=== PATIENT | male | born 1935 | race Caucasian/White ===

== ENCOUNTER 2016-08-08 19:27 | Inpatient (IN) | payer MEDICARE, MEDICAID ==
[~2016-08-08] VITALS: Ht 162.6 cm; Wt 90.7 kg
[2016-08-08] MEDS ORDERED: DORZ10DR8 EACHEYE (20:21)
[2016-08-08] MEDS ORDERED: BRIM5DRO2 EACHEYE (20:21)
[2016-08-08] MEDS ORDERED: BIMA2.5D5 EACHEYE (20:21)
[2016-08-08] MEDS ORDERED: MAGN400T6 PO (20:21)
[2016-08-08] MEDS ORDERED: ASPI-869 PO (20:21)
[2016-08-08] MEDS ORDERED: MEMA10TA PO (20:21)
[2016-08-08] MEDS ORDERED: FLUT1DIS28 IH (20:21)
[2016-08-08] MEDS ORDERED: ATOR20TA PO (20:21)
[2016-08-08] MEDS ORDERED: POTA10TA15 PO (20:21)
[2016-08-08] MEDS ORDERED: DEXL60CA3 PO (20:21)
[2016-08-08] MEDS ORDERED: ICOS1CAP PO (20:21)
[2016-08-08] MEDS ORDERED: ISOS30TA6 PO (20:21)
[2016-08-08] MEDS ORDERED: MULT1TAB73 PO (20:21)
[2016-08-08] MEDS ORDERED: TOPI25TA49 PO (20:21)
[2016-08-08] MEDS ORDERED: RISP0.5T20 PO (20:21)
[2016-08-08] MEDS ORDERED: DONE5TAB34 PO (20:21)
[2016-08-08] MEDS ORDERED: ERGO2000 PO (20:21)
[2016-08-08] MEDS ORDERED: CILO100T PO (20:21)
[2016-08-08] MEDS ORDERED: CLOP75TA15 PO (20:21)
[2016-08-08] MEDS ORDERED: SITA1TAB2 PO (20:21)
[2016-08-08] MEDS ORDERED: DOCU250C88 PO (20:21)
[2016-08-08] MEDS ORDERED: OLOP2.5D5 EACHEYE (20:21)
[2016-08-08] MEDS ORDERED: HYDROMORPHONE 1 MG/1 ML DISP.SYRIN IV ONE (20:30)
[2016-08-08] MEDS ORDERED: ONDANSETRON 4 MG/2 ML VIAL IV ONE (20:30)
[2016-08-08] MEDS ORDERED: IV NORMAL SALINE 1000 ML BAG IV ONE (20:30)
[2016-08-08] MEDS ORDERED: PANTOPRAZOLE SODIUM 40 MG VIAL IV ONE (20:30)
[2016-08-08 20:44] LABS: BASOPHILS # (AUTO) 0.1 K/uL (0.0-8.0); BASOPHILS % (AUTO) 0.5 % (0.0-2.0); EOSINOPHILS # (AUTO) 0.5 K/uL (0.0-0.7); EOSINOPHILS % (AUTO) 5.3 % (0.0-7.0); HEMATOCRIT 37.1 % (40-50); HEMOGLOBIN 12.5 G/DL (14.0-18.0); LYMPHOCYTES # (AUTO) 2.1 K/UL (0.8-4.8); LYMPHOCYTES % (AUTO) 20.9 % (20.5-51.5); MEAN CORPUSCULAR HGB CONC 34 g/dL (32.0-37.0); MEAN CORPUSCULAR VOLUME 91.6 FL (82.0-92.0); NEUTROPHILS # (AUTO) 6.5 K/UL (1.8-8.9); NEUTROPHILS % (AUTO) 63.3 % (38.5-71.5); PLATELET COUNT (AUTO) 292 K/UL (150-450); RED BLOOD CELL COUNT(AUTO) 4.05 MIL/UL (4.7-6.1); WHITE BLOOD COUNT (AUTO) 10.2 K/UL (4.0-11.2)
[2016-08-08] MEDS ORDERED: HYDROMORPHONE 1 MG/1 ML DISP.SYRIN ONE (20:51)
[2016-08-08] MEDS ORDERED: ONDANSETRON 4 MG/2 ML VIAL ONE (20:51)
[2016-08-08] MEDS ORDERED: PANTOPRAZOLE SODIUM 40 MG VIAL ONE (20:51)
[2016-08-08 20:53] LABS: CARBON DIOXIDE 28 mmol/L (21-32); CHLORIDE 103 mmol/L (98-107); CREATININE 1.2 mg/dL (0.6-1.3); GLUCOSE 170 mg/dL (74-106); POTASSIUM 4.1 mmol/L (3.5-5.1); UREA NITROGEN, BLOOD 22 mg/dL (7-18)
[2016-08-08 20:58] LABS: ALANINE AMINOTRANSFERASE 30 U/L (16-63); ALKALINE PHOSPHATASE 83 U/L (50-136); ASPARTATE AMINOTRANSFERASE 22 U/L (15-37); BILIRUBIN,DIRECT 0.1 mg/dL (0.0-0.2); BILIRUBIN,TOTAL 0.4 mg/dL (0.2-1.0); LIPASE 87 U/L (73-393); TOTAL PROTEIN, SERUM 7.7 g/dL (6.4-8.2)
[2016-08-08] MEDS ORDERED: IOHEXOL 300MG/ML 100 ML INFUS..BTL ONE (21:28)
[2016-08-08] MEDS ORDERED: NORMAL SALINE FLUSH 10 ML DISP.SYRIN ONE (21:28)
[2016-08-08] MEDS ORDERED: IV NORMAL SALINE 250 ML IV ONE (21:28)
--- NOTE | 2016-08-08 23:22 | NUR ---
Call placed to [facility], Dr. Rodgers will be paged.
[2016-08-08] MEDS ORDERED: IV 1/2NS 1000 ML 1,000 ML IV PRN (23:44)
[2016-08-08] MEDS ORDERED: MORPHINE SULFATE 4 MG/1 ML DISP.SYRIN IV ONE (23:45)
[2016-08-08] MEDS ORDERED: Medication Not On Formulary EA (Ergocalciferol (Vitamin D2) (Vitamin D2 TAB) 50,000 UNIT PO SCH (23:45)
[2016-08-08] MEDS ORDERED: ACETAMINOPHEN 325 MG TABLET PO PRN (23:45)
[2016-08-08] MEDS ORDERED: Z GUARD REMEDY PASTE 57 GM TUBE TOP PRN (23:45)
[2016-08-08] MEDS ORDERED: MAGNESIUM HYDROXIDE 30 ML LIQUID UDC PO PRN (23:45)
[2016-08-08] MEDS ORDERED: MORPHINE SULFATE 2 MG/1 ML DISP.SYRIN IV PRN (23:45)
[2016-08-08] MEDS ORDERED: HYDROCODONE/APAP 5-325MG TABLET PO PRN (23:45)
[2016-08-08] MEDS ORDERED: ONDANSETRON 4 MG/2 ML VIAL IV PRN (23:45)
[2016-08-09] MEDS ORDERED: DEXTROSE 50% 50 ML DISP.SYRIN IV PRN
[2016-08-09] MEDS ORDERED: MORPHINE SULFATE 4 MG/1 ML DISP.SYRIN ONE (00:03)
--- NOTE | 2016-08-09 00:15 | NUR ---
Pt. admitted to M/S, under care of Dr. Rodgers Belongs List completed
[2016-08-09 00:34] VITALS: BP 155/85
--- NOTE | 2016-08-09 02:00 | NUR ---
BODY CHECK WAS DONE, PATIENT HAS MULTIPLE SCAR ON LEFT SIDE OF THE HEAD, AND RIGHT UPPER LIP, AND ON BACK.
[2016-08-09 04:56] VITALS: BP 136/54
--- NOTE | 2016-08-09 05:46 | NUR ---
PATIENT SLEPT MOST OF THE NIGHT, NO SOB NO CHEST PAIN NOTED, NO COMPLAIN OF PAIN AT THIS TIME. CONT TO MONITOR.
[2016-08-09] MEDS: BLOOD SUGAR DIAGNOSTIC 1 EACH STRIP VI SCH ×4 (06:31→20:53)
[2016-08-09 07:57] LABS: ALANINE AMINOTRANSFERASE 31 U/L (16-63); ALKALINE PHOSPHATASE 79 U/L (50-136); ASPARTATE AMINOTRANSFERASE 27 U/L (15-37); BILIRUBIN,DIRECT 0.1 mg/dL (0.0-0.2); BILIRUBIN,TOTAL 0.4 mg/dL (0.2-1.0); CARBON DIOXIDE 27 mmol/L (21-32); CHLORIDE 104 mmol/L (98-107); GLUCOSE 145 mg/dL (74-106); PHOSPHOROUS 3.3 mg/dL (2.5-4.9); POTASSIUM 4.2 mmol/L (3.5-5.1); TOTAL PROTEIN, SERUM 7.1 g/dL (6.4-8.2); UREA NITROGEN, BLOOD 18 mg/dL (7-18)
[2016-08-09] MEDS ORDERED: POTASSIUM CHLORIDE 20 MEQ TAB.PRT.SR PO SCH (08:00)
--- NOTE | 2016-08-09 08:00 | NUR ---
awake speak rwandan but able to follow simple direction well no n/v or abd pain mary clear liq breakfast well continue ivf on aspiration and fall precaution bed alarm on and call jesus in reach
[2016-08-09 08:10] LABS: BASOPHILS # (AUTO) 0.1 K/uL (0.0-8.0); BASOPHILS % (AUTO) 0.7 % (0.0-2.0); EOSINOPHILS # (AUTO) 0.6 K/uL (0.0-0.7); EOSINOPHILS % (AUTO) 7.7 % (0.0-7.0); HEMATOCRIT 36.7 % (40-50); HEMOGLOBIN 12.3 G/DL (14.0-18.0); LYMPHOCYTES # (AUTO) 2.1 K/UL (0.8-4.8); LYMPHOCYTES % (AUTO) 25.9 % (20.5-51.5); MEAN CORPUSCULAR HEMOGLOBIN 30.9 UUG (27.0-31.0); MEAN CORPUSCULAR HGB CONC 33 g/dL (32.0-37.0); MEAN CORPUSCULAR VOLUME 92.6 FL (82.0-92.0); MONOCYTES # (AUTO) 0.7 K/UL (0.1-1.30); MONOCYTES % (AUTO) 7.9 % (0.0-11.0); NEUTROPHILS # (AUTO) 4.8 K/UL (1.8-8.9); NEUTROPHILS % (AUTO) 57.8 % (38.5-71.5); PLATELET COUNT (AUTO) 260 K/UL (150-450); RED BLOOD CELL COUNT(AUTO) 3.96 MIL/UL (4.7-6.1); WHITE BLOOD COUNT (AUTO) 8.3 K/UL (4.0-11.2)
--- NOTE | 2016-08-09 08:15 | NUR ---
DR VALERIO WAS CALL TO REPORT LACTIC ACID RESULT WAS 2.8 AND MESSAGE LEFT
[2016-08-09] MEDS ORDERED: Medication Not On Formulary EA (Multivitamins (Multivitamin) 1 EACH) PO SCH (09:00)
[2016-08-09] MEDS ORDERED: FLUTICASONE/SALMETEROL 250/50 INHALER IH SCH (09:00)
[2016-08-09] MEDS ORDERED: ICOSAPENT ETHYL PO SCH (09:00)
[2016-08-09] MEDS: INSULIN REGULAR, HUMAN 300 UNIT/3 ML VIAL SQ PRN ×2 (09:53→12:14)
[2016-08-09] MEDS: MULTIVITAMINS,THERAPEUTIC TABLET PO SCH (09:54)
[2016-08-09] MEDS: OMEGA-3 FATTY ACIDS/FISH OIL CAPSULE PO SCH (09:54)
[2016-08-09] MEDS: CLOPIDOGREL 75 MG TABLET PO SCH (09:54)
[2016-08-09] MEDS: TOPIRAMATE 25 MG TABLET PO SCH (09:55)
[2016-08-09] MEDS: CILOSTAZOL 100 MG TABLET PO SCH ×2 (09:55→17:19)
[2016-08-09] MEDS: DOCUSATE SODIUM 250 MG CAPSULE PO SCH ×2 (09:55→17:19)
[2016-08-09] MEDS: PANTOPRAZOLE SODIUM 40 MG TABLET.DR PO SCH (09:55)
[2016-08-09] MEDS: DONEPEZIL 5 MG TABLET PO SCH (09:56)
[2016-08-09] MEDS: ISOSORBIDE MONONITRATE 30 MG TAB.SR.24H PO SCH (09:56)
[2016-08-09] MEDS: MAGNESIUM OXIDE 400 MG TABLET PO SCH ×2 (09:56→17:19)
[2016-08-09] MEDS: ASPIRIN EC 325 MG TABLET.DR PO SCH (09:56)
[2016-08-09] MEDS: MEMANTINE HCL 10 MG TABLET PO SCH ×2 (09:57→17:19)
[2016-08-09] MEDS: FLUTICASONE/VILANTEROL 1 EACH BLST.W.DEV INH SCH (09:58)
[2016-08-09] MEDS: DORZOLAMIDE 2% OPHT DROP 10 ML BOTTLE EACHEYE SCH ×3 (09:58→17:19)
--- NOTE | 2016-08-09 10:30 | NUR ---
REPEAT LAB LACTIC ACID WAS 1.5 DIRECTOR VOLUNTEER SERVICES C TERESITA WAS AWARE OF RESULT NO NEW ORDER
[2016-08-09 11:05] VITALS: BP 132/54
[2016-08-09 12:06] LABS: *BILIRUBIN,URIN NEGATIVE (NEGATIVE); *BLOOD, URINE NEGATIVE (NEGATIVE); *CLARITY,URINE CLEAR (CLEAR); *COLOR,URINE YELLOW (YELLOW); *KETONES,URINE NEGATIVE (NEGATIVE); *PROTEIN,URINE NEGATIVE (NEGATIVE); LEUKOCYTE ESTERASE ,URINE NEGATIVE (NEGATIVE); NITRITE, URINE NEGATIVE (NEGATIVE); PH,URINE 5.5 (5.0-8.0); UGLUCOSE TRACE (NEGATIVE)
[2016-08-09 12:18] LABS: BACTERIA,URINE NONE SEEN /HPF (NONE SEEN); MUCUS,URINE FEW /LPF (0-FEW); RBC,URINE 0-3 /HPF (0-3); SQUAMOUS EPITHELIAL CELL,UR FEW /HPF (NONE SEEN); WBC,URINE 0-3 /HPF (0-3)
[2016-08-09 15:39] VITALS: BP 136/62
[2016-08-09] MEDS ORDERED: IV 1/2NS 1000 ML 1,000 ML IV PRN (16:25)
--- NOTE | 2016-08-09 18:00 | NUR ---
SAME CONDITION NO ACUTE DISTRESS PAIN UNDER CONTROL NO N/V OR SOB SAFETY MEASURE PROVIDED BED ALARM ON AND CALL SOLOMON IN REACH
[2016-08-09 20:00] VITALS: BP 120/54
[2016-08-09] MEDS: risperiDONE 0.5 MG TABLET PO SCH (20:40)
[2016-08-09] MEDS: ATORVASTATIN 20 MG TABLET PO SCH (20:40)
[2016-08-09] MEDS: INSULIN REGULAR, HUMAN 300 UNITS/3 ML VIAL SQ PRN (20:56)
[2016-08-10 05:35] VITALS: BP 142/50
--- NOTE | 2016-08-10 05:51 | NUR ---
PATIENT SLEPT WELL, NO ACUTE DISTRESS. ASSISTED WITH TOILETING NEEDS. CALL LIGHT WITHIN REACH, BED ALARM ON. WILL CONTINUE TO MONITOR.
[2016-08-10] MEDS: PANTOPRAZOLE SODIUM 40 MG TABLET.DR PO SCH (06:23)
[2016-08-10] MEDS: BLOOD SUGAR DIAGNOSTIC 1 EACH STRIP VI SCH ×4 (06:30→21:07)
--- NOTE | 2016-08-10 08:00 | NUR ---
OOB UP IN CHAIR DOING WELL EAT BREAKFAST WELL NO ABD PAIN OR N/V CALL SOLOMON IN REACH AND REMIND TO USE WHEN NEEDED
[2016-08-10] MEDS: CLOPIDOGREL 75 MG TABLET PO SCH (08:29)
[2016-08-10] MEDS: OMEGA-3 FATTY ACIDS/FISH OIL CAPSULE PO SCH (08:29)
[2016-08-10] MEDS: DOCUSATE SODIUM 250 MG CAPSULE PO SCH ×2 (08:29→16:50)
[2016-08-10] MEDS: MULTIVITAMINS,THERAPEUTIC TABLET PO SCH (08:29)
[2016-08-10] MEDS: CILOSTAZOL 100 MG TABLET PO SCH ×2 (08:29→16:50)
[2016-08-10] MEDS: MAGNESIUM OXIDE 400 MG TABLET PO SCH ×2 (08:29→16:50)
[2016-08-10] MEDS: ASPIRIN EC 325 MG TABLET.DR PO SCH (08:29)
[2016-08-10] MEDS: TOPIRAMATE 25 MG TABLET PO SCH (08:29)
[2016-08-10] MEDS: POTASSIUM CHLORIDE 20 MEQ TAB.PRT.SR PO SCH (08:29)
[2016-08-10] MEDS: MEMANTINE HCL 10 MG TABLET PO SCH ×2 (08:30→16:50)
[2016-08-10] MEDS: DONEPEZIL 5 MG TABLET PO SCH (08:30)
[2016-08-10] MEDS: ISOSORBIDE MONONITRATE 30 MG TAB.SR.24H PO SCH (08:30)
[2016-08-10 08:31] LABS: CARBON DIOXIDE 28 mmol/L (21-32); CHLORIDE 105 mmol/L (98-107); CREATININE 0.9 mg/dL (0.6-1.3); GLUCOSE 158 mg/dL (74-106); POTASSIUM 3.7 mmol/L (3.5-5.1); UREA NITROGEN, BLOOD 12 mg/dL (7-18)
[2016-08-10] MEDS: FLUTICASONE/VILANTEROL 1 EACH BLST.W.DEV INH SCH (08:33)
[2016-08-10] MEDS: DORZOLAMIDE 2% OPHT DROP 10 ML BOTTLE EACHEYE SCH ×3 (08:33→16:49)
[2016-08-10] MEDS: INSULIN REGULAR, HUMAN 300 UNIT/3 ML VIAL SQ PRN ×3 (08:35→16:55)
[2016-08-10 09:05] LABS: BASOPHILS % (AUTO) 0.5 % (0.0-2.0); EOSINOPHILS # (AUTO) 0.5 K/uL (0.0-0.7); EOSINOPHILS % (AUTO) 7.1 % (0.0-7.0); HEMATOCRIT 35.5 % (40-50); HEMOGLOBIN 11.9 G/DL (14.0-18.0); LYMPHOCYTES # (AUTO) 1.5 K/UL (0.8-4.8); LYMPHOCYTES % (AUTO) 19.3 % (20.5-51.5); MEAN CORPUSCULAR HEMOGLOBIN 30.6 UUG (27.0-31.0); MEAN CORPUSCULAR HGB CONC 33 g/dL (32.0-37.0); MEAN CORPUSCULAR VOLUME 91.7 FL (82.0-92.0); MONOCYTES # (AUTO) 0.5 K/UL (0.1-1.30); NEUTROPHILS # (AUTO) 5.2 K/UL (1.8-8.9); NEUTROPHILS % (AUTO) 66.1 % (38.5-71.5); PLATELET COUNT (AUTO) 252 K/UL (150-450); RED BLOOD CELL COUNT(AUTO) 3.87 MIL/UL (4.7-6.1); WHITE BLOOD COUNT (AUTO) 7.7 K/UL (4.0-11.2)
--- NOTE | 2016-08-10 11:00 | NUR ---
C CRISTAL MILLER PATIENT AND LAB RESULT AND ORDER IN CHART
[2016-08-10 11:10] VITALS: BP 124/64
[2016-08-10] MEDS ORDERED: PIPERACILLIN/TAZOBACTAM/D5W 50 ML IV SCH (11:45)
[2016-08-10] MEDS: PIPERACILLIN/TAZOBACTAM/D5W 50 ML IV SCH ×3 (12:24→23:57)
--- NOTE | 2016-08-10 13:00 | NUR ---
FAMILY WAS CALL TO GIVE UPDATE INFORMATION THAT PATIENT DOES NOT DISCHARGE HOME TODAY BECAUSE OF X RAY SHOW HE HAS PNA AND NEED ANTIBIOTICS , AND PATIENT WAS INFORM BY FAMILY UNDERSTAND
[2016-08-10 16:03] VITALS: BP 132/74
[2016-08-10] MEDS: BRIMONIDINE 0.2% OPHT DROP 10 ML BOTTLE EACHEYE SCH (16:49)
--- NOTE | 2016-08-10 17:00 | NUR ---
MOST OF THE TIME HE SIT AND OOB UP IN CHAIR NO SOB OR RESPIRATORY DISTRESS NO ABD PAIN SAFETY MEASURE PROVIDED CALL SOLOMON WITHIN REACH AND INSTRUCTION TO CALL WHEN NEEDED
--- NOTE | 2016-08-10 19:30 | NUR ---
RECEIVED PATIENT SITTING IN THE CHAIR COMFORTABLY. NO ACUTE DISTRESS NOTED. ECUADOREAN SPEAKING ONLY. SAFETY INITIATED. CALL LIGHT WITHIN REACH.
[2016-08-10 20:00] VITALS: BP 132/68
[2016-08-10] MEDS ORDERED: BIMATOPROST 0.01% OPHT DROP 2.5 ML BOTTLE EACHEYE SCH (21:00)
[2016-08-10] MEDS: risperiDONE 0.5 MG TABLET PO SCH (21:00)
[2016-08-10] MEDS: LATANOPROST OPHT DROP 2.5 ML BOTTLE EACHEYE SCH (21:05)
[2016-08-10] MEDS: ATORVASTATIN 20 MG TABLET PO SCH (21:05)
[2016-08-10] MEDS: TIMOLOL MALEATE 0.5% OPHT DROP 5 ML BOTTLE EACHEYE SCH (21:09)
[2016-08-10] MEDS: INSULIN REGULAR, HUMAN 300 UNITS/3 ML VIAL SQ PRN (21:18)
[2016-08-11] MEDS: PIPERACILLIN/TAZOBACTAM/D5W 50 ML IV SCH ×4 (05:08→23:38)
[2016-08-11 05:12] VITALS: BP 115/60
[2016-08-11] MEDS: BLOOD SUGAR DIAGNOSTIC 1 EACH STRIP VI SCH ×4 (06:33→21:51)
--- NOTE | 2016-08-11 07:16 | NUR ---
PATIENT SLEPT INTERMITTENTLY T/O THE NIGHT. CHINESE SPEAKING ONLY. SAFETY AND COMFORT MAINTAINED T/O SHIFT. NO ACUTE DISTRESS NOTED. CALL LIGHT WITHIN REACH. ALL NEEDS MET. ALL MEDS GIVEN ORDERED.
[2016-08-11] MEDS: INSULIN REGULAR, HUMAN 300 UNIT/3 ML VIAL SQ PRN ×2 (08:42→11:30)
[2016-08-11] MEDS: POTASSIUM CHLORIDE 20 MEQ TAB.PRT.SR PO SCH (08:51)
[2016-08-11] MEDS: CLOPIDOGREL 75 MG TABLET PO SCH (08:51)
[2016-08-11] MEDS: ASPIRIN EC 325 MG TABLET.DR PO SCH (08:51)
[2016-08-11] MEDS: METFORMIN HCL 500 MG TABLET PO SCH ×2 (08:52→17:20)
[2016-08-11] MEDS: PANTOPRAZOLE SODIUM 40 MG TABLET.DR PO SCH (08:52)
[2016-08-11] MEDS: OMEGA-3 FATTY ACIDS/FISH OIL CAPSULE PO SCH (08:52)
[2016-08-11] MEDS: CILOSTAZOL 100 MG TABLET PO SCH ×2 (08:52→17:19)
[2016-08-11] MEDS: MULTIVITAMINS,THERAPEUTIC TABLET PO SCH (08:52)
[2016-08-11] MEDS: LINAGLIPTIN 5 MG TABLET PO SCH (08:52)
[2016-08-11] MEDS: DOCUSATE SODIUM 250 MG CAPSULE PO SCH ×2 (08:52→17:19)
[2016-08-11] MEDS: MAGNESIUM OXIDE 400 MG TABLET PO SCH ×2 (08:53→17:19)
[2016-08-11] MEDS: DONEPEZIL 5 MG TABLET PO SCH (08:53)
[2016-08-11] MEDS: MEMANTINE HCL 10 MG TABLET PO SCH ×2 (08:53→17:19)
[2016-08-11] MEDS: TOPIRAMATE 25 MG TABLET PO SCH (08:53)
[2016-08-11] MEDS: ISOSORBIDE MONONITRATE 30 MG TAB.SR.24H PO SCH (08:53)
[2016-08-11] MEDS: DORZOLAMIDE 2% OPHT DROP 10 ML BOTTLE EACHEYE SCH ×3 (08:54→17:21)
[2016-08-11] MEDS: FLUTICASONE/VILANTEROL 1 EACH BLST.W.DEV INH SCH (08:54)
[2016-08-11] MEDS: BRIMONIDINE 0.2% OPHT DROP 10 ML BOTTLE EACHEYE SCH ×2 (08:55→17:21)
[2016-08-11] MEDS: OLOPATADINE 0.1% OPHT DROP 5 ML BOTTLE EACHEYE SCH (08:55)
[2016-08-11] MEDS: TIMOLOL MALEATE 0.5% OPHT DROP 5 ML BOTTLE EACHEYE SCH ×2 (08:56→21:43)
[2016-08-11] MEDS ORDERED: ERGOCALCIFEROL 50,000 UNIT CAPSULE PO SCH (09:00)
[2016-08-11 12:00] VITALS: BP 116/52
--- NOTE | 2016-08-11 13:00 | NUR ---
FAMILY VISIT TODAY NO PAIN OR SOB EAT LUNCH WELL
[2016-08-11 15:49] VITALS: BP 90/50
--- NOTE | 2016-08-11 18:00 | NUR ---
RESTING WELL NO SOB OR ANY ACUTE DISTRESS SAFTY MEASURE PROVIDED CALL SOLOMON IN REACH AND BED ALARM ON
[2016-08-11 20:29] VITALS: BP 124/52
[2016-08-11] MEDS: ATORVASTATIN 20 MG TABLET PO SCH (21:42)
[2016-08-11] MEDS: risperiDONE 0.5 MG TABLET PO SCH (21:42)
[2016-08-11] MEDS: LATANOPROST OPHT DROP 2.5 ML BOTTLE EACHEYE SCH (21:42)
[2016-08-11] MEDS: INSULIN REGULAR, HUMAN 300 UNITS/3 ML VIAL SQ PRN (21:50)
--- NOTE | 2016-08-11 22:00 | NUR ---
RECEIVED PATIENT AND REPORT FROM RN. PATIENT IS A/O X3. FAROESE SPEAKING BUT ABLE TO MAKE NEEDS KNOWN. DENIES PAIN OR DISCOMFORT. ON O2 2L NC SATING WELL. NO RESP. DISTRESS NOTED. H/L INTACT AND PATENT. VSS. BED ALARM ON. CALL LIGHT IN REACH. ALL NEEDS ATTENDED. WILL CONTINUE TO MONITOR AND ASSESS.
[2016-08-12 04:00] VITALS: BP 131/64
[2016-08-12] MEDS: PIPERACILLIN/TAZOBACTAM/D5W 50 ML IV SCH ×3 (06:12→17:38)
[2016-08-12] MEDS: BLOOD SUGAR DIAGNOSTIC 1 EACH STRIP VI SCH ×4 (06:36→20:44)
[2016-08-12] MEDS: PANTOPRAZOLE SODIUM 40 MG TABLET.DR PO SCH (06:50)
[2016-08-12 06:54] LABS: BASOPHILS % (AUTO) 0.5 % (0.0-2.0); EOSINOPHILS # (AUTO) 0.7 K/uL (0.0-0.7); EOSINOPHILS % (AUTO) 7.9 % (0.0-7.0); HEMATOCRIT 35.3 % (40-50); HEMOGLOBIN 12.2 G/DL (14.0-18.0); LYMPHOCYTES % (AUTO) 22.4 % (20.5-51.5); MEAN CORPUSCULAR HEMOGLOBIN 31.5 UUG (27.0-31.0); MEAN CORPUSCULAR HGB CONC 35 g/dL (32.0-37.0); MEAN CORPUSCULAR VOLUME 91.3 FL (82.0-92.0); MONOCYTES # (AUTO) 0.7 K/UL (0.1-1.30); MONOCYTES % (AUTO) 8.5 % (0.0-11.0); NEUTROPHILS # (AUTO) 5.3 K/UL (1.8-8.9); NEUTROPHILS % (AUTO) 60.7 % (38.5-71.5); PLATELET COUNT (AUTO) 252 K/UL (150-450); RED BLOOD CELL COUNT(AUTO) 3.87 MIL/UL (4.7-6.1); WHITE BLOOD COUNT (AUTO) 8.7 K/UL (4.0-11.2)
[2016-08-12 07:10] LABS: CARBON DIOXIDE 28 mmol/L (21-32); CHLORIDE 105 mmol/L (98-107); CREATININE 1.1 mg/dL (0.6-1.3); GLUCOSE 148 mg/dL (74-106); POTASSIUM 3.7 mmol/L (3.5-5.1); UREA NITROGEN, BLOOD 17 mg/dL (7-18)
[2016-08-12] MEDS: ASPIRIN EC 325 MG TABLET.DR PO SCH (08:54)
[2016-08-12] MEDS: LINAGLIPTIN 5 MG TABLET PO SCH (08:54)
[2016-08-12] MEDS: TOPIRAMATE 25 MG TABLET PO SCH (08:54)
[2016-08-12] MEDS: DONEPEZIL 5 MG TABLET PO SCH (08:54)
[2016-08-12] MEDS: ISOSORBIDE MONONITRATE 30 MG TAB.SR.24H PO SCH (08:55)
[2016-08-12] MEDS: POTASSIUM CHLORIDE 20 MEQ TAB.PRT.SR PO SCH (08:55)
[2016-08-12] MEDS: DOCUSATE SODIUM 250 MG CAPSULE PO SCH ×2 (08:55→17:35)
[2016-08-12] MEDS: METFORMIN HCL 500 MG TABLET PO SCH ×2 (08:55→17:35)
[2016-08-12] MEDS: CILOSTAZOL 100 MG TABLET PO SCH ×2 (08:55→17:35)
[2016-08-12] MEDS: OMEGA-3 FATTY ACIDS/FISH OIL CAPSULE PO SCH (08:55)
[2016-08-12] MEDS: MEMANTINE HCL 10 MG TABLET PO SCH ×2 (08:55→17:35)
[2016-08-12] MEDS: MAGNESIUM OXIDE 400 MG TABLET PO SCH ×2 (08:55→17:35)
[2016-08-12] MEDS: TIMOLOL MALEATE 0.5% OPHT DROP 5 ML BOTTLE EACHEYE SCH ×2 (08:56→20:44)
[2016-08-12] MEDS: MULTIVITAMINS,THERAPEUTIC TABLET PO SCH (08:56)
[2016-08-12] MEDS: CLOPIDOGREL 75 MG TABLET PO SCH (08:56)
[2016-08-12] MEDS: BRIMONIDINE 0.2% OPHT DROP 10 ML BOTTLE EACHEYE SCH ×2 (08:57→17:34)
[2016-08-12] MEDS: DORZOLAMIDE 2% OPHT DROP 10 ML BOTTLE EACHEYE SCH ×3 (08:57→17:34)
[2016-08-12] MEDS: FLUTICASONE/VILANTEROL 1 EACH BLST.W.DEV INH SCH (08:57)
[2016-08-12] MEDS: OLOPATADINE 0.1% OPHT DROP 5 ML BOTTLE EACHEYE SCH (08:57)
[2016-08-12] MEDS: INSULIN REGULAR, HUMAN 300 UNIT/3 ML VIAL SQ PRN ×3 (09:03→17:37)
[2016-08-12 11:51] VITALS: BP 101/46
[2016-08-12 15:19] VITALS: BP 127/76
[2016-08-12 20:00] VITALS: BP 100/60
[2016-08-12] MEDS: LATANOPROST OPHT DROP 2.5 ML BOTTLE EACHEYE SCH (20:43)
[2016-08-12] MEDS: INSULIN REGULAR, HUMAN 300 UNITS/3 ML VIAL SQ PRN (20:45)
[2016-08-12] MEDS: risperiDONE 0.5 MG TABLET PO SCH (20:54)
[2016-08-12] MEDS: ATORVASTATIN 20 MG TABLET PO SCH (21:05)
[2016-08-13] MEDS: PIPERACILLIN/TAZOBACTAM/D5W 50 ML IV SCH ×4 (00:17→17:00)
[2016-08-13 05:00] VITALS: BP 114/53
[2016-08-13] MEDS: PANTOPRAZOLE SODIUM 40 MG TABLET.DR PO SCH (06:20)
[2016-08-13] MEDS: BLOOD SUGAR DIAGNOSTIC 1 EACH STRIP VI SCH ×3 (06:36→16:55)
--- NOTE | 2016-08-13 06:52 | NUR ---
PATIENT RESTING IN BED. SLEPT WELL THROUGHOUT THE NIGHT. VSS. CALL LIGHT IN REACH. ALL NEEDS ATTENDED. WILL CONTINUE TO MONITOR.
--- NOTE | 2016-08-13 07:00 | NUR ---
PATIENT RECEIVED IN ROOM RESTING IN BED WITH EYES CLOSED IN NO ACUTE DISTRESS. RESPIRATIONS EVEN AND UNLABORED. CALL LIGHT AT REACH.
[2016-08-13 07:32] LABS: BASOPHILS % (AUTO) 0.4 % (0.0-2.0); EOSINOPHILS # (AUTO) 0.8 K/uL (0.0-0.7); HEMATOCRIT 37.8 % (40-50); HEMOGLOBIN 12.6 G/DL (14.0-18.0); LYMPHOCYTES % (AUTO) 21.3 % (20.5-51.5); MEAN CORPUSCULAR HEMOGLOBIN 30.9 UUG (27.0-31.0); MEAN CORPUSCULAR HGB CONC 33 g/dL (32.0-37.0); MEAN CORPUSCULAR VOLUME 92.3 FL (82.0-92.0); MONOCYTES # (AUTO) 0.7 K/UL (0.1-1.30); MONOCYTES % (AUTO) 7.2 % (0.0-11.0); NEUTROPHILS # (AUTO) 5.7 K/UL (1.8-8.9); NEUTROPHILS % (AUTO) 62.1 % (38.5-71.5); PLATELET COUNT (AUTO) 275 K/UL (150-450); RED BLOOD CELL COUNT(AUTO) 4.09 MIL/UL (4.7-6.1); WHITE BLOOD COUNT (AUTO) 9.2 K/UL (4.0-11.2)
[2016-08-13 07:43] LABS: ALANINE AMINOTRANSFERASE 33 U/L (16-63); ALKALINE PHOSPHATASE 72 U/L (50-136); ASPARTATE AMINOTRANSFERASE 28 U/L (15-37); BILIRUBIN,TOTAL 0.5 mg/dL (0.2-1.0); CARBON DIOXIDE 27 mmol/L (21-32); CHLORIDE 105 mmol/L (98-107); CHOLESTEROL 145 mg/dL (<200); CREATININE 1.2 mg/dL (0.6-1.3); GLUCOSE 138 mg/dL (74-106); HDL CHOLESTEROL 37 mg/dL (40-60); MAGNESIUM 2.1 mg/dL (1.8-2.4); PHOSPHOROUS 3.4 mg/dL (2.5-4.9); POTASSIUM 3.5 mmol/L (3.5-5.1); TOTAL PROTEIN, SERUM 7.6 g/dL (6.4-8.2); TRIGLYCERIDES 119 MG/DL (30-150); UREA NITROGEN, BLOOD 18 mg/dL (7-18)
[2016-08-13 07:52] LABS: THYROID STIMULATING HORMONE 2.661 mIU/mL (0.358-3.740)
[2016-08-13] MEDS: BRIMONIDINE 0.2% OPHT DROP 10 ML BOTTLE EACHEYE SCH ×2 (08:17→16:59)
[2016-08-13] MEDS: INSULIN REGULAR, HUMAN 300 UNIT/3 ML VIAL SQ PRN ×2 (08:18→12:37)
[2016-08-13] MEDS: TOPIRAMATE 25 MG TABLET PO SCH (08:20)
[2016-08-13] MEDS: METFORMIN HCL 500 MG TABLET PO SCH ×2 (08:21→17:06)
[2016-08-13] MEDS: OMEGA-3 FATTY ACIDS/FISH OIL CAPSULE PO SCH (08:21)
[2016-08-13] MEDS: DONEPEZIL 5 MG TABLET PO SCH (08:21)
[2016-08-13] MEDS: POTASSIUM CHLORIDE 20 MEQ TAB.PRT.SR PO SCH (08:21)
[2016-08-13] MEDS: CILOSTAZOL 100 MG TABLET PO SCH ×2 (08:21→16:58)
[2016-08-13] MEDS: MAGNESIUM OXIDE 400 MG TABLET PO SCH ×2 (08:21→16:59)
[2016-08-13] MEDS: MULTIVITAMINS,THERAPEUTIC TABLET PO SCH (08:21)
[2016-08-13] MEDS: DOCUSATE SODIUM 250 MG CAPSULE PO SCH ×2 (08:21→16:58)
[2016-08-13] MEDS: LINAGLIPTIN 5 MG TABLET PO SCH (08:21)
[2016-08-13] MEDS: CLOPIDOGREL 75 MG TABLET PO SCH (08:21)
[2016-08-13] MEDS: ASPIRIN EC 325 MG TABLET.DR PO SCH (08:22)
[2016-08-13] MEDS: MEMANTINE HCL 10 MG TABLET PO SCH ×2 (08:22→16:59)
[2016-08-13] MEDS: DORZOLAMIDE 2% OPHT DROP 10 ML BOTTLE EACHEYE SCH ×3 (08:22→16:55)
[2016-08-13] MEDS: FLUTICASONE/VILANTEROL 1 EACH BLST.W.DEV INH SCH (08:24)
[2016-08-13] MEDS: OLOPATADINE 0.1% OPHT DROP 5 ML BOTTLE EACHEYE SCH (08:25)
[2016-08-13] MEDS: TIMOLOL MALEATE 0.5% OPHT DROP 5 ML BOTTLE EACHEYE SCH (08:34)
[2016-08-13] MEDS: ISOSORBIDE MONONITRATE 30 MG TAB.SR.24H PO SCH (08:36)
[2016-08-13 11:06] VITALS: BP 106/54
[2016-08-13 15:13] VITALS: BP 112/64
[2016-08-13] MEDS ORDERED: ACID1TAB4 PO (17:06)
[2016-08-13] MEDS ORDERED: AMOX-430 PO (17:06)
[2016-08-13] MEDS ORDERED: ALBU8.5H8 INH (17:06)
--- NOTE | 2016-08-13 18:45 | NUR ---
DISCHARGING PATIENT HOME IN A STABLE CONDITION. VSS. DENIED PAIN. DISCHARGE INSTRUCTIONS PROVIDED. LIST OF BELONGINGS SIGNED AND ALL WAS TAKEN. IV REMOVED. PRESSURE APPLIED AND HEMOSTASIS ACHIEVED. PATIENT LEAVING VIA PRIVATE CAR ACCOMPANIED BY GRANDDAUGHTER DANIELLE.
--- NOTE | 2016-08-13 19:45 | NUR ---
PATIENT LEFT FACILITY IN STABLE CONDITION. ALL NEEDS ATTENDED. WILL CONTINUE TO MONITOR.
== END 2016-08-13 19:45 | disposition home health service (06) | DRG 871 ==
LOC: ER 19:29 → MED 23:30
PROVIDERS: ADMIT Internal Medicine; ATTEND Internal Medicine
DX: A41.9 Sepsis, unspecified organism (principal); N17.0 Acute kidney failure with tubular necrosis; J18.9 Pneumonia, unspecified organism; K65.4 Sclerosing mesenteritis; J44.0 Chronic obstructive pulmonary disease with (acute) lower respiratory infection; K55.1 Chronic vascular disorders of intestine; E87.2 Acidosis; F03.90 Unspecified dementia, unspecified severity, without behavioral disturbance, psychotic disturbance, mood disturbance, and anxiety; I10 Essential (primary) hypertension; J44.9 Chronic obstructive pulmonary disease, unspecified; K21.9 Gastro-esophageal reflux disease without esophagitis; H54.42 Blindness, left eye, normal vision right eye; H40.9 Unspecified glaucoma; F41.9 Anxiety disorder, unspecified; F32.9 Major depressive disorder, single episode, unspecified; E66.9 Obesity, unspecified; N40.0 Benign prostatic hyperplasia without lower urinary tract symptoms; Z68.34 Body mass index [BMI] 34.0-34.9, adult; Z79.899 Other long term (current) drug therapy; I73.9 Peripheral vascular disease, unspecified; Z79.82 Long term (current) use of aspirin; E11.9 Type 2 diabetes mellitus without complications; D64.9 Anemia, unspecified
CPT/HCPCS: 36415; 70030-TC; 71010; 82306; 83605; 83690; 83735; 84100; 84443; 85025; 85730; 87086; 92610; 93005; 93307; 97161; A4663; C9113; J1170; J1815; J2270; J2405; J2543; J3490; J7030; J7050; Q9967

== ENCOUNTER 2017-06-02 00:14 | Inpatient (IN) | payer MEDICARE, MEDICAID ==
[~2017-06-02] VITALS: Ht 162.6 cm; Wt 96.9 kg
[2017-06-02] VITALS (14 sets, daily range): BP systolic 115–173; BP diastolic 48–100
[~2017-06-02 00:14] MED LIST: ACID1TAB4 PO; ALBU8.5H8 INH; AMOX-430 PO; ASPI-869 PO; ATOR20TA PO; BIMA2.5D5 EACHEYE; BRIM5DRO2 EACHEYE; CILO100T PO; CLOP75TA15 PO; DEXL60CA3 PO; DOCU250C88 PO; DONE5TAB34 PO; DORZ10DR10 EACHEYE; ERGO2000 PO; FLUT1DIS28 IH; ICOS1CAP PO; ISOS30TA6 PO; MAGN400T6 PO; MEMA10TA PO; MULT1TAB73 PO; OLOP2.5D5 EACHEYE; POTA10TA15 PO; RISP0.5T20 PO; SITA1TAB2 PO; TOPI25TA49 PO
[2017-06-02] MEDS ORDERED: NITROGLYCERIN OINT 1 GM PACKET TP ONE ×2 (00:30→00:50)
[2017-06-02] MEDS ORDERED: ENOXAPARIN SODIUM 30 MG/0.3 ML DISP.SYRIN SUBCUT ONE (00:30)
[2017-06-02] MEDS ORDERED: ASPIRIN 325 MG TABLET PO ONE (00:30)
[2017-06-02] MEDS ORDERED: METOPROLOL TARTRATE 50 MG TABLET PO ONE (00:30)
--- NOTE | 2017-06-02 00:45 | NUR ---
LAB AT BEDSIDE FOR BLOOD DRAW
[2017-06-02] MEDS ORDERED: ASPIRIN 325 MG TABLET ONE (00:51)
[2017-06-02] MEDS ORDERED: ENOXAPARIN SODIUM 100 MG/ML DISP.SYRIN SQ ONE (00:51)
[2017-06-02] MEDS ORDERED: METOPROLOL TARTRATE 50 MG TABLET ONE (00:51)
[2017-06-02 00:54] LABS: EOSINOPHILS % (AUTO) 6.3 % (0.0-7.0); HEMATOCRIT 37.3 % (36.7-47.1); HEMOGLOBIN 12.6 g/dL (12.5-16.3); LYMPHOCYTES % (AUTO) 23.4 % (20.5-51.5); MEAN CORPUSCULAR HEMOGLOBIN 30.7 uug (23.8-33.4); MEAN CORPUSCULAR HGB CONC 34 g/dL (32.5-36.3); MEAN CORPUSCULAR VOLUME 90.9 fL (73.0-96.2); MONOCYTES % (AUTO) 9.2 % (0.0-11.0); NEUTROPHILS % (AUTO) 60.4 % (38.5-71.5); PLATELET COUNT (AUTO) 247 K/uL (152-348); RED BLOOD CELL COUNT(AUTO) 4.11 MIL/uL (4.06-5.63); WHITE BLOOD COUNT (AUTO) 11.7 K/uL (3.6-10.2)
[2017-06-02 00:55] LABS: BASOPHILS # (AUTO) 0.1 K/uL (0.0-8.0); BASOPHILS % (AUTO) 0.7 % (0.0-2.0); EOSINOPHILS # (AUTO) 0.7 K/uL (0.0-0.7); LYMPHOCYTES # (AUTO) 2.7 K/uL (20.0-40.0); MONOCYTES # (AUTO) 1.1 K/uL (2.0-10.0)
--- NOTE | 2017-06-02 00:58 | NUR ---
DR. BUTT AT BEDSIDE FOR MSE.
[2017-06-02 01:08] LABS: ALANINE AMINOTRANSFERASE 27 U/L (16-63); ALKALINE PHOSPHATASE 62 U/L (50-136); ASPARTATE AMINOTRANSFERASE 18 U/L (15-37); BILIRUBIN,DIRECT 0.1 mg/dL (0.0-0.2); BILIRUBIN,TOTAL 0.4 mg/dL (0.2-1.0); CARBON DIOXIDE 24 mmol/L (21-32); CHLORIDE 104 mmol/L (98-107); CREATININE 1.3 mg/dL (0.6-1.3); GLUCOSE 154 mg/dL (74-106); POTASSIUM 3.9 mmol/L (3.5-5.1); TOTAL PROTEIN, SERUM 7.6 g/dL (6.4-8.2); UREA NITROGEN, BLOOD 26 mg/dL (7-18)
[2017-06-02] MEDS ORDERED: MIRA25TA PO (01:13)
[2017-06-02] MEDS ORDERED: FINA5TAB11 PO (01:13)
[2017-06-02] MEDS ORDERED: ASPI-605 PO (01:13)
[2017-06-02] MEDS ORDERED: SITA1TAB6 PO (01:13)
[2017-06-02] MEDS ORDERED: TAMS-3 PO (01:13)
[2017-06-02] MEDS ORDERED: OMEG1CAP55 PO (01:13)
[2017-06-02] MEDS ORDERED: POLY255P2 PO (01:14)
[2017-06-02] MEDS ORDERED: UMEC62.5 IH (01:14)
[2017-06-02] MEDS ORDERED: DILT180C66 PO (01:14)
[2017-06-02] MEDS ORDERED: EZET10TA13 PO (01:14)
[2017-06-02] MEDS ORDERED: APIX2.5T PO (01:14)
--- NOTE | 2017-06-02 02:00 | NUR ---
PT RESTING COMFORTABLY IN BED. PT'S GRANDDAUGHTER AT BEDSIDE
[2017-06-02] MEDS ORDERED: IOHEXOL 300MG/ML 100 ML INFUS..BTL ONE (02:09)
[2017-06-02] MEDS ORDERED: SWABABLE VALVE TRANSFER SET EA MC ONE (02:09)
[2017-06-02] MEDS ORDERED: IV NORMAL SALINE 100 ML ONE (02:09)
--- NOTE | 2017-06-02 02:48 | NUR ---
PT BACK FROM CT CHEST W/CONTRAST
[2017-06-02] MEDS ORDERED: FUROSEMIDE 20 MG/2 ML VIAL IV PRN (03:15)
[2017-06-02] MEDS ORDERED: ONDANSETRON 4 MG/2 ML VIAL IV PRN (03:15)
[2017-06-02] MEDS ORDERED: NITROGLYCERIN 0.4 MG/TAB BOTTLE SL PRN (03:15)
--- NOTE | 2017-06-02 03:17 | NUR ---
GAVE REPORT TO LILIANA. PENDING TRANSFER TO TELE UNIT
--- NOTE | 2017-06-02 03:34 | NUR ---
PT TRANSFERRED TO TELE UNIT
--- NOTE | 2017-06-02 03:50 | NUR ---
admitted new patient to room 220,alert,oriented,Mongolian speaking,left eye blindness,denies chest pain at present times,o2 sat 97% on o2 2l/m via n/c,patient not in distress.
--- NOTE | 2017-06-02 04:58 | NUR ---
at 3;58 and 4:13 patient having long pauses,last 3 sec,patient asleep, asymptomaticcontinue closely monitor.
--- NOTE | 2017-06-02 06:10 | NUR ---
PATIENT CONTINUE TO HAVE FREQUENTLY LONG PAUSES, LONGEST PAUSES LASTS 5 SEC,PATIENT REMAINS ASYMPTOMATIC, BP 130/75,EKG ORDERED STAT AT 05.26, READING ATRIAL FLUTTER WITH VARIABLE AV BLOCK.
--- NOTE | 2017-06-02 07:05 | NUR ---
patient having long pause last 9.5 sec,bp 132/86, was notified,no order.
--- NOTE | 2017-06-02 08:00 | NUR ---
Put pt on bedrest secondary to pt was having pauses on the monitor. Pt has good appetite. Bed alarm on. Pt sri lankan speaking but able to make his needs known. Fall precaution implemented. Call light is within reach.
[2017-06-02] MEDS: ASPIRIN 81 MG TAB.CHEW PO SCH (08:47)
[2017-06-02] MEDS ORDERED: PROPOFOL 200 MG/20 ML BOTTLE IV ONE (09:41)
[2017-06-02] MEDS ORDERED: CEFAZOLIN 1 G VIAL MC ONE (09:41)
[2017-06-02] MEDS ORDERED: IV NORMAL SALINE 1000 ML BAG IV ONE (09:41)
--- NOTE | 2017-06-02 10:35 | NUR ---
DR KWONG here to see patient. Showed strips of the ventricular pause of 9.[address] kwong states that pt needs to be transfered to ICU and he will call Dr WALKER to put pacemaker on patient.
--- NOTE | 2017-06-02 10:45 | NUR ---
report received from Humberto FOSTER from [facility]. 82 yr old male dominican speaking only.was admitted 06/01/17 for chest pain and sob. brought by family in to ED admitted to [facility] floor. today was transferred to CCU as CCU patient for persistent atrial flutter with long pauses up to 9.5 sec on [address] Pruett already was consulted for pacemaker insertion today. has a saline lock via right AC #20 and saline lock left hand #22 Addendum: 06/02/17 at 1718 by KRISTINA WADE RN Amended: Links added.
[2017-06-02] MEDS ORDERED: BACITRACIN 50,000 UNITS VIAL ONE (10:46)
[2017-06-02] MEDS ORDERED: LIDOCAINE HCL 1% 20 ML VIAL ONE (10:46)
[2017-06-02] MEDS ORDERED: IOHEXOL 300MG/ML 50 ML VIAL ONE (10:50)
--- NOTE | 2017-06-02 11:00 | NUR ---
Pt transferred to CCU report given to KRISTINA. Consent for pacemaker insertion received from grand daughter next of kin. Ivy equatorial guinean speaking RN translated to pt with DR elenita ramos the importance of the procedure and that the pacemaker was recommended. Pt verbalized understanding and signed consent as well. Spoke with Lani (Dr WALKER secretary to board of commissioners) that Granddaughter wants to speak with DR WALKER regarding the procedure. Notified Lani that the TELE monitor strips were faxed to DR manzo office and to call us back if Tele strips are not received within 5 mins. Lani verbalized understanding. Notified Ivy (CLOTH INSPECTOR) and aware that granddaughter wants to speak with the anesthesiologist prior to continuing with the procedure.
--- NOTE | 2017-06-02 11:50 | NUR ---
Patient taken down to O.R. accompanied by OR. nurses. vitals signs stable. pt. AAOX4.
--- NOTE | 2017-06-02 13:45 | NUR ---
came back from PACU s/p permanent pacemaker insertion done by Dr Jackson. DDD 60 to 110/min. Patient is awake and c/o pain at the pacer site. medicated. lunch served ate well. voiding 150ml each time at frequent intervals Addendum: 06/02/17 at 1539 by KRISTINA WADE RN Amended: Links added. Addendum: 06/02/17 at 1551 by KRISTINA WADE RN Amended: Links added.
[2017-06-02] MEDS: MORPHINE SULFATE 4 MG/1 ML DISP.SYRIN IV PRN ×2 (15:07→22:20)
--- NOTE | 2017-06-02 15:51 | NUR ---
dr Harvey here/ Patient's granddaughter Claudia here and talked to Dr Miranda. Addendum: 06/02/17 at 1551 by KRISTINA WADE RN Amended: Links added.
--- NOTE | 2017-06-02 19:15 | NUR ---
report given to Yonis RN Addendum: 06/02/17 at 1923 by KRISTINA WADE RN Amended: Links added.
--- NOTE | 2017-06-02 19:30 | NUR ---
Report received. Patient S/P permanent pacemaker insertion for bradyarrhythmias. Incision site with bruising/hematoma noted; will monitor. Speaks Polish only but cooperative. Mildly restless. O2 @ 2 L NC; no SOB noted. Fall precautions maintained. Assessment completed. Addendum: 06/03/17 at 0136 by VIDAL HOWELL RN Amended: Links added. Addendum: 06/03/17 at 0147 by VIDAL HOWELL RN Amended: Links added.
--- NOTE | 2017-06-02 20:00 | NUR ---
RAC IV leaking. New IV inserted to RFA. Patient remains mildly restless; moaning. Medicated with Tylenol. Addendum: 06/03/17 at 0147 by VIDAL HOWELL RN Amended: Links added.
[2017-06-02] MEDS: CEFAZOLIN 1 G in PREMIXED 1 EACH IV SCH (20:01)
[2017-06-02] MEDS: ACETAMINOPHEN 325 MG TABLET PO PRN (20:23)
--- NOTE | 2017-06-02 21:00 | NUR ---
Bath given. Side rails broken; patient transferred to another bed for safety. On fall precautions. Urinal offered; voided clear yellow urine.
--- NOTE | 2017-06-02 22:20 | NUR ---
Patient still mildly restless on and off. Turning side to side and moaning occasionally. Skin warm and dry. Medicated with Morphine IV. BPs 150's systole. Addendum: 06/03/17 at 0154 by VIDAL HOWELL RN Amended: Links added.
[2017-06-02] MEDS ORDERED: POLYETHYLENE GLYCOL 3350 238 GM POWDER PO PRN (22:45)
--- NOTE | 2017-06-02 22:45 | NUR ---
Yong Luna informed of tachycardic and BPs trending higher. Orders received. MD will reconcile medications. Addendum: 06/03/17 at 0157 by VIDAL HOWELL RN Amended: Links added.
[2017-06-02] MEDS ORDERED: DILTIAZEM HCL CD 180 MG CAP.SR.24H PO ONE (23:15)
[2017-06-02] MEDS ORDERED: DILTIAZEM HCL 25 MG IV IV ONE (23:15)
--- NOTE | 2017-06-02 23:27 | NUR ---
Cardizem po given as ordered. No swallowing difficulty.
[2017-06-02] MEDS ORDERED: DILTIAZEM HCL 50 MG IV ONE (23:45)
--- NOTE | 2017-06-02 23:49 | NUR ---
Cardizem 10 mg IV bolus given. VS monitored closely.
[2017-06-03] VITALS (16 sets, daily range): BP systolic 103–168; BP diastolic 53–85
--- NOTE | 2017-06-03 00:30 | NUR ---
Cardizem doses effective.
--- NOTE | 2017-06-03 01:00 | NUR ---
Patient mildly restless; trying to get out of bed. Urinal offered; voided. Back to sleep thereafter.
[2017-06-03] MEDS: CEFAZOLIN 1 G in PREMIXED 1 EACH IV SCH (04:09)
[2017-06-03 05:13] LABS: BASOPHILS # (AUTO) 0.1 K/uL (0.0-8.0); BASOPHILS % (AUTO) 0.6 % (0.0-2.0); EOSINOPHILS # (AUTO) 0.7 K/uL (0.0-0.7); EOSINOPHILS % (AUTO) 6.9 % (0.0-7.0); HEMATOCRIT 35.2 % (36.7-47.1); HEMOGLOBIN 12.1 g/dL (12.5-16.3); LYMPHOCYTES # (AUTO) 2.1 K/uL (20.0-40.0); LYMPHOCYTES % (AUTO) 19.4 % (20.5-51.5); MEAN CORPUSCULAR HEMOGLOBIN 31.1 uug (23.8-33.4); MEAN CORPUSCULAR HGB CONC 34 g/dL (32.5-36.3); MEAN CORPUSCULAR VOLUME 90.8 fL (73.0-96.2); MONOCYTES % (AUTO) 9.2 % (0.0-11.0); NEUTROPHILS # (AUTO) 6.9 K/uL (1.8-8.9); NEUTROPHILS % (AUTO) 63.9 % (38.5-71.5); PLATELET COUNT (AUTO) 213 K/uL (152-348); RED BLOOD CELL COUNT(AUTO) 3.87 MIL/uL (4.06-5.63); WHITE BLOOD COUNT (AUTO) 10.8 K/uL (3.6-10.2)
[2017-06-03] MEDS: MORPHINE SULFATE 4 MG/1 ML DISP.SYRIN IV PRN ×3 (05:27→20:32)
[2017-06-03 05:32] LABS: CARBON DIOXIDE 27 mmol/L (21-32); CHLORIDE 105 mmol/L (98-107); CHOLESTEROL 122 mg/dL (<200); CREATININE 0.9 mg/dL (0.6-1.3); GLUCOSE 147 mg/dL (74-106); HDL CHOLESTEROL 39 mg/dL (40-60); MAGNESIUM 1.6 mg/dL (1.8-2.4); PHOSPHOROUS 3.5 mg/dL (2.5-4.9); POTASSIUM 3.7 mmol/L (3.5-5.1); TRIGLYCERIDES 119 MG/DL (30-150); UREA NITROGEN, BLOOD 20 mg/dL (7-18)
--- NOTE | 2017-06-03 06:42 | NUR ---
Still with periods of mild restlessness. Medicated with Morphine PRN for generalized discomfort and post op pain. No drainage/bleeding or increased hematoma to L anterior chest pacemaker site. Sling to L arm in place. Monitor: Afib-flutter with occasional paced beats, rate 70's-90's. Addendum: 06/03/17 at 0643 by VIDAL HOWELL RN Amended: Links added.
[2017-06-03] MEDS ORDERED: METFORMIN HCL 500 MG TABLET PO SCH (08:00)
[2017-06-03] MEDS: TAMSULOSIN HCL 0.4 MG CAP.SR.24H PO SCH (08:22)
[2017-06-03] MEDS: MEMANTINE HCL 10 MG TABLET PO SCH (08:22)
[2017-06-03] MEDS: DONEPEZIL 5 MG TABLET PO SCH (08:22)
[2017-06-03] MEDS: DILTIAZEM HCL CD 180 MG CAP.SR.24H PO SCH (08:23)
[2017-06-03] MEDS: FINASTERIDE 5 MG TABLET PO SCH (08:44)
[2017-06-03] MEDS ORDERED: CILOSTAZOL 100 MG TABLET PO SCH (09:00)
[2017-06-03] MEDS ORDERED: CLOPIDOGREL 75 MG TABLET PO SCH (09:00)
[2017-06-03] MEDS ORDERED: APIXABAN 5 MG TABLET PO SCH ×3 (09:00→11:00)
[2017-06-03] MEDS ORDERED: ASPIRIN EC 81 MG TABLET.DR PO SCH (09:00)
[2017-06-03] MEDS ORDERED: FLUTICASONE/SALMETEROL 250/50 INHALER IH SCH (09:00)
[2017-06-03] MEDS ORDERED: DORZOLAMIDE 2% OPHT DROP 10 ML BOTTLE EACHEYE SCH ×2 (09:00)
[2017-06-03] MEDS ORDERED: ISOSORBIDE MONONITRATE 30 MG TAB.SR.24H PO SCH (09:00)
--- NOTE | 2017-06-03 09:30 | NUR ---
Sats remain greater than 95%, O2 N/C 2L removed to room air, sats maintained greater than 90%. Continue to monitor and evaluate
[2017-06-03] MEDS: EZETIMIBE 10 MG TABLET PO SCH (09:53)
[2017-06-03] MEDS: DOCUSATE SODIUM 250 MG CAPSULE PO SCH ×2 (09:53→16:32)
[2017-06-03] MEDS: TOPIRAMATE 25 MG TABLET PO SCH (09:54)
[2017-06-03] MEDS: FLUTICASONE/VILANTEROL 1 EACH BLST.W.DEV INH SCH (09:54)
[2017-06-03] MEDS: SITAGLIPTIN PHOSPHATE 50 MG TABLET PO SCH ×2 (09:54→16:33)
[2017-06-03] MEDS: ASPIRIN 81 MG TAB.CHEW PO SCH (09:55)
[2017-06-03] MEDS: ACETAMINOPHEN 325 MG TABLET PO PRN (10:03)
[2017-06-03] MEDS ORDERED: FUROSEMIDE 40 MG/4 ML VIAL IV ONE (10:15)
[2017-06-03] MEDS ORDERED: MIRALAX 17 GM POWD.PACK PO PRN (10:45)
[2017-06-03] MEDS: MAGNESIUM SULFATE/D5W 100 ML IV SCH ×4 (11:11→14:42)
--- NOTE | 2017-06-03 12:57 | NUR ---
Noted desat oftren less than 90% re-applied O2 N/C 2L. Sats continuous monitor greater than 95%. Monitor and evaluate
--- NOTE | 2017-06-03 13:27 | NUR ---
Spoke with GD of patient, she will bring in eye drops later, but unable to bring Eloquis as she has none
--- NOTE | 2017-06-03 14:57 | NUR ---
report called to Anurag. patient readied and transfer to room 202 with all personal belongings.
--- NOTE | 2017-06-03 15:00 | NUR ---
TO ROOM 207 AWAKE COOPERATE WELL NO SOB OR PAIN AT THIS TIME LEFT UPPER CHEST AT PAGEMAKER SITE STILL SWELLING WITH BRUISE/HEMATOMA AT SITE ,IT CLEAN DRY CALL LIGHT WITHIN REACH AND BED ALARM ON ON FALL /ASPIRATION PRECAUTION
--- NOTE | 2017-06-03 17:00 | NUR ---
STABLE HEMODYNAMIC STATUS NO ACUTE DISTRESS NO SOB OR PAIN SAFETY MEASURE PROVIDED CALL LIGHT IN REACH AND BED ALARM ON
[2017-06-03] MEDS: APIXABAN 5 MG TABLET PO SCH (18:23)
--- NOTE | 2017-06-03 19:30 | NUR ---
Report received form am RN. Patient sleeping, easily arouses to name. Speaks Ghanaian only. O2 2L NC; no acute distress. L anterior chest permanent pacemaker site with hematoma; no active bleeding. Will monitor. Assessment done. Safety measures maintained. Addendum: 06/03/17 at 2141 by VIDAL HOWELL RN Amended: Links added.
[2017-06-03] MEDS: risperiDONE 0.5 MG TABLET PO SCH (20:25)
[2017-06-03] MEDS: ATORVASTATIN 20 MG TABLET PO SCH (20:25)
--- NOTE | 2017-06-03 20:30 | NUR ---
Turned and repositioned. Patient moans and guarding L shoulder and chest. Confirmed pain over post op site. Medicated with Morphine IV. Addendum: 06/03/17 at 2144 by VIDAL HOWELL RN Amended: Links added.
[2017-06-03] MEDS ORDERED: BIMATOPROST 0.01% OPHT DROP 2.5 ML BOTTLE EACHEYE SCH (21:00)
[2017-06-03] MEDS: LATANOPROST OPHT DROP 2.5 ML BOTTLE EACHEYE SCH (21:25)
--- NOTE | 2017-06-03 23:05 | NUR ---
Sleeping after pain medication. Will continue to monitor. Addendum: 06/03/17 at 2305 by VIDAL HOWELL RN Amended: Links added. Addendum: 06/03/17 at 2306 by VIDAL HOWELL RN Amended: Links added.
[2017-06-04] VITALS: BP 115/57
--- NOTE | 2017-06-04 00:30 | NUR ---
Stood up at the side of bed with assist to void. Specimen sent to lab for U/A. Patient guarding post op site. Medicated with Tylenol for post op pain. Addendum: 06/04/17 at 0054 by VIDAL HOWELL RN Amended: Links added.
[2017-06-04] MEDS: ACETAMINOPHEN 325 MG TABLET PO PRN (00:36)
[2017-06-04 01:46] LABS: *BILIRUBIN,URIN NEGATIVE (NEGATIVE); *BLOOD, URINE NEGATIVE (NEGATIVE); *CLARITY,URINE CLEAR (CLEAR); *COLOR,URINE YELLOW (YELLOW); *KETONES,URINE NEGATIVE (NEGATIVE); *PROTEIN,URINE NEGATIVE (NEGATIVE); *UROBILINOGEN,URINE 0.2 E.U./dl (NORMAL); LEUKOCYTE ESTERASE ,URINE NEGATIVE (NEGATIVE); NITRITE, URINE NEGATIVE (NEGATIVE); PH,URINE 5.5 (5.0-8.0); UGLUCOSE NEGATIVE (NEGATIVE)
[2017-06-04 01:59] LABS: BACTERIA,URINE NONE SEEN /HPF (NONE SEEN); MUCUS,URINE FEW /LPF (0-FEW); RBC,URINE NONE SEEN /HPF (0-3); SQUAMOUS EPITHELIAL CELL,UR FEW /HPF (NONE SEEN); WBC,URINE 0-3 /HPF (0-3)
[2017-06-04 04:00] VITALS: BP 127/86
--- NOTE | 2017-06-04 04:30 | NUR ---
Patient awake, trying to get out of bed. Urinal offered; voided trisha urine. Am care rendered. Patient moaning and guarding post op area. Able to communicate with patient with few [place]er words. Confirmed post op pain; medicated with Morphine IV. Addendum: 06/04/17 at 0514 by VIDAL HOWELL RN Amended: Links added.
[2017-06-04] MEDS: MORPHINE SULFATE 4 MG/1 ML DISP.SYRIN IV PRN ×2 (04:58→08:51)
--- NOTE | 2017-06-04 07:49 | NUR ---
Awake, alert Djiboutian speaking. Left chest with bruising, denies pain at this time. V Pacing with a fib 97.
[2017-06-04] MEDS: FLUTICASONE/VILANTEROL 1 EACH BLST.W.DEV INH SCH (08:35)
[2017-06-04] MEDS: FINASTERIDE 5 MG TABLET PO SCH (08:36)
[2017-06-04] MEDS: TAMSULOSIN HCL 0.4 MG CAP.SR.24H PO SCH (08:36)
[2017-06-04] MEDS: TOPIRAMATE 25 MG TABLET PO SCH (08:36)
[2017-06-04] MEDS: EZETIMIBE 10 MG TABLET PO SCH (08:36)
[2017-06-04] MEDS: MEMANTINE HCL 10 MG TABLET PO SCH (08:36)
[2017-06-04] MEDS: APIXABAN 5 MG TABLET PO SCH ×2 (08:36→17:24)
[2017-06-04] MEDS: DOCUSATE SODIUM 250 MG CAPSULE PO SCH ×2 (08:36→17:24)
[2017-06-04] MEDS: DONEPEZIL 5 MG TABLET PO SCH (08:36)
[2017-06-04] MEDS: SITAGLIPTIN PHOSPHATE 50 MG TABLET PO SCH ×2 (08:37→17:23)
[2017-06-04 08:58] VITALS: BP 92/44
[2017-06-04 09:41] LABS: CARBON DIOXIDE 27 mmol/L (21-32); CHLORIDE 99 mmol/L (98-107); CREATININE 1.1 mg/dL (0.6-1.3); GLUCOSE 238 mg/dL (74-106); MAGNESIUM 2.1 mg/dL (1.8-2.4); PHOSPHOROUS 3.2 mg/dL (2.5-4.9); POTASSIUM 3.2 mmol/L (3.5-5.1); UREA NITROGEN, BLOOD 19 mg/dL (7-18)
[2017-06-04 09:44] LABS: BASOPHILS # (AUTO) 0.1 K/uL (0.0-8.0); BASOPHILS % (AUTO) 0.5 % (0.0-2.0); EOSINOPHILS # (AUTO) 0.7 K/uL (0.0-0.7); EOSINOPHILS % (AUTO) 5.9 % (0.0-7.0); HEMATOCRIT 35.6 % (36.7-47.1); HEMOGLOBIN 12.4 g/dL (12.5-16.3); LYMPHOCYTES # (AUTO) 1.8 K/uL (20.0-40.0); LYMPHOCYTES % (AUTO) 15.8 % (20.5-51.5); MEAN CORPUSCULAR HEMOGLOBIN 31.6 uug (23.8-33.4); MEAN CORPUSCULAR HGB CONC 35 g/dL (32.5-36.3); MEAN CORPUSCULAR VOLUME 90.9 fL (73.0-96.2); MONOCYTES # (AUTO) 0.8 K/uL (2.0-10.0); MONOCYTES % (AUTO) 7.7 % (0.0-11.0); NEUTROPHILS # (AUTO) 7.8 K/uL (1.8-8.9); NEUTROPHILS % (AUTO) 70.1 % (38.5-71.5); PLATELET COUNT (AUTO) 227 K/uL (152-348); RED BLOOD CELL COUNT(AUTO) 3.92 MIL/uL (4.06-5.63); WHITE BLOOD COUNT (AUTO) 11.1 K/uL (3.6-10.2)
[2017-06-04] MEDS: DILTIAZEM HCL CD 180 MG CAP.SR.24H PO SCH (10:17)
[2017-06-04 11:13] VITALS: BP 148/60
[2017-06-04] MEDS ORDERED: HYDROCODONE/APAP 5-325MG TABLET PO PRN (12:30)
[2017-06-04] MEDS ORDERED: POTASSIUM CHLORIDE 20 MEQ POWDER PACKET PO ONE (13:45)
[2017-06-04] MEDS ORDERED: DILTIAZEM HCL 60 MG TABLET PO ONE (14:15)
[2017-06-04 15:24] VITALS: BP 129/51
[2017-06-04] MEDS: FUROSEMIDE 40 MG/4 ML VIAL IVP SCH (16:37)
[2017-06-04] MEDS: METFORMIN HCL 500 MG TABLET PO SCH (17:23)
--- NOTE | 2017-06-04 19:30 | NUR ---
Received patient sitting on the bed. No acute distress noted. No c/o pain or SOB. Beninese speaking. But able to make needs known. Blind on the left eye. A/O x 2. Patient is on O2 2L NC. Tele vpacing. Safety initiated. Call light within reach. Patient is able to ambulate but has an unsteady gait. Bed alarm on. Bed is on the low and locked position. Will continue to monitor.
[2017-06-04 20:00] VITALS: BP 113/56
[2017-06-04] MEDS: ATORVASTATIN 20 MG TABLET PO SCH (20:23)
[2017-06-04] MEDS: LATANOPROST OPHT DROP 2.5 ML BOTTLE EACHEYE SCH (20:23)
[2017-06-04] MEDS: risperiDONE 0.5 MG TABLET PO SCH (20:23)
[2017-06-05] VITALS: BP 135/43
[2017-06-05 04:00] VITALS: BP 105/53
--- NOTE | 2017-06-05 05:05 | NUR ---
Patient slept intermittently t/o shift. No acute distress noted. TELE VPacing. Noted bruising on the pacemaker insertion site on the left chest wall. Patients got up 3 times to urinate on the urinal. Safety and comfort measures maintained t/o shift. Bed alarm kept on t/o shift. Vital signs stable. All meds given as ordered. All needs met.
[2017-06-05] MEDS ORDERED: DILTIAZEM HCL CD 240 MG CAP.SR.24H PO SCH (09:00)
[2017-06-05] MEDS ORDERED: DILTIAZEM HCL CD 180 MG CAP.SR.24H PO SCH (09:00)
[2017-06-05 09:06] LABS: BASOPHILS # (AUTO) 0.1 K/uL (0.0-8.0); BASOPHILS % (AUTO) 0.6 % (0.0-2.0); EOSINOPHILS # (AUTO) 0.7 K/uL (0.0-0.7); EOSINOPHILS % (AUTO) 6.3 % (0.0-7.0); HEMATOCRIT 31.8 % (36.7-47.1); HEMOGLOBIN 11.1 g/dL (12.5-16.3); LYMPHOCYTES # (AUTO) 1.6 K/uL (20.0-40.0); LYMPHOCYTES % (AUTO) 14.7 % (20.5-51.5); MEAN CORPUSCULAR HEMOGLOBIN 31.6 uug (23.8-33.4); MEAN CORPUSCULAR HGB CONC 35 g/dL (32.5-36.3); MONOCYTES # (AUTO) 0.7 K/uL (2.0-10.0); MONOCYTES % (AUTO) 6.8 % (0.0-11.0); NEUTROPHILS # (AUTO) 7.6 K/uL (1.8-8.9); NEUTROPHILS % (AUTO) 71.6 % (38.5-71.5); PLATELET COUNT (AUTO) 205 K/uL (152-348); WHITE BLOOD COUNT (AUTO) 10.6 K/uL (3.6-10.2)
[2017-06-05] MEDS: TAMSULOSIN HCL 0.4 MG CAP.SR.24H PO SCH (09:14)
[2017-06-05] MEDS: EZETIMIBE 10 MG TABLET PO SCH (09:14)
[2017-06-05] MEDS: TOPIRAMATE 25 MG TABLET PO SCH (09:16)
[2017-06-05] MEDS: DOCUSATE SODIUM 250 MG CAPSULE PO SCH (09:16)
[2017-06-05] MEDS: DONEPEZIL 5 MG TABLET PO SCH (09:16)
[2017-06-05] MEDS: METFORMIN HCL 500 MG TABLET PO SCH (09:16)
[2017-06-05] MEDS: MEMANTINE HCL 10 MG TABLET PO SCH (09:16)
[2017-06-05] MEDS: FINASTERIDE 5 MG TABLET PO SCH (09:16)
[2017-06-05 09:26] LABS: CARBON DIOXIDE 27 mmol/L (21-32); CHLORIDE 102 mmol/L (98-107); CREATININE 1.1 mg/dL (0.6-1.3); GLUCOSE 261 mg/dL (74-106); PHOSPHOROUS 2.5 mg/dL (2.5-4.9); POTASSIUM 3.6 mmol/L (3.5-5.1); UREA NITROGEN, BLOOD 27 mg/dL (7-18)
[2017-06-05] MEDS ORDERED: FUROSEMIDE 20 MG/2 ML VIAL IV ONE (11:00)
[2017-06-05] MEDS: SITAGLIPTIN PHOSPHATE 50 MG TABLET PO SCH (11:25)
[2017-06-05] MEDS: APIXABAN 5 MG TABLET PO SCH (11:25)
[2017-06-05 11:29] VITALS: BP 142/55
[2017-06-05] MEDS: FLUTICASONE/VILANTEROL 1 EACH BLST.W.DEV INH SCH (11:34)
[2017-06-05] MEDS: FUROSEMIDE 40 MG/4 ML VIAL IVP SCH (11:34)
[2017-06-05] MEDS ORDERED: FURO10VI PO (11:55)
[2017-06-05] MEDS ORDERED: DILT240C64 PO (11:55)
[2017-06-05] MEDS ORDERED: APIX5TAB PO (11:55)
[2017-06-05] MEDS ORDERED: ACET325T53 PO (11:55)
[2017-06-05 15:06] VITALS: BP 140/60
--- NOTE | 2017-06-05 15:50 | NUR ---
PATIENT DISCHARGED AT THIS TIME IN STABLE CONDITION, NO S/S OF DISTRESS. VITAL SIGNS STABLE. NO COMPLAINTS OF CHEST PAIN VERBALIZED BY PATIENT. DISCHARGE INSTRUCTION/EDUCATION PROVIDED TO PATIENT'S GRANDDAUGHTER. DISCHARGE PACKET COMPLETED, SIGNED BY PATIENT. COPIES MADE FOR PT. TELEMETRY, IV-ACCESS, ID-BAND DISCONNECTED. MODE OF TRANSPORTATION HOME IS PATIENT'S GRANDDAUGHTER. PATIENT HAS HOME-HEALTH AVAILABLE AT HOME WITH [facility]. MEDICATION PRESCRIPTIONS PROVIDED ELECTRONICALLY. PATIENT LEFT TELEMETRY FLOOR BY WHEEL CHAIR, ESCORTED SAFELY DOWN INTO VEHICLE.
== END 2017-06-05 15:50 | disposition home health service (06) | DRG 242 ==
LOC: ER 00:18 → TELE 03:15 → CCU 10:37 → TELE 06-03 14:56
PROVIDERS: ADMIT Internal Medicine; ATTEND Nurse Practitioner Acute Care
PROC: 02H63JZ Insertion of Pacemaker Lead into Right Atrium, Percutaneous Approach (ICD-10-PCS; 2017-06-02)
PROC: 02HK3JZ Insertion of Pacemaker Lead into Right Ventricle, Percutaneous Approach (ICD-10-PCS; 2017-06-02)
PROC: 0JH606Z Insertion of Pacemaker, Dual Chamber into Chest Subcutaneous Tissue and Fascia, Open Approach (ICD-10-PCS; principal; 2017-06-02 12:00)
DX: I44.2 Atrioventricular block, complete (principal); N17.0 Acute kidney failure with tubular necrosis; I50.33 Acute on chronic diastolic (congestive) heart failure; J98.11 Atelectasis; I48.92 Unspecified atrial flutter; E11.51 Type 2 diabetes mellitus with diabetic peripheral angiopathy without gangrene; E11.29 Type 2 diabetes mellitus with other diabetic kidney complication; I49.5 Sick sinus syndrome; F03.90 Unspecified dementia, unspecified severity, without behavioral disturbance, psychotic disturbance, mood disturbance, and anxiety; I11.0 Hypertensive heart disease with heart failure; H54.8 Legal blindness, as defined in USA; Z90.49 Acquired absence of other specified parts of digestive tract; E78.5 Hyperlipidemia, unspecified; E66.9 Obesity, unspecified; Z68.36 Body mass index [BMI] 36.0-36.9, adult; I25.10 Atherosclerotic heart disease of native coronary artery without angina pectoris; J44.9 Chronic obstructive pulmonary disease, unspecified; K21.9 Gastro-esophageal reflux disease without esophagitis; Z79.899 Other long term (current) drug therapy; Z79.01 Long term (current) use of anticoagulants; Z79.82 Long term (current) use of aspirin; D72.829 Elevated white blood cell count, unspecified
CPT/HCPCS: 36415; 70030-TC; 71045; 71260; 76000; 83735; 84100; 85025; 85730; 93005; 93307; 97110; 97116; A4649; A4663; J0690; J1650; J1940; J2270; J3475; J3490; J7030; J7050; Q9967

== ENCOUNTER 2018-04-15 20:16 | Inpatient (IN) | payer MEDICARE, MEDICAID ==
[~2018-04-15] VITALS: Ht 162.6 cm; Wt 88.3 kg
[~2018-04-15 20:16] MED LIST changes: +ACET325T53 PO; -ACID1TAB4 PO; -ALBU8.5H8 INH; -AMOX-430 PO; +APIX5TAB PO; +ASPI-605 PO; -ASPI-869 PO; -CLOP75TA15 PO; +DILT-11 PO; +EZET10TA13 PO; +FINA5TAB11 PO; -ICOS1CAP PO; -MAGN400T6 PO; +MIRA25TA PO; +OMEG1CAP55 PO; +POLY255P19 PO; -SITA1TAB2 PO; +SITA1TAB6 PO; +TAMS-3 PO; +UMEC62.5 IH
[2018-04-15] MEDS ORDERED: ASPIRIN 325 MG TABLET PO ONE (20:45)
[2018-04-15] MEDS ORDERED: IV NORMAL SALINE 500 ML BAG IV ONE (20:45)
[2018-04-15] MEDS ORDERED: ASPIRIN 325 MG TABLET ONE (21:07)
[2018-04-15 21:14] LABS: BASOPHILS # (AUTO) 0.1 K/uL (0.0-8.0); BASOPHILS % (AUTO) 1.1 % (0.0-2.0); EOSINOPHILS # (AUTO) 0.7 K/uL (0.0-0.7); EOSINOPHILS % (AUTO) 7.7 % (0.0-7.0); HEMATOCRIT 33.7 % (36.7-47.1); HEMOGLOBIN 11.4 g/dL (12.5-16.3); LYMPHOCYTES # (AUTO) 1.8 K/uL (20.0-40.0); LYMPHOCYTES % (AUTO) 21.2 % (20.5-51.5); MEAN CORPUSCULAR HEMOGLOBIN 30.2 uug (23.8-33.4); MEAN CORPUSCULAR HGB CONC 34 g/dL (32.5-36.3); MEAN CORPUSCULAR VOLUME 89.1 fL (73.0-96.2); MONOCYTES # (AUTO) 0.8 K/uL (2.0-10.0); MONOCYTES % (AUTO) 8.7 % (0.0-11.0); NEUTROPHILS # (AUTO) 5.3 K/uL (1.8-8.9); NEUTROPHILS % (AUTO) 61.3 % (38.5-71.5); PLATELET COUNT (AUTO) 262 K/uL (152-348); RED BLOOD CELL COUNT(AUTO) 3.78 MIL/uL (4.06-5.63); WHITE BLOOD COUNT (AUTO) 8.7 K/uL (3.6-10.2)
[2018-04-15 21:22] LABS: CARBON DIOXIDE 26 mmol/L (21-32); CHLORIDE 103 mmol/L (98-107); GLUCOSE 152 mg/dL (74-106); POTASSIUM 3.5 mmol/L (3.5-5.1); UREA NITROGEN, BLOOD 18 mg/dL (7-18)
[2018-04-15] MEDS ORDERED: MORPHINE SULFATE 2 MG/1 ML DISP.SYRIN ONE (21:29)
[2018-04-15] MEDS ORDERED: MORPHINE SULFATE 2 MG/1 ML DISP.SYRIN IV ONE (21:30)
[2018-04-15 21:35] LABS: ALANINE AMINOTRANSFERASE 21 U/L (16-63); ALKALINE PHOSPHATASE 79 U/L (50-136); ASPARTATE AMINOTRANSFERASE 18 U/L (15-37); BILIRUBIN,DIRECT 0.1 mg/dL (0.0-0.2); BILIRUBIN,TOTAL 0.5 mg/dL (0.2-1.0); TOTAL PROTEIN, SERUM 7.8 g/dL (6.4-8.2)
[2018-04-15] MEDS ORDERED: FUROSEMIDE 40 MG/4 ML VIAL ONE (21:44)
[2018-04-15] MEDS ORDERED: FUROSEMIDE 20 MG/2 ML VIAL IV ONE (21:45)
[2018-04-15] MEDS ORDERED: MAGN400T6 PO (22:36)
[2018-04-15] MEDS ORDERED: CLON0.1T PO (22:36)
[2018-04-15] MEDS ORDERED: AMLO10TA7 PO (22:36)
[2018-04-15] MEDS ORDERED: OMEP1CAP24 PO (22:36)
[2018-04-15] MEDS ORDERED: NITR0.4T48 SL (22:36)
[2018-04-15 23:29] VITALS: BP 153/51
[2018-04-16] MEDS ORDERED: ONDANSETRON 4 MG/2 ML VIAL IV PRN (03:00)
[2018-04-16] MEDS ORDERED: ACETAMINOPHEN 325 MG TABLET PO PRN ×2 (03:00→08:00)
[2018-04-16] MEDS ORDERED: ZOLPIDEM 5 MG TABLET PO PRN (03:00)
[2018-04-16] MEDS ORDERED: HYDROCODONE/APAP 5-325MG TABLET PO PRN (03:00)
[2018-04-16 03:24] VITALS: BP 172/74
[2018-04-16 05:50] VITALS: BP 155/73
[2018-04-16] MEDS ORDERED: POLYETHYLENE GLYCOL 3350 238 GM POWDER PO PRN (08:00)
[2018-04-16] MEDS ORDERED: CLONIDINE HCL 0.1 MG TABLET PO PRN (08:00)
[2018-04-16] MEDS ORDERED: MIRALAX 17 GM POWD.PACK PO PRN (08:30)
[2018-04-16] MEDS ORDERED: Medication Not On Formulary EA (Omega-3 Acid Ethyl Esters (Lovaza) 2 CAP) PO SCH (09:00)
[2018-04-16] MEDS ORDERED: FLUTICASONE/SALMETEROL 250/50 INHALER IH SCH (09:00)
[2018-04-16] MEDS ORDERED: ASPIRIN 81 MG TAB.CHEW PO SCH (09:00)
[2018-04-16] MEDS ORDERED: ASPIRIN EC 81 MG TABLET.DR PO SCH (09:00)
[2018-04-16] MEDS ORDERED: APIXABAN 5 MG TABLET PO SCH (09:00)
[2018-04-16] MEDS ORDERED: DILTIAZEM HCL CD 240 MG CAP.SR.24H PO SCH (09:00)
[2018-04-16] MEDS ORDERED: Medication Not On Formulary EA (Omeprazole/Sodium Bicarbonate (Omeprazole-Bicarb 20-1,10 PO SCH (09:00)
[2018-04-16] MEDS: POTASSIUM CHLORIDE 20 MEQ TAB.PRT.SR PO SCH (09:38)
[2018-04-16] MEDS: MAGNESIUM OXIDE 400 MG TABLET PO SCH ×2 (09:38→17:25)
[2018-04-16] MEDS: OMEGA-3 FATTY ACIDS/FISH OIL CAPSULE PO SCH ×2 (09:38→21:00)
[2018-04-16] MEDS: DOCUSATE SODIUM 250 MG CAPSULE PO SCH ×2 (09:38→17:25)
[2018-04-16] MEDS: AMLODIPINE 10 MG TABLET PO SCH (09:39)
[2018-04-16] MEDS: ISOSORBIDE MONONITRATE 30 MG TAB.SR.24H PO SCH (09:41)
[2018-04-16] MEDS: MEMANTINE HCL 10 MG TABLET PO SCH (09:42)
[2018-04-16] MEDS: FINASTERIDE 5 MG TABLET PO SCH (09:43)
[2018-04-16] MEDS: DONEPEZIL 5 MG TABLET PO SCH (09:44)
[2018-04-16] MEDS ORDERED: APIXABAN 5 MG TABLET PO ONE (10:00)
[2018-04-16] MEDS: FLUTICASONE/VILANTEROL 1 EACH BLST.W.DEV INH SCH (10:06)
[2018-04-16] MEDS: CILOSTAZOL 100 MG TABLET PO SCH (10:09)
[2018-04-16 11:21] VITALS: BP 123/50
[2018-04-16 15:14] VITALS: BP 98/56
[2018-04-16 16:37] LABS: *BILIRUBIN,URIN 1+ (NEGATIVE); *BLOOD, URINE NEGATIVE (NEGATIVE); *CLARITY,URINE CLEAR (CLEAR); *COLOR,URINE DARK YELLOW (YELLOW); *KETONES,URINE NEGATIVE (NEGATIVE); LEUKOCYTE ESTERASE ,URINE NEGATIVE (NEGATIVE); NITRITE, URINE NEGATIVE (NEGATIVE); PH,URINE 5.5 (5.0-8.0); UGLUCOSE NEGATIVE (NEGATIVE)
[2018-04-16] MEDS ORDERED: INSULIN REGULAR, HUMAN 300 UNIT/3 ML VIAL SQ PRN (16:45)
[2018-04-16] MEDS ORDERED: DEXTROSE 50% 50 ML DISP.SYRIN IV PRN (16:45)
[2018-04-16 17:14] LABS: MUCUS,URINE MANY /LPF (0-FEW); RBC,URINE 0-3 /HPF (0-3); SQUAMOUS EPITHELIAL CELL,UR FEW /HPF (NONE SEEN)
[2018-04-16] MEDS: DORZOLAMIDE 2% OPHT DROP 10 ML BOTTLE EACHEYE SCH (17:25)
[2018-04-16 20:44] VITALS: BP 134/49
[2018-04-16] MEDS ORDERED: risperiDONE 0.5 MG TABLET PO SCH (21:00)
[2018-04-16] MEDS ORDERED: BIMATOPROST 0.01% OPHT DROP 2.5 ML BOTTLE EACHEYE SCH (21:00)
[2018-04-16] MEDS ORDERED: LATANOPROST OPHT DROP 2.5 ML BOTTLE EACHEYE SCH (21:00)
[2018-04-16] MEDS ORDERED: ATORVASTATIN 20 MG TABLET PO SCH ×2 (21:00)
[2018-04-16] MEDS ORDERED: TAMSULOSIN HCL 0.4 MG CAP.SR.24H PO SCH (21:00)
[2018-04-16] MEDS: BLOOD SUGAR DIAGNOSTIC 1 EACH STRIP VI SCH (21:32)
[2018-04-17 00:34] VITALS: BP 127/88
[2018-04-17 04:41] VITALS: BP 115/62
[2018-04-17 06:04] LABS: BASOPHILS # (AUTO) 0.1 K/uL (0.0-8.0); BASOPHILS % (AUTO) 0.7 % (0.0-2.0); EOSINOPHILS # (AUTO) 0.5 K/uL (0.0-0.7); EOSINOPHILS % (AUTO) 5.8 % (0.0-7.0); LYMPHOCYTES # (AUTO) 1.3 K/uL (20.0-40.0); LYMPHOCYTES % (AUTO) 14.3 % (20.5-51.5); MEAN CORPUSCULAR HEMOGLOBIN 30.7 uug (23.8-33.4); MEAN CORPUSCULAR HGB CONC 35 g/dL (32.5-36.3); MEAN CORPUSCULAR VOLUME 88.8 fL (73.0-96.2); MONOCYTES # (AUTO) 0.6 K/uL (2.0-10.0); MONOCYTES % (AUTO) 6.7 % (0.0-11.0); NEUTROPHILS # (AUTO) 6.3 K/uL (1.8-8.9); NEUTROPHILS % (AUTO) 72.5 % (38.5-71.5); PLATELET COUNT (AUTO) 243 K/uL (152-348); WHITE BLOOD COUNT (AUTO) 8.7 K/uL (3.6-10.2)
[2018-04-17] MEDS: BLOOD SUGAR DIAGNOSTIC 1 EACH STRIP VI SCH ×3 (06:32→16:30)
[2018-04-17 06:38] LABS: CARBON DIOXIDE 28 mmol/L (21-32); CHLORIDE 104 mmol/L (98-107); CHOLESTEROL 134 mg/dL (<200); CREATININE 0.7 mg/dL (0.6-1.3); GLUCOSE 131 mg/dL (74-106); HDL CHOLESTEROL 36 mg/dL (40-60); PHOSPHOROUS 2.1 mg/dL (2.5-4.9); POTASSIUM 3.4 mmol/L (3.5-5.1); TRIGLYCERIDES 103 MG/DL (30-150); UREA NITROGEN, BLOOD 16 mg/dL (7-18)
[2018-04-17] MEDS ORDERED: PANTOPRAZOLE SODIUM 40 MG TABLET.DR PO SCH (07:00)
[2018-04-17] MEDS: POTASSIUM CHLORIDE 20 MEQ TAB.PRT.SR PO SCH (08:53)
[2018-04-17] MEDS: MEMANTINE HCL 10 MG TABLET PO SCH (08:53)
[2018-04-17] MEDS: OMEGA-3 FATTY ACIDS/FISH OIL CAPSULE PO SCH (08:53)
[2018-04-17] MEDS: AMLODIPINE 10 MG TABLET PO SCH (08:58)
[2018-04-17] MEDS: ISOSORBIDE MONONITRATE 30 MG TAB.SR.24H PO SCH (08:59)
[2018-04-17] MEDS: DOCUSATE SODIUM 250 MG CAPSULE PO SCH ×2 (08:59→17:14)
[2018-04-17] MEDS: DONEPEZIL 5 MG TABLET PO SCH (08:59)
[2018-04-17] MEDS: FINASTERIDE 5 MG TABLET PO SCH (08:59)
[2018-04-17] MEDS: CILOSTAZOL 100 MG TABLET PO SCH (09:00)
[2018-04-17] MEDS: DORZOLAMIDE 2% OPHT DROP 10 ML BOTTLE EACHEYE SCH ×2 (09:01→17:13)
[2018-04-17] MEDS: FLUTICASONE/VILANTEROL 1 EACH BLST.W.DEV INH SCH (09:02)
[2018-04-17] MEDS: MAGNESIUM OXIDE 400 MG TABLET PO SCH ×2 (09:17→17:14)
[2018-04-17 11:14] VITALS: BP 132/58
[2018-04-17 15:24] VITALS: BP 152/53
[2018-04-17] MEDS ORDERED: NEUTRA PHOS PACKET PO ONE (16:15)
[2018-04-17] MEDS ORDERED: INFLUENZA VACCINE 2018-2019 0.5 ML DISP.SYRIN IM ONE (18:00)
== END 2018-04-17 18:15 | disposition home or self-care (01) | DRG 308 ==
LOC: ER 20:18 → TELE3 22:44
PROVIDERS: ADMIT Nurse Practitioner Acute Care; ATTEND Nurse Practitioner Acute Care
PROC: B246ZZ4 Ultrasonography of Right and Left Heart, Transesophageal (ICD-10-PCS; principal; 2018-04-16)
DX: T82.110A Breakdown (mechanical) of cardiac electrode, initial encounter (principal); I50.33 Acute on chronic diastolic (congestive) heart failure; I44.2 Atrioventricular block, complete; E44.1 Mild protein-calorie malnutrition; R64 Cachexia; I48.92 Unspecified atrial flutter; I11.0 Hypertensive heart disease with heart failure; E78.5 Hyperlipidemia, unspecified; H54.8 Legal blindness, as defined in USA; Z90.49 Acquired absence of other specified parts of digestive tract; N40.0 Benign prostatic hyperplasia without lower urinary tract symptoms; J44.9 Chronic obstructive pulmonary disease, unspecified; E11.51 Type 2 diabetes mellitus with diabetic peripheral angiopathy without gangrene; I48.0 Paroxysmal atrial fibrillation; D63.8 Anemia in other chronic diseases classified elsewhere; F03.90 Unspecified dementia, unspecified severity, without behavioral disturbance, psychotic disturbance, mood disturbance, and anxiety; H40.9 Unspecified glaucoma; K21.9 Gastro-esophageal reflux disease without esophagitis; M62.84 Sarcopenia; Y71.2 Prosthetic and other implants, materials and accessory cardiovascular devices associated with adverse incidents; Z79.82 Long term (current) use of aspirin; Z79.899 Other long term (current) drug therapy; Z87.891 Personal history of nicotine dependence; E11.65 Type 2 diabetes mellitus with hyperglycemia; Z79.84 Long term (current) use of oral hypoglycemic drugs; R07.2 Precordial pain
CPT/HCPCS: 36415; 70030-TC; 71045; 83735; 84100; 85025; 85730; 90686; 93005; 93307; A4663; G0378; J1815; J1940; J2270

== ENCOUNTER 2018-07-07 18:23 | Inpatient (IN) | payer MEDICARE, MEDICAID ==
[~2018-07-07] VITALS: Ht 162.6 cm; Wt 95.4 kg
[~2018-07-07 18:23] MED LIST changes: +AMLO10TA7 PO; +CLON0.1T PO; -DEXL60CA3 PO; -EZET10TA13 PO; +MAGN400T6 PO; -MIRA25TA PO; -MULT1TAB73 PO; +NITR0.4T48 SL; +OMEP1CAP24 PO; -TOPI25TA49 PO
[2018-07-07] MEDS ORDERED: NITROGLYCERIN OINT 1 GM PACKET TP ONE ×2 (19:00→19:12)
[2018-07-07] MEDS ORDERED: IV NORMAL SALINE 500 ML BAG IV ONE (19:00)
[2018-07-07] MEDS ORDERED: FUROSEMIDE 20 MG/2 ML VIAL IVP ONE (19:00)
--- NOTE | 2018-07-07 19:03 | NUR ---
PT IS IN ROOM #1B. DR NATARAJAN EVALUATED THE PT.
[2018-07-07 19:04] LABS: BASOPHILS # (AUTO) 0.1 K/uL (0.0-8.0); EOSINOPHILS # (AUTO) 0.2 K/uL (0.0-0.7); EOSINOPHILS % (AUTO) 2.4 % (0.0-7.0); HEMATOCRIT 37.9 % (36.7-47.1); HEMOGLOBIN 12.4 g/dL (12.5-16.3); LYMPHOCYTES # (AUTO) 1.5 K/uL (20.0-40.0); LYMPHOCYTES % (AUTO) 16.1 % (20.5-51.5); MEAN CORPUSCULAR HGB CONC 33 g/dL (32.5-36.3); MEAN CORPUSCULAR VOLUME 85.6 fL (73.0-96.2); MONOCYTES # (AUTO) 0.8 K/uL (2.0-10.0); MONOCYTES % (AUTO) 8.2 % (0.0-11.0); NEUTROPHILS # (AUTO) 6.7 K/uL (1.8-8.9); NEUTROPHILS % (AUTO) 72.3 % (38.5-71.5); PLATELET COUNT (AUTO) 342 K/uL (152-348); RED BLOOD CELL COUNT(AUTO) 4.42 MIL/uL (4.06-5.63); WHITE BLOOD COUNT (AUTO) 9.3 K/uL (3.6-10.2)
[2018-07-07 19:12] LABS: CARBON DIOXIDE 28 mmol/L (21-32); CHLORIDE 96 mmol/L (98-107); GLUCOSE 126 mg/dL (74-106); POTASSIUM 4.1 mmol/L (3.5-5.1); UREA NITROGEN, BLOOD 19 mg/dL (7-18)
[2018-07-07] MEDS ORDERED: PANTOPRAZOLE SODIUM 40 MG VIAL ONE (19:12)
[2018-07-07 19:24] LABS: ALANINE AMINOTRANSFERASE 19 U/L (16-63); ALKALINE PHOSPHATASE 100 U/L (50-136); ASPARTATE AMINOTRANSFERASE 19 U/L (15-37); BILIRUBIN,DIRECT 0.2 mg/dL (0.0-0.2); BILIRUBIN,TOTAL 0.7 mg/dL (0.2-1.0); TOTAL PROTEIN, SERUM 8.1 g/dL (6.4-8.2)
--- NOTE | 2018-07-07 19:47 | NUR ---
Dr. Cho [facility] SCIENTIFIC INFORMATICS LEADER. Patient accepted for admission to [facility], diagnosis: CHF.
--- NOTE | 2018-07-07 20:11 | NUR ---
Pt upgraded to CCU per Samia Aguilar NP.
[2018-07-07] MEDS ORDERED: ALBUTEROL SULFATE 2.5 MG/3 ML NEBU NEB ONE (20:15)
[2018-07-07] MEDS ORDERED: IPRATROPIUM BROMIDE 0.5 MG/2.5 ML NEBU NEB ONE (20:15)
--- NOTE | 2018-07-07 20:15 | NUR ---
Respiratory at bedside.
[2018-07-07] MEDS ORDERED: ALBUTEROL SULFATE 2.5 MG/3 ML NEBU ONE (20:20)
[2018-07-07] MEDS ORDERED: IPRATROPIUM BROMIDE 0.5 MG/2.5 ML NEBU ONE (20:21)
[2018-07-07] MEDS: IPRATROPIUM BROMIDE 0.5 MG/2.5 ML NEBU NEB SCH (20:27)
[2018-07-07] MEDS: ALBUTEROL SULFATE 2.5 MG/3 ML NEBU NEB SCH (20:27)
[2018-07-07] MEDS ORDERED: methylPREDNISolone SOD SUCC 40 MG/ML VIAL IV ONE (20:30)
[2018-07-07] MEDS ORDERED: NITROGLYCERIN 0.4 MG/TAB BOTTLE SL PRN (20:30)
--- NOTE | 2018-07-07 20:30 | NUR ---
ED tx adm'd at 2023.
--- NOTE | 2018-07-07 20:44 | NUR ---
Report given to Fe FOSTER CCU.
--- NOTE | 2018-07-07 21:00 | NUR ---
patient with permanent pace maker V paced on the heart monitor rate 70.
[2018-07-07 21:11] VITALS: BP 150/62
[2018-07-07] MEDS: FUROSEMIDE 40 MG/4 ML VIAL IVP SCH (21:20)
--- NOTE | 2018-07-07 21:20 | NUR ---
placed condom catheter ,given Lasix 40 mg and solumedrol 40 mg ivp .
--- NOTE | 2018-07-07 21:30 | NUR ---
received patient from ER dx: COPD/CHF EXACERBATION will be admitted by [facility] . patient awake , follow commands . 02 at 5 liters /min via nasal cannula ,breathing even and unlabored . SOB noted upon exertion .RR 17 ,saturation 92% .speaks Italian other hwang sign language done and understand little Croatian .connected to ccu monitor and call light placed with in reach .
[2018-07-07 21:39] VITALS: BP 119/69
[2018-07-07 22:09] VITALS: BP 130/62
[2018-07-07] MEDS ORDERED: CLONIDINE HCL 0.1 MG TABLET PO PRN (22:15)
[2018-07-07] MEDS ORDERED: ACETAMINOPHEN 325 MG TABLET PO PRN (22:15)
[2018-07-07] MEDS ORDERED: Medication Not On Formulary EA (Ergocalciferol (Vitamin D2) (Vitamin D2 TAB) 50,000 UNIT PO SCH (22:15)
[2018-07-07] MEDS ORDERED: POLYETHYLENE GLYCOL 3350 238 GM POWDER PO PRN (22:15)
[2018-07-07 22:30] VITALS: BP 137/73
[2018-07-07] MEDS ORDERED: DEXTROSE 50% 50 ML DISP.SYRIN IV PRN (22:30)
[2018-07-07 23:00] VITALS: BP 118/62
[2018-07-07 23:01] LABS: *BILIRUBIN,URIN NEGATIVE (NEGATIVE); *BLOOD, URINE NEGATIVE (NEGATIVE); *CLARITY,URINE CLEAR (CLEAR); *COLOR,URINE YELLOW (YELLOW); *KETONES,URINE NEGATIVE (NEGATIVE); *UROBILINOGEN,URINE 0.2 E.U./dl (NORMAL); LEUKOCYTE ESTERASE ,URINE 1+ (NEGATIVE); NITRITE, URINE NEGATIVE (NEGATIVE); PH,URINE 5.5 (5.0-8.0); UGLUCOSE NEGATIVE (NEGATIVE)
[2018-07-07 23:13] LABS: BACTERIA,URINE NONE SEEN /HPF (NONE SEEN); RBC,URINE 0-3 /HPF (0-3); SQUAMOUS EPITHELIAL CELL,UR FEW /HPF (NONE SEEN)
[2018-07-07] MEDS: AZITHROMYCIN 250 MG TABLET PO SCH (23:52)
[2018-07-08] VITALS (22 sets, daily range): BP systolic 96–159; BP diastolic 46–85
[2018-07-08] MEDS: IPRATROPIUM BROMIDE 0.5 MG/2.5 ML NEBU NEB SCH ×7 (01:29→23:48)
[2018-07-08] MEDS: ALBUTEROL SULFATE 2.5 MG/3 ML NEBU NEB SCH ×7 (01:29→23:48)
--- NOTE | 2018-07-08 02:00 | NUR ---
patient so anxious and tries to get oob verbalized to sit on the chair , assisted oob to the recliner chair .patient able to stand up .requested for food his hungry given applesauce ,vanilla and chocolate pudding ,tye cracker,minimal assist patient able to feed self.limit fluid intake since patient came for chf and Lasix was given .ana light placed with in reach and urinal placed with in reach .
[2018-07-08 05:22] LABS: ALANINE AMINOTRANSFERASE 18 U/L (16-63); ALKALINE PHOSPHATASE 98 U/L (50-136); ASPARTATE AMINOTRANSFERASE 18 U/L (15-37); BASOPHILS % (AUTO) 0.2 % (0.0-2.0); BILIRUBIN,TOTAL 0.6 mg/dL (0.2-1.0); CARBON DIOXIDE 29 mmol/L (21-32); CHLORIDE 95 mmol/L (98-107); CHOLESTEROL 139 mg/dL (<200); CREATININE 1.4 mg/dL (0.6-1.3); HDL CHOLESTEROL 47 mg/dL (40-60); HEMATOCRIT 36.3 % (36.7-47.1); HEMOGLOBIN 11.9 g/dL (12.5-16.3); LYMPHOCYTES # (AUTO) 0.5 K/uL (20.0-40.0); LYMPHOCYTES % (AUTO) 9.2 % (20.5-51.5); MAGNESIUM 1.7 mg/dL (1.8-2.4); MEAN CORPUSCULAR HEMOGLOBIN 28.3 uug (23.8-33.4); MEAN CORPUSCULAR HGB CONC 33 g/dL (32.5-36.3); MEAN CORPUSCULAR VOLUME 86.2 fL (73.0-96.2); MONOCYTES % (AUTO) 0.8 % (0.0-11.0); NEUTROPHILS # (AUTO) 5.3 K/uL (1.8-8.9); NEUTROPHILS % (AUTO) 89.8 % (38.5-71.5); PHOSPHOROUS 2.9 mg/dL (2.5-4.9); PLATELET COUNT (AUTO) 311 K/uL (152-348); RED BLOOD CELL COUNT(AUTO) 4.21 MIL/uL (4.06-5.63); TOTAL PROTEIN, SERUM 7.8 g/dL (6.4-8.2); TRIGLYCERIDES 53 MG/DL (30-150); UREA NITROGEN, BLOOD 19 mg/dL (7-18); WHITE BLOOD COUNT (AUTO) 5.9 K/uL (3.6-10.2)
[2018-07-08 05:32] LABS: THYROID STIMULATING HORMONE 1.154 mIU/mL (0.358-3.740)
[2018-07-08 05:38] LABS: GLUCOSE 362 mg/dL (74-106)
--- NOTE | 2018-07-08 06:30 | NUR ---
bath patient changed soiled linens and gown skin care done .assisted patient back to bed .
[2018-07-08] MEDS: INSULIN REGULAR, HUMAN 300 UNIT/3 ML VIAL SQ PRN ×3 (06:37→17:19)
[2018-07-08] MEDS: BLOOD SUGAR DIAGNOSTIC 1 EACH STRIP VI SCH ×4 (06:44→20:50)
--- NOTE | 2018-07-08 07:30 | NUR ---
Pt. A/A/Ox3,was placed in the chair ,tolerated well,no s/s of distress,denies pain @ time.
[2018-07-08] MEDS ORDERED: MIRALAX 17 GM POWD.PACK PO PRN (08:15)
[2018-07-08] MEDS: FUROSEMIDE 40 MG/4 ML VIAL IVP SCH (08:21)
[2018-07-08] MEDS: AMLODIPINE 10 MG TABLET PO SCH (08:21)
[2018-07-08] MEDS: DONEPEZIL 5 MG TABLET PO SCH (08:22)
[2018-07-08] MEDS: POTASSIUM CHLORIDE 20 MEQ TAB.PRT.SR PO SCH (08:22)
[2018-07-08] MEDS: FINASTERIDE 5 MG TABLET PO SCH (08:22)
[2018-07-08] MEDS: ISOSORBIDE MONONITRATE 30 MG TAB.SR.24H PO SCH (08:22)
[2018-07-08] MEDS: MAGNESIUM OXIDE 400 MG TABLET PO SCH ×2 (08:23→17:01)
[2018-07-08] MEDS: MEMANTINE HCL 10 MG TABLET PO SCH (08:23)
[2018-07-08] MEDS: FLUTICASONE/VILANTEROL 1 EACH BLST.W.DEV INH SCH (08:30)
[2018-07-08] MEDS: DOCUSATE SODIUM 250 MG CAPSULE PO SCH ×2 (08:30→17:03)
[2018-07-08] MEDS: CILOSTAZOL 100 MG TABLET PO SCH (08:32)
[2018-07-08] MEDS ORDERED: ASPIRIN EC 81 MG TABLET.DR PO SCH (09:00)
[2018-07-08] MEDS ORDERED: FLUTICASONE/SALMETEROL 250/50 INHALER IH SCH (09:00)
[2018-07-08] MEDS ORDERED: APIXABAN 5 MG TABLET PO ONE ×2 (09:00→18:00)
[2018-07-08] MEDS ORDERED: ASPIRIN 81 MG TAB.CHEW PO SCH (09:00)
[2018-07-08] MEDS ORDERED: Medication Not On Formulary EA (Omeprazole/Sodium Bicarbonate (Omeprazole-Bicarb 20-1,10 PO SCH (09:00)
[2018-07-08] MEDS ORDERED: Medication Not On Formulary EA (Omega-3 Acid Ethyl Esters (Lovaza) 2 CAP) PO SCH (09:00)
[2018-07-08] MEDS ORDERED: DILTIAZEM HCL CD 240 MG CAP.SR.24H PO SCH (09:00)
[2018-07-08] MEDS ORDERED: APIXABAN 5 MG TABLET PO SCH ×2 (09:00)
--- NOTE | 2018-07-08 10:00 | NUR ---
PT.WAS SEEN BY PT.
[2018-07-08] MEDS ORDERED: MAGNESIUM SULFATE/D5W 100 ML IV SCH (11:15)
[2018-07-08] MEDS: glipiZIDE 5 MG TABLET PO SCH ×2 (11:42→17:01)
[2018-07-08] MEDS: PANTOPRAZOLE SODIUM 40 MG TABLET.DR PO SCH (11:42)
--- NOTE | 2018-07-08 15:45 | NUR ---
Pt.was seen by .
[2018-07-08] MEDS: OMEGA-3 FATTY ACIDS/FISH OIL CAPSULE PO SCH (17:02)
[2018-07-08] MEDS ORDERED: HOME MED MISCELLANEOUS XX SCH (17:15)
[2018-07-08] MEDS: BRIMONIDINE 0.2% OPHT DROP 10 ML BOTTLE EACHEYE SCH (17:45)
[2018-07-08] MEDS: TIMOLOL MALEATE 0.5% OPHT DROP 5 ML BOTTLE EACHEYE SCH (17:48)
[2018-07-08] MEDS: DORZOLAMIDE 2% OPHT DROP 10 ML BOTTLE EACHEYE SCH (17:48)
--- NOTE | 2018-07-08 18:30 | NUR ---
Pt.finished dinner,watching TV,no s/s of distress ,denies pain.
--- NOTE | 2018-07-08 19:30 | NUR ---
rounds made patient oob sitting in the chair ,awake ,alert speaks Ugandan, v pace on the heart monitor rate 70 on the monitor .telemetry status .no room available .tolerating 02 nasal cannula at 5 l/min rr 19 saturation 100%.breathing even and unlabored .urinal pplaced with in reach . continue to monitor v/s and levels of safety .
[2018-07-08] MEDS: LATANOPROST OPHT DROP 2.5 ML BOTTLE EACHEYE SCH (20:29)
[2018-07-08] MEDS: FUROSEMIDE 40 MG/4 ML VIAL IV SCH (20:31)
[2018-07-08] MEDS: ATORVASTATIN 20 MG TABLET PO SCH (20:32)
[2018-07-08] MEDS: TAMSULOSIN HCL 0.4 MG CAP.SR.24H PO SCH (20:32)
[2018-07-08] MEDS ORDERED: BIMATOPROST 0.01% OPHT DROP 2.5 ML BOTTLE EACHEYE SCH (21:00)
--- NOTE | 2018-07-08 21:00 | NUR ---
f/s done result 136 no coverage given . crushed po medication given with applesauce and tolerated with water .
[2018-07-08] MEDS: AZITHROMYCIN 250 MG TABLET PO SCH (21:21)
--- NOTE | 2018-07-08 21:30 | NUR ---
RECEIVED FROM ICU UNIT, ALERT SPEAK GUATEMALAN LANGUANGE BUT ABLE TO FOLLOW INSTRUCTIONS. PATIENT ON OXYGEN 6LPM FOR SOB. SKIN INTACT CONTINENT OF BOWEL AND BLADDER, AMBULATE WITH WALKER. PATIENT REFUSED TO LAY IN BED PREFER SEAT AT THE SIDE OF THE BED, DANGLE BILATERAL FEET, CONT TO MONITOR.
--- NOTE | 2018-07-09 01:34 | NUR ---
PATIENT ALERT BUT FORGETFULL, CONT ON TELE MONITOR PATIENT ON V PACING AT 62, NO SOB NO CHEST PAIN, NO S/S OF DESATURATION. PATIENT REFUSED LAY ON BED, ASSISTED TO CHAIR KEPT WARM AND COMFORTABLE CONT TO MONITOR.
[2018-07-09] MEDS: ALBUTEROL SULFATE 2.5 MG/3 ML NEBU NEB SCH ×6 (02:55→23:13)
[2018-07-09] MEDS: IPRATROPIUM BROMIDE 0.5 MG/2.5 ML NEBU NEB SCH ×6 (02:55→23:13)
[2018-07-09 03:13] VITALS: BP 136/52
[2018-07-09] MEDS: PANTOPRAZOLE SODIUM 40 MG TABLET.DR PO SCH (05:49)
[2018-07-09] MEDS: BLOOD SUGAR DIAGNOSTIC 1 EACH STRIP VI SCH ×4 (05:50→21:33)
[2018-07-09 06:48] LABS: BASOPHILS # (AUTO) 0.1 K/uL (0.0-8.0); MEAN CORPUSCULAR HEMOGLOBIN 28.2 uug (23.8-33.4)
[2018-07-09 06:57] LABS: BASOPHILS % (AUTO) 0.3 % (0.0-2.0); EOSINOPHILS # (AUTO) 0.1 K/uL (0.0-0.7); EOSINOPHILS % (AUTO) 0.3 % (0.0-7.0); HEMATOCRIT 35.7 % (36.7-47.1); HEMOGLOBIN 11.7 g/dL (12.5-16.3); LYMPHOCYTES # (AUTO) 1.7 K/uL (20.0-40.0); LYMPHOCYTES % (AUTO) 8.6 % (20.5-51.5); MEAN CORPUSCULAR HGB CONC 33 g/dL (32.5-36.3); MEAN CORPUSCULAR VOLUME 85.9 fL (73.0-96.2); MONOCYTES # (AUTO) 1.6 K/uL (2.0-10.0); MONOCYTES % (AUTO) 7.8 % (0.0-11.0); NEUTROPHILS # (AUTO) 16.9 K/uL (1.8-8.9); PLATELET COUNT (AUTO) 343 K/uL (152-348); RED BLOOD CELL COUNT(AUTO) 4.16 MIL/uL (4.06-5.63)
[2018-07-09 06:59] LABS: WHITE BLOOD COUNT (AUTO) 20.3 K/uL (3.6-10.2)
[2018-07-09 07:33] LABS: ALANINE AMINOTRANSFERASE 18 U/L (16-63); ALKALINE PHOSPHATASE 92 U/L (50-136); ASPARTATE AMINOTRANSFERASE 18 U/L (15-37); BILIRUBIN,TOTAL 0.4 mg/dL (0.2-1.0); CARBON DIOXIDE 32 mmol/L (21-32); CHLORIDE 98 mmol/L (98-107); CREATININE 1.3 mg/dL (0.6-1.3); GLUCOSE 131 mg/dL (74-106); MAGNESIUM 2.1 mg/dL (1.8-2.4); PHOSPHOROUS 3.6 mg/dL (2.5-4.9); POTASSIUM 4.1 mmol/L (3.5-5.1); UREA NITROGEN, BLOOD 28 mg/dL (7-18)
[2018-07-09 08:48] VITALS: BP 118/58
[2018-07-09] MEDS ORDERED: APIXABAN 5 MG TABLET PO ONE (09:00)
[2018-07-09] MEDS: OMEGA-3 FATTY ACIDS/FISH OIL CAPSULE PO SCH ×2 (09:15→18:01)
[2018-07-09] MEDS: AMLODIPINE 10 MG TABLET PO SCH (09:15)
[2018-07-09] MEDS: FINASTERIDE 5 MG TABLET PO SCH (09:15)
[2018-07-09] MEDS: MAGNESIUM OXIDE 400 MG TABLET PO SCH ×2 (09:15→18:02)
[2018-07-09] MEDS: DONEPEZIL 5 MG TABLET PO SCH (09:15)
[2018-07-09] MEDS: MEMANTINE HCL 10 MG TABLET PO SCH (09:16)
[2018-07-09] MEDS: DOCUSATE SODIUM 250 MG CAPSULE PO SCH ×2 (09:16→18:02)
[2018-07-09] MEDS: ISOSORBIDE MONONITRATE 30 MG TAB.SR.24H PO SCH (09:16)
[2018-07-09] MEDS: glipiZIDE 5 MG TABLET PO SCH ×2 (09:16→18:02)
[2018-07-09] MEDS: FUROSEMIDE 40 MG/4 ML VIAL IV SCH ×2 (09:16→21:32)
[2018-07-09] MEDS: POTASSIUM CHLORIDE 20 MEQ TAB.PRT.SR PO SCH (09:16)
[2018-07-09] MEDS: CILOSTAZOL 100 MG TABLET PO SCH (09:17)
[2018-07-09] MEDS: DORZOLAMIDE 2% OPHT DROP 10 ML BOTTLE EACHEYE SCH ×2 (09:18→18:02)
[2018-07-09] MEDS: FLUTICASONE/VILANTEROL 1 EACH BLST.W.DEV INH SCH (09:18)
[2018-07-09] MEDS: BRIMONIDINE 0.2% OPHT DROP 10 ML BOTTLE EACHEYE SCH ×2 (09:18→18:02)
[2018-07-09] MEDS: TIMOLOL MALEATE 0.5% OPHT DROP 5 ML BOTTLE EACHEYE SCH ×2 (09:18→18:02)
--- NOTE | 2018-07-09 11:31 | NUR ---
Patient off O2 for 20 min, sats 77% on RA. Patient back on 5LNC sat 92% in no acute distress.
[2018-07-09] MEDS: INSULIN REGULAR, HUMAN 300 UNIT/3 ML VIAL SQ PRN (12:25)
[2018-07-09] MEDS: CEFTRIAXONE 1 G in IV DEXTROSE 5% 50 ML IV SCH (13:50)
--- NOTE | 2018-07-09 18:39 | NUR ---
Patient remains with sitter for safety throughout shift, in no acute distress. All due medications given as ordered. IV remains intact and patent. No falls or injuries throughout shift.
[2018-07-09 18:44] VITALS: BP 145/49
--- NOTE | 2018-07-09 19:04 | NUR ---
PT REC'D ON NASAL CANNULA AT 5LPM. NO SIGNS OR SYMPTOMS OF SHORTNESS OF BREATH NOTED. PT IS AWAKE. TX GIVEN ORDERED, NO ADVERSE REACTIONS NOTED. WILL CONTINUE TO MONITOR PT.
--- NOTE | 2018-07-09 19:30 | NUR ---
PATIENT AWAKE, SITTING ON THE EDGE OF THE BED. NO DISCOMFORT NOTED. NO SOB. USING O2 @ 5 LPM VIA NC . SITTER AT THE BED SIDE. KEPT THE FEET ELEVATED . WILL CONTINUE TO MONITOR.
[2018-07-09 20:05] VITALS: BP 165/65
[2018-07-09] MEDS: ATORVASTATIN 20 MG TABLET PO SCH (21:32)
[2018-07-09] MEDS: LATANOPROST OPHT DROP 2.5 ML BOTTLE EACHEYE SCH (21:32)
[2018-07-09] MEDS: TAMSULOSIN HCL 0.4 MG CAP.SR.24H PO SCH (21:32)
[2018-07-09] MEDS: AZITHROMYCIN 250 MG TABLET PO SCH (22:18)
--- NOTE | 2018-07-09 22:30 | NUR ---
BLADDER SCAN DONE ORDERED WITH THE RESULT 244ML OF URINE
[2018-07-10] MEDS: ALBUTEROL SULFATE 2.5 MG/3 ML NEBU NEB SCH ×6 (02:46→22:46)
[2018-07-10] MEDS: IPRATROPIUM BROMIDE 0.5 MG/2.5 ML NEBU NEB SCH ×6 (02:46→22:46)
[2018-07-10 05:38] VITALS: BP 148/62
[2018-07-10] MEDS: PANTOPRAZOLE SODIUM 40 MG TABLET.DR PO SCH (06:35)
[2018-07-10] MEDS: BLOOD SUGAR DIAGNOSTIC 1 EACH STRIP VI SCH ×4 (06:35→21:42)
--- NOTE | 2018-07-10 06:49 | NUR ---
PATIENT AWAKE SITTING ON THE CHAIR. USING O2 @ 5LPM VIA NC. URINATING WITHOUT ANY DIFFICULTY. 1:1 SITTER AT THE BED SIDE. PATIENT ON LASIX. NO BM DURING THE SHIFT. SLEPT FOR 4 HRS DURING EH SHIFT . ALL NEEDS MET
[2018-07-10 07:07] LABS: BASOPHILS # (AUTO) 0.1 K/uL (0.0-8.0); BASOPHILS % (AUTO) 0.7 % (0.0-2.0); EOSINOPHILS # (AUTO) 0.2 K/uL (0.0-0.7); EOSINOPHILS % (AUTO) 1.9 % (0.0-7.0); HEMATOCRIT 32.6 % (36.7-47.1); LYMPHOCYTES # (AUTO) 1.6 K/uL (20.0-40.0); LYMPHOCYTES % (AUTO) 16.2 % (20.5-51.5); MEAN CORPUSCULAR HEMOGLOBIN 28.9 uug (23.8-33.4); MEAN CORPUSCULAR HGB CONC 34 g/dL (32.5-36.3); MEAN CORPUSCULAR VOLUME 85.5 fL (73.0-96.2); MONOCYTES # (AUTO) 1.1 K/uL (2.0-10.0); MONOCYTES % (AUTO) 11.7 % (0.0-11.0); NEUTROPHILS # (AUTO) 6.8 K/uL (1.8-8.9); NEUTROPHILS % (AUTO) 69.5 % (38.5-71.5); PLATELET COUNT (AUTO) 285 K/uL (152-348); RED BLOOD CELL COUNT(AUTO) 3.82 MIL/uL (4.06-5.63); WHITE BLOOD COUNT (AUTO) 9.7 K/uL (3.6-10.2)
[2018-07-10 07:15] LABS: CARBON DIOXIDE 32 mmol/L (21-32); CHLORIDE 99 mmol/L (98-107); CREATININE 1.1 mg/dL (0.6-1.3); GLUCOSE 98 mg/dL (74-106); MAGNESIUM 2.3 mg/dL (1.8-2.4); PHOSPHOROUS 3.5 mg/dL (2.5-4.9); POTASSIUM 3.8 mmol/L (3.5-5.1); UREA NITROGEN, BLOOD 30 mg/dL (7-18)
[2018-07-10] MEDS: glipiZIDE 5 MG TABLET PO SCH ×2 (08:14→16:15)
[2018-07-10] MEDS: OMEGA-3 FATTY ACIDS/FISH OIL CAPSULE PO SCH ×2 (08:14→16:15)
[2018-07-10] MEDS: FINASTERIDE 5 MG TABLET PO SCH (08:14)
[2018-07-10] MEDS: MAGNESIUM OXIDE 400 MG TABLET PO SCH ×2 (08:14→16:15)
[2018-07-10] MEDS: MEMANTINE HCL 10 MG TABLET PO SCH (08:14)
[2018-07-10] MEDS: DOCUSATE SODIUM 250 MG CAPSULE PO SCH ×2 (08:14→16:15)
[2018-07-10] MEDS: POTASSIUM CHLORIDE 20 MEQ TAB.PRT.SR PO SCH (08:14)
[2018-07-10] MEDS: DONEPEZIL 5 MG TABLET PO SCH (08:14)
[2018-07-10] MEDS: FLUTICASONE/VILANTEROL 1 EACH BLST.W.DEV INH SCH (08:15)
[2018-07-10] MEDS: CILOSTAZOL 100 MG TABLET PO SCH (08:15)
[2018-07-10] MEDS: BRIMONIDINE 0.2% OPHT DROP 10 ML BOTTLE EACHEYE SCH ×2 (08:16→16:24)
[2018-07-10] MEDS: DORZOLAMIDE 2% OPHT DROP 10 ML BOTTLE EACHEYE SCH ×2 (08:16→16:24)
[2018-07-10] MEDS: TIMOLOL MALEATE 0.5% OPHT DROP 5 ML BOTTLE EACHEYE SCH ×2 (08:16→16:24)
[2018-07-10] MEDS: FUROSEMIDE 40 MG/4 ML VIAL IV SCH ×2 (08:25→21:43)
[2018-07-10] MEDS: ISOSORBIDE MONONITRATE 30 MG TAB.SR.24H PO SCH (08:27)
[2018-07-10] MEDS: AMLODIPINE 10 MG TABLET PO SCH (08:28)
[2018-07-10 08:56] VITALS: BP 106/58
[2018-07-10] MEDS: INSULIN REGULAR, HUMAN 300 UNIT/3 ML VIAL SQ PRN ×2 (11:15→21:45)
[2018-07-10 11:32] VITALS: BP 119/62
[2018-07-10] MEDS: CEFTRIAXONE 1 G in IV DEXTROSE 5% 50 ML IV SCH (12:36)
--- NOTE | 2018-07-10 15:00 | NUR ---
BLADDER SCAN DONE ORDERED WITH THE RESULT 150 ML OF URINE noted
[2018-07-10 15:38] VITALS: BP 104/55
--- NOTE | 2018-07-10 19:40 | NUR ---
PATIENT SITTING ON THE CHAIR RECEIVING THE BREATHING TX ORDERED. NO C/O ANY DISCOMFORT NOTED. FAMILY AND SITTER AT THE BED SIDE. WILL CONTINUE TO MONITOR .
[2018-07-10] MEDS: LISINOPRIL 5 MG TABLET PO SCH (19:54)
[2018-07-10 20:37] VITALS: BP 133/67
--- NOTE | 2018-07-10 21:00 | NUR ---
BLADDER SCAN DONE WITH THE RESULT 38 ML OF URINE .
[2018-07-10] MEDS: TAMSULOSIN HCL 0.4 MG CAP.SR.24H PO SCH (21:43)
[2018-07-10] MEDS: ATORVASTATIN 20 MG TABLET PO SCH (21:43)
[2018-07-10] MEDS: AZITHROMYCIN 250 MG TABLET PO SCH (21:43)
[2018-07-10] MEDS: LATANOPROST OPHT DROP 2.5 ML BOTTLE EACHEYE SCH (21:43)
--- NOTE | 2018-07-11 00:30 | NUR ---
RECEIVED PATIENT FROM LATRICE FOSTER. PATIENT IS IN BED, NO ACUTE DISTRESS NOTED, SITTER IS AT BEDSIDE. COMFORT AND SAFETY MEASURES IN PLACE.
[2018-07-11] MEDS: ALBUTEROL SULFATE 2.5 MG/3 ML NEBU NEB SCH ×6 (02:49→23:04)
[2018-07-11] MEDS: IPRATROPIUM BROMIDE 0.5 MG/2.5 ML NEBU NEB SCH ×6 (02:49→23:04)
[2018-07-11 05:46] VITALS: BP 130/62
[2018-07-11] MEDS: glipiZIDE 5 MG TABLET PO SCH ×2 (06:32→16:02)
[2018-07-11] MEDS: PANTOPRAZOLE SODIUM 40 MG TABLET.DR PO SCH (06:32)
[2018-07-11] MEDS: BLOOD SUGAR DIAGNOSTIC 1 EACH STRIP VI SCH ×4 (06:48→21:10)
[2018-07-11 06:50] LABS: BASOPHILS # (AUTO) 0.1 K/uL (0.0-8.0); BASOPHILS % (AUTO) 0.8 % (0.0-2.0); EOSINOPHILS # (AUTO) 0.3 K/uL (0.0-0.7); EOSINOPHILS % (AUTO) 3.9 % (0.0-7.0); HEMATOCRIT 31.9 % (36.7-47.1); HEMOGLOBIN 10.6 g/dL (12.5-16.3); LYMPHOCYTES # (AUTO) 1.4 K/uL (20.0-40.0); LYMPHOCYTES % (AUTO) 16.9 % (20.5-51.5); MEAN CORPUSCULAR HEMOGLOBIN 28.3 uug (23.8-33.4); MEAN CORPUSCULAR HGB CONC 33 g/dL (32.5-36.3); MEAN CORPUSCULAR VOLUME 85.5 fL (73.0-96.2); MONOCYTES # (AUTO) 0.9 K/uL (2.0-10.0); MONOCYTES % (AUTO) 10.2 % (0.0-11.0); NEUTROPHILS # (AUTO) 5.8 K/uL (1.8-8.9); NEUTROPHILS % (AUTO) 68.2 % (38.5-71.5); PLATELET COUNT (AUTO) 257 K/uL (152-348); RED BLOOD CELL COUNT(AUTO) 3.73 MIL/uL (4.06-5.63); WHITE BLOOD COUNT (AUTO) 8.5 K/uL (3.6-10.2)
[2018-07-11 07:04] LABS: CARBON DIOXIDE 34 mmol/L (21-32); CHLORIDE 101 mmol/L (98-107); CREATININE 1.1 mg/dL (0.6-1.3); GLUCOSE 93 mg/dL (74-106); MAGNESIUM 2.2 mg/dL (1.8-2.4); POTASSIUM 3.8 mmol/L (3.5-5.1); UREA NITROGEN, BLOOD 29 mg/dL (7-18)
[2018-07-11 07:27] LABS: PHOSPHOROUS 3.7 mg/dL (2.5-4.9)
--- NOTE | 2018-07-11 07:50 | NUR ---
PATIENT SLEPT WELL AT NIGHT. COMFORT AND SAFETY PROVIDED.
[2018-07-11] MEDS: FLUTICASONE/VILANTEROL 1 EACH BLST.W.DEV INH SCH (08:02)
[2018-07-11] MEDS: DORZOLAMIDE 2% OPHT DROP 10 ML BOTTLE EACHEYE SCH ×2 (08:03→16:03)
[2018-07-11] MEDS: BRIMONIDINE 0.2% OPHT DROP 10 ML BOTTLE EACHEYE SCH ×2 (08:03→16:02)
[2018-07-11] MEDS: TIMOLOL MALEATE 0.5% OPHT DROP 5 ML BOTTLE EACHEYE SCH ×2 (08:03→16:03)
[2018-07-11] MEDS: DONEPEZIL 5 MG TABLET PO SCH (08:04)
[2018-07-11] MEDS: OMEGA-3 FATTY ACIDS/FISH OIL CAPSULE PO SCH ×2 (08:04→16:02)
[2018-07-11] MEDS: ISOSORBIDE MONONITRATE 30 MG TAB.SR.24H PO SCH (08:04)
[2018-07-11] MEDS: FINASTERIDE 5 MG TABLET PO SCH (08:04)
[2018-07-11] MEDS: MAGNESIUM OXIDE 400 MG TABLET PO SCH ×2 (08:04→16:02)
[2018-07-11] MEDS: DOCUSATE SODIUM 250 MG CAPSULE PO SCH ×2 (08:04→16:01)
[2018-07-11] MEDS: CILOSTAZOL 100 MG TABLET PO SCH (08:04)
[2018-07-11] MEDS: POTASSIUM CHLORIDE 20 MEQ TAB.PRT.SR PO SCH (08:05)
[2018-07-11] MEDS: MEMANTINE HCL 10 MG TABLET PO SCH (08:05)
[2018-07-11] MEDS: FUROSEMIDE 40 MG/4 ML VIAL IV SCH ×2 (08:19→20:58)
[2018-07-11] MEDS: AMLODIPINE 10 MG TABLET PO SCH (09:00)
[2018-07-11] MEDS ORDERED: ERGOCALCIFEROL 50,000 UNIT CAPSULE PO SCH (09:00)
[2018-07-11] MEDS: LISINOPRIL 5 MG TABLET PO SCH (09:00)
[2018-07-11] MEDS: INSULIN REGULAR, HUMAN 300 UNIT/3 ML VIAL SQ PRN ×2 (10:40→16:01)
[2018-07-11 11:33] VITALS: BP 102/50
[2018-07-11] MEDS: CEFTRIAXONE 1 G in IV DEXTROSE 5% 50 ML IV SCH (12:53)
[2018-07-11 15:00] VITALS: BP 97/55
--- NOTE | 2018-07-11 17:00 | NUR ---
BLADDER SCAN DONE ORDERED WITH THE RESULT 100 ML OF URINE noted
[2018-07-11 20:13] VITALS: BP 125/61
[2018-07-11] MEDS ORDERED: LISINOPRIL 5 MG TABLET PO SCH (21:00)
[2018-07-11] MEDS: ATORVASTATIN 20 MG TABLET PO SCH (21:11)
[2018-07-11] MEDS: LATANOPROST OPHT DROP 2.5 ML BOTTLE EACHEYE SCH (21:17)
[2018-07-11] MEDS: TAMSULOSIN HCL 0.4 MG CAP.SR.24H PO SCH (21:18)
[2018-07-11] MEDS: AZITHROMYCIN 250 MG TABLET PO SCH (21:19)
[2018-07-12] MEDS: IPRATROPIUM BROMIDE 0.5 MG/2.5 ML NEBU NEB SCH ×4 (02:59→15:28)
[2018-07-12] MEDS: ALBUTEROL SULFATE 2.5 MG/3 ML NEBU NEB SCH ×4 (02:59→15:28)
--- NOTE | 2018-07-12 03:00 | NUR ---
Pt asleep. No distress noted. HHN tx not given. RN Antonio notified.
[2018-07-12] MEDS: BLOOD SUGAR DIAGNOSTIC 1 EACH STRIP VI SCH ×3 (05:49→16:02)
[2018-07-12] MEDS: glipiZIDE 5 MG TABLET PO SCH ×2 (05:49→16:12)
[2018-07-12] MEDS: PANTOPRAZOLE SODIUM 40 MG TABLET.DR PO SCH (05:49)
[2018-07-12 06:14] VITALS: BP 116/41
[2018-07-12 07:30] VITALS: BP 134/41
[2018-07-12] MEDS: OMEGA-3 FATTY ACIDS/FISH OIL CAPSULE PO SCH ×2 (08:16→16:12)
[2018-07-12] MEDS: MAGNESIUM OXIDE 400 MG TABLET PO SCH ×2 (08:16→16:12)
[2018-07-12] MEDS: DOCUSATE SODIUM 250 MG CAPSULE PO SCH ×2 (08:16→16:12)
[2018-07-12] MEDS: POTASSIUM CHLORIDE 20 MEQ TAB.PRT.SR PO SCH (08:16)
[2018-07-12] MEDS: DONEPEZIL 5 MG TABLET PO SCH (08:16)
[2018-07-12] MEDS: FINASTERIDE 5 MG TABLET PO SCH (08:16)
[2018-07-12] MEDS: MEMANTINE HCL 10 MG TABLET PO SCH (08:16)
[2018-07-12] MEDS: ISOSORBIDE MONONITRATE 30 MG TAB.SR.24H PO SCH (08:17)
[2018-07-12] MEDS: BRIMONIDINE 0.2% OPHT DROP 10 ML BOTTLE EACHEYE SCH ×2 (08:18→16:27)
[2018-07-12] MEDS: TIMOLOL MALEATE 0.5% OPHT DROP 5 ML BOTTLE EACHEYE SCH ×2 (08:18→16:27)
[2018-07-12] MEDS: FLUTICASONE/VILANTEROL 1 EACH BLST.W.DEV INH SCH (08:18)
[2018-07-12] MEDS: FUROSEMIDE 40 MG/4 ML VIAL IV SCH (08:19)
[2018-07-12] MEDS: DORZOLAMIDE 2% OPHT DROP 10 ML BOTTLE EACHEYE SCH ×2 (08:19→16:27)
[2018-07-12] MEDS: CILOSTAZOL 100 MG TABLET PO SCH (08:20)
[2018-07-12] MEDS: INSULIN REGULAR, HUMAN 300 UNIT/3 ML VIAL SQ PRN (10:52)
[2018-07-12 11:29] VITALS: BP 114/51
[2018-07-12] MEDS: CEFTRIAXONE 1 G in IV DEXTROSE 5% 50 ML IV SCH (12:19)
[2018-07-12 15:22] VITALS: BP 116/53
[2018-07-12] MEDS ORDERED: AZIT250T13 PO (16:39)
[2018-07-12] MEDS ORDERED: LISI-607 PO (16:39)
[2018-07-12] MEDS ORDERED: TAMS-3 PO (16:39)
[2018-07-12] MEDS ORDERED: FURO-151 PO (16:41)
--- NOTE | 2018-07-12 17:48 | NUR ---
d/c orders received noted and carried out,d/c instruction and education given to the pt and his grand daughter,d/c meagan per md orders,pt left the [facility] via private car in stable condition
== END 2018-07-12 17:53 | disposition home health service (06) | DRG 871 ==
LOC: ER 18:23 → CCU 20:46 → TELE3 07-08 22:51 → MEDSURG3 07-09 14:55
PROVIDERS: ADMIT Registered Nurse; ATTEND Registered Nurse
DX: A41.9 Sepsis, unspecified organism (principal); J96.21 Acute and chronic respiratory failure with hypoxia; I50.33 Acute on chronic diastolic (congestive) heart failure; J18.9 Pneumonia, unspecified organism; N17.0 Acute kidney failure with tubular necrosis; J44.1 Chronic obstructive pulmonary disease with (acute) exacerbation; G93.40 Encephalopathy, unspecified; N39.0 Urinary tract infection, site not specified; I48.92 Unspecified atrial flutter; J44.0 Chronic obstructive pulmonary disease with (acute) lower respiratory infection; I44.2 Atrioventricular block, complete; D68.59 Other primary thrombophilia; I11.0 Hypertensive heart disease with heart failure; F03.90 Unspecified dementia, unspecified severity, without behavioral disturbance, psychotic disturbance, mood disturbance, and anxiety; E78.5 Hyperlipidemia, unspecified; H54.8 Legal blindness, as defined in USA; H40.9 Unspecified glaucoma; Z95.0 Presence of cardiac pacemaker; Z68.36 Body mass index [BMI] 36.0-36.9, adult; K21.9 Gastro-esophageal reflux disease without esophagitis; N40.0 Benign prostatic hyperplasia without lower urinary tract symptoms; Z99.81 Dependence on supplemental oxygen; M19.90 Unspecified osteoarthritis, unspecified site; I48.91 Unspecified atrial fibrillation; E66.01 Morbid (severe) obesity due to excess calories; Z79.84 Long term (current) use of oral hypoglycemic drugs; Z79.02 Long term (current) use of antithrombotics/antiplatelets; Z79.899 Other long term (current) drug therapy; Z87.891 Personal history of nicotine dependence; I70.0 Atherosclerosis of aorta; I25.10 Atherosclerotic heart disease of native coronary artery without angina pectoris; E11.51 Type 2 diabetes mellitus with diabetic peripheral angiopathy without gangrene; Z79.01 Long term (current) use of anticoagulants; K59.00 Constipation, unspecified
CPT/HCPCS: 36415; 70030-TC; 71045; 83735; 84100; 84443; 85025; 85730; 87040; 87086; 93005; 94640; 94664; 97110; 97116; 97530; A4663; C9113; G0378; J0696; J1815; J1940; J2920; J3590; J7040; J7060; Q0144

== ENCOUNTER 2018-08-04 19:59 | Inpatient (IN) | payer MEDICARE, MEDICAID ==
[~2018-08-04] VITALS: Ht 162.6 cm; Wt 97.2 kg
[~2018-08-04 19:59] MED LIST changes: -AMLO10TA7 PO; -APIX5TAB PO; +AZIT250T13 PO; -DILT-11 PO; +FURO-151 PO; +LISI-607 PO; -OMEG1CAP55 PO; -SITA1TAB6 PO
[2018-08-04] MEDS ORDERED: NITROGLYCERIN OINT 1 GM PACKET TP ONE ×2 (20:30→20:57)
[2018-08-04] MEDS ORDERED: IV NORMAL SALINE 500 ML BAG IV ONE (20:30)
[2018-08-04] MEDS ORDERED: FUROSEMIDE 20 MG/2 ML VIAL IVP ONE (20:30)
[2018-08-04 20:48] LABS: CARBON DIOXIDE 22 mmol/L (21-32); CHLORIDE 93 mmol/L (98-107); CREATININE 1.3 mg/dL (0.6-1.3); GLUCOSE 121 mg/dL (74-106); POTASSIUM 3.9 mmol/L (3.5-5.1); UREA NITROGEN, BLOOD 21 mg/dL (7-18)
[2018-08-04 20:54] LABS: BASOPHILS # (AUTO) 0.1 K/uL (0.0-8.0); BASOPHILS % (AUTO) 0.5 % (0.0-2.0); EOSINOPHILS # (AUTO) 0.1 K/uL (0.0-0.7); EOSINOPHILS % (AUTO) 1.2 % (0.0-7.0); HEMATOCRIT 35.4 % (36.7-47.1); HEMOGLOBIN 11.7 g/dL (12.5-16.3); LYMPHOCYTES # (AUTO) 1.2 K/uL (20.0-40.0); MEAN CORPUSCULAR HEMOGLOBIN 28.5 uug (23.8-33.4); MEAN CORPUSCULAR HGB CONC 33 g/dL (32.5-36.3); MEAN CORPUSCULAR VOLUME 86.5 fL (73.0-96.2); MONOCYTES # (AUTO) 0.8 K/uL (2.0-10.0); MONOCYTES % (AUTO) 8.2 % (0.0-11.0); NEUTROPHILS # (AUTO) 7.6 K/uL (1.8-8.9); NEUTROPHILS % (AUTO) 78.1 % (38.5-71.5); PLATELET COUNT (AUTO) 276 K/uL (152-348); RED BLOOD CELL COUNT(AUTO) 4.09 MIL/uL (4.06-5.63); WHITE BLOOD COUNT (AUTO) 9.8 K/uL (3.6-10.2)
[2018-08-04] MEDS ORDERED: FUROSEMIDE 40 MG/4 ML VIAL ONE (20:57)
[2018-08-04 21:01] LABS: ALANINE AMINOTRANSFERASE 21 U/L (16-63); ALKALINE PHOSPHATASE 90 U/L (50-136); ASPARTATE AMINOTRANSFERASE 25 U/L (15-37); BILIRUBIN,DIRECT 0.3 mg/dL (0.0-0.2); TOTAL PROTEIN, SERUM 7.1 g/dL (6.4-8.2)
--- NOTE | 2018-08-04 21:20 | NUR ---
Nicola Denton CASING WRINGER OPERATOR at bedside for eval
--- NOTE | 2018-08-04 21:24 | NUR ---
TERRANCE SALINAS CONFERENCE PRODUCER HOTEL GUEST SERVICE AGENT FOR [facility] HERE TO EVAL PATIENT
[2018-08-04] MEDS ORDERED: TOLT4CAP PO (21:54)
[2018-08-04] MEDS ORDERED: BLOO-360 IN (21:54)
[2018-08-04] MEDS ORDERED: AMLO10TA7 PO (21:54)
[2018-08-04] MEDS ORDERED: ALBU18HF2 IH (21:54)
[2018-08-04] MEDS ORDERED: APIX5TAB PO (21:54)
[2018-08-04] MEDS ORDERED: CLOP75TA33 PO (21:54)
[2018-08-04] MEDS ORDERED: CIPR500T5 PO (21:54)
[2018-08-04] MEDS ORDERED: OMEG1CAP55 PO (21:54)
[2018-08-04] MEDS ORDERED: DILT240C2 PO (21:54)
[2018-08-04] MEDS ORDERED: TOPI25TA49 PO (21:54)
--- NOTE | 2018-08-04 22:00 | NUR ---
Patient sitting up on side of bed for comfort.
[2018-08-04] MEDS ORDERED: MAGNESIUM HYDROXIDE 30 ML LIQUID UDC PO PRN (22:30)
[2018-08-04] MEDS ORDERED: HYDROCODONE/APAP 5-325MG TABLET PO PRN (22:30)
[2018-08-04] MEDS ORDERED: CEFTRIAXONE 1 G in IV DEXTROSE 5% 50 ML IV SCH (22:30)
[2018-08-04] MEDS ORDERED: DEXTROSE 50% 50 ML DISP.SYRIN IV PRN (22:30)
[2018-08-04] MEDS ORDERED: Z GUARD REMEDY PASTE 57 GM TUBE TOP PRN (22:30)
[2018-08-04] MEDS ORDERED: NITROGLYCERIN 0.4 MG/TAB BOTTLE SL PRN (22:30)
[2018-08-04] MEDS ORDERED: ONDANSETRON 4 MG/2 ML VIAL IV PRN (22:30)
[2018-08-04] MEDS ORDERED: ACETAMINOPHEN 325 MG TABLET PO PRN (22:30)
[2018-08-04] MEDS ORDERED: ALBUTEROL SULFATE 2.5 MG/ 0.5 ML NEBU NEB PRN (22:30)
[2018-08-04] MEDS ORDERED: CLONIDINE HCL 0.1 MG TABLET PO PRN (22:30)
[2018-08-04] MEDS ORDERED: TOPIRAMATE 25 MG TABLET PO PRN (22:30)
[2018-08-04] MEDS ORDERED: IPRATROPIUM BROMIDE 0.5 MG/2.5 ML NEBU NEB PRN (22:30)
[2018-08-04] MEDS ORDERED: MORPHINE SULFATE 2 MG/1 ML DISP.SYRIN IV PRN (22:30)
[2018-08-04] MEDS ORDERED: AZITHROMYCIN IV 500 MG in IV DEXTROSE 5% 250 ML IV SCH (22:30)
[2018-08-04] MEDS ORDERED: POLYETHYLENE GLYCOL 3350 238 GM POWDER PO PRN (22:30)
--- NOTE | 2018-08-04 22:30 | NUR ---
ADMITTED PATIENT IN TELE UNIT UNDER THE CARE OF [facility] FIELD INSTRUCTOR BELONGING LIST DONE. BODY CHECK WAS DONE WITH BRUISE ON L INNER THIGH, BILATERAL LEG HAS EDEMA, REDNESS, AND BLISTERS. PATIENT ALSO HAS RIGHT AND LEG GROIN REDNESS, AND BILATERAL FOOT SWELLING/REDNESS. PATIENT WITH SOB ON OXYGEN, 2 TO 3LPM WITH SAT 92 TO 95%, PATIENT ALSO HAS RESTLESSNESS, RISK FOR FALL, FREQUENT VISUAL CHECK DONE, BED ALARM WAS PUT ON, CONT TO MONITOR.
--- NOTE | 2018-08-04 22:50 | NUR ---
Pt. admitted to Telemetry in room 318, under care of Marian Mansfield. Belongs List completed, MRSA swab done and sent to lab. IV patient and intact.
[2018-08-05] MEDS ORDERED: AZITHROMYCIN 500 MG VIAL IV ONE (00:10)
[2018-08-05] MEDS ORDERED: CEFTRIAXONE 1 G VIAL ONE (00:10)
[2018-08-05 00:30] VITALS: BP 117/59
[2018-08-05 05:17] VITALS: BP 107/57
[2018-08-05] MEDS: methylPREDNISolone SOD SUCC 40 MG/ML VIAL IV SCH ×3 (05:32→21:33)
[2018-08-05] MEDS: BLOOD SUGAR DIAGNOSTIC 1 EACH STRIP VI SCH ×4 (06:44→20:11)
--- NOTE | 2018-08-05 07:15 | NUR ---
Patient resting comfortable in bed with no signs of distress ; patient on 3L via Nasal Canula . Vital signs with in normal limits ; Safety measures in place. Patient will continue to be monitored.
--- NOTE | 2018-08-05 07:40 | NUR ---
Patient resting comfortably in bed at this time. No signs of distress. No signs of SOB. On NC 3L. Stable condition. Bed alarm is on. PT evaluation order placed. Safety measures implemented. Will continue to monitor closely throughout shift.
[2018-08-05] MEDS: AMLODIPINE 10 MG TABLET PO SCH (08:51)
[2018-08-05] MEDS: DOCUSATE SODIUM 250 MG CAPSULE PO SCH ×2 (08:52→16:49)
[2018-08-05] MEDS: FINASTERIDE 5 MG TABLET PO SCH (08:52)
[2018-08-05] MEDS: FLUTICASONE/VILANTEROL 1 EACH BLST.W.DEV INH SCH (08:53)
[2018-08-05] MEDS ORDERED: CLOPIDOGREL 75 MG TABLET PO SCH (09:00)
[2018-08-05] MEDS ORDERED: APIXABAN 5 MG TABLET PO SCH (09:00)
[2018-08-05] MEDS ORDERED: FLUTICASONE/SALMETEROL 250/50 INHALER IH SCH (09:00)
[2018-08-05] MEDS ORDERED: DILTIAZEM HCL CD 240 MG CAP.SR.24H PO SCH ×2 (09:00)
[2018-08-05] MEDS ORDERED: PANTOPRAZOLE SODIUM 40 MG VIAL IV SCH (09:00)
[2018-08-05] MEDS ORDERED: FUROSEMIDE 40 MG TABLET PO SCH (09:00)
[2018-08-05] MEDS ORDERED: APIXABAN 5 MG TABLET PO ONE ×2 (09:00→18:00)
[2018-08-05] MEDS: PANTOPRAZOLE SODIUM 40 MG TABLET.DR PO SCH (09:51)
[2018-08-05 11:18] VITALS: BP 146/64
[2018-08-05] MEDS: INSULIN REGULAR, HUMAN 300 UNIT/3 ML VIAL SQ PRN ×2 (11:34→16:51)
[2018-08-05] MEDS ORDERED: MIRALAX 17 GM POWD.PACK PO PRN (11:45)
[2018-08-05] MEDS: TOLTERODINE LA 2 MG CAP.SR.24H PO SCH ×2 (12:27→12:31)
[2018-08-05] MEDS: MAGNESIUM OXIDE 400 MG TABLET PO SCH ×2 (12:30→16:49)
[2018-08-05] MEDS: FUROSEMIDE 40 MG/4 ML VIAL IV SCH ×2 (14:18→21:33)
[2018-08-05 15:25] VITALS: BP 142/62
[2018-08-05] MEDS: IPRATROPIUM BROMIDE 0.5 MG/2.5 ML NEBU NEB SCH ×2 (15:51→20:52)
[2018-08-05] MEDS: ALBUTEROL SULFATE 2.5 MG/3 ML NEBU NEB SCH ×2 (15:51→20:52)
[2018-08-05 16:07] LABS: BASOPHILS % (AUTO) 0.1 % (0.0-2.0); HEMATOCRIT 35.5 % (36.7-47.1); HEMOGLOBIN 11.6 g/dL (12.5-16.3); LYMPHOCYTES # (AUTO) 0.4 K/uL (20.0-40.0); MEAN CORPUSCULAR HEMOGLOBIN 28.6 uug (23.8-33.4); MEAN CORPUSCULAR HGB CONC 33 g/dL (32.5-36.3); MEAN CORPUSCULAR VOLUME 87.4 fL (73.0-96.2); MONOCYTES # (AUTO) 0.1 K/uL (2.0-10.0); MONOCYTES % (AUTO) 1.4 % (0.0-11.0); NEUTROPHILS # (AUTO) 5.8 K/uL (1.8-8.9); NEUTROPHILS % (AUTO) 92.5 % (38.5-71.5); PLATELET COUNT (AUTO) 271 K/uL (152-348); RED BLOOD CELL COUNT(AUTO) 4.07 MIL/uL (4.06-5.63); WHITE BLOOD COUNT (AUTO) 6.3 K/uL (3.6-10.2)
[2018-08-05 16:51] LABS: ALANINE AMINOTRANSFERASE 23 U/L (16-63); ALKALINE PHOSPHATASE 89 U/L (50-136); ASPARTATE AMINOTRANSFERASE 26 U/L (15-37); BILIRUBIN,TOTAL 0.8 mg/dL (0.2-1.0); CARBON DIOXIDE 25 mmol/L (21-32); CHLORIDE 95 mmol/L (98-107); CHOLESTEROL 136 mg/dL (<200); CREATININE 1.3 mg/dL (0.6-1.3); GLUCOSE 246 mg/dL (74-106); HDL CHOLESTEROL 41 mg/dL (40-60); MAGNESIUM 1.6 mg/dL (1.8-2.4); PHOSPHOROUS 4.4 mg/dL (2.5-4.9); POTASSIUM 3.7 mmol/L (3.5-5.1); TOTAL PROTEIN, SERUM 7.8 g/dL (6.4-8.2); TRIGLYCERIDES 67 MG/DL (30-150); UREA NITROGEN, BLOOD 21 mg/dL (7-18)
--- NOTE | 2018-08-05 18:18 | NUR ---
Patient sitting in chair at this time. No signs of distress. No SOB or chest pain noted. V pacing on tele. Has a very good appetite. Blood sugar managed per sliding sale. Closely monitored on chair for being a fall risk. Bed alarm on, call light within reach of patient. will continue to monitor closely until end of shift.
--- NOTE | 2018-08-05 19:40 | NUR ---
Received patient sitting up at bedside chair, patient is alert and oriented x 3 however patient is mainly Hong Konger speaking and speaks little Congolese. Patient with oxygen support at 4lpm via nasal cannula, and has an IV access on the left antecubital vein, patent and intact. Patient admitted for CHF exacerbation, strict intake and output observed. Will continue to monitor.
[2018-08-05] MEDS: TAMSULOSIN HCL 0.4 MG CAP.SR.24H PO SCH (20:05)
[2018-08-05] MEDS: risperiDONE 0.5 MG TABLET PO SCH (20:05)
[2018-08-05] MEDS: ATORVASTATIN 20 MG TABLET PO SCH (20:05)
[2018-08-05] MEDS: LISINOPRIL 5 MG TABLET PO SCH (20:06)
[2018-08-05] MEDS: INSULIN REGULAR, HUMAN 300 UNITS/3 ML VIAL SQ PRN (20:14)
[2018-08-05 20:29] VITALS: BP 122/62
--- NOTE | 2018-08-05 21:30 | NUR ---
Transferred patient to bed, however patient became agitated and insisted on sitting up on bedside chair. Patient continuously attempting to get out of bed, noted oxygen saturation went down to 83%. Transferred patient to sit on a gerichair, patient able to calm down, noted oxygen saturation went back up to 92%. Will continue to monitor.
[2018-08-05] MEDS: TEMAZEPAM 15 MG CAPSULE PO PRN (22:14)
[2018-08-06 00:13] VITALS: BP 121/61
--- NOTE | 2018-08-06 01:00 | NUR ---
Patient continuously trying to get out of bed and asking for food, being uncooperative. Desaturates on exertion. Called and spoke with Dr. Powell who ordered for Haldol 0.5mg IM one time. MD also ordered for patient to have a sitter for safety.
[2018-08-06] MEDS ORDERED: HALOPERIDOL LACTATE 5 MG/1 ML VIAL IM ONE (01:15)
[2018-08-06 04:42] VITALS: BP 123/56
--- NOTE | 2018-08-06 05:45 | NUR ---
Patient was able to sleep after haldol injection. No other untoward events noted. No furhter desaturation noted. Attended all needs. Ensured safety and comfort.
[2018-08-06] MEDS: PANTOPRAZOLE SODIUM 40 MG TABLET.DR PO SCH (06:13)
[2018-08-06] MEDS: FUROSEMIDE 40 MG/4 ML VIAL IV SCH ×3 (06:13→21:38)
[2018-08-06] MEDS: methylPREDNISolone SOD SUCC 40 MG/ML VIAL IV SCH ×2 (06:13→21:38)
[2018-08-06] MEDS: BLOOD SUGAR DIAGNOSTIC 1 EACH STRIP VI SCH ×4 (06:33→21:43)
[2018-08-06 07:21] LABS: LYMPHOCYTES # (AUTO) 0.7 K/uL (20.0-40.0); MEAN CORPUSCULAR HEMOGLOBIN 28.5 uug (23.8-33.4); MEAN CORPUSCULAR HGB CONC 33 g/dL (32.5-36.3); NEUTROPHILS # (AUTO) 14.5 K/uL (1.8-8.9)
[2018-08-06 07:29] LABS: CARBON DIOXIDE 32 mmol/L (21-32); CHLORIDE 98 mmol/L (98-107); CREATININE 1.2 mg/dL (0.6-1.3); GLUCOSE 233 mg/dL (74-106); MAGNESIUM 1.8 mg/dL (1.8-2.4); PHOSPHOROUS 3.6 mg/dL (2.5-4.9); POTASSIUM 3.7 mmol/L (3.5-5.1); UREA NITROGEN, BLOOD 22 mg/dL (7-18); URIC ACID 8.9 mg/dL (3.5-7.2)
[2018-08-06 07:31] LABS: BASOPHILS % (AUTO) 0.2 % (0.0-2.0); HEMATOCRIT 32.5 % (36.7-47.1); HEMOGLOBIN 10.7 g/dL (12.5-16.3); LYMPHOCYTES % (AUTO) 4.2 % (20.5-51.5); MEAN CORPUSCULAR VOLUME 86.8 fL (73.0-96.2); MONOCYTES # (AUTO) 0.5 K/uL (2.0-10.0); MONOCYTES % (AUTO) 3.3 % (0.0-11.0); NEUTROPHILS % (AUTO) 92.3 % (38.5-71.5); PLATELET COUNT (AUTO) 271 K/uL (152-348); RED BLOOD CELL COUNT(AUTO) 3.75 MIL/uL (4.06-5.63)
[2018-08-06 07:32] LABS: WHITE BLOOD COUNT (AUTO) 15.7 K/uL (3.6-10.2)
[2018-08-06] MEDS: ALBUTEROL SULFATE 2.5 MG/3 ML NEBU NEB SCH ×3 (07:32→19:42)
[2018-08-06] MEDS: IPRATROPIUM BROMIDE 0.5 MG/2.5 ML NEBU NEB SCH ×3 (07:32→19:42)
[2018-08-06 08:06] LABS: BAND % (MANUAL) 8 % (0-10); LYMPHOCYTES % (MANUAL) 4 % (20-40); MONOCYTES % (MANUAL) 5 % (2-10); NEUTROPHILS % (MANUAL) 83 % (42-75)
[2018-08-06 08:10] LABS: THYROID STIMULATING HORMONE 1.335 mIU/mL (0.358-3.740)
[2018-08-06] MEDS: FLUTICASONE/VILANTEROL 1 EACH BLST.W.DEV INH SCH (08:13)
[2018-08-06] MEDS: MAGNESIUM OXIDE 400 MG TABLET PO SCH ×2 (08:14→16:06)
[2018-08-06] MEDS: TOLTERODINE LA 2 MG CAP.SR.24H PO SCH (08:14)
[2018-08-06] MEDS: FINASTERIDE 5 MG TABLET PO SCH (08:15)
[2018-08-06] MEDS: AMLODIPINE 10 MG TABLET PO SCH (08:15)
[2018-08-06] MEDS: DOCUSATE SODIUM 250 MG CAPSULE PO SCH ×2 (08:15→16:04)
[2018-08-06] MEDS: INSULIN REGULAR, HUMAN 300 UNIT/3 ML VIAL SQ PRN ×3 (08:19→17:23)
[2018-08-06 09:09] LABS: ABG BASE EXCESS 3.3 mmol/L; ABG HCO3 28.6 mmol/L; ABG PCO2 46.4 mmHg (35.0-45.0); ABG PH 7.407 (7.350-7.450); ABG SITE RIGHT RADIAL; COHb 1.4 % (0.5-1.5); MetHb 0.3 % (0.0-1.5); VENT MODE Nasal Cannula
[2018-08-06 09:19] VITALS: BP 118/46
[2018-08-06] MEDS ORDERED: APIXABAN 5 MG TABLET PO ONE (10:00)
[2018-08-06 12:16] VITALS: BP 103/40
[2018-08-06] MEDS ORDERED: TOPIRAMATE 25 MG TABLET PO SCH (12:57)
[2018-08-06] MEDS ORDERED: TOPIRAMATE 25 MG TABLET PO PRN (13:07)
[2018-08-06 19:46] VITALS: BP 128/57
[2018-08-06] MEDS: TAMSULOSIN HCL 0.4 MG CAP.SR.24H PO SCH (21:33)
[2018-08-06] MEDS: ATORVASTATIN 20 MG TABLET PO SCH (21:33)
[2018-08-06] MEDS: risperiDONE 0.5 MG TABLET PO SCH (21:34)
[2018-08-06] MEDS: LISINOPRIL 5 MG TABLET PO SCH (21:34)
[2018-08-06] MEDS: INSULIN REGULAR, HUMAN 300 UNITS/3 ML VIAL SQ PRN (21:44)
[2018-08-06 23:38] VITALS: BP 110/56
[2018-08-07] MEDS: TEMAZEPAM 15 MG CAPSULE PO PRN (00:12)
[2018-08-07 05:42] VITALS: BP 134/60
[2018-08-07] MEDS: FUROSEMIDE 40 MG/4 ML VIAL IV SCH ×3 (05:57→21:04)
[2018-08-07] MEDS: PANTOPRAZOLE SODIUM 40 MG TABLET.DR PO SCH (06:03)
[2018-08-07] MEDS: BLOOD SUGAR DIAGNOSTIC 1 EACH STRIP VI SCH ×4 (06:49→21:14)
[2018-08-07] MEDS: IPRATROPIUM BROMIDE 0.5 MG/2.5 ML NEBU NEB SCH ×3 (07:16→19:57)
[2018-08-07] MEDS: ALBUTEROL SULFATE 2.5 MG/3 ML NEBU NEB SCH ×3 (07:16→19:57)
[2018-08-07 07:52] LABS: BASOPHILS % (AUTO) 0.1 % (0.0-2.0); HEMATOCRIT 33.5 % (36.7-47.1); HEMOGLOBIN 11.1 g/dL (12.5-16.3); LYMPHOCYTES # (AUTO) 0.6 K/uL (20.0-40.0); LYMPHOCYTES % (AUTO) 3.2 % (20.5-51.5); MEAN CORPUSCULAR HEMOGLOBIN 28.9 uug (23.8-33.4); MEAN CORPUSCULAR HGB CONC 33 g/dL (32.5-36.3); MONOCYTES # (AUTO) 0.8 K/uL (2.0-10.0); MONOCYTES % (AUTO) 4.3 % (0.0-11.0); NEUTROPHILS # (AUTO) 16.3 K/uL (1.8-8.9); NEUTROPHILS % (AUTO) 92.4 % (38.5-71.5); PLATELET COUNT (AUTO) 278 K/uL (152-348); RED BLOOD CELL COUNT(AUTO) 3.85 MIL/uL (4.06-5.63); WHITE BLOOD COUNT (AUTO) 17.6 K/uL (3.6-10.2)
[2018-08-07 08:08] LABS: CARBON DIOXIDE 32 mmol/L (21-32); CHLORIDE 99 mmol/L (98-107); CREATININE 1.3 mg/dL (0.6-1.3); GLUCOSE 240 mg/dL (74-106); POTASSIUM 3.9 mmol/L (3.5-5.1); UREA NITROGEN, BLOOD 28 mg/dL (7-18)
[2018-08-07] MEDS: FLUTICASONE/VILANTEROL 1 EACH BLST.W.DEV INH SCH (08:33)
[2018-08-07] MEDS: methylPREDNISolone SOD SUCC 40 MG/ML VIAL IV SCH ×2 (08:34→21:06)
[2018-08-07] MEDS: MAGNESIUM OXIDE 400 MG TABLET PO SCH ×2 (08:36→16:52)
[2018-08-07] MEDS: DOCUSATE SODIUM 250 MG CAPSULE PO SCH ×2 (08:36→16:52)
[2018-08-07] MEDS: FINASTERIDE 5 MG TABLET PO SCH (08:37)
[2018-08-07] MEDS: TOLTERODINE LA 2 MG CAP.SR.24H PO SCH (08:37)
[2018-08-07] MEDS: AMLODIPINE 10 MG TABLET PO SCH (08:37)
[2018-08-07] MEDS: INSULIN REGULAR, HUMAN 300 UNIT/3 ML VIAL SQ PRN ×3 (08:39→18:02)
[2018-08-07 10:22] VITALS: BP 125/49
[2018-08-07 14:59] VITALS: BP 127/51
--- NOTE | 2018-08-07 18:16 | NUR ---
Patient sitting up in chair, appears comfortable. No distress noted or complaints of pain. Patient is nigerien speaking with minimal slovenian, able to make needs met. Assistance with ADL's provided. Patient on 4L of oxygen via NC, desaturates and SOB. Seen by OT today, refer to note. Strict I&O documented. Patient on lasix. No antibiotics per ID. Safety precautions in place, 1:1 sitter at bedside. End of shift chart check done, will endorse care to oncoming shift.
[2018-08-07 19:23] VITALS: BP 127/55
[2018-08-07] MEDS: CEFTRIAXONE 1 G in IV DEXTROSE 5% 50 ML IV SCH (20:57)
[2018-08-07] MEDS: ATORVASTATIN 20 MG TABLET PO SCH (21:06)
[2018-08-07] MEDS: risperiDONE 0.5 MG TABLET PO SCH (21:06)
[2018-08-07] MEDS: TAMSULOSIN HCL 0.4 MG CAP.SR.24H PO SCH (21:06)
[2018-08-07] MEDS: LISINOPRIL 5 MG TABLET PO SCH (21:07)
[2018-08-07] MEDS: INSULIN REGULAR, HUMAN 300 UNITS/3 ML VIAL SQ PRN (21:23)
[2018-08-08] MEDS: FUROSEMIDE 40 MG/4 ML VIAL IV SCH ×3 (05:21→21:03)
[2018-08-08 05:24] VITALS: BP 133/49
--- NOTE | 2018-08-08 05:27 | NUR ---
CONTINUE ON 1:1 SITTER FOR SAFETY. ON FALL RISK. BED ALARM ON. UP ON CHAIR DESIRED. ON 4 LPM O2 VIA NC CONTINUOUSLY VIA NC. TOLERATED WELL. BLOOD SUGAR CHECKED LAST NIGHT, INSULIN GIVEN PER SLIDING SCALE. NO C/O PAIN DURING SHIFT. SAFETY MEASURES RENDERED.
[2018-08-08] MEDS: PANTOPRAZOLE SODIUM 40 MG TABLET.DR PO SCH (06:05)
[2018-08-08] MEDS: ALBUTEROL SULFATE 2.5 MG/3 ML NEBU NEB SCH ×3 (06:12→19:22)
[2018-08-08] MEDS: IPRATROPIUM BROMIDE 0.5 MG/2.5 ML NEBU NEB SCH ×3 (06:12→19:22)
[2018-08-08] MEDS: BLOOD SUGAR DIAGNOSTIC 1 EACH STRIP VI SCH ×5 (06:36→20:11)
[2018-08-08 07:17] LABS: BASOPHILS % (AUTO) 0.1 % (0.0-2.0); HEMATOCRIT 33.8 % (36.7-47.1); HEMOGLOBIN 10.9 g/dL (12.5-16.3); LYMPHOCYTES % (AUTO) 6.8 % (20.5-51.5); MEAN CORPUSCULAR HEMOGLOBIN 28.3 uug (23.8-33.4); MEAN CORPUSCULAR HGB CONC 32 g/dL (32.5-36.3); MEAN CORPUSCULAR VOLUME 87.8 fL (73.0-96.2); MONOCYTES % (AUTO) 6.9 % (0.0-11.0); NEUTROPHILS % (AUTO) 86.2 % (38.5-71.5); PLATELET COUNT (AUTO) 259 K/uL (152-348); RED BLOOD CELL COUNT(AUTO) 3.84 MIL/uL (4.06-5.63); WHITE BLOOD COUNT (AUTO) 15.1 K/uL (3.6-10.2)
[2018-08-08 07:20] LABS: CARBON DIOXIDE 33 mmol/L (21-32); CHLORIDE 100 mmol/L (98-107); CREATININE 1.3 mg/dL (0.6-1.3); GLUCOSE 235 mg/dL (74-106); UREA NITROGEN, BLOOD 36 mg/dL (7-18)
[2018-08-08] MEDS: INSULIN REGULAR, HUMAN 300 UNIT/3 ML VIAL SQ PRN ×3 (08:26→16:24)
[2018-08-08] MEDS: FLUTICASONE/VILANTEROL 1 EACH BLST.W.DEV INH SCH (08:59)
[2018-08-08] MEDS: DOCUSATE SODIUM 250 MG CAPSULE PO SCH ×2 (08:59→16:59)
[2018-08-08] MEDS: TOLTERODINE LA 2 MG CAP.SR.24H PO SCH (08:59)
[2018-08-08] MEDS: methylPREDNISolone SOD SUCC 40 MG/ML VIAL IV SCH (08:59)
[2018-08-08] MEDS: MAGNESIUM OXIDE 400 MG TABLET PO SCH ×2 (09:00→17:00)
[2018-08-08] MEDS: FINASTERIDE 5 MG TABLET PO SCH (09:01)
[2018-08-08] MEDS: AMLODIPINE 10 MG TABLET PO SCH (09:01)
[2018-08-08 11:00] VITALS: BP 98/46
--- NOTE | 2018-08-08 12:00 | NUR ---
Considering blood glucose consistently >200 mg/dL, recommend CCHO restricted diet of 45-60gm/meal to aid in control. Recommend continue CCHO controlled diet on move to [facility]. Addendum: 08/08/18 at [address] Amended: Links added.
[2018-08-08] MEDS ORDERED: METOLAZONE 5 MG TABLET PO ONE (12:15)
[2018-08-08 15:00] VITALS: BP 111/39
--- NOTE | 2018-08-08 19:30 | NUR ---
RECEIVED PT AWAKE ON BED HAVING HIS BREATHING TREATMENT. PT SHOWS NO SIGNS OF ACUTE DISTRESS. PT IV INTACT. SAFETY AND COMFORT PROVIDED. ALL NEEDS ARE MET. WILL CONTINUE TO MONITOR.
[2018-08-08] MEDS: ATORVASTATIN 20 MG TABLET PO SCH (20:03)
[2018-08-08] MEDS: CEFTRIAXONE 1 G in IV DEXTROSE 5% 50 ML IV SCH (20:03)
[2018-08-08] MEDS: TAMSULOSIN HCL 0.4 MG CAP.SR.24H PO SCH (20:03)
[2018-08-08] MEDS: risperiDONE 0.5 MG TABLET PO SCH (20:03)
[2018-08-08] MEDS: LISINOPRIL 5 MG TABLET PO SCH (20:05)
[2018-08-08 20:07] VITALS: BP 140/56
[2018-08-08] MEDS: INSULIN REGULAR, HUMAN 300 UNITS/3 ML VIAL SQ PRN (20:22)
[2018-08-08 22:06] LABS: *BILIRUBIN,URIN NEGATIVE (NEGATIVE); *CLARITY,URINE CLEAR (CLEAR); *COLOR,URINE YELLOW (YELLOW); *KETONES,URINE NEGATIVE (NEGATIVE); *UROBILINOGEN,URINE 0.2 E.U./dl (NORMAL); LEUKOCYTE ESTERASE ,URINE NEGATIVE (NEGATIVE); NITRITE, URINE NEGATIVE (NEGATIVE); UGLUCOSE TRACE (NEGATIVE)
[2018-08-08 22:13] LABS: *BLOOD, URINE TRACE (NEGATIVE)
[2018-08-08 22:14] LABS: SQUAMOUS EPITHELIAL CELL,UR FEW /HPF (NONE SEEN); WBC,URINE 0-3 /HPF (0-3)
[2018-08-08] MEDS: TEMAZEPAM 15 MG CAPSULE PO PRN (22:30)
[2018-08-09 05:54] VITALS: BP 146/58
[2018-08-09] MEDS: FUROSEMIDE 40 MG/4 ML VIAL IV SCH ×2 (06:22→14:37)
[2018-08-09] MEDS: PANTOPRAZOLE SODIUM 40 MG TABLET.DR PO SCH (06:22)
[2018-08-09] MEDS: BLOOD SUGAR DIAGNOSTIC 1 EACH STRIP VI SCH ×2 (06:31→12:18)
[2018-08-09 06:36] LABS: CARBON DIOXIDE 38 mmol/L (21-32); CHLORIDE 98 mmol/L (98-107); CREATININE 1.3 mg/dL (0.6-1.3); GLUCOSE 161 mg/dL (74-106); POTASSIUM 3.5 mmol/L (3.5-5.1); UREA NITROGEN, BLOOD 41 mg/dL (7-18)
--- NOTE | 2018-08-09 06:39 | NUR ---
PT HAVE EPISODES OF CONFUSION, PERIODS OF AGITATION, TRYING TO GET OUT OF THE BED. SITTER AT BEDSIDE. SAFETY AND COMFORT PROVIDED. WILL CONTINUE TO MONITOR.
--- NOTE | 2018-08-09 06:40 | NUR ---
PT SLEPT THROUGHOUT THE SHIFT. PT SHOWS NO SIGNS OF ACUTE DISTRESS. SITTER AT BEDSIDE. IV INTACT AT LEFT HAND 22 GAUGE. . SAFETY AND COMFORT PROVIDED. PRESCRIBED MEDICATION GIVEN AND PT TOLERATED IT WELL. ALL NEEDS ARE MET. WILL ENDORSE ACCORDINGLY TO INCOMING NURSE FOR CONTINUITY OF CARE. Addendum: 08/09/18 at 0646 by BERNARDO SMITH RN PT SLEPT 3 HOURS NOT THROUGHOUT THE SHIFT. PT URINATING WELL BECAUSE OF THE LASIX.
--- NOTE | 2018-08-09 07:20 | NUR ---
RECEIVED REPORT FROM PNEUMATIC DRUM SANDER NURSE, PATIENT IN CHAIR AWAKE, SITTER AT CHAIR SIDE.
[2018-08-09 07:55] LABS: BASOPHILS # (AUTO) 0.1 K/uL (0.0-8.0); BASOPHILS % (AUTO) 0.8 % (0.0-2.0); EOSINOPHILS # (AUTO) 0.1 K/uL (0.0-0.7); HEMOGLOBIN 11.7 g/dL (12.5-16.3); LYMPHOCYTES # (AUTO) 2.3 K/uL (20.0-40.0); LYMPHOCYTES % (AUTO) 16.4 % (20.5-51.5); MEAN CORPUSCULAR HEMOGLOBIN 28.4 uug (23.8-33.4); MEAN CORPUSCULAR HGB CONC 33 g/dL (32.5-36.3); MEAN CORPUSCULAR VOLUME 87.4 fL (73.0-96.2); MONOCYTES # (AUTO) 1.4 K/uL (2.0-10.0); MONOCYTES % (AUTO) 9.7 % (0.0-11.0); NEUTROPHILS # (AUTO) 10.1 K/uL (1.8-8.9); NEUTROPHILS % (AUTO) 72.1 % (38.5-71.5); PLATELET COUNT (AUTO) 254 K/uL (152-348); RED BLOOD CELL COUNT(AUTO) 4.12 MIL/uL (4.06-5.63)
[2018-08-09] MEDS ORDERED: predniSONE 20 MG TABLET PO SCH (08:00)
[2018-08-09] MEDS: ALBUTEROL SULFATE 2.5 MG/3 ML NEBU NEB SCH ×2 (08:03→14:01)
[2018-08-09] MEDS: IPRATROPIUM BROMIDE 0.5 MG/2.5 ML NEBU NEB SCH ×2 (08:04→14:01)
[2018-08-09 08:11] VITALS: BP 120/72
[2018-08-09] MEDS: DOCUSATE SODIUM 250 MG CAPSULE PO SCH (08:16)
[2018-08-09] MEDS: TOLTERODINE LA 2 MG CAP.SR.24H PO SCH (08:17)
[2018-08-09] MEDS: INSULIN REGULAR, HUMAN 300 UNIT/3 ML VIAL SQ PRN ×2 (08:20→12:20)
[2018-08-09 08:21] VITALS: BP 120/72
[2018-08-09] MEDS: AMLODIPINE 10 MG TABLET PO SCH (08:21)
[2018-08-09] MEDS: MAGNESIUM OXIDE 400 MG TABLET PO SCH (08:21)
[2018-08-09] MEDS: FINASTERIDE 5 MG TABLET PO SCH (08:21)
[2018-08-09] MEDS: FLUTICASONE/VILANTEROL 1 EACH BLST.W.DEV INH SCH (08:22)
[2018-08-09] MEDS ORDERED: PRED20TA PO (10:49)
[2018-08-09] MEDS ORDERED: ALBU2.5V13 NEB (10:49)
[2018-08-09] MEDS ORDERED: FURO10VI IV (10:49)
[2018-08-09] MEDS ORDERED: ACET325T53 PO (10:49)
[2018-08-09] MEDS ORDERED: CEFT1VIA15 IV (10:49)
[2018-08-09] MEDS ORDERED: IPRA0.2S6 NEB (10:49)
--- NOTE | 2018-08-09 14:41 | NUR ---
Patient has been cooperative with care, all needs met. Discharge information given to valarie, pictures taken of skin concerns, and patient transferred to ARU via wheelchair. No distress at the time of discharge.
== END 2018-08-09 14:52 | DRG 291 ==
LOC: ER 19:59 → TELE3 22:20 → MEDSURG3 08-06 14:40
PROVIDERS: ADMIT Nurse Practitioner Acute Care; ATTEND Nurse Practitioner Acute Care
DX: I11.0 Hypertensive heart disease with heart failure (principal); J96.21 Acute and chronic respiratory failure with hypoxia; G93.41 Metabolic encephalopathy; N17.0 Acute kidney failure with tubular necrosis; J44.1 Chronic obstructive pulmonary disease with (acute) exacerbation; E87.1 Hypo-osmolality and hyponatremia; E44.1 Mild protein-calorie malnutrition; I48.92 Unspecified atrial flutter; I44.2 Atrioventricular block, complete; J98.11 Atelectasis; I50.33 Acute on chronic diastolic (congestive) heart failure; Z87.891 Personal history of nicotine dependence; D63.8 Anemia in other chronic diseases classified elsewhere; E11.51 Type 2 diabetes mellitus with diabetic peripheral angiopathy without gangrene; Z68.36 Body mass index [BMI] 36.0-36.9, adult; K21.9 Gastro-esophageal reflux disease without esophagitis; E78.5 Hyperlipidemia, unspecified; Z95.0 Presence of cardiac pacemaker; H54.62 Unqualified visual loss, left eye, normal vision right eye; Z90.49 Acquired absence of other specified parts of digestive tract; Z79.899 Other long term (current) drug therapy; Z79.02 Long term (current) use of antithrombotics/antiplatelets; N40.0 Benign prostatic hyperplasia without lower urinary tract symptoms; I70.0 Atherosclerosis of aorta; I25.10 Atherosclerotic heart disease of native coronary artery without angina pectoris; H40.9 Unspecified glaucoma; F03.90 Unspecified dementia, unspecified severity, without behavioral disturbance, psychotic disturbance, mood disturbance, and anxiety; E11.65 Type 2 diabetes mellitus with hyperglycemia; T38.0X5A Adverse effect of glucocorticoids and synthetic analogues, initial encounter; Y92.9 Unspecified place or not applicable
CPT/HCPCS: 36415; 36600; 70030-TC; 71045; 83605; 83735; 84100; 84300; 84443; 84550; 85025; 85730; 87086; 93005; 94640; 97110; 97112; 97116; 97165; 97530; 97535; A4663; G0378; J0456; J0696; J1630; J1815; J1940; J2920; J3490; J3590; J7040; J7060; J7512

== ENCOUNTER 2018-08-09 15:38 | Inpatient (IN) | payer MEDICARE, MEDICAID ==
[~2018-08-09] VITALS: Ht 162.6 cm; Wt 94.8 kg
[~2018-08-09 15:38] MED LIST changes: +ALBU18HF2 IH; +ALBU2.5V13 NEB; +AMLO10TA7 PO; +APIX5TAB PO; -ASPI-605 PO; -AZIT250T13 PO; -BIMA2.5D5 EACHEYE; +BLOO-360 IN; +CEFT1VIA15 IV; -CILO100T PO; +CIPR500T5 PO; +CLOP75TA33 PO; +DILT240C2 PO; -DONE5TAB34 PO; -DORZ10DR10 EACHEYE; +FURO10VI IV; +IPRA0.2S6 NEB; -ISOS30TA6 PO; -MEMA10TA PO; +OMEG1CAP55 PO; +PRED20TA PO; +TOLT4CAP PO; +TOPI25TA49 PO; -UMEC62.5 IH
[2018-08-09] MEDS ORDERED: Z GUARD REMEDY PASTE 57 GM TUBE TOP PRN (15:45)
[2018-08-09 16:00] VITALS: BP 120/53
[2018-08-09] MEDS ORDERED: DEXTROSE 50% 50 ML DISP.SYRIN IV PRN (16:45)
[2018-08-09] MEDS: BLOOD SUGAR DIAGNOSTIC 1 EACH STRIP VI SCH ×2 (16:53→20:34)
[2018-08-09] MEDS: INSULIN REGULAR, HUMAN 300 UNIT/3 ML VIAL SQ PRN (17:27)
[2018-08-09] MEDS ORDERED: methylPREDNISolone 4 MG TABLET (DAY#1, BEFORE DINNER) PO ONE (17:30)
--- NOTE | 2018-08-09 17:30 | NUR ---
Admitted this 83 y/o male from [facility] transferred via wheelchair with a diagnosis of Acute on chronic diastolic heart failure, mild COPD exacerbation. Patient awake, alert, Bahamian speaking, able to make needs known, not in distress. On O2 at 4LPM via nasal cannula. No complain of any pain or discomfort at this time. 1:1 sitter at bedside for safety. Vital signs stable. Routine admission care done. Needs attended to promptly. On fluid restriction of 1L/24hrs. Notified Dr. Albrecht regarding admission. Dr. Poe informed about admission and need for medication reconciliation.
[2018-08-09] MEDS ORDERED: CLONIDINE HCL 0.1 MG TABLET PO PRN (17:45)
[2018-08-09] MEDS ORDERED: IPRATROPIUM BROMIDE 0.5 MG/2.5 ML NEBU NEB PRN (17:45)
[2018-08-09] MEDS ORDERED: methylPREDNISolone 1 PACK TAB.DS.PK [4MG TAB] PO ONE (17:45)
[2018-08-09] MEDS ORDERED: ALBUTEROL SULFATE 2.5 MG/ 0.5 ML NEBU NEB PRN (17:45)
[2018-08-09] MEDS ORDERED: ACETAMINOPHEN 325 MG TABLET PO PRN (17:45)
[2018-08-09] MEDS ORDERED: POLYETHYLENE GLYCOL 3350 238 GM POWDER PO PRN (17:45)
[2018-08-09] MEDS ORDERED: Medication Not On Formulary EA (Ergocalciferol (Vitamin D2) (Vitamin D2 TAB) 50,000 UNIT PO SCH (17:45)
[2018-08-09] MEDS ORDERED: CEFTRIAXONE 1 G in IV DEXTROSE 5% 50 ML IV SCH (17:45)
--- NOTE | 2018-08-09 18:00 | NUR ---
Spoke to the pharmacist Renée and clarified regarding the medrol dose pack due at 1745, per pharmacist, she put the order due for 2099 so nothing to administer at this time.
[2018-08-09] MEDS ORDERED: MIRALAX 17 GM POWD.PACK PO PRN (19:15)
[2018-08-09] MEDS ORDERED: methylPREDNISolone 4 MG TABLET (DAY#1) PO ONE (19:30)
[2018-08-09 19:43] VITALS: BP 140/62
[2018-08-09] MEDS: TAMSULOSIN HCL 0.4 MG CAP.SR.24H PO SCH (20:10)
[2018-08-09] MEDS: ATORVASTATIN 20 MG TABLET PO SCH (20:14)
[2018-08-09] MEDS: LISINOPRIL 5 MG TABLET PO SCH (20:16)
[2018-08-09] MEDS: risperiDONE 0.5 MG TABLET PO SCH (20:17)
[2018-08-09] MEDS: APIXABAN 5 MG PO SCH (20:20)
[2018-08-09] MEDS: INSULIN REGULAR, HUMAN 300 UNITS/3 ML VIAL SQ PRN (20:38)
[2018-08-09] MEDS ORDERED: BLOOD SUGAR DIAGNOSTIC 1 EACH STRIP VI SCH (21:00)
[2018-08-09] MEDS ORDERED: methylPREDNISolone 4 MG TABLET (DAY#1, HS) PO ONE (21:00)
[2018-08-10 04:00] VITALS: BP 117/54
--- NOTE | 2018-08-10 04:15 | NUR ---
Patient received in bed, AAO x2. Welsh speaking but able to make needs known with some words. No acute distress or SOB noted. On O2 4L/min via NC. No Complain of pain at this time. Stay with 1:1 sitter for his safety. IV line on left wrist G 22, no sign of inflammation. All due medications given as ordered. Accucheck at 2100 was 217, 4 units insulin coverage. Physical assessment done. Safety measures observed. Fall precaution maintained. Bed in low position, side rails up x2 for safety, brake and alarm on. call light and personal belongings within reach. Continue to monitor and will endorse to the day shift nurse.
[2018-08-10] MEDS: BLOOD SUGAR DIAGNOSTIC 1 EACH STRIP VI SCH ×4 (06:35→20:14)
--- NOTE | 2018-08-10 07:19 | NUR ---
End of the shift note Patient was stable throughout the shift but does not have a good sleep last night. He requested for urinal very frequently that disturbed his sleeping. No acute distress or SOB noted. On O2 4 L/min via NC. No Complain of pain. Remained with 1:1 sitter for safety. On 1 Liter/24 Hours fluid restriction. Accucheck at morning 146. All due medication given as ordered. Vital Signs checked. Physical assessment done. Assisted her to the bathroom as needed. Safety measures observed. Fall precaution maintained. All needs attended promptly. Bed in low position, side rails up x2 for safety, brake and alarm on. call light and personal belongings within reach. Continue to monitor and will endorse to the day shift nurse accordingly.
[2018-08-10] MEDS ORDERED: methylPREDNISolone 4 MG TABLET (DAY#1, ACB) PO ONE (07:30)
[2018-08-10] MEDS ORDERED: methylPREDNISolone 4 MG TABLET (DAY#2, ACB) PO ONE (07:30)
[2018-08-10 08:00] VITALS: BP 146/69
[2018-08-10] MEDS ORDERED: predniSONE 20 MG TABLET PO SCH (08:00)
[2018-08-10] MEDS: INSULIN REGULAR, HUMAN 300 UNIT/3 ML VIAL SQ PRN ×3 (08:29→17:46)
[2018-08-10] MEDS: APIXABAN 5 MG PO SCH ×2 (08:30→17:33)
--- NOTE | 2018-08-10 08:30 | NUR ---
Received patient, awake, alert x2. With 1:1 sitter at bedside, patient may still be impulsive and would stand-up by himself. Reminded on limitations. On O2 at 4 lpm, sating well at 95%. Not in any form of distress. NO SOB or chest pains noted. No complaints of pain. With intact G 22 over left wrist.
[2018-08-10] MEDS: POTASSIUM CHLORIDE 20 MEQ TAB.PRT.SR PO SCH (08:32)
[2018-08-10] MEDS: MAGNESIUM OXIDE 400 MG TABLET PO SCH ×2 (08:32→16:46)
[2018-08-10] MEDS: FUROSEMIDE 40 MG TABLET PO SCH ×2 (08:32→16:46)
[2018-08-10] MEDS: FINASTERIDE 5 MG TABLET PO SCH (08:33)
[2018-08-10] MEDS: DOCUSATE SODIUM 250 MG CAPSULE PO SCH ×2 (08:33→16:46)
[2018-08-10] MEDS: TOLTERODINE LA 2 MG CAP.SR.24H PO SCH (08:33)
[2018-08-10] MEDS: AMLODIPINE 10 MG TABLET PO SCH (08:38)
[2018-08-10] MEDS ORDERED: CLOPIDOGREL 75 MG TABLET PO SCH (09:00)
--- NOTE | 2018-08-10 10:26 | NUR ---
Up with Physical therapy, tolerating well with no pain noted. Tapered O2 at rest on 3lpm, tolerating well sating at 95%.
[2018-08-10] MEDS ORDERED: methylPREDNISolone 4 MG TABLET (DAY#1, PC LUNCH) PO ONE (12:30)
[2018-08-10] MEDS ORDERED: methylPREDNISolone 4 MG TABLET (DAY#2, PC LUNCH) PO ONE (12:30)
[2018-08-10 16:00] VITALS: BP 129/54
[2018-08-10] MEDS ORDERED: methylPREDNISolone 4 MG TABLET (DAY#1, PC DINNER) PO ONE (17:30)
[2018-08-10] MEDS ORDERED: methylPREDNISolone 4 MG TABLET (DAY#2, PC DINNER) PO ONE (17:30)
[2018-08-10 20:03] VITALS: BP 138/57
[2018-08-10] MEDS: risperiDONE 0.5 MG TABLET PO SCH (20:16)
[2018-08-10] MEDS: TAMSULOSIN HCL 0.4 MG CAP.SR.24H PO SCH (20:17)
[2018-08-10] MEDS: ATORVASTATIN 20 MG TABLET PO SCH (20:17)
[2018-08-10] MEDS: LISINOPRIL 5 MG TABLET PO SCH (20:17)
[2018-08-10] MEDS: INSULIN REGULAR, HUMAN 300 UNITS/3 ML VIAL SQ PRN (20:22)
[2018-08-10] MEDS ORDERED: methylPREDNISolone 4 MG TABLET (DAY#2, HS) PO ONE (21:00)
[2018-08-10] MEDS ORDERED: methylPREDNISolone 4 MG TABLET (DAY#1, HS) PO ONE (21:00)
--- NOTE | 2018-08-10 21:09 | NUR ---
Received pt sitting down on the bed. Rwandan speaking. On 3LPM O2, tolerating well. O2 sat of 96%. On 1L fluid restriction, pt seemed to be non-compliant. Pt keep saying "nam nam" meaning that he wants to eat and is asking most of the time. Pt tends to be having anxiety and irritable when not given food. Pt is diabetic. Blood sugar of 234, insulin coverage given as per sliding scale. Teaching provided. All due meds given as ordered. Sitter at bedside for safety. Safety measures maintained. Call light and personal belongings within reach. Will continue to monitor.
[2018-08-11 04:45] VITALS: BP 122/80
[2018-08-11] MEDS: BLOOD SUGAR DIAGNOSTIC 1 EACH STRIP VI SCH ×4 (06:34→20:45)
[2018-08-11] MEDS ORDERED: methylPREDNISolone 4 MG TABLET (DAY#2, ACB) PO ONE (07:30)
[2018-08-11] MEDS ORDERED: methylPREDNISolone 4 MG TABLET (DAY#3, ACB) PO ONE (07:30)
[2018-08-11] MEDS: APIXABAN 5 MG PO SCH ×2 (08:08→16:30)
[2018-08-11] MEDS: INSULIN REGULAR, HUMAN 300 UNIT/3 ML VIAL SQ PRN ×3 (08:08→16:45)
[2018-08-11] MEDS: FINASTERIDE 5 MG TABLET PO SCH (08:10)
[2018-08-11] MEDS: DOCUSATE SODIUM 250 MG CAPSULE PO SCH ×2 (08:10→16:29)
[2018-08-11] MEDS: MAGNESIUM OXIDE 400 MG TABLET PO SCH ×2 (08:10→16:29)
[2018-08-11] MEDS: POTASSIUM CHLORIDE 20 MEQ TAB.PRT.SR PO SCH (08:10)
[2018-08-11] MEDS: TOLTERODINE LA 2 MG CAP.SR.24H PO SCH (08:10)
[2018-08-11] MEDS: FUROSEMIDE 40 MG TABLET PO SCH ×2 (08:11→16:29)
[2018-08-11] MEDS: AMLODIPINE 10 MG TABLET PO SCH (08:12)
--- NOTE | 2018-08-11 08:30 | NUR ---
Received patient, sitting in bed with 1:1 sitter. Patient alert, awake x1-2. Patient may be impulsive and tries to stand up by himself. re-oriented as necessary. On O2 at 3lpm, tolerating well. Not in any form of distress. No SOB or chest pains noted.
[2018-08-11 09:00] VITALS: BP 138/60
--- NOTE | 2018-08-11 10:57 | NUR ---
Tolerated therapy well, ambulates well with front wheel walker. Still on 3LPM sating well up to 95%
[2018-08-11] MEDS ORDERED: methylPREDNISolone 4 MG TABLET (DAY#2, PC LUNCH) PO ONE (12:30)
[2018-08-11] MEDS ORDERED: methylPREDNISolone 4 MG TABLET (DAY#3, PC LUNCH) PO ONE (12:30)
[2018-08-11 14:00] VITALS: BP 103/51
--- NOTE | 2018-08-11 15:00 | NUR ---
O2 tapered at 2lpm, sating well at 94%. Patient screaming "yum,yum" would constantly ask for food even if snacks given consistently and meals were given on time.
--- NOTE | 2018-08-11 16:30 | NUR ---
Patient screaming "yum,yum" once again and would bang his meal table. Patient appears anxious. Informed Dr Albrecht and ordered psyche consult. Dr. Arias women's health care nurse practitioner and made aware of consult.
[2018-08-11] MEDS ORDERED: methylPREDNISolone 4 MG TABLET (DAY#3, PC DINNER) PO ONE (17:30)
[2018-08-11] MEDS ORDERED: methylPREDNISolone 4 MG TABLET (DAY#, PC DINNER) PO ONE (17:30)
[2018-08-11 19:38] VITALS: BP 93/39
[2018-08-11] MEDS: TAMSULOSIN HCL 0.4 MG CAP.SR.24H PO SCH (20:43)
[2018-08-11] MEDS: ATORVASTATIN 20 MG TABLET PO SCH (20:43)
[2018-08-11] MEDS: risperiDONE 0.5 MG TABLET PO SCH (20:43)
[2018-08-11] MEDS: LISINOPRIL 5 MG TABLET PO SCH (20:45)
[2018-08-11] MEDS: INSULIN REGULAR, HUMAN 300 UNITS/3 ML VIAL SQ PRN (20:48)
[2018-08-11] MEDS ORDERED: methylPREDNISolone 4 MG TABLET (DAY#2, HS) PO ONE (21:00)
[2018-08-11] MEDS ORDERED: methylPREDNISolone 4 MG TABLET (DAY#3, HS) PO ONE (21:00)
--- NOTE | 2018-08-11 21:20 | NUR ---
Patient received in bed, AAO x2. Iraqi speaking but able to make needs known with some words. No acute distress or SOB noted. On O2 2 L/min via NC. No Complain of pain at this time. Stay with 1:1 sitter for his safety. IV line on left wrist G 22, no sign of inflammation. All due medications given as ordered. Accucheck at 2100 was 210, 4 units insulin coverage. Physical assessment done. Safety measures observed. Fall precaution maintained. Bed in low position, side rails up x2 for safety, brake and alarm on. call light and personal belongings within reach. Continue to monitor and will endorse to the day shift nurse.
[2018-08-12 05:10] VITALS: BP 118/59
[2018-08-12] MEDS: BLOOD SUGAR DIAGNOSTIC 1 EACH STRIP VI SCH ×4 (06:31→20:44)
--- NOTE | 2018-08-12 06:31 | NUR ---
End of the shift note Patient was stable throughout the shift but does not have a good sleep last night. He requested for urinal very frequently that disturbed his sleeping. No acute distress or SOB noted. On O2 2 L/min via NC. No Complain of pain. Remained with 1:1 sitter for safety. On 1 Liter/24 Hours fluid restriction. Accucheck at morning 193. IV line flushed and leaking, remove the IV. All due medication given as ordered. Physical assessment done. Safety measures observed. Fall precaution maintained. All needs attended promptly. Bed in low position, side rails up x2 for safety, brake and alarm on. call light and personal belongings within reach. Continue to monitor and will endorse to the day shift nurse accordingly.
[2018-08-12] MEDS ORDERED: methylPREDNISolone 4 MG TABLET (DAY#3, ACB) PO ONE (07:30)
[2018-08-12] MEDS ORDERED: methylPREDNISolone 4 MG TABLET (DAY#4, ACB) PO ONE (07:30)
[2018-08-12] MEDS: POTASSIUM CHLORIDE 20 MEQ TAB.PRT.SR PO SCH (08:03)
[2018-08-12] MEDS: FUROSEMIDE 40 MG TABLET PO SCH ×2 (08:03→16:35)
[2018-08-12] MEDS: MAGNESIUM OXIDE 400 MG TABLET PO SCH ×2 (08:03→16:35)
[2018-08-12] MEDS: APIXABAN 5 MG PO SCH ×2 (08:04→16:36)
[2018-08-12] MEDS: TOLTERODINE LA 2 MG CAP.SR.24H PO SCH (08:06)
[2018-08-12] MEDS: FINASTERIDE 5 MG TABLET PO SCH (08:06)
[2018-08-12] MEDS: AMLODIPINE 10 MG TABLET PO SCH (08:07)
[2018-08-12] MEDS: DOCUSATE SODIUM 250 MG CAPSULE PO SCH ×2 (08:08→16:35)
[2018-08-12] MEDS: INSULIN REGULAR, HUMAN 300 UNIT/3 ML VIAL SQ PRN ×4 (08:10→20:49)
[2018-08-12] MEDS ORDERED: ERGOCALCIFEROL 50,000 UNIT CAPSULE PO SCH (09:00)
--- NOTE | 2018-08-12 09:58 | NUR ---
Patient noted sleeping in bed, no complaints of pain, no signs of distress, 1 to 1 sitter noted at bedside, call light in reach, bed is locked and in lowest position, all needs met at this time.
--- NOTE | 2018-08-12 11:33 | NUR ---
INDIVIDUALIZED OVERALL PLAN OF CARE
[2018-08-12] MEDS ORDERED: methylPREDNISolone 4 MG TABLET (DAY#3, PC LUNCH) PO ONE (12:30)
[2018-08-12] MEDS ORDERED: methylPREDNISolone 4 MG TABLET (DAY#4, PC LUNCH) PO ONE (12:30)
[2018-08-12] MEDS ORDERED: methylPREDNISolone 4 MG TABLET (DAY#3, PC DINNER) PO ONE (17:30)
--- NOTE | 2018-08-12 19:05 | NUR ---
Awake, up in a chair at bedside, watching Welsh movie. No s/s of pain/discomforts. No s/s of respiratory distress. Continuous O2 at 1L via NC saturating 92-93%. Communicates in Welsh language only. No health education director utilized at this time, body language is sufficient at this time. Refused to be in bed. Safety measure and fall precaution maintained. On 1:1 sitter provided for safety. Continue care as planned.
--- NOTE | 2018-08-12 19:25 | NUR ---
no changes this shift, no signs of acute distress this shift
[2018-08-12 19:30] VITALS: BP 128/57
[2018-08-12] MEDS: risperiDONE 0.5 MG TABLET PO SCH (20:44)
[2018-08-12] MEDS: LISINOPRIL 5 MG TABLET PO SCH (20:45)
[2018-08-12] MEDS: ATORVASTATIN 20 MG TABLET PO SCH (20:45)
[2018-08-12] MEDS: TAMSULOSIN HCL 0.4 MG CAP.SR.24H PO SCH (20:45)
[2018-08-12] MEDS ORDERED: methylPREDNISolone 4 MG TABLET (DAY#4, HS) PO ONE (21:00)
[2018-08-12] MEDS ORDERED: methylPREDNISolone 4 MG TABLET (DAY#3, HS) PO ONE (21:00)
--- NOTE | 2018-08-12 23:12 | NUR ---
Assisted back to bed with 2 people assist. No complaint presented. Kept HOB elevated at all times.
--- NOTE | 2018-08-13 05:20 | NUR ---
Been having urine incontinence x 3, unable to use/refusing to use the urinal. Shower was given by the sitter, tolerated fairly. Made comfortable in bed.
[2018-08-13 06:28] VITALS: BP 120/71
[2018-08-13] MEDS: BLOOD SUGAR DIAGNOSTIC 1 EACH STRIP VI SCH ×4 (06:46→20:57)
--- NOTE | 2018-08-13 07:04 | NUR ---
Shift End Report: Slept in between care. No complaint presented. No s/s of hypo/hyperglycemia. Incontinence of bladder. Good skin care provided, Remain on 1:1 sitter for safety. No significant event reported all night. Continue current rehab plan of care.
[2018-08-13] MEDS ORDERED: methylPREDNISolone 4 MG TABLET (DAY#4, ACB) PO ONE (07:30)
[2018-08-13] MEDS ORDERED: methylPREDNISolone 4 MG TABLET (DAY#5, ACB) PO ONE (07:30)
[2018-08-13 08:34] VITALS: BP_SYST 116; BP_SYST 123; BP_DIAS 46; BP_DIAS 51
[2018-08-13] MEDS: POTASSIUM CHLORIDE 20 MEQ TAB.PRT.SR PO SCH (09:03)
[2018-08-13] MEDS: MAGNESIUM OXIDE 400 MG TABLET PO SCH ×2 (09:04→17:01)
[2018-08-13] MEDS: FUROSEMIDE 40 MG TABLET PO SCH ×2 (09:04→17:01)
[2018-08-13] MEDS: DOCUSATE SODIUM 250 MG CAPSULE PO SCH ×2 (09:06→17:02)
[2018-08-13] MEDS: TOLTERODINE LA 2 MG CAP.SR.24H PO SCH (09:06)
[2018-08-13] MEDS: FINASTERIDE 5 MG TABLET PO SCH (09:06)
[2018-08-13] MEDS: AMLODIPINE 10 MG TABLET PO SCH (09:07)
[2018-08-13] MEDS: APIXABAN 5 MG PO SCH ×2 (09:08→17:04)
[2018-08-13] MEDS: INSULIN REGULAR, HUMAN 300 UNIT/3 ML VIAL SQ PRN ×3 (09:09→21:04)
[2018-08-13] MEDS ORDERED: methylPREDNISolone 4 MG TABLET (DAY#4, PC LUNCH) PO ONE (12:30)
--- NOTE | 2018-08-13 15:31 | NUR ---
INTERDISCIPLINARY TEAM CONFERENCE
[2018-08-13 16:27] VITALS: BP 105/50
--- NOTE | 2018-08-13 19:10 | NUR ---
Awake, up in a chair at bedside. Sitter at bedside. No s/s of pain/discomforts noted. No s/s of hypo/hyperglycemia. No s/s of respiratory distress. Safety measure and fall precaution maintained. Continue care as planned.
[2018-08-13 19:12] VITALS: BP 106/55
[2018-08-13] MEDS: TAMSULOSIN HCL 0.4 MG CAP.SR.24H PO SCH (20:53)
[2018-08-13] MEDS: LISINOPRIL 5 MG TABLET PO SCH (20:54)
[2018-08-13] MEDS: risperiDONE 0.5 MG TABLET PO SCH (20:54)
[2018-08-13] MEDS: ATORVASTATIN 20 MG TABLET PO SCH (20:54)
[2018-08-13] MEDS ORDERED: methylPREDNISolone 4 MG TABLET (DAY#4, HS) PO ONE (21:00)
[2018-08-13] MEDS ORDERED: methylPREDNISolone 4 MG TABLET (DAY#5, HS) PO ONE (21:00)
[2018-08-14 04:32] VITALS: BP 111/50
[2018-08-14] MEDS: BLOOD SUGAR DIAGNOSTIC 1 EACH STRIP VI SCH ×4 (06:25→21:05)
--- NOTE | 2018-08-14 06:51 | NUR ---
Shift End Report: slept in between care. Sitter remain at bedside. All needs attended and met. No significant event reported all night. Continue current rehab plan of care.
[2018-08-14 07:14] LABS: BASOPHILS # (AUTO) 0.1 K/uL (0.0-8.0); BASOPHILS % (AUTO) 0.6 % (0.0-2.0); EOSINOPHILS # (AUTO) 0.1 K/uL (0.0-0.7); EOSINOPHILS % (AUTO) 0.9 % (0.0-7.0); HEMATOCRIT 35.1 % (36.7-47.1); HEMOGLOBIN 11.8 g/dL (12.5-16.3); LYMPHOCYTES # (AUTO) 1.8 K/uL (20.0-40.0); LYMPHOCYTES % (AUTO) 17.8 % (20.5-51.5); MEAN CORPUSCULAR HEMOGLOBIN 28.9 uug (23.8-33.4); MEAN CORPUSCULAR HGB CONC 34 g/dL (32.5-36.3); MEAN CORPUSCULAR VOLUME 86.1 fL (73.0-96.2); MONOCYTES # (AUTO) 0.9 K/uL (2.0-10.0); MONOCYTES % (AUTO) 9.1 % (0.0-11.0); NEUTROPHILS # (AUTO) 7.1 K/uL (1.8-8.9); NEUTROPHILS % (AUTO) 71.6 % (38.5-71.5); PLATELET COUNT (AUTO) 247 K/uL (152-348); RED BLOOD CELL COUNT(AUTO) 4.07 MIL/uL (4.06-5.63)
[2018-08-14 07:26] LABS: ALANINE AMINOTRANSFERASE 31 U/L (16-63); ALKALINE PHOSPHATASE 64 U/L (50-136); ASPARTATE AMINOTRANSFERASE 23 U/L (15-37); BILIRUBIN,TOTAL 0.6 mg/dL (0.2-1.0); CARBON DIOXIDE 32 mmol/L (21-32); CHLORIDE 98 mmol/L (98-107); CREATININE 1.1 mg/dL (0.6-1.3); GLUCOSE 254 mg/dL (74-106); PHOSPHOROUS 3.3 mg/dL (2.5-4.9); POTASSIUM 4.1 mmol/L (3.5-5.1); TOTAL PROTEIN, SERUM 6.7 g/dL (6.4-8.2); UREA NITROGEN, BLOOD 35 mg/dL (7-18)
[2018-08-14] MEDS ORDERED: methylPREDNISolone 4 MG TABLET (DAY#6, ACB) PO ONE (07:30)
[2018-08-14] MEDS ORDERED: methylPREDNISolone 4 MG TABLET (DAY#5, ACB) PO ONE (07:30)
[2018-08-14 08:32] VITALS: BP 96/48
[2018-08-14] MEDS: MAGNESIUM OXIDE 400 MG TABLET PO SCH ×2 (08:58→17:27)
[2018-08-14] MEDS: AMLODIPINE 10 MG TABLET PO SCH (08:58)
[2018-08-14] MEDS: POTASSIUM CHLORIDE 20 MEQ TAB.PRT.SR PO SCH (08:58)
[2018-08-14] MEDS: FUROSEMIDE 40 MG TABLET PO SCH ×2 (08:58→17:27)
[2018-08-14] MEDS: DOCUSATE SODIUM 250 MG CAPSULE PO SCH ×2 (08:59→17:00)
[2018-08-14] MEDS: TOLTERODINE LA 2 MG CAP.SR.24H PO SCH (08:59)
[2018-08-14] MEDS: FINASTERIDE 5 MG TABLET PO SCH (09:00)
[2018-08-14] MEDS: APIXABAN 5 MG PO SCH ×2 (09:00→17:28)
[2018-08-14] MEDS: INSULIN REGULAR, HUMAN 300 UNIT/3 ML VIAL SQ PRN ×3 (09:02→21:09)
--- NOTE | 2018-08-14 14:30 | NUR ---
Patient up ambulating with physical therapist accompanied by granddaughter Alanna. Patient denies any pain or discomfort at this time.
[2018-08-14 16:00] VITALS: BP 111/55
--- NOTE | 2018-08-14 18:40 | NUR ---
No significant change noted during the shift. Patient remains alert, not in any form of acute distress. On oxygen at 1 LPM per nasal cannula and tolerating well. No complain of any pain or discomfort. 1:1 sitter at bedside for safety.
--- NOTE | 2018-08-14 19:05 | NUR ---
Awake, in bed. Sitter at bedside for safety. No s/s of pain/discomforts. No s/s of hypo/hyperglycemia. Fluid restriction reinforced. Safety measure and fall precaution maintained. Continue care as planned.
[2018-08-14 19:14] VITALS: BP 102/35
[2018-08-14 20:19] VITALS: BP 117/35
[2018-08-14] MEDS: INSULIN REGULAR, HUMAN 300 UNITS/3 ML VIAL SQ PRN (20:31)
[2018-08-14] MEDS ORDERED: methylPREDNISolone 4 MG TABLET (DAY#5, HS) PO ONE (21:00)
[2018-08-14] MEDS: TAMSULOSIN HCL 0.4 MG CAP.SR.24H PO SCH (21:03)
[2018-08-14] MEDS: ATORVASTATIN 20 MG TABLET PO SCH (21:04)
[2018-08-14] MEDS: risperiDONE 0.5 MG TABLET PO SCH (21:04)
[2018-08-14] MEDS: LISINOPRIL 5 MG TABLET PO SCH (21:04)
[2018-08-15 05:30] VITALS: BP 127/52
--- NOTE | 2018-08-15 05:34 | NUR ---
Shift End Report: Vs stable. Slept in between care. More cooperative today. No peeing on the floor or bed. Able to use the urinal with assist. No complaint of pain/discomforts either. No fall/injury. No s/s of hypo/hyperglycemia. All needs attended and met.. No significant event reported. Continue current rehab plan of care.
[2018-08-15] MEDS: BLOOD SUGAR DIAGNOSTIC 1 EACH STRIP VI SCH ×4 (06:18→20:21)
[2018-08-15] MEDS ORDERED: methylPREDNISolone 4 MG TABLET (DAY#6, ACB) PO ONE (07:30)
[2018-08-15 08:00] VITALS: BP 112/51
[2018-08-15] MEDS: MAGNESIUM OXIDE 400 MG TABLET PO SCH ×2 (09:16→16:55)
[2018-08-15] MEDS: AMLODIPINE 10 MG TABLET PO SCH (09:16)
[2018-08-15] MEDS: POTASSIUM CHLORIDE 20 MEQ TAB.PRT.SR PO SCH (09:16)
[2018-08-15] MEDS: DOCUSATE SODIUM 250 MG CAPSULE PO SCH ×2 (09:17→16:55)
[2018-08-15] MEDS: APIXABAN 5 MG PO SCH ×2 (09:18→16:56)
[2018-08-15] MEDS: FUROSEMIDE 40 MG TABLET PO SCH ×2 (09:18→16:55)
[2018-08-15] MEDS: TOLTERODINE LA 2 MG CAP.SR.24H PO SCH (09:18)
[2018-08-15] MEDS: FINASTERIDE 5 MG TABLET PO SCH (09:18)
--- NOTE | 2018-08-15 09:58 | NUR ---
Received pt. in bed in no distress. A/Ox2 responsive to verbal and tactile stimulation. No new skin condition. On 1:1 sitter for safety. All needs attended and met promptly. All due medications given as ordered and tolerated well. On O2 @ 1 LPM via NC with SpO2 of 94%. Maintained fluid restriction of 1L/24hr for dx: CHF. No s/sx of hypo/hyperglycemia. Safety measures in place. Call light and all frequently used items within pt. reach. Will continue to monitor accordingly.
[2018-08-15] MEDS: INSULIN REGULAR, HUMAN 300 UNIT/3 ML VIAL SQ PRN ×2 (11:20→16:25)
[2018-08-15 16:00] VITALS: BP 104/43
[2018-08-15] MEDS: INSULIN REGULAR, HUMAN 300 UNITS/3 ML VIAL SQ PRN ×2 (16:24→20:23)
--- NOTE | 2018-08-15 18:49 | NUR ---
End of shift note: No significant change during this shift. Dr. Tonny Rivas. with verbal order for AM labs, orders noted and carried out. Pt. made aware. All needs attended and met promptly. Safety measures in placed. Bed in low position, brake on, side rails up x2 as an enabler. Call light and all frequently used items within pt. reach. Will endorse to next shift accordingly.
[2018-08-15 19:11] VITALS: BP 140/59
--- NOTE | 2018-08-15 19:30 | NUR ---
PATIENT RECEIVED SITING ON THE EDGE OF THE BED WATCHING TV. ALERT AND ORIENTED X 2-3. DUTCH SPEAKING, BUT ABLE TO MAKE NEEDS KNOWN IN KHMER OR WITH GESTURE. SITTER AT BEDSIDE FOR SAFETY. CO C/O PIAN, SOB, OR DISTRESS AT THIS TIME. SNACKS PROVIDED UPON REQUEST. CALL LIGHT AND FREQUENTLY USED ITEMS WITHIN REACH. WILL CONTINUE TO MONITOR.
[2018-08-15] MEDS: risperiDONE 0.5 MG TABLET PO SCH (20:20)
[2018-08-15] MEDS: LISINOPRIL 5 MG TABLET PO SCH (20:21)
[2018-08-15] MEDS: TAMSULOSIN HCL 0.4 MG CAP.SR.24H PO SCH (20:21)
[2018-08-15] MEDS: ATORVASTATIN 20 MG TABLET PO SCH (20:21)
[2018-08-16 05:10] VITALS: BP 109/55
[2018-08-16] MEDS: BLOOD SUGAR DIAGNOSTIC 1 EACH STRIP VI SCH ×3 (06:33→16:36)
[2018-08-16 08:00] VITALS: BP 97/47
[2018-08-16] MEDS: MAGNESIUM OXIDE 400 MG TABLET PO SCH ×2 (08:39→16:45)
[2018-08-16] MEDS: APIXABAN 5 MG PO SCH ×2 (08:40→16:54)
[2018-08-16] MEDS: FINASTERIDE 5 MG TABLET PO SCH (08:41)
[2018-08-16] MEDS: TOLTERODINE LA 2 MG CAP.SR.24H PO SCH (08:41)
[2018-08-16] MEDS: DOCUSATE SODIUM 250 MG CAPSULE PO SCH ×2 (08:42→16:45)
[2018-08-16] MEDS: POTASSIUM CHLORIDE 20 MEQ TAB.PRT.SR PO SCH (08:42)
[2018-08-16] MEDS: FUROSEMIDE 40 MG TABLET PO SCH ×2 (08:50→16:45)
[2018-08-16] MEDS: AMLODIPINE 10 MG TABLET PO SCH (08:56)
[2018-08-16 09:30] VITALS: BP 125/62
[2018-08-16] MEDS: INSULIN REGULAR, HUMAN 300 UNIT/3 ML VIAL SQ PRN ×2 (12:33→16:44)
--- NOTE | 2018-08-16 15:45 | NUR ---
Dr. Tonny Edwards in the unit, informed MD that amlodipine held today due to decreased BP, per MD its OK. Also MD made aware of discharge plan for the day. MD stated patient is OK for discharge and MD reconciled discharge medications.
[2018-08-16 16:00] VITALS: BP 121/58
--- NOTE | 2018-08-16 17:35 | NUR ---
Received a discharge order to home with home health for PT, OT and nursing services from Dr. Albrecht.
--- NOTE | 2018-08-16 18:30 | NUR ---
Discharge instructions provided to patient's granddaughter Alanna with verbalized understanding. All discharge papers signed by and given to Alanna. All belongings well accounted for. Patient remains alert, verbally responsive and able to make needs known. He denies any pain or discomfort at this time. Patient on oxygen at 1LPM via nasal cannula tolerating well. Discharge photos taken. Patient picked up by Alanna via private car. Assisted patient to the parking lot via wheelchair by MATHEW.
== END 2018-08-16 18:30 | disposition home health service (06) | DRG 291 ==
PROVIDERS: ADMIT Physical Medicine & Rehabilitation Pain Medicine; ATTEND Physical Medicine & Rehabilitation Pain Medicine
DX: I11.0 Hypertensive heart disease with heart failure (principal); G93.41 Metabolic encephalopathy; J18.9 Pneumonia, unspecified organism; J96.21 Acute and chronic respiratory failure with hypoxia; J96.22 Acute and chronic respiratory failure with hypercapnia; J15.9 Unspecified bacterial pneumonia; E44.1 Mild protein-calorie malnutrition; I44.2 Atrioventricular block, complete; I48.92 Unspecified atrial flutter; J44.0 Chronic obstructive pulmonary disease with (acute) lower respiratory infection; E22.2 Syndrome of inappropriate secretion of antidiuretic hormone; J44.1 Chronic obstructive pulmonary disease with (acute) exacerbation; I50.33 Acute on chronic diastolic (congestive) heart failure; D63.8 Anemia in other chronic diseases classified elsewhere; I73.9 Peripheral vascular disease, unspecified; E66.9 Obesity, unspecified; Z68.35 Body mass index [BMI] 35.0-35.9, adult; E78.5 Hyperlipidemia, unspecified; H40.9 Unspecified glaucoma; K21.9 Gastro-esophageal reflux disease without esophagitis; N40.0 Benign prostatic hyperplasia without lower urinary tract symptoms; Z87.891 Personal history of nicotine dependence; E11.51 Type 2 diabetes mellitus with diabetic peripheral angiopathy without gangrene; T38.0X5A Adverse effect of glucocorticoids and synthetic analogues, initial encounter; E11.65 Type 2 diabetes mellitus with hyperglycemia; H54.8 Legal blindness, as defined in USA; I25.10 Atherosclerotic heart disease of native coronary artery without angina pectoris; Z95.0 Presence of cardiac pacemaker
CPT/HCPCS: 36415; 70030-TC; 83735; 84100; 85025; 92523; 92526; 92610; 97110; 97112; 97116; 97165; 97530; 97535; A4663; J1815; J7509

== ENCOUNTER 2018-10-31 21:39 | Inpatient (IN) | payer MEDICARE, MEDICAID ==
[~2018-10-31] VITALS: Ht 172.7 cm; Wt 98.2 kg
[~2018-10-31 21:39] MED LIST changes: -ALBU18HF2 IH; -CIPR500T5 PO; -DILT240C2 PO; -FURO-151 PO; -OLOP2.5D5 EACHEYE; -OMEG1CAP55 PO; -OMEP1CAP24 PO
[2018-10-31] MEDS ORDERED: ALBUTEROL SULFATE 2.5 MG/3 ML NEBU NEB ONE (22:00)
[2018-10-31] MEDS ORDERED: IPRATROPIUM BROMIDE 0.5 MG/2.5 ML NEBU NEB ONE (22:00)
[2018-10-31 22:09] LABS: ABG BASE EXCESS -3.2 mmol/L; ABG HCO3 21.5 mmol/L; ABG PCO2 37.1 mmHg (35.0-45.0); ABG PO2 106.6 mmHg (75.0-100.0); ABG SITE LEFT RADIAL; ABG TOTAL HEMOGLOBIN 12.2 G/dL (13.5-18.0); COHb 1.9 % (0.5-1.5); MetHb 0.2 % (0.0-1.5); O2Hb 95.7 % (94.0-97.0); VENT MODE Nasal Cannula
[2018-10-31] MEDS ORDERED: ALBUTEROL SULFATE 2.5 MG/3 ML NEBU ONE (22:17)
[2018-10-31] MEDS ORDERED: IPRATROPIUM BROMIDE 0.5 MG/2.5 ML NEBU ONE (22:17)
[2018-10-31 22:23] LABS: CREATININE 1.2 mg/dL (0.6-1.3); POTASSIUM 3.9 mmol/L (3.5-5.1)
[2018-10-31 22:27] LABS: BASOPHILS # (AUTO) 0.1 K/uL (0.0-8.0); BASOPHILS % (AUTO) 0.7 % (0.0-2.0); EOSINOPHILS # (AUTO) 0.2 K/uL (0.0-0.7); EOSINOPHILS % (AUTO) 1.8 % (0.0-7.0); HEMATOCRIT 36.8 % (36.7-47.1); HEMOGLOBIN 12.5 g/dL (12.5-16.3); LYMPHOCYTES # (AUTO) 1.5 K/uL (20.0-40.0); LYMPHOCYTES % (AUTO) 15.2 % (20.5-51.5); MEAN CORPUSCULAR HEMOGLOBIN 31.5 uug (23.8-33.4); MEAN CORPUSCULAR HGB CONC 34 g/dL (32.5-36.3); MEAN CORPUSCULAR VOLUME 92.5 fL (73.0-96.2); NEUTROPHILS # (AUTO) 7.1 K/uL (1.8-8.9); NEUTROPHILS % (AUTO) 72.3 % (38.5-71.5); PLATELET COUNT (AUTO) 252 K/uL (152-348); RED BLOOD CELL COUNT(AUTO) 3.98 MIL/uL (4.06-5.63); WHITE BLOOD COUNT (AUTO) 9.8 K/uL (3.6-10.2)
[2018-10-31 22:35] LABS: BILIRUBIN,DIRECT 0.3 mg/dL (0.0-0.2); TOTAL PROTEIN, SERUM 7.5 g/dL (6.4-8.2)
[2018-10-31] MEDS ORDERED: FUROSEMIDE 20 MG/2 ML VIAL IV ONE (22:45)
[2018-10-31] MEDS ORDERED: FUROSEMIDE 40 MG/4 ML VIAL ONE (22:53)
--- NOTE | 2018-10-31 22:56 | NUR ---
Paged [employer] for panel call. Pending call back from Carole Hill NP.
--- NOTE | 2018-10-31 22:57 | NUR ---
DR GUTIÉRREZ SPOKE WITH RACHANA [place] PATIENT WAS ACCEPTED FOR ADMISSION.
[2018-10-31] MEDS ORDERED: LEVOFLOXACIN 750MG/D5W 150 ML IV ONE ×2 (23:00→23:07)
--- NOTE | 2018-10-31 23:09 | NUR ---
Pt. admitted to TELE, under care of ACTOR UNDERSTUDY. YESIKA Belongs List completed
[2018-10-31] MEDS ORDERED: Z GUARD REMEDY PASTE 57 GM TUBE TOP PRN (23:15)
[2018-10-31] MEDS ORDERED: ONDANSETRON 4 MG/2 ML VIAL IV PRN (23:15)
[2018-10-31] MEDS ORDERED: MAGNESIUM HYDROXIDE 30 ML LIQUID UDC PO PRN (23:15)
[2018-10-31] MEDS ORDERED: HYDROCODONE/APAP 5-325MG TABLET PO PRN (23:15)
[2018-10-31] MEDS ORDERED: IPRATROPIUM BROMIDE 0.5 MG/2.5 ML NEBU NEB PRN (23:15)
[2018-10-31] MEDS ORDERED: ALBUTEROL SULFATE 1.25 MG/3 ML NEBU NEB PRN (23:15)
[2018-10-31] MEDS ORDERED: ALBU18HF2 IH (23:36)
[2018-10-31] MEDS ORDERED: ERGO500040 PO (23:36)
[2018-10-31] MEDS ORDERED: DILT240C2 PO (23:36)
[2018-10-31] MEDS ORDERED: FURO40TA5 PO (23:36)
[2018-10-31] MEDS ORDERED: OLOP2.5D5 OP (23:36)
[2018-10-31] MEDS ORDERED: SITA1TAB6 PO (23:36)
[2018-10-31] MEDS ORDERED: BIMA2.5D5 EACHEYE (23:36)
[2018-10-31] MEDS ORDERED: OMEP20TA5 PO (23:36)
[2018-10-31] MEDS ORDERED: DORZ10DR10 EACHEYE (23:36)
[2018-10-31] MEDS ORDERED: DOCU-141 PO (23:36)
[2018-10-31] MEDS ORDERED: FLUT1DIS28 IH (23:36)
[2018-10-31 23:44] LABS: *BILIRUBIN,URIN NEGATIVE (NEGATIVE); *BLOOD, URINE NEGATIVE (NEGATIVE); *CLARITY,URINE CLEAR (CLEAR); *COLOR,URINE YELLOW (YELLOW); *KETONES,URINE NEGATIVE (NEGATIVE); *UROBILINOGEN,URINE 0.2 E.U./dl (NORMAL); LEUKOCYTE ESTERASE ,URINE NEGATIVE (NEGATIVE); NITRITE, URINE NEGATIVE (NEGATIVE); UGLUCOSE NEGATIVE (NEGATIVE)
--- NOTE | 2018-11-01 00:02 | NUR ---
PATIENT WAS TAKEN BY OBED FOSTER TO THE FLOOR.
--- NOTE | 2018-11-01 00:05 | NUR ---
Patient arrived on a gurney, granddaughter is with the patient
[2018-11-01 00:28] VITALS: BP 112/58
[2018-11-01 04:00] VITALS: BP 113/75
--- NOTE | 2018-11-01 06:49 | NUR ---
patient spent the night in the chair, urinates every 15 minutes into the urinal. Unable to be in bed, slightly short of breath. Forgetful and does not follow directions well. Attempted to ambulate unassisted, requires constant monitoring. Comfort and safety measures are in place
[2018-11-01 07:06] LABS: BASOPHILS # (AUTO) 0.1 K/uL (0.0-8.0); BASOPHILS % (AUTO) 0.9 % (0.0-2.0); EOSINOPHILS # (AUTO) 0.1 K/uL (0.0-0.7); EOSINOPHILS % (AUTO) 1.6 % (0.0-7.0); HEMATOCRIT 35.4 % (36.7-47.1); HEMOGLOBIN 11.8 g/dL (12.5-16.3); LYMPHOCYTES # (AUTO) 1.1 K/uL (20.0-40.0); LYMPHOCYTES % (AUTO) 12.9 % (20.5-51.5); MEAN CORPUSCULAR HEMOGLOBIN 30.6 uug (23.8-33.4); MEAN CORPUSCULAR HGB CONC 33 g/dL (32.5-36.3); MEAN CORPUSCULAR VOLUME 91.7 fL (73.0-96.2); MONOCYTES % (AUTO) 11.8 % (0.0-11.0); NEUTROPHILS # (AUTO) 6.4 K/uL (1.8-8.9); NEUTROPHILS % (AUTO) 72.8 % (38.5-71.5); PLATELET COUNT (AUTO) 230 K/uL (152-348); RED BLOOD CELL COUNT(AUTO) 3.86 MIL/uL (4.06-5.63); WHITE BLOOD COUNT (AUTO) 8.9 K/uL (3.6-10.2)
[2018-11-01 07:29] LABS: MAGNESIUM 1.7 mg/dL (1.8-2.4); PHOSPHOROUS 3.5 mg/dL (2.5-4.9); POTASSIUM 3.8 mmol/L (3.5-5.1)
[2018-11-01] MEDS ORDERED: ENOXAPARIN SODIUM 40 MG/0.4 ML DISP.SYRIN SQ SCH (09:00)
--- NOTE | 2018-11-01 09:47 | NUR ---
sitting in chair, eating 100% breakfast, pissed on floor. both lower extremities, red, swollen, and oozy, but no c/o of pain.
[2018-11-01 11:34] VITALS: BP 115/55
[2018-11-01] MEDS ORDERED: MAGNESIUM SULFATE/D5W 100 ML IV SCH (15:30)
[2018-11-01 15:41] VITALS: BP 115/62
--- NOTE | 2018-11-01 16:18 | NUR ---
mag low today 1.7, unable to replace MGSO4 ivpb, secondary to poor vein, after so many unsuccessful attempt for the new HL. Per Carole Hill NP, we are going to replace with 400mg po , Mgoxide, once. Aware patient has no iv access now.
[2018-11-01] MEDS ORDERED: MAGNESIUM OXIDE 400 MG TABLET PO ONE (16:30)
[2018-11-01 18:20] VITALS: BP 115/62
[2018-11-01] MEDS ORDERED: CLONIDINE HCL 0.1 MG TABLET PO PRN (19:15)
[2018-11-01] MEDS ORDERED: POLYETHYLENE GLYCOL 3350 238 GM POWDER PO PRN (19:15)
[2018-11-01] MEDS ORDERED: Medication Not On Formulary EA (Omeprazole 20 MG) PO PRN (19:15)
--- NOTE | 2018-11-01 19:20 | NUR ---
RECEIVED PT AWAKE, ALERT AND ORIENTEDX2 . PT SHOWS NO SIGNS OF ACUTE DISTRESS. SAFETY AND COMFORT PROVIDED. SITTER FOR SAFETY. WILL CONTINUE TO MONITOR.
[2018-11-01 20:30] VITALS: BP 130/52
[2018-11-01] MEDS: risperiDONE 0.5 MG TABLET PO SCH (22:01)
[2018-11-01] MEDS: ACETAMINOPHEN 325 MG TABLET PO PRN (22:01)
[2018-11-01] MEDS: LEVOFLOXACIN 500 MG/D5W 500 MG in PREMIXED 1 EACH IV SCH (22:01)
[2018-11-01] MEDS: ATORVASTATIN 20 MG TABLET PO SCH (22:01)
[2018-11-02 00:22] VITALS: BP 123/54
[2018-11-02 04:00] VITALS: BP 129/55
[2018-11-02] MEDS: PANTOPRAZOLE SODIUM 40 MG TABLET.DR PO SCH (06:02)
--- NOTE | 2018-11-02 06:25 | NUR ---
PT SLEPT INTERMITTENTLY. PT SHOWS NO SIGNS OF ACUTE DISTRESS. PRESCRIBED MEDICATION GIVEN AND PT TOLERATED IT WELL. PT ALWAYS ASKING FOR FOOD. NEED REORIENTATION. SITTER FOR SAFETY. SAFETY AND COMFORT PROVIDED. WILL CONTINUE TO MONITOR.
[2018-11-02 06:50] LABS: BASOPHILS % (AUTO) 0.7 % (0.0-2.0); EOSINOPHILS # (AUTO) 0.2 K/uL (0.0-0.7); EOSINOPHILS % (AUTO) 2.7 % (0.0-7.0); HEMOGLOBIN 12.1 g/dL (12.5-16.3); LYMPHOCYTES # (AUTO) 1.1 K/uL (20.0-40.0); LYMPHOCYTES % (AUTO) 14.6 % (20.5-51.5); MEAN CORPUSCULAR HEMOGLOBIN 30.4 uug (23.8-33.4); MEAN CORPUSCULAR HGB CONC 33 g/dL (32.5-36.3); MEAN CORPUSCULAR VOLUME 93.2 fL (73.0-96.2); MONOCYTES # (AUTO) 1.1 K/uL (2.0-10.0); MONOCYTES % (AUTO) 14.9 % (0.0-11.0); NEUTROPHILS % (AUTO) 67.1 % (38.5-71.5); PLATELET COUNT (AUTO) 209 K/uL (152-348); RED BLOOD CELL COUNT(AUTO) 3.98 MIL/uL (4.06-5.63); WHITE BLOOD COUNT (AUTO) 7.4 K/uL (3.6-10.2)
[2018-11-02 06:51] LABS: CREATININE 0.9 mg/dL (0.6-1.3); POTASSIUM 3.6 mmol/L (3.5-5.1)
[2018-11-02] MEDS ORDERED: MIRALAX 17 GM POWD.PACK PO PRN (07:30)
[2018-11-02 08:00] VITALS: BP 134/65
[2018-11-02] MEDS: POTASSIUM CHLORIDE 20 MEQ TAB.PRT.SR PO SCH (08:10)
[2018-11-02] MEDS: predniSONE 20 MG TABLET PO SCH (08:10)
[2018-11-02] MEDS: MAGNESIUM OXIDE 400 MG TABLET PO SCH ×2 (08:10→17:41)
[2018-11-02] MEDS: DOCUSATE SODIUM 100 MG CAPSULE PO SCH (08:10)
[2018-11-02] MEDS: TOPIRAMATE 25 MG TABLET PO SCH (08:10)
[2018-11-02] MEDS: METFORMIN HCL 500 MG TABLET PO SCH (08:10)
[2018-11-02] MEDS: FINASTERIDE 5 MG TABLET PO SCH (08:11)
[2018-11-02] MEDS: LINAGLIPTIN 5 MG TABLET PO SCH (08:11)
[2018-11-02] MEDS: FUROSEMIDE 40 MG/4 ML VIAL IV SCH ×2 (08:11→20:38)
[2018-11-02] MEDS: DORZOLAMIDE 2% OPHT DROP 10 ML BOTTLE EACHEYE SCH ×2 (08:19→17:36)
[2018-11-02] MEDS ORDERED: FUROSEMIDE 40 MG TABLET PO SCH (09:00)
[2018-11-02] MEDS ORDERED: FLUTICASONE/SALMETEROL 250/50 INHALER IH SCH (09:00)
[2018-11-02] MEDS ORDERED: Medication Not On Formulary EA (Sitagliptin Phos/Metformin Hcl (Janumet 50-1,000 Mg Tabl PO SCH (09:00)
[2018-11-02] MEDS ORDERED: BIMATOPROST 0.01% OPHT DROP 2.5 ML BOTTLE EACHEYE SCH (09:00)
[2018-11-02] MEDS ORDERED: APIXABAN 5 MG TABLET PO SCH (09:00)
[2018-11-02] MEDS: FLUTICASONE/VILANTEROL 1 EACH BLST.W.DEV INH SCH (09:03)
--- NOTE | 2018-11-02 10:44 | NUR ---
PT IN NO ACUTE DISTRESS. PRESCRIBED MEDICATION GIVEN AND PT TOLERATED IT WELL. PT WALKED THE PT. IV INTACT. PT ON 2L NASAL CANNULA. ENDORSE TO INCOMING NURSE FOR CONTINUITY OF CARE.
[2018-11-02] MEDS ORDERED: NITROGLYCERIN 0.4 MG/TAB BOTTLE SL PRN (12:30)
[2018-11-02] MEDS ORDERED: POTASSIUM CHLORIDE 20 MEQ TAB.PRT.SR PO ONE (12:45)
[2018-11-02] MEDS ORDERED: DILTIAZEM HCL CD 240 MG CAP.SR.24H PO SCH (13:00)
[2018-11-02] MEDS: APIXABAN 5 MG TABLET PO SCH (17:36)
--- NOTE | 2018-11-02 18:10 | NUR ---
Patient [id number] well found without signs of distress, some confusion noted and generalized weaknes and shortness of breath when nasal cannula removed, family at bedside this shift. Patient is complaint with care all orders carried out wound care to Bilateral lower extremities initiated. noted weeping to both sites cleansed with Normal saline and left open to air as per flower arranger
[2018-11-02] MEDS: CARVEDILOL 3.125 MG TABLET PO SCH (18:48)
--- NOTE | 2018-11-02 19:30 | NUR ---
Received patient sitting in bed, A&Ox2. Patient is noncompliant w/ O2 therapy, noted removing his NC. No complaints of pain at this time. On Tele monitor. IV site to R thumb intact and patent. Cont on 1:1 sitter for safety. Safety measures observed. Call light within reach
[2018-11-02 20:00] VITALS: BP 119/60
[2018-11-02] MEDS ORDERED: LEVOFLOXACIN 500 MG/D5W 100 ML ONE (20:32)
[2018-11-02] MEDS: LATANOPROST OPHT DROP 2.5 ML BOTTLE EACHEYE SCH (20:37)
[2018-11-02] MEDS: TIMOLOL MALEATE 0.5% OPHT DROP 5 ML BOTTLE EACHEYE SCH (20:38)
[2018-11-02] MEDS: BRIMONIDINE 0.2% OPHT DROP 10 ML BOTTLE EACHEYE SCH (20:38)
[2018-11-02] MEDS: risperiDONE 0.5 MG TABLET PO SCH (20:39)
[2018-11-02] MEDS: ATORVASTATIN 20 MG TABLET PO SCH (20:39)
[2018-11-02] MEDS: ACETAMINOPHEN 325 MG TABLET PO PRN (20:39)
[2018-11-02] MEDS: LEVOFLOXACIN 500 MG/D5W 500 MG in PREMIXED 1 EACH IV SCH (21:51)
--- NOTE | 2018-11-02 22:30 | NUR ---
IV to R thumb pulled out, reinserted new IV to L hand 24g, intact and patent.
[2018-11-03] VITALS: BP 105/50
[2018-11-03 04:00] VITALS: BP 119/60
[2018-11-03] MEDS: PANTOPRAZOLE SODIUM 40 MG TABLET.DR PO SCH (06:00)
--- NOTE | 2018-11-03 06:30 | NUR ---
Patient slept intermittently. No SOB noted, not in distress. Patient is compliant w/ medication and nursing care. All needs attended. Will endorse accordingly
[2018-11-03 06:34] LABS: BASOPHILS % (AUTO) 0.4 % (0.0-2.0); EOSINOPHILS # (AUTO) 0.2 K/uL (0.0-0.7); HEMATOCRIT 35.1 % (36.7-47.1); HEMOGLOBIN 11.8 g/dL (12.5-16.3); LYMPHOCYTES # (AUTO) 1.4 K/uL (20.0-40.0); LYMPHOCYTES % (AUTO) 13.5 % (20.5-51.5); MEAN CORPUSCULAR HEMOGLOBIN 31.5 uug (23.8-33.4); MEAN CORPUSCULAR HGB CONC 34 g/dL (32.5-36.3); MEAN CORPUSCULAR VOLUME 93.2 fL (73.0-96.2); MONOCYTES # (AUTO) 1.1 K/uL (2.0-10.0); MONOCYTES % (AUTO) 10.9 % (0.0-11.0); NEUTROPHILS # (AUTO) 7.3 K/uL (1.8-8.9); NEUTROPHILS % (AUTO) 73.2 % (38.5-71.5); PLATELET COUNT (AUTO) 227 K/uL (152-348); RED BLOOD CELL COUNT(AUTO) 3.76 MIL/uL (4.06-5.63)
[2018-11-03 06:54] LABS: ALANINE AMINOTRANSFERASE 11 U/L (16-63); ALKALINE PHOSPHATASE 70 U/L (50-136); ASPARTATE AMINOTRANSFERASE 25 U/L (15-37); BILIRUBIN,TOTAL 0.7 mg/dL (0.2-1.0); CARBON DIOXIDE 36 mmol/L (21-32); CHLORIDE 104 mmol/L (98-107); CREATININE 0.9 mg/dL (0.6-1.3); GLUCOSE 127 mg/dL (74-106); PHOSPHOROUS 2.7 mg/dL (2.5-4.9); POTASSIUM 4.1 mmol/L (3.5-5.1); UREA NITROGEN, BLOOD 21 mg/dL (7-18)
--- NOTE | 2018-11-03 07:45 | NUR ---
Received patient sitting upright on edge of bed. Mainly Paraguayan speaking. In no acute distress. No SOB noted. Receiving 2L o2 via NC. IV on left hand intact and patent. Safety measures implemented. Will continue to monitor.
[2018-11-03] MEDS: CARVEDILOL 3.125 MG TABLET PO SCH ×2 (08:00→17:18)
[2018-11-03 08:05] VITALS: BP 116/56
[2018-11-03] MEDS: LINAGLIPTIN 5 MG TABLET PO SCH (08:20)
[2018-11-03] MEDS: predniSONE 20 MG TABLET PO SCH (08:20)
[2018-11-03] MEDS: FINASTERIDE 5 MG TABLET PO SCH (08:21)
[2018-11-03] MEDS: POTASSIUM CHLORIDE 20 MEQ TAB.PRT.SR PO SCH (08:21)
[2018-11-03] MEDS: METFORMIN HCL 500 MG TABLET PO SCH (08:21)
[2018-11-03] MEDS: MAGNESIUM OXIDE 400 MG TABLET PO SCH ×2 (08:21→17:18)
[2018-11-03] MEDS: TOPIRAMATE 25 MG TABLET PO SCH (08:22)
[2018-11-03] MEDS: DOCUSATE SODIUM 100 MG CAPSULE PO SCH (08:22)
[2018-11-03] MEDS: FUROSEMIDE 40 MG/4 ML VIAL IV SCH ×2 (08:22→20:59)
[2018-11-03] MEDS: APIXABAN 5 MG TABLET PO SCH ×2 (08:24→17:18)
[2018-11-03] MEDS: BRIMONIDINE 0.2% OPHT DROP 10 ML BOTTLE EACHEYE SCH ×2 (08:27→21:04)
[2018-11-03] MEDS: FLUTICASONE/VILANTEROL 1 EACH BLST.W.DEV INH SCH (08:27)
[2018-11-03] MEDS: TIMOLOL MALEATE 0.5% OPHT DROP 5 ML BOTTLE EACHEYE SCH ×2 (08:27→21:00)
[2018-11-03] MEDS: Z GUARD REMEDY PASTE 57 GM TUBE TOP SCH ×2 (08:28→21:01)
[2018-11-03] MEDS: DORZOLAMIDE 2% OPHT DROP 10 ML BOTTLE EACHEYE SCH ×2 (08:28→17:17)
[2018-11-03] MEDS: LISINOPRIL 5 MG TABLET PO SCH (08:32)
[2018-11-03 11:30] VITALS: BP 126/55
--- NOTE | 2018-11-03 18:12 | NUR ---
Patient compliant with care and medication throughout shift. Safety and comfort measures implemented and effective at all times. In no acute distress. No SOB. Will endorse to maintenance mechanic 2nd shift nurse accordingly.
--- NOTE | 2018-11-03 19:30 | NUR ---
Received patient sitting in bed, A&Ox2, Surinamese speaking. On O2 at 2lpm via NC saturating at 95%. No complaints of pain at this time. On Tele monitor. IV site to L hand intact and patent. Safety measures observed. Call light within reach
[2018-11-03 20:11] VITALS: BP 132/54
[2018-11-03] MEDS: ATORVASTATIN 20 MG TABLET PO SCH (20:59)
[2018-11-03] MEDS: risperiDONE 0.5 MG TABLET PO SCH (20:59)
[2018-11-03] MEDS: LATANOPROST OPHT DROP 2.5 ML BOTTLE EACHEYE SCH (21:00)
[2018-11-03] MEDS: LEVOFLOXACIN 500 MG/D5W 500 MG in PREMIXED 1 EACH IV SCH (21:22)
--- NOTE | 2018-11-03 22:40 | NUR ---
Seen and examined by Dr. Martinez w/ n.o to d/c Telemetry
[2018-11-03] MEDS: ACETAMINOPHEN 325 MG TABLET PO PRN (23:14)
--- NOTE | 2018-11-04 04:03 | NUR ---
Report received from KRISTIN Guillen for continuity of care
[2018-11-04] MEDS: PANTOPRAZOLE SODIUM 40 MG TABLET.DR PO SCH (06:07)
[2018-11-04 06:45] VITALS: BP 130/71
--- NOTE | 2018-11-04 07:05 | NUR ---
Received patient sitting on edge of the bed. Mainly Luxembourger speaking. In no acute distress. No SOB noted. Receiving 2L o2 via NC. yelling screaming Lynn call the kitchen for the food Safety measures implemented. Will continue to monitor.
[2018-11-04] MEDS: DOCUSATE SODIUM 100 MG CAPSULE PO SCH (08:01)
[2018-11-04] MEDS: FINASTERIDE 5 MG TABLET PO SCH (08:01)
[2018-11-04] MEDS: TOPIRAMATE 25 MG TABLET PO SCH (08:01)
[2018-11-04] MEDS: LINAGLIPTIN 5 MG TABLET PO SCH (08:01)
[2018-11-04] MEDS: POTASSIUM CHLORIDE 20 MEQ TAB.PRT.SR PO SCH (08:01)
[2018-11-04] MEDS: MAGNESIUM OXIDE 400 MG TABLET PO SCH ×2 (08:01→16:11)
[2018-11-04] MEDS: METFORMIN HCL 500 MG TABLET PO SCH (08:01)
[2018-11-04] MEDS: CARVEDILOL 3.125 MG TABLET PO SCH ×2 (08:02→17:04)
[2018-11-04] MEDS: LISINOPRIL 5 MG TABLET PO SCH (08:02)
[2018-11-04] MEDS: predniSONE 20 MG TABLET PO SCH (08:02)
[2018-11-04] MEDS: APIXABAN 5 MG TABLET PO SCH ×2 (08:03→16:19)
[2018-11-04] MEDS: TIMOLOL MALEATE 0.5% OPHT DROP 5 ML BOTTLE EACHEYE SCH ×2 (08:25→20:42)
[2018-11-04] MEDS: FLUTICASONE/VILANTEROL 1 EACH BLST.W.DEV INH SCH (08:25)
[2018-11-04] MEDS: DORZOLAMIDE 2% OPHT DROP 10 ML BOTTLE EACHEYE SCH ×2 (08:25→16:11)
[2018-11-04] MEDS: FUROSEMIDE 40 MG/4 ML VIAL IV SCH (08:28)
[2018-11-04] MEDS: Z GUARD REMEDY PASTE 57 GM TUBE TOP SCH ×2 (08:53→20:53)
[2018-11-04] MEDS: BRIMONIDINE 0.2% OPHT DROP 10 ML BOTTLE EACHEYE SCH ×2 (08:53→21:06)
[2018-11-04 11:47] VITALS: BP 146/42
[2018-11-04 15:15] VITALS: BP 110/50
[2018-11-04] MEDS ORDERED: FUROSEMIDE 40 MG TABLET PO SCH (17:00)
[2018-11-04 19:42] VITALS: BP 127/58
[2018-11-04] MEDS: LATANOPROST OPHT DROP 2.5 ML BOTTLE EACHEYE SCH (20:42)
[2018-11-04] MEDS: ATORVASTATIN 20 MG TABLET PO SCH (20:52)
[2018-11-04] MEDS: risperiDONE 0.5 MG TABLET PO SCH (20:53)
--- NOTE | 2018-11-04 21:15 | NUR ---
patient received from night nurse, confused, and sitting in bed. v/s stable and no signs of acute distress until discharge. safety and comfort measures provided at all times. all medications administered and tolerated well with no adverse effects. discharge paperwork and belongings list signed and witness by 2nd nurse due to patients mental status and placed in patients file. discharged to [facility] in wheelchair with belongings and paperwork provided to maintenance supervisor 2nd shift nurse on shift at ARU. granddaughter contacted regarding discharge to ARU, charge aware.
--- NOTE | 2018-11-04 21:16 | NUR ---
patient ordered to discharge per MD Lui Yi. - charge aware.
[2018-11-04] MEDS ORDERED: LEVOFLOXACIN 500 MG TABLET PO SCH (22:00)
[2018-11-08] MEDS ORDERED: ERGOCALCIFEROL 50,000 UNIT CAPSULE PO SCH (09:00)
== END 2018-11-04 21:15 | DRG 291 ==
LOC: ER 21:39 → TELE3 23:17 → MEDSURG3 11-03 23:08
PROVIDERS: ADMIT Nurse Practitioner Acute Care; ATTEND Student in an Organized Health Care Education/Training Program
DX: I11.0 Hypertensive heart disease with heart failure (principal); J18.9 Pneumonia, unspecified organism; J96.01 Acute respiratory failure with hypoxia; J96.21 Acute and chronic respiratory failure with hypoxia; N17.0 Acute kidney failure with tubular necrosis; G93.41 Metabolic encephalopathy; J44.0 Chronic obstructive pulmonary disease with (acute) lower respiratory infection; I44.2 Atrioventricular block, complete; I48.92 Unspecified atrial flutter; E87.1 Hypo-osmolality and hyponatremia; L03.116 Cellulitis of left lower limb; L03.115 Cellulitis of right lower limb; E87.2 Acidosis; D68.59 Other primary thrombophilia; I50.43 Acute on chronic combined systolic (congestive) and diastolic (congestive) heart failure; Z95.0 Presence of cardiac pacemaker; H54.62 Unqualified visual loss, left eye, normal vision right eye; E11.51 Type 2 diabetes mellitus with diabetic peripheral angiopathy without gangrene; E78.5 Hyperlipidemia, unspecified; I25.10 Atherosclerotic heart disease of native coronary artery without angina pectoris; Z87.891 Personal history of nicotine dependence; Z79.02 Long term (current) use of antithrombotics/antiplatelets; Z79.01 Long term (current) use of anticoagulants; Z79.899 Other long term (current) drug therapy; K21.9 Gastro-esophageal reflux disease without esophagitis; H40.9 Unspecified glaucoma; N40.0 Benign prostatic hyperplasia without lower urinary tract symptoms; Z90.49 Acquired absence of other specified parts of digestive tract; F03.90 Unspecified dementia, unspecified severity, without behavioral disturbance, psychotic disturbance, mood disturbance, and anxiety; I48.91 Unspecified atrial fibrillation; Z68.32 Body mass index [BMI] 32.0-32.9, adult; E66.9 Obesity, unspecified; Z74.09 Other reduced mobility; F01.50 Vascular dementia, unspecified severity, without behavioral disturbance, psychotic disturbance, mood disturbance, and anxiety; I27.20 Pulmonary hypertension, unspecified
CPT/HCPCS: 36415; 36600; 70030-TC; 71045; 83605; 83735; 84100; 85025; 87040; 93005; 93307; A4663; G0378; J1650; J1940; J1956; J3475; J3590; J7512

== ENCOUNTER 2018-11-04 15:11 | Inpatient (IN) | payer MEDICARE, MEDICAID ==
[~2018-11-04] VITALS: Ht 172.7 cm; Wt 98.0 kg
[~2018-11-04 15:11] MED LIST changes: -ACET325T53 PO; +ALBU18HF2 IH; -ALBU2.5V13 NEB; +BIMA2.5D5 EACHEYE; -CEFT1VIA15 IV; -CLOP75TA33 PO; +DILT-3 PO; +DOCU-141 PO; -DOCU250C88 PO; +DORZ10DR10 EACHEYE; -ERGO2000 PO; +ERGO500040 PO; -FURO10VI IV; +FURO40TA5 PO; -IPRA0.2S6 NEB; -LISI-607 PO; -MAGN400T6 PO; +MAGN400T8 PO; +OMEP20TA5 PO; +SITA1TAB6 PO; -TAMS-3 PO; -TOLT4CAP PO
[2018-11-04] MEDS ORDERED: Z GUARD REMEDY PASTE 57 GM TUBE TOP PRN (21:15)
--- NOTE | 2018-11-04 21:30 | NUR ---
PATIENT ARRIVED ON UNIT VIA WALKER. ALERT AND ORIENTED X 1. BRAZILIAN SPEAKING, BUT ABLE TO MAKE GESTURES TO LET NEEDS KNOWN. VS STABLE. PATIENT ON 2 L OF OXYGEN. LEFT HAND 22 G. INTACT AND PATENT. MED RECON PENDING. 3+ PITTING EDEMA BILATERALLY IN THE LOWER LEGS. WOUND CARE CONSULT PENDING. CALL LIGHT AND FREQUENTLY USED ITEMS WITHIN REACH. CASCARA BARK CUTTER AILS UP BILATERALLY FOR SAFETY. WILL CONTINUE TO MONITOR.
[2018-11-04 21:48] VITALS: BP 137/92
--- NOTE | 2018-11-04 22:30 | NUR ---
PATIENT REPEATEDLY TRYING TO GET OUT OF BED. BED ALARM IN PLACE, BUT PATIENT ALREADY STANDING UPON ENTERING ROOM. UNABLE TO HAVE PATIENT UNDERSTAND TO LAY BACK DOWN. ANGRY YELLING IN ERITREAN FOR. UNSTEADY GAIT UPON AMBULATION TO THE TOILET. REQUESTING SITTER FOR FALL RISK, CONFUSION AND GETTING UP WITH OUT ASSISTANCE. WILL CONTINUE TO MONITOR.
[2018-11-04] MEDS ORDERED: POLYETHYLENE GLYCOL 3350 238 GM POWDER PO PRN (23:00)
[2018-11-04] MEDS ORDERED: CLONIDINE HCL 0.1 MG TABLET PO PRN (23:00)
[2018-11-04] MEDS ORDERED: ERGOCALCIFEROL 50,000 UNIT CAPSULE PO SCH (23:00)
[2018-11-05 06:14] VITALS: BP 139/59
[2018-11-05] MEDS: BLOOD SUGAR DIAGNOSTIC 1 EACH STRIP VI SCH ×4 (06:47→20:48)
[2018-11-05 07:15] VITALS: BP 110/47
[2018-11-05] MEDS ORDERED: BIMATOPROST 0.01% OPHT DROP 2.5 ML BOTTLE EACHEYE SCH (09:00)
[2018-11-05] MEDS ORDERED: APIXABAN 5 MG TABLET PO ONE ×2 (09:00→17:30)
[2018-11-05] MEDS ORDERED: FLUTICASONE/SALMETEROL 250/50 INHALER IH SCH (09:00)
[2018-11-05] MEDS: TOPIRAMATE 25 MG TABLET PO SCH (09:25)
[2018-11-05] MEDS: FUROSEMIDE 40 MG TABLET PO SCH (09:25)
[2018-11-05] MEDS: FINASTERIDE 5 MG TABLET PO SCH (09:25)
[2018-11-05] MEDS: MAGNESIUM OXIDE 400 MG TABLET PO SCH ×2 (09:25→16:49)
[2018-11-05] MEDS: DORZOLAMIDE 2% OPHT DROP 10 ML BOTTLE EACHEYE SCH ×2 (09:26→16:48)
[2018-11-05] MEDS: FLUTICASONE/VILANTEROL 1 EACH BLST.W.DEV INH SCH (09:26)
[2018-11-05] MEDS: predniSONE 20 MG TABLET PO SCH (09:26)
[2018-11-05] MEDS: DOCUSATE SODIUM 100 MG CAPSULE PO SCH (09:27)
--- NOTE | 2018-11-05 13:32 | NUR ---
WOUND CARE CONSULT: PT PRESENTS WITH WEEPING EDEMA TO LOWER EXTREMITIES, LEFT POSTERIOR CALF OPEN WOUND AND LEFT TOE INTACT BLISTER, PRESENT ON ADMISSION. RECOMMEND DPM CONSULT. DR MCGRATH NOTIFIED OF CONSULT REQUEST. PT IS CONTINENT AT THIS TIME AND INDEPENDENT WITH BED MOBILITY BUT HE BECOMES SHORT OF BREATH EASILY. SITTER AT BEDSIDE. RECOMMENDATIONS MADE FOR LEG ELEVATION. DISCUSSED WITH NURSING STAFF. WILL SEE PRN. BARBOSA IN AGREEMENT WITH PLAN OF CARE. Addendum: 11/05/18 at 1531 by SHANI OGRDILLO RN RECOMMENDATIONS MADE FOR WOUND CARE AND SKIN PROTECTION. DISCUSSED WITH NURSING STAFF.
[2018-11-05] MEDS: DILTIAZEM HCL CD 240 MG CAP.SR.24H PO SCH (13:42)
[2018-11-05] MEDS ORDERED: DEXTROSE 50% 50 ML DISP.SYRIN IV PRN (13:45)
[2018-11-05] MEDS: INSULIN REGULAR, HUMAN 300 UNIT/3 ML VIAL SQ PRN ×3 (14:29→20:52)
--- NOTE | 2018-11-05 15:00 | NUR ---
INTERDISCIPLINARY TEAM CONFERENCE
[2018-11-05] MEDS ORDERED: MIRALAX 17 GM POWD.PACK PO PRN (16:15)
[2018-11-05] MEDS ORDERED: BLOOD SUGAR DIAGNOSTIC 1 EACH STRIP VI SCH (16:30)
[2018-11-05] MEDS ORDERED: HOME MED MISCELLANEOUS EACHEYE SCH (17:00)
[2018-11-05 17:13] VITALS: BP 107/78
--- NOTE | 2018-11-05 18:08 | NUR ---
Patient continue therapy for ambulation and ADL ability. Continue 1:1 sitter, continue on oxygen via nasal cannula at 2LPM. Seen and examined by wound nurse with referral for podiatry consult. ordered venous doppler and dressing xeroform and covered with kerlix. Cover with kamla bandage wrap if negative result of DVT in venous doppler. will continue monitor
[2018-11-05] MEDS: LATANOPROST OPHT DROP 2.5 ML BOTTLE EACHEYE SCH (20:42)
[2018-11-05] MEDS: ATORVASTATIN 20 MG TABLET PO SCH (20:42)
[2018-11-05] MEDS: risperiDONE 0.5 MG TABLET PO SCH (20:42)
[2018-11-05] MEDS: TIMOLOL MALEATE 0.5% OPHT DROP 5 ML BOTTLE EACHEYE SCH (20:43)
[2018-11-05] MEDS: BRIMONIDINE 0.2% OPHT DROP 10 ML BOTTLE EACHEYE SCH (20:43)
[2018-11-05 21:13] VITALS: BP 122/75
--- NOTE | 2018-11-06 03:32 | NUR ---
Received patient in bed, awake, alert and oriented x4. Not in acute distress or SOB. No s/sx of hypo/hyperglycemia. Safety measures maintained. Sitter at bedside. Bed in low and lock position, alarm on, side rails up x2 for safety. Educated patient to use call light. Call light and frequently used items within reach. Will endorse to the Am nurse for continuity of care. Addendum: 11/06/18 at 0419 by JUNI MENDEZ RN Patient had multiple episodes of getting Out of bed unassisted, confused and forgetful. Able to transfer with unsteady gait, stand pivot from wheelchair to bed. Sitter at bedside for safety. Scheduled risperdal given as ordered, slept at short intervals. O2 on at 2lpm hooked via nasal cannula, IV site to left hand patent and intact. Wound dressing to bilateral lower extremities in place, clean dry and intact. All needs attended to. Will continue to monitor.
[2018-11-06] MEDS: BLOOD SUGAR DIAGNOSTIC 1 EACH STRIP VI SCH ×4 (07:05→20:35)
[2018-11-06 07:15] VITALS: BP 114/62
[2018-11-06 08:00] VITALS: BP 132/44
[2018-11-06] MEDS: MAGNESIUM OXIDE 400 MG TABLET PO SCH ×2 (08:53→17:23)
[2018-11-06] MEDS: FUROSEMIDE 40 MG TABLET PO SCH (08:53)
[2018-11-06] MEDS: FINASTERIDE 5 MG TABLET PO SCH (08:54)
[2018-11-06] MEDS: DOCUSATE SODIUM 100 MG CAPSULE PO SCH (08:54)
[2018-11-06] MEDS: TOPIRAMATE 25 MG TABLET PO SCH (08:54)
[2018-11-06] MEDS: predniSONE 20 MG TABLET PO SCH (08:57)
[2018-11-06] MEDS: DORZOLAMIDE 2% OPHT DROP 10 ML BOTTLE EACHEYE SCH ×2 (08:58→17:24)
[2018-11-06] MEDS: TIMOLOL MALEATE 0.5% OPHT DROP 5 ML BOTTLE EACHEYE SCH ×2 (08:58→20:35)
[2018-11-06] MEDS: BRIMONIDINE 0.2% OPHT DROP 10 ML BOTTLE EACHEYE SCH ×2 (08:58→20:36)
[2018-11-06] MEDS: FLUTICASONE/VILANTEROL 1 EACH BLST.W.DEV INH SCH (08:59)
[2018-11-06] MEDS ORDERED: APIXABAN 5 MG TABLET PO ONE ×2 (09:00→18:00)
[2018-11-06] MEDS: INSULIN REGULAR, HUMAN 300 UNIT/3 ML VIAL SQ PRN ×3 (09:03→20:34)
[2018-11-06] MEDS: DILTIAZEM HCL CD 240 MG CAP.SR.24H PO SCH (13:25)
[2018-11-06] MEDS: LATANOPROST OPHT DROP 2.5 ML BOTTLE EACHEYE SCH (20:35)
[2018-11-06] MEDS: risperiDONE 0.5 MG TABLET PO SCH (20:36)
[2018-11-06] MEDS: ATORVASTATIN 20 MG TABLET PO SCH (20:36)
[2018-11-06 20:56] VITALS: BP 127/47
--- NOTE | 2018-11-06 21:06 | NUR ---
Received pt sitting in the wheelchair at bedside. AAO x1. Icelandic speaking, makes gestures to make needs known. 1:1 sitter at bedside for safety. On 2L O2 via NC, tolerating well. No acute distress noted. Blood sugar of 198, insulin coverage given as per sliding scale. All due meds given as ordered. Safety measures maintained. Call light and personal belongings within reach. Will continue to monitor.
[2018-11-07] MEDS: BLOOD SUGAR DIAGNOSTIC 1 EACH STRIP VI SCH ×4 (06:34→20:28)
[2018-11-07 08:00] VITALS: BP 127/50
[2018-11-07] MEDS: TOPIRAMATE 25 MG TABLET PO SCH (08:54)
[2018-11-07] MEDS: predniSONE 10 MG TABLET PO SCH (08:54)
[2018-11-07] MEDS: FINASTERIDE 5 MG TABLET PO SCH (08:54)
[2018-11-07] MEDS: DOCUSATE SODIUM 100 MG CAPSULE PO SCH (08:55)
[2018-11-07] MEDS: FUROSEMIDE 40 MG TABLET PO SCH (08:55)
[2018-11-07] MEDS: MAGNESIUM OXIDE 400 MG TABLET PO SCH ×2 (08:55→17:48)
[2018-11-07] MEDS: BRIMONIDINE 0.2% OPHT DROP 10 ML BOTTLE EACHEYE SCH ×2 (08:56→20:28)
[2018-11-07] MEDS: FLUTICASONE/VILANTEROL 1 EACH BLST.W.DEV INH SCH (08:56)
[2018-11-07] MEDS: TIMOLOL MALEATE 0.5% OPHT DROP 5 ML BOTTLE EACHEYE SCH ×2 (08:56→20:28)
[2018-11-07] MEDS: DORZOLAMIDE 2% OPHT DROP 10 ML BOTTLE EACHEYE SCH ×2 (08:57→17:48)
[2018-11-07] MEDS ORDERED: APIXABAN 5 MG TABLET PO ONE ×2 (09:00→17:00)
--- NOTE | 2018-11-07 11:26 | NUR ---
INDIVIDUALIZE PLAN OF CARE
[2018-11-07] MEDS: INSULIN REGULAR, HUMAN 300 UNIT/3 ML VIAL SQ PRN ×3 (13:01→20:31)
[2018-11-07] MEDS: DILTIAZEM HCL CD 240 MG CAP.SR.24H PO SCH (13:55)
--- NOTE | 2018-11-07 15:44 | NUR ---
REFUSED EVENING VS. YELLING AND SCREAMING AND TAKING OFF THE CUFF. SITTING UP ON THE SIDE OF THE BED IN NO ACUTE DISTRESS. AM VSS. WITH 1:1 SITTER NEEDS TENDED TO
[2018-11-07] MEDS: LATANOPROST OPHT DROP 2.5 ML BOTTLE EACHEYE SCH (20:26)
[2018-11-07] MEDS: ATORVASTATIN 20 MG TABLET PO SCH (20:28)
[2018-11-07] MEDS: risperiDONE 0.5 MG TABLET PO SCH (20:28)
--- NOTE | 2018-11-07 20:49 | NUR ---
Received pt sitting on the bed. AAO x1. Syrian speaking, able to make needs known through gestures. 1:1 sitter at bedside for safety. Blood sugar of 166, insulin coverage given as per sliding scale. All due meds given as ordered. Safety measures maintained. Call light and personal belongings within reach. Will continue to monitor.
[2018-11-07 21:34] VITALS: BP 145/55
[2018-11-08 05:20] VITALS: BP 127/52
[2018-11-08] MEDS: BLOOD SUGAR DIAGNOSTIC 1 EACH STRIP VI SCH ×4 (06:37→20:33)
[2018-11-08 07:18] LABS: BASOPHILS # (AUTO) 0.1 K/uL (0.0-8.0); BASOPHILS % (AUTO) 0.6 % (0.0-2.0); EOSINOPHILS # (AUTO) 0.3 K/uL (0.0-0.7); EOSINOPHILS % (AUTO) 2.6 % (0.0-7.0); HEMOGLOBIN 11.5 g/dL (12.5-16.3); LYMPHOCYTES # (AUTO) 1.6 K/uL (20.0-40.0); LYMPHOCYTES % (AUTO) 13.8 % (20.5-51.5); MEAN CORPUSCULAR HEMOGLOBIN 30.4 uug (23.8-33.4); MEAN CORPUSCULAR HGB CONC 33 g/dL (32.5-36.3); MEAN CORPUSCULAR VOLUME 92.1 fL (73.0-96.2); MONOCYTES # (AUTO) 1.1 K/uL (2.0-10.0); MONOCYTES % (AUTO) 9.6 % (0.0-11.0); NEUTROPHILS # (AUTO) 8.6 K/uL (1.8-8.9); NEUTROPHILS % (AUTO) 73.4 % (38.5-71.5); PLATELET COUNT (AUTO) 227 K/uL (152-348); WHITE BLOOD COUNT (AUTO) 11.7 K/uL (3.6-10.2)
[2018-11-08 07:25] LABS: ALANINE AMINOTRANSFERASE 18 U/L (16-63); ALKALINE PHOSPHATASE 66 U/L (50-136); ASPARTATE AMINOTRANSFERASE 25 U/L (15-37); BILIRUBIN,TOTAL 0.6 mg/dL (0.2-1.0); CARBON DIOXIDE 32 mmol/L (21-32); CHLORIDE 103 mmol/L (98-107); CREATININE 0.9 mg/dL (0.6-1.3); GLUCOSE 139 mg/dL (74-106); PHOSPHOROUS 3.2 mg/dL (2.5-4.9); POTASSIUM 4.3 mmol/L (3.5-5.1); TOTAL PROTEIN, SERUM 6.7 g/dL (6.4-8.2); UREA NITROGEN, BLOOD 27 mg/dL (7-18)
--- NOTE | 2018-11-08 07:39 | NUR ---
patient is sitting in bed, watching TV, sitter is next to patient for safety, no distress noted
[2018-11-08 08:06] VITALS: BP 121/51
[2018-11-08] MEDS: MAGNESIUM OXIDE 400 MG TABLET PO SCH ×2 (08:25→17:03)
[2018-11-08] MEDS: FUROSEMIDE 40 MG TABLET PO SCH (08:26)
[2018-11-08] MEDS: DOCUSATE SODIUM 100 MG CAPSULE PO SCH (08:26)
[2018-11-08] MEDS: predniSONE 10 MG TABLET PO SCH (08:28)
[2018-11-08] MEDS: FINASTERIDE 5 MG TABLET PO SCH (08:28)
[2018-11-08] MEDS: BRIMONIDINE 0.2% OPHT DROP 10 ML BOTTLE EACHEYE SCH ×2 (08:29→20:30)
[2018-11-08] MEDS: DORZOLAMIDE 2% OPHT DROP 10 ML BOTTLE EACHEYE SCH ×2 (08:30→17:07)
[2018-11-08] MEDS: TIMOLOL MALEATE 0.5% OPHT DROP 5 ML BOTTLE EACHEYE SCH ×2 (08:30→20:29)
[2018-11-08] MEDS: FLUTICASONE/VILANTEROL 1 EACH BLST.W.DEV INH SCH (08:30)
[2018-11-08] MEDS: TOPIRAMATE 25 MG TABLET PO SCH (08:31)
[2018-11-08] MEDS: APIXABAN 5 MG TABLET PO SCH ×2 (08:43→17:00)
[2018-11-08] MEDS ORDERED: ERGOCALCIFEROL 50,000 UNIT CAPSULE PO SCH (09:00)
[2018-11-08] MEDS: INSULIN REGULAR, HUMAN 300 UNIT/3 ML VIAL SQ PRN ×3 (12:13→20:36)
[2018-11-08] MEDS: DILTIAZEM HCL CD 240 MG CAP.SR.24H PO SCH (12:26)
[2018-11-08 16:00] VITALS: BP 119/49
--- NOTE | 2018-11-08 18:14 | NUR ---
PATIENT IS ALERT TO SELF, FORGETFULNESS, SITTING ON THE EDGE OF THE BED MOST OF THE TIME, TRY TO CONVINCE TO LAY DOWN, PATIENT DENIED, REFUSED TO CHANGED THE DRESSING X3, PATIENT DOES NOT CALL FOR ASSISTANCE, SITTER IS AT BEDSIDE FOR SAFETY,KEPT PATIENT SAFE. BLOOD SUGAR MANAGED WITH DIET AND INSULIN, NO SIGNS AND SYMPTOMS OF HYPOGLYCEMIA AND HYPERGLYCEMIA NOTED.
--- NOTE | 2018-11-08 18:40 | NUR ---
PATIENT AMBULATED WITH PT, WITH ASSIST, ASSESSED PATIENT FOR SAFETY, SPEAKS BAHAMIAN, SPEECH THERAPIST HELPED WITH TRANSLATION, TRY TO ORIENT PATIENT TO CALL LIGHT BUT PATIENT WAS UNABLE TO CONCENTRATE, AND DID NOT UNDERSTAND THE PURPOSE OF CALL LIGHT, FORGETFUL AND POOR CONCENTRATION, NOT ABLE TO CALL THE ENGINEERING RESEARCH MANAGER WHEN NEEDED FOR TOILETING OR WITH OTHER ADLS, CONTINUE TO MONITOR FOR SAFETY. BED ALARM IS ON. ALL NEEDS ATTENDED TIMELY.
--- NOTE | 2018-11-08 19:35 | NUR ---
Awake in bed, kept talking in Dominican. Sitter at bedside. Denies any pain/discomforts at this time. No s/s of hypo/hyperglycemia. Safety measures and fall precaution maintained. Continue care as planned.
[2018-11-08 20:00] VITALS: BP 138/64
[2018-11-08] MEDS: risperiDONE 0.5 MG TABLET PO SCH (20:29)
[2018-11-08] MEDS: ATORVASTATIN 20 MG TABLET PO SCH (20:29)
[2018-11-08] MEDS: LATANOPROST OPHT DROP 2.5 ML BOTTLE EACHEYE SCH (20:30)
[2018-11-09 06:39] VITALS: BP 136/66
[2018-11-09] MEDS: BLOOD SUGAR DIAGNOSTIC 1 EACH STRIP VI SCH ×4 (06:40→20:41)
--- NOTE | 2018-11-09 06:52 | NUR ---
Shift End Report: Slept in between care. Complaint of pain presented on right side. Several attempts of repositioning to make him comfortable as much as possible made and with help. No s/s of hypo/hyperglycemia noted. No significant event reported. All needs attended and met. Continue current rehab plan of care.
[2018-11-09 07:30] VITALS: BP 125/50
[2018-11-09] MEDS: DOCUSATE SODIUM 100 MG CAPSULE PO SCH (09:00)
[2018-11-09] MEDS: FLUTICASONE/VILANTEROL 1 EACH BLST.W.DEV INH SCH (09:44)
[2018-11-09] MEDS: MAGNESIUM OXIDE 400 MG TABLET PO SCH ×2 (09:45→16:06)
[2018-11-09] MEDS: FINASTERIDE 5 MG TABLET PO SCH (09:45)
[2018-11-09] MEDS: TOPIRAMATE 25 MG TABLET PO SCH (09:45)
[2018-11-09] MEDS: FUROSEMIDE 40 MG TABLET PO SCH (09:45)
[2018-11-09] MEDS: DORZOLAMIDE 2% OPHT DROP 10 ML BOTTLE EACHEYE SCH ×2 (09:47→17:27)
[2018-11-09] MEDS: INSULIN REGULAR, HUMAN 300 UNIT/3 ML VIAL SQ PRN ×4 (09:49→20:42)
[2018-11-09] MEDS: BRIMONIDINE 0.2% OPHT DROP 10 ML BOTTLE EACHEYE SCH ×2 (09:54→20:26)
[2018-11-09] MEDS: TIMOLOL MALEATE 0.5% OPHT DROP 5 ML BOTTLE EACHEYE SCH ×2 (09:54→20:26)
[2018-11-09] MEDS: APIXABAN 5 MG TABLET PO SCH ×2 (09:56→16:10)
[2018-11-09] MEDS: DILTIAZEM HCL CD 240 MG CAP.SR.24H PO SCH (13:50)
[2018-11-09 15:37] VITALS: BP 152/49
--- NOTE | 2018-11-09 18:50 | NUR ---
Pt received this morning resting in wheelchair. Pt assessed, takes pills crushed with pudding. Translation phone utilized to interpret. Pt describes chronic pain to right upper quadrant, dull in nature that comes and goes, increases with coughing but tolerable at this time. Pt reports there are no alleviating factors. Ice pack and repositioning provided for comfort, Pt used translation phone to interpret that he is comfortable sitting at the edge of the bed at this time. All safety and comfort needs met. 1:1 sitter remained at bedside throughout the shift. Will continue to monitor and endorse to on coming cellar supervisor nurse.
[2018-11-09 19:30] VITALS: BP 132/47
--- NOTE | 2018-11-09 19:40 | NUR ---
Awake, sitting at the edge of bed, South Korean speaking, trying to communicate with the sitter at bedside. On continuos O2 at 2L via NC tolerating well with O2 saturation 94% at this time. Safety measure and fall precaution maintained. Continue care as planned.
[2018-11-09] MEDS: ATORVASTATIN 20 MG TABLET PO SCH (20:25)
[2018-11-09] MEDS: LATANOPROST OPHT DROP 2.5 ML BOTTLE EACHEYE SCH (20:25)
[2018-11-09] MEDS: risperiDONE 0.5 MG TABLET PO SCH (20:25)
[2018-11-10 04:00] VITALS: BP 126/59
[2018-11-10] MEDS: BLOOD SUGAR DIAGNOSTIC 1 EACH STRIP VI SCH ×4 (06:29→20:49)
--- NOTE | 2018-11-10 06:37 | NUR ---
Shift End Report: Slept good. Vs stable. No complaint presented all night. No s/s of hypo/hyperglycemia. All needs attended and met. No significant event reported. Continue on one to one for safety. Continue current rehab plan of care.
[2018-11-10 08:00] VITALS: BP 104/52
[2018-11-10] MEDS: FINASTERIDE 5 MG TABLET PO SCH (09:30)
[2018-11-10] MEDS: MAGNESIUM OXIDE 400 MG TABLET PO SCH ×2 (09:30→17:41)
[2018-11-10] MEDS: DOCUSATE SODIUM 100 MG CAPSULE PO SCH (09:30)
[2018-11-10] MEDS: FUROSEMIDE 40 MG TABLET PO SCH (09:31)
[2018-11-10] MEDS: TOPIRAMATE 25 MG TABLET PO SCH (09:31)
[2018-11-10] MEDS: APIXABAN 5 MG TABLET PO SCH ×2 (09:35→17:41)
[2018-11-10] MEDS: FLUTICASONE/VILANTEROL 1 EACH BLST.W.DEV INH SCH (09:40)
[2018-11-10] MEDS: TIMOLOL MALEATE 0.5% OPHT DROP 5 ML BOTTLE EACHEYE SCH ×2 (09:41→20:45)
[2018-11-10] MEDS: DORZOLAMIDE 2% OPHT DROP 10 ML BOTTLE EACHEYE SCH ×2 (09:41→17:41)
[2018-11-10] MEDS: BRIMONIDINE 0.2% OPHT DROP 10 ML BOTTLE EACHEYE SCH ×2 (09:42→20:46)
[2018-11-10] MEDS: INSULIN REGULAR, HUMAN 300 UNIT/3 ML VIAL SQ PRN ×3 (12:14→21:00)
[2018-11-10 12:30] VITALS: BP 113/56
[2018-11-10] MEDS: DILTIAZEM HCL CD 240 MG CAP.SR.24H PO SCH (13:10)
[2018-11-10 14:47] VITALS: BP 116/54
--- NOTE | 2018-11-10 19:25 | NUR ---
Patient in bed, A&O 1-2; episodes of forgetfulness. IN NO acute distress. Pt. on NC at 2lpm with O2 saturation of 95%. Pt. on one of one monitoring. Due medication administered as ordered. Pt. on PT/OT services. Needs attended, safety measures in place, call light left at bed side, endorsed to next shift and will continue with care.
[2018-11-10 19:40] VITALS: BP 123/48
--- NOTE | 2018-11-10 19:40 | NUR ---
Received patient awake in the wheelchair; AAO x2. No distress or SOB noted. VS stable. Pt. is on continuous 2L oxygen via NC, SpO2 94%. Pain assessed; no pain verbalized. Physical assessment done. Fall prevention observed. Safety measures maintained; pt. is on 1:1 sitter for fall prevention safety. Call light and frequently used items within reach. Will continue to monitor.
[2018-11-10] MEDS: LATANOPROST OPHT DROP 2.5 ML BOTTLE EACHEYE SCH (20:47)
[2018-11-10] MEDS: ATORVASTATIN 20 MG TABLET PO SCH (20:47)
[2018-11-10] MEDS: risperiDONE 0.5 MG TABLET PO SCH (20:47)
[2018-11-11] MEDS ORDERED: QUETIAPINE FUMARATE 25 MG TABLET PO ONE (01:30)
--- NOTE | 2018-11-11 01:35 | NUR ---
Patient became anxious and very agitated; uncooperative and trying to get out of bed. Called [facility] CERTIFIED TECHNICIAN with new order of Seroquel 12.5 mg times one. Given and will monitor closely.
--- NOTE | 2018-11-11 02:26 | NUR ---
Seroquel 12.5 mg times one was effective. Pt is calm, awake in bed. Does not show any signs of anxiety or agitation. Will continue to monitor.
[2018-11-11 04:10] VITALS: BP 146/52
--- NOTE | 2018-11-11 06:15 | NUR ---
Patients SpO2 is 86%. Pt. was seated in wheelchair, leaning on the bedside table. Vital signs stable, SpO2 is still at 86%. RT was called. Patient's oxygen was moved up to 4L via NC from 2L. SpO2 is now 94%. RT advised to keep patient on 4L of oxygen. Pt. is calm and in stable position; no manifestations of anxiety. Will endorse to next shift.
[2018-11-11] MEDS: BLOOD SUGAR DIAGNOSTIC 1 EACH STRIP VI SCH ×4 (06:37→21:31)
--- NOTE | 2018-11-11 06:47 | NUR ---
Patient is awake in wheelchair; stable condition. Not in acute distress or SOB noted; no manifestations of anxiety at the moment. Pt. is on 4L oxygen via NC, SpO2 is 94%. VS checked, stable. No complain of pain. All due medications given and well tolerated. All needs attended promptly. Physical assessment done. Pt. is on 1:1 sitter for fall prevention safety. Safety measures maintained. Call light and frequently used items within reach. Continue to monitor and will endorse to the day shift nurse accordingly.
[2018-11-11 07:47] VITALS: BP 143/57
[2018-11-11] MEDS: INSULIN REGULAR, HUMAN 300 UNIT/3 ML VIAL SQ PRN ×3 (07:53→21:31)
[2018-11-11] MEDS: TIMOLOL MALEATE 0.5% OPHT DROP 5 ML BOTTLE EACHEYE SCH ×2 (09:25→21:26)
[2018-11-11] MEDS: DORZOLAMIDE 2% OPHT DROP 10 ML BOTTLE EACHEYE SCH ×2 (09:25→17:17)
[2018-11-11] MEDS: FINASTERIDE 5 MG TABLET PO SCH (09:26)
[2018-11-11] MEDS: BRIMONIDINE 0.2% OPHT DROP 10 ML BOTTLE EACHEYE SCH ×2 (09:26→21:26)
[2018-11-11] MEDS: TOPIRAMATE 25 MG TABLET PO SCH (09:26)
[2018-11-11] MEDS: APIXABAN 5 MG TABLET PO SCH ×2 (09:28→17:09)
[2018-11-11] MEDS: DOCUSATE SODIUM 100 MG CAPSULE PO SCH (09:28)
[2018-11-11] MEDS: FUROSEMIDE 40 MG TABLET PO SCH (09:29)
[2018-11-11] MEDS: MAGNESIUM OXIDE 400 MG TABLET PO SCH ×2 (09:29→17:10)
[2018-11-11] MEDS: FLUTICASONE/VILANTEROL 1 EACH BLST.W.DEV INH SCH (09:30)
[2018-11-11 16:00] VITALS: BP 157/57
[2018-11-11] MEDS: CARVEDILOL 3.125 MG TABLET PO SCH ×2 (17:08→21:27)
--- NOTE | 2018-11-11 19:00 | NUR ---
Patient A&O, In NO acute distress. Patient with a sitter still. with episodes of confusion and agitation at times. Jeannette signs taken and stable for patient. Patient complained of right side chest pain (R side ribs), Informed MD and with an X-Ray order of Right rib series. Informed MD with result and with an order for pain pill. patient resting comfortably at this time, needs atteded, no episodes of hypo/hyperglycemia noted. Safety measures in place, endorsed to next shift and will continue with care.
[2018-11-11 19:51] VITALS: BP 123/54
--- NOTE | 2018-11-11 20:22 | NUR ---
pt in stable condition, sitter is by the bedside, pt is calm and cooperative.
[2018-11-11] MEDS ORDERED: ACETAMINOPHEN/CODEINE 300-30 MG TABLET PO PRN (21:15)
[2018-11-11] MEDS: LATANOPROST OPHT DROP 2.5 ML BOTTLE EACHEYE SCH (21:26)
[2018-11-11] MEDS: risperiDONE 0.5 MG TABLET PO SCH (21:28)
[2018-11-11] MEDS: ATORVASTATIN 20 MG TABLET PO SCH (21:28)
[2018-11-12 04:38] VITALS: BP 109/53
[2018-11-12] MEDS: HYDROCODONE/APAP 5-325MG TABLET PO PRN ×2 (05:33→21:55)
[2018-11-12] MEDS: BLOOD SUGAR DIAGNOSTIC 1 EACH STRIP VI SCH ×4 (07:09→21:35)
[2018-11-12] MEDS: INSULIN REGULAR, HUMAN 300 UNIT/3 ML VIAL SQ PRN ×3 (08:08→21:24)
[2018-11-12 08:26] VITALS: BP 104/63
[2018-11-12] MEDS: LISINOPRIL 5 MG TABLET PO SCH (09:00)
[2018-11-12] MEDS: BRIMONIDINE 0.2% OPHT DROP 10 ML BOTTLE EACHEYE SCH ×2 (09:25→21:02)
[2018-11-12] MEDS: TIMOLOL MALEATE 0.5% OPHT DROP 5 ML BOTTLE EACHEYE SCH ×2 (09:26→21:02)
[2018-11-12] MEDS: DOCUSATE SODIUM 100 MG CAPSULE PO SCH (09:27)
[2018-11-12] MEDS: DORZOLAMIDE 2% OPHT DROP 10 ML BOTTLE EACHEYE SCH ×2 (09:27→17:57)
[2018-11-12] MEDS: MAGNESIUM OXIDE 400 MG TABLET PO SCH ×2 (09:27→17:59)
[2018-11-12] MEDS: TOPIRAMATE 25 MG TABLET PO SCH (09:27)
[2018-11-12] MEDS: FUROSEMIDE 40 MG TABLET PO SCH (09:27)
[2018-11-12] MEDS: FLUTICASONE/VILANTEROL 1 EACH BLST.W.DEV INH SCH (09:28)
[2018-11-12] MEDS: APIXABAN 5 MG TABLET PO SCH ×2 (09:29→17:59)
[2018-11-12] MEDS: FINASTERIDE 5 MG TABLET PO SCH (11:56)
--- NOTE | 2018-11-12 15:55 | NUR ---
INTERDISCIPLINARY TEAM CONFERENCE
[2018-11-12 16:30] VITALS: BP 98/69
--- NOTE | 2018-11-12 16:45 | NUR ---
Patient sitting on w/c with a sitter, In No acute distress. Vital signs taken and stable for patient. O2 NC in place at 4lpm with O2 saturation of 95%. No episodes of hypo/hyperglycemia noted. Due meds administered. BLE wound treatment done during shift. NO complains of pain. Needs attended, safety measures in place, call light left at bed side, and will continue with care.
[2018-11-12] MEDS: CARVEDILOL 3.125 MG TABLET PO SCH (18:00)
[2018-11-12 20:43] VITALS: BP 126/69
[2018-11-12] MEDS: ATORVASTATIN 20 MG TABLET PO SCH (21:01)
[2018-11-12] MEDS: risperiDONE 0.5 MG TABLET PO SCH (21:02)
[2018-11-12] MEDS: LATANOPROST OPHT DROP 2.5 ML BOTTLE EACHEYE SCH (21:23)
[2018-11-13] MEDS: BLOOD SUGAR DIAGNOSTIC 1 EACH STRIP VI SCH ×2 (06:52→11:49)
--- NOTE | 2018-11-13 06:57 | NUR ---
Received patient lying on bed asleep, sitter at bedside. Warehouse Trainer phone used to communicate with patient as needed. Pt is on O2 at 4lpm via nasal cannula. Due meds and PRN pain medication administered as ordered, no ASE noted. No acute distress noted, no s/sx of hyper/hypoglycemia. Dressing in place to BLE, clean dry and intact. Patient slept at short intervals, safety protocols maintained. All needs attended to, kept clean and dry. Will endorse to AM nurse for continuity of care.
[2018-11-13 07:53] VITALS: BP 142/65
[2018-11-13] MEDS: MAGNESIUM OXIDE 400 MG TABLET PO SCH (08:52)
[2018-11-13] MEDS: DOCUSATE SODIUM 100 MG CAPSULE PO SCH (08:55)
[2018-11-13] MEDS: FUROSEMIDE 40 MG TABLET PO SCH (08:55)
[2018-11-13] MEDS: APIXABAN 5 MG TABLET PO SCH (08:56)
[2018-11-13] MEDS: INSULIN REGULAR, HUMAN 300 UNIT/3 ML VIAL SQ PRN ×2 (08:57→11:51)
[2018-11-13 08:58] VITALS: BP 114/55
[2018-11-13] MEDS: FLUTICASONE/VILANTEROL 1 EACH BLST.W.DEV INH SCH (08:58)
[2018-11-13] MEDS: CARVEDILOL 3.125 MG TABLET PO SCH (08:59)
[2018-11-13] MEDS: TIMOLOL MALEATE 0.5% OPHT DROP 5 ML BOTTLE EACHEYE SCH (08:59)
[2018-11-13] MEDS: LISINOPRIL 5 MG TABLET PO SCH (09:00)
[2018-11-13] MEDS: BRIMONIDINE 0.2% OPHT DROP 10 ML BOTTLE EACHEYE SCH (09:04)
[2018-11-13] MEDS: DORZOLAMIDE 2% OPHT DROP 10 ML BOTTLE EACHEYE SCH (09:08)
--- NOTE | 2018-11-13 09:10 | NUR ---
Patient awake, alert, oriented x 1, not in distress, denies any pain or discomfort, sitting on the chair. Due medications administered and patient tolerated well. Assisted to his needs. Safety measures maintained. 1:1 sitter at bedside.
[2018-11-13] MEDS: TOPIRAMATE 25 MG TABLET PO SCH (09:11)
[2018-11-13] MEDS: FINASTERIDE 5 MG TABLET PO SCH (09:11)
[2018-11-13 10:47] VITALS: BP 104/47
--- NOTE | 2018-11-13 12:45 | NUR ---
Discharge instructions provided to patient's granddaughter Alanna with verbalized understanding. All belongings well accounted for. Discharge papers signed by and given to Alanna. Prescription given to the granddaughter. Patient remains alert, oriented x 1, not in any distress. No complain of any pain or discomfort at this time. Needs attended to and met. Wound dressing done on bilateral lower extremities and discharge photos taken. BP 112/56, HR 68, O2 sat 94% at 3LPM via nasal cannula, RR 20. Dr. Tonny Edwards in the unit , gave him update and informed him regarding chest x-ray result from yesterday, per MD patient is OK for discharge to home. No new orders. Patient picked up by Alanna via private car. Patient safely escorted to the parking lot by CERTIFIED PROSTHETIST VICE PRESIDENT. OT assisted patient with car transfer with teaching to the granddaughter.
== END 2018-11-13 12:45 | disposition home health service (06) | DRG 291 ==
PROVIDERS: ADMIT Physical Medicine & Rehabilitation Pain Medicine; ATTEND Physical Medicine & Rehabilitation Pain Medicine
DX: I11.0 Hypertensive heart disease with heart failure (principal); G93.41 Metabolic encephalopathy; S22.41XA Multiple fractures of ribs, right side, initial encounter for closed fracture; J96.11 Chronic respiratory failure with hypoxia; L03.115 Cellulitis of right lower limb; L03.116 Cellulitis of left lower limb; L97.829 Non-pressure chronic ulcer of other part of left lower leg with unspecified severity; D68.59 Other primary thrombophilia; I44.2 Atrioventricular block, complete; I48.92 Unspecified atrial flutter; J44.1 Chronic obstructive pulmonary disease with (acute) exacerbation; L97.819 Non-pressure chronic ulcer of other part of right lower leg with unspecified severity; I50.43 Acute on chronic combined systolic (congestive) and diastolic (congestive) heart failure; D64.9 Anemia, unspecified; E11.9 Type 2 diabetes mellitus without complications; I73.9 Peripheral vascular disease, unspecified; E66.9 Obesity, unspecified; Z68.32 Body mass index [BMI] 32.0-32.9, adult; H40.9 Unspecified glaucoma; H54.8 Legal blindness, as defined in USA; I25.10 Atherosclerotic heart disease of native coronary artery without angina pectoris; Z95.0 Presence of cardiac pacemaker; K21.9 Gastro-esophageal reflux disease without esophagitis; I42.9 Cardiomyopathy, unspecified; I87.2 Venous insufficiency (chronic) (peripheral); F01.50 Vascular dementia, unspecified severity, without behavioral disturbance, psychotic disturbance, mood disturbance, and anxiety; Z87.891 Personal history of nicotine dependence; I27.20 Pulmonary hypertension, unspecified; I48.91 Unspecified atrial fibrillation; N40.0 Benign prostatic hyperplasia without lower urinary tract symptoms; X58.XXXA Exposure to other specified factors, initial encounter; Y93.9 Activity, unspecified; Y92.9 Unspecified place or not applicable; R26.9 Unspecified abnormalities of gait and mobility
CPT/HCPCS: 36415; 71046; 71101; 83735; 84100; 85025; A4663; J1815; J7512

== ENCOUNTER 2019-05-09 12:11 | Inpatient (IN) | payer MEDICARE, OTHER ==
[~2019-05-09] VITALS: Ht 172.7 cm; Wt 71.5 kg
[2019-05-09] MEDS ORDERED: IV NORMAL SALINE 1000 ML BAG IV ONE (12:30)
[2019-05-09] MEDS ORDERED: MORPHINE SULFATE 2 MG/1 ML DISP.SYRIN IV ONE (12:45)
[2019-05-09] MEDS ORDERED: ONDANSETRON 4 MG/2 ML VIAL IV ONE (12:45)
[2019-05-09 12:50] LABS: BASOPHILS # (AUTO) 0.1 K/uL (0.0-8.0); BASOPHILS % (AUTO) 0.5 % (0.0-2.0); EOSINOPHILS # (AUTO) 0.2 K/uL (0.0-0.7); EOSINOPHILS % (AUTO) 1.5 % (0.0-7.0); HEMATOCRIT 34.5 % (36.7-47.1); HEMOGLOBIN 11.5 g/dL (12.5-16.3); LYMPHOCYTES # (AUTO) 1.1 K/uL (20.0-40.0); LYMPHOCYTES % (AUTO) 8.8 % (20.5-51.5); MEAN CORPUSCULAR HEMOGLOBIN 31.3 uug (23.8-33.4); MEAN CORPUSCULAR HGB CONC 33 g/dL (32.5-36.3); MEAN CORPUSCULAR VOLUME 93.9 fL (73.0-96.2); MONOCYTES # (AUTO) 1.1 K/uL (2.0-10.0); MONOCYTES % (AUTO) 8.3 % (0.0-11.0); NEUTROPHILS # (AUTO) 10.5 K/uL (1.8-8.9); NEUTROPHILS % (AUTO) 80.9 % (38.5-71.5); PLATELET COUNT (AUTO) 266 K/uL (152-348); RED BLOOD CELL COUNT(AUTO) 3.67 MIL/uL (4.06-5.63)
[2019-05-09] MEDS ORDERED: MORPHINE SULFATE 2 MG/1 ML DISP.SYRIN ONE (12:58)
[2019-05-09] MEDS ORDERED: ONDANSETRON 4 MG/2 ML VIAL ONE (12:58)
[2019-05-09 13:00] LABS: CARBON DIOXIDE 30 mmol/L (21-32); CHLORIDE 101 mmol/L (98-107); CREATININE 1.9 mg/dL (0.6-1.3); GLUCOSE 104 mg/dL (74-106); POTASSIUM 4.1 mmol/L (3.5-5.1); UREA NITROGEN, BLOOD 31 mg/dL (7-18)
[2019-05-09 13:06] LABS: ALANINE AMINOTRANSFERASE 15 U/L (16-63); ALKALINE PHOSPHATASE 80 U/L (50-136); ASPARTATE AMINOTRANSFERASE 19 U/L (15-37); BILIRUBIN,DIRECT 0.2 mg/dL (0.0-0.2); BILIRUBIN,TOTAL 0.7 mg/dL (0.2-1.0); LIPASE 73 U/L (73-393); TOTAL PROTEIN, SERUM 7.7 g/dL (6.4-8.2)
[2019-05-09] MEDS ORDERED: FUROSEMIDE 40 MG/4 ML VIAL ONE (13:28)
[2019-05-09] MEDS ORDERED: FUROSEMIDE 40 MG/4 ML VIAL IV ONE (13:30)
[2019-05-09 14:04] LABS: *BILIRUBIN,URIN NEGATIVE (NEGATIVE); *BLOOD, URINE 2+ (NEGATIVE); *CLARITY,URINE CLOUDY (CLEAR); *COLOR,URINE YELLOW (YELLOW); *KETONES,URINE NEGATIVE (NEGATIVE); *UROBILINOGEN,URINE 0.2 E.U./dl (NORMAL); LEUKOCYTE ESTERASE ,URINE 3+ (NEGATIVE); NITRITE, URINE NEGATIVE (NEGATIVE); UGLUCOSE NEGATIVE (NEGATIVE)
[2019-05-09 14:10] VITALS: BP 149/63
[2019-05-09 14:10] LABS: RBC,URINE 80-100 /HPF (0-3)
[2019-05-09 14:12] LABS: WBC,URINE 80-100 /HPF (0-3)
[2019-05-09 14:17] LABS: CALCIUM OXALATE CRYSTALS,UR RARE /HPF (NONE SEEN); MUCUS,URINE FEW /LPF (0-FEW); SQUAMOUS EPITHELIAL CELL,UR MODERATE /HPF (NONE SEEN)
[2019-05-09 14:26] LABS: BACTERIA,URINE MANY /HPF (NONE SEEN)
[2019-05-09] MEDS ORDERED: NITROGLYCERIN 0.4 MG/TAB BOTTLE SL PRN (16:30)
[2019-05-09] MEDS ORDERED: MORPHINE SULFATE 2 MG/1 ML DISP.SYRIN IV PRN (16:30)
[2019-05-09] MEDS ORDERED: ONDANSETRON 4 MG/2 ML VIAL IV PRN (16:30)
[2019-05-09] MEDS ORDERED: CLONIDINE HCL 0.1 MG TABLET PO PRN (16:30)
[2019-05-09] MEDS ORDERED: ACETAMINOPHEN 325 MG TABLET PO PRN (16:30)
[2019-05-09] MEDS ORDERED: DEXTROSE 50% 50 ML DISP.SYRIN IV PRN (16:30)
[2019-05-09] MEDS ORDERED: FLUTICASONE/SALMETEROL 250/50 INHALER IH SCH (17:00)
[2019-05-09] MEDS: DOCUSATE SODIUM 250 MG CAPSULE PO SCH (17:39)
[2019-05-09] MEDS: CEFTRIAXONE 1 G in IV DEXTROSE 5% 50 ML IV SCH (17:39)
[2019-05-09] MEDS: BLOOD SUGAR DIAGNOSTIC 1 EACH STRIP VI SCH ×2 (17:39→20:23)
[2019-05-09] MEDS: APIXABAN 5 MG TABLET PO SCH (17:41)
[2019-05-09] MEDS: METOPROLOL TARTRATE 25 MG TABLET PO SCH (17:50)
--- NOTE | 2019-05-09 19:13 | NUR ---
PATIENT RECEIVED FROM ER IN STABLE CONDITION AND STABLE VITAL SIGNS ; PATIENT ADMISSION DONE;PATIENT ANOX2 ;POLISH SPEAKING ONLY.
[2019-05-09] MEDS: ZOLPIDEM 5 MG TABLET PO SCH (20:01)
[2019-05-09] MEDS: TAMSULOSIN HCL 0.4 MG CAP.SR.24H PO SCH (20:21)
[2019-05-09] MEDS: risperiDONE 0.5 MG TABLET PO SCH (20:22)
[2019-05-09] MEDS: LATANOPROST OPHT DROP 2.5 ML BOTTLE EACHEYE SCH (20:26)
[2019-05-09] MEDS: DORZOLAMIDE 2% OPHT DROP 10 ML BOTTLE EACHEYE SCH (20:27)
[2019-05-09] MEDS: FUROSEMIDE 20 MG/2 ML VIAL IV SCH (20:27)
[2019-05-09 20:34] VITALS: BP 106/51
[2019-05-09] MEDS: INSULIN REGULAR, HUMAN 300 UNIT/3 ML VIAL SQ PRN (20:34)
[2019-05-09] MEDS ORDERED: ALBUTEROL SULFATE 2.5 MG/3 ML NEBU NEB PRN (20:45)
[2019-05-09] MEDS ORDERED: BLOOD SUGAR DIAGNOSTIC 1 EACH STRIP VI SCH (21:00)
[2019-05-09] MEDS ORDERED: BIMATOPROST 0.01% OPHT DROP 2.5 ML BOTTLE EACHEYE SCH (21:00)
[2019-05-10] VITALS: BP 115/63
[2019-05-10] MEDS: QUETIAPINE FUMARATE 25 MG TABLET PO PRN (00:03)
[2019-05-10 04:00] VITALS: BP 110/54
[2019-05-10 06:04] LABS: BASOPHILS # (AUTO) 0.1 K/uL (0.0-8.0); BASOPHILS % (AUTO) 0.7 % (0.0-2.0); EOSINOPHILS # (AUTO) 0.3 K/uL (0.0-0.7); EOSINOPHILS % (AUTO) 2.8 % (0.0-7.0); HEMATOCRIT 34.2 % (36.7-47.1); HEMOGLOBIN 11.6 g/dL (12.5-16.3); LYMPHOCYTES # (AUTO) 1.3 K/uL (20.0-40.0); MEAN CORPUSCULAR HEMOGLOBIN 31.4 uug (23.8-33.4); MEAN CORPUSCULAR HGB CONC 34 g/dL (32.5-36.3); MEAN CORPUSCULAR VOLUME 92.9 fL (73.0-96.2); MONOCYTES # (AUTO) 1.2 K/uL (2.0-10.0); MONOCYTES % (AUTO) 11.5 % (0.0-11.0); NEUTROPHILS # (AUTO) 7.8 K/uL (1.8-8.9); PLATELET COUNT (AUTO) 272 K/uL (152-348); RED BLOOD CELL COUNT(AUTO) 3.68 MIL/uL (4.06-5.63); WHITE BLOOD COUNT (AUTO) 10.7 K/uL (3.6-10.2)
[2019-05-10 06:22] LABS: ALANINE AMINOTRANSFERASE 12 U/L (16-63); ALKALINE PHOSPHATASE 76 U/L (50-136); ASPARTATE AMINOTRANSFERASE 17 U/L (15-37); BILIRUBIN,TOTAL 0.6 mg/dL (0.2-1.0); CARBON DIOXIDE 33 mmol/L (21-32); CHLORIDE 101 mmol/L (98-107); CHOLESTEROL 130 mg/dL (<200); CREATININE 1.5 mg/dL (0.6-1.3); GLUCOSE 108 mg/dL (74-106); HDL CHOLESTEROL 41 mg/dL (40-60); IRON, SERUM 38 ug/dL (50-175); MAGNESIUM 2.1 mg/dL (1.8-2.4); POTASSIUM 3.8 mmol/L (3.5-5.1); TOTAL PROTEIN, SERUM 7.2 g/dL (6.4-8.2); TRIGLYCERIDES 98 MG/DL (30-150); UREA NITROGEN, BLOOD 30 mg/dL (7-18)
[2019-05-10] MEDS: BLOOD SUGAR DIAGNOSTIC 1 EACH STRIP VI SCH ×4 (06:28→21:51)
[2019-05-10] MEDS: PANTOPRAZOLE SODIUM 40 MG TABLET.DR PO SCH (06:28)
--- NOTE | 2019-05-10 07:30 | NUR ---
RECEIVED PATIENT IN BED ASLEEP EASILY AROUSABLE ON ROUNDS HE IS CONFUSED AND DIORIENTED AT THIS TIME ALL NEEDS ANTICIPATED AND SATISFIED MAX ASSIST FOR ALL ADL ON O2 WITH NO SOB QAT THIS TIME ASSISTED IN REPOSITIONING MADE COMFORTABLE WILL CONTINUE TO OBSERVE.
[2019-05-10] MEDS: FLUTICASONE/VILANTEROL 1 EACH BLST.W.DEV INH SCH (08:28)
[2019-05-10] MEDS: DORZOLAMIDE 2% OPHT DROP 10 ML BOTTLE EACHEYE SCH ×2 (08:28→21:23)
[2019-05-10] MEDS: TOPIRAMATE 25 MG TABLET PO SCH (08:29)
[2019-05-10] MEDS: FUROSEMIDE 20 MG/2 ML VIAL IV SCH (08:29)
[2019-05-10] MEDS: DOCUSATE SODIUM 250 MG CAPSULE PO SCH ×2 (08:29→16:10)
[2019-05-10] MEDS: FINASTERIDE 5 MG TABLET PO SCH (08:29)
[2019-05-10] MEDS: SPIRONOLACTONE 25 MG TABLET PO SCH (08:30)
[2019-05-10] MEDS: METOPROLOL TARTRATE 25 MG TABLET PO SCH (08:30)
[2019-05-10] MEDS: APIXABAN 5 MG TABLET PO SCH ×2 (08:35→16:25)
--- NOTE | 2019-05-10 09:35 | NUR ---
NEW ORDERD FOR LABS IN FROM [facility] RECEIVED AND CARRIED OUT
--- NOTE | 2019-05-10 10:00 | NUR ---
NEW ORDER TO DISCONTINUE TELE NOTED FROM [facility] GUERRIER
--- NOTE | 2019-05-10 10:05 | NUR ---
WOUND CARE CONSULT: PT PRESENTS WITH INTACT DEEP TISSUE INJURY TO SACRUM, PRESENT ON ADMISSION. PT IS INCONTINENT AT TIMES. RECOMMENDATIONS MADE FOR SKIN PROTECTION AND WOUND CARE. DISCUSSED WITH NURSING STAFF. WILL SEE PRN. BARBOSA IN AGREEMENT WITH PLAN OF CARE. Addendum: 05/10/19 at 1006 by SHANI GORDILLO RN Amended: Links added.
[2019-05-10] MEDS ORDERED: Z GUARD REMEDY PASTE 57 GM TUBE TOP PRN (10:15)
[2019-05-10] MEDS ORDERED: BRIMONIDINE 0.2% OPHT DROP 10 ML BOTTLE EACHEYE ONE (10:56)
[2019-05-10] MEDS: INSULIN REGULAR, HUMAN 300 UNIT/3 ML VIAL SQ PRN (11:39)
[2019-05-10] MEDS ORDERED: KETOROLAC TROMETHAMINE 30 MG INJ IVP SCH (12:00)
[2019-05-10 12:39] VITALS: BP 129/61
[2019-05-10] MEDS ORDERED: DILTIAZEM HCL CD 240 MG CAP.SR.24H PO SCH (13:00)
--- NOTE | 2019-05-10 15:20 | NUR ---
DR HARRIS HERE SEEN PATIENT AND STATED TO PUT PATIENT BACK ON TELE AND NOTED
[2019-05-10 15:54] VITALS: BP 111/67
[2019-05-10] MEDS: CEFTRIAXONE 1 G in IV DEXTROSE 5% 50 ML IV SCH (16:25)
--- NOTE | 2019-05-10 16:30 | NUR ---
DR CABRERA AND PACEMAKER TECH HERE AND SEEN PATIENT CHECKED HIS PACEMAKER WITH NO NEW ORDERS AT THIS TIME.
[2019-05-10] MEDS: KETOROLAC TROMETHAMINE 15 MG INJ IVP SCH (17:24)
[2019-05-10] MEDS ORDERED: CARVEDILOL 12.5 MG TABLET PO SCH (18:00)
--- NOTE | 2019-05-10 18:00 | NUR ---
PATIENT WAS SEEN BY DR APONTE WITH NO NEW ORDERS AT THIS TIME.
[2019-05-10 20:00] VITALS: BP 94/54
--- NOTE | 2019-05-10 20:00 | NUR ---
Received report from day shift. Received patient in bed alert alert and oriented times 2. No signs of distress or SOB. Patient is stable and vitals are stable. BP94/54, o2 saturation 96% with 1L oxygen via NC, temperature 97.9. Patient is calm and cooperative. Assisted him with his dinner and fluid intake. All patients needs attended to. Will continue to monitor throughout shift.
[2019-05-10] MEDS: risperiDONE 0.5 MG TABLET PO SCH (21:21)
[2019-05-10] MEDS: TAMSULOSIN HCL 0.4 MG CAP.SR.24H PO SCH (21:21)
[2019-05-10] MEDS: Z GUARD REMEDY PASTE 57 GM TUBE TOP SCH (21:22)
[2019-05-10] MEDS: ATORVASTATIN 20 MG TABLET PO SCH (21:23)
[2019-05-10] MEDS: TIMOLOL MALEATE 0.5% OPHT DROP 5 ML BOTTLE EACHEYE SCH (21:24)
[2019-05-10] MEDS: BRIMONIDINE 0.2% OPHT DROP 10 ML BOTTLE EACHEYE SCH (21:25)
--- NOTE | 2019-05-10 21:30 | NUR ---
Patient received all medication as tolerable, crushed with apple sauce. Accucheck: BS 112, no coverage needed. Patient requested medication to help him sleep. Gave patient Ambien as requested. All safety measures checked, bed locked and lowered to lowest position, x2 bed rails, call light within patient reach. will continue to monitor patient throughout shift.
[2019-05-10] MEDS: LATANOPROST OPHT DROP 2.5 ML BOTTLE EACHEYE SCH (21:35)
[2019-05-10] MEDS: ZOLPIDEM 5 MG TABLET PO SCH (22:02)
[2019-05-11] MEDS: KETOROLAC TROMETHAMINE 15 MG INJ IVP SCH ×4 (05:58→17:18)
[2019-05-11 06:00] VITALS: BP 117/50
[2019-05-11] MEDS: PANTOPRAZOLE SODIUM 40 MG TABLET.DR PO SCH (06:19)
[2019-05-11 06:26] LABS: BASOPHILS # (AUTO) 0.1 K/uL (0.0-8.0); BASOPHILS % (AUTO) 1.2 % (0.0-2.0); EOSINOPHILS # (AUTO) 0.4 K/uL (0.0-0.7); EOSINOPHILS % (AUTO) 4.8 % (0.0-7.0); HEMATOCRIT 33.2 % (36.7-47.1); HEMOGLOBIN 11.3 g/dL (12.5-16.3); LYMPHOCYTES # (AUTO) 1.4 K/uL (20.0-40.0); LYMPHOCYTES % (AUTO) 18.5 % (20.5-51.5); MEAN CORPUSCULAR HEMOGLOBIN 31.7 uug (23.8-33.4); MEAN CORPUSCULAR HGB CONC 34 g/dL (32.5-36.3); MEAN CORPUSCULAR VOLUME 93.3 fL (73.0-96.2); MONOCYTES # (AUTO) 0.9 K/uL (2.0-10.0); MONOCYTES % (AUTO) 11.5 % (0.0-11.0); NEUTROPHILS # (AUTO) 4.8 K/uL (1.8-8.9); PLATELET COUNT (AUTO) 264 K/uL (152-348); RED BLOOD CELL COUNT(AUTO) 3.56 MIL/uL (4.06-5.63); WHITE BLOOD COUNT (AUTO) 7.6 K/uL (3.6-10.2)
[2019-05-11 06:39] LABS: CREATININE 1.1 mg/dL (0.6-1.3); PHOSPHOROUS 4.4 mg/dL (2.5-4.9); POTASSIUM 3.4 mmol/L (3.5-5.1)
--- NOTE | 2019-05-11 06:50 | NUR ---
I am Cymro speaking and was able to communicate with the patient through the night. Patient had no complaints of discomfort or pain and I did not give patient Toradol at 0000 and 0600. Patients vitals are stable and patient is cooperative. Patient Received his morning Protonix with apple sauce. All safety measure are in place, bed is locked and lowered to lowest position, rails x2, and call light within reach. Will endorse report to next shift
[2019-05-11] MEDS: BLOOD SUGAR DIAGNOSTIC 1 EACH STRIP VI SCH ×4 (07:43→21:00)
[2019-05-11 07:45] VITALS: BP 109/55
[2019-05-11] MEDS: SPIRONOLACTONE 25 MG TABLET PO SCH (08:03)
[2019-05-11] MEDS: DOCUSATE SODIUM 250 MG CAPSULE PO SCH ×2 (08:03→16:09)
[2019-05-11] MEDS: TOPIRAMATE 25 MG TABLET PO SCH (08:03)
[2019-05-11] MEDS: FUROSEMIDE 40 MG TABLET PO SCH (08:04)
[2019-05-11] MEDS: FINASTERIDE 5 MG TABLET PO SCH (08:04)
[2019-05-11] MEDS: APIXABAN 5 MG TABLET PO SCH ×2 (08:05→16:50)
[2019-05-11] MEDS: DORZOLAMIDE 2% OPHT DROP 10 ML BOTTLE EACHEYE SCH ×2 (08:14→20:50)
[2019-05-11] MEDS: BRIMONIDINE 0.2% OPHT DROP 10 ML BOTTLE EACHEYE SCH ×2 (08:14→20:50)
[2019-05-11] MEDS: TIMOLOL MALEATE 0.5% OPHT DROP 5 ML BOTTLE EACHEYE SCH ×2 (08:14→20:50)
[2019-05-11] MEDS: FLUTICASONE/VILANTEROL 1 EACH BLST.W.DEV INH SCH (08:15)
[2019-05-11] MEDS: Z GUARD REMEDY PASTE 57 GM TUBE TOP SCH ×2 (08:15→20:51)
[2019-05-11] MEDS ORDERED: POTASSIUM CHLORIDE 50 ML IV SCH (10:00)
[2019-05-11 11:14] VITALS: BP 115/58
[2019-05-11] MEDS: CARVEDILOL 6.25 MG TABLET PO SCH ×2 (11:18→17:20)
[2019-05-11 14:42] VITALS: BP 123/46
[2019-05-11] MEDS: CEFTRIAXONE 1 G in IV DEXTROSE 5% 50 ML IV SCH (16:06)
[2019-05-11] MEDS: ZOLPIDEM 5 MG TABLET PO SCH (17:20)
[2019-05-11 20:20] VITALS: BP 123/53
[2019-05-11] MEDS: LATANOPROST OPHT DROP 2.5 ML BOTTLE EACHEYE SCH (20:49)
[2019-05-11] MEDS: risperiDONE 0.5 MG TABLET PO SCH (20:50)
[2019-05-11] MEDS: ATORVASTATIN 20 MG TABLET PO SCH (20:50)
[2019-05-11] MEDS: TAMSULOSIN HCL 0.4 MG CAP.SR.24H PO SCH (20:50)
[2019-05-12 00:05] VITALS: BP 156/70
[2019-05-12] MEDS: KETOROLAC TROMETHAMINE 15 MG INJ IVP SCH ×4 (00:31→17:05)
[2019-05-12 04:03] VITALS: BP 157/65
--- NOTE | 2019-05-12 05:12 | NUR ---
patient slept intermittently. v/s stable and no signs of acute distress throughout shift. no insulin coverage given last night due amount patient ate for dinner. tried to give patient food at night, but patient refused. ambien wasted last night. pulled from [employer] on accident as it is a timed medication.
[2019-05-12 06:12] LABS: BASOPHILS # (AUTO) 0.1 K/uL (0.0-8.0); BASOPHILS % (AUTO) 0.7 % (0.0-2.0); EOSINOPHILS # (AUTO) 0.3 K/uL (0.0-0.7); EOSINOPHILS % (AUTO) 2.3 % (0.0-7.0); HEMATOCRIT 32.1 % (36.7-47.1); HEMOGLOBIN 10.9 g/dL (12.5-16.3); LYMPHOCYTES # (AUTO) 1.1 K/uL (20.0-40.0); LYMPHOCYTES % (AUTO) 8.6 % (20.5-51.5); MEAN CORPUSCULAR HEMOGLOBIN 31.3 uug (23.8-33.4); MEAN CORPUSCULAR HGB CONC 34 g/dL (32.5-36.3); MEAN CORPUSCULAR VOLUME 92.3 fL (73.0-96.2); MONOCYTES # (AUTO) 1.1 K/uL (2.0-10.0); MONOCYTES % (AUTO) 8.5 % (0.0-11.0); NEUTROPHILS # (AUTO) 10.1 K/uL (1.8-8.9); NEUTROPHILS % (AUTO) 79.9 % (38.5-71.5); PLATELET COUNT (AUTO) 281 K/uL (152-348); RED BLOOD CELL COUNT(AUTO) 3.47 MIL/uL (4.06-5.63); WHITE BLOOD COUNT (AUTO) 12.6 K/uL (3.6-10.2)
[2019-05-12] MEDS: PANTOPRAZOLE SODIUM 40 MG TABLET.DR PO SCH (06:18)
[2019-05-12 06:25] LABS: CREATININE 1.2 mg/dL (0.6-1.3); MAGNESIUM 1.9 mg/dL (1.8-2.4); PHOSPHOROUS 3.4 mg/dL (2.5-4.9); POTASSIUM 3.4 mmol/L (3.5-5.1)
[2019-05-12] MEDS: BLOOD SUGAR DIAGNOSTIC 1 EACH STRIP VI SCH ×4 (06:52→20:15)
[2019-05-12] MEDS: CARVEDILOL 6.25 MG TABLET PO SCH ×2 (08:15→17:04)
[2019-05-12] MEDS: FLUTICASONE/VILANTEROL 1 EACH BLST.W.DEV INH SCH (08:16)
[2019-05-12] MEDS: BRIMONIDINE 0.2% OPHT DROP 10 ML BOTTLE EACHEYE SCH ×2 (08:16→20:14)
[2019-05-12] MEDS: DORZOLAMIDE 2% OPHT DROP 10 ML BOTTLE EACHEYE SCH ×2 (08:16→20:14)
[2019-05-12] MEDS: TOPIRAMATE 25 MG TABLET PO SCH (08:17)
[2019-05-12] MEDS: FUROSEMIDE 40 MG TABLET PO SCH (08:17)
[2019-05-12] MEDS: TIMOLOL MALEATE 0.5% OPHT DROP 5 ML BOTTLE EACHEYE SCH ×2 (08:17→20:28)
[2019-05-12] MEDS: SPIRONOLACTONE 25 MG TABLET PO SCH (08:17)
[2019-05-12] MEDS: FINASTERIDE 5 MG TABLET PO SCH (08:17)
[2019-05-12] MEDS: APIXABAN 5 MG TABLET PO SCH ×2 (08:18→16:25)
[2019-05-12] MEDS: DOCUSATE SODIUM 250 MG CAPSULE PO SCH ×2 (08:19→16:24)
[2019-05-12] MEDS: Z GUARD REMEDY PASTE 57 GM TUBE TOP SCH ×2 (09:22→20:13)
[2019-05-12] MEDS ORDERED: POTASSIUM CHLORIDE 10 MEQ TAB.PRT.SR PO ONE (10:30)
[2019-05-12 11:30] VITALS: BP 100/49
[2019-05-12] MEDS: INSULIN REGULAR, HUMAN 300 UNIT/3 ML VIAL SQ PRN ×2 (12:40→20:20)
[2019-05-12 15:33] VITALS: BP 101/46
[2019-05-12] MEDS ORDERED: ZOLPIDEM 5 MG TABLET PO SCH (16:14)
[2019-05-12] MEDS: CEFTRIAXONE 1 G in IV DEXTROSE 5% 50 ML IV SCH (16:32)
[2019-05-12] MEDS ORDERED: POTASSIUM CHLORIDE 20 MEQ POWDER PACKET GT ONE (17:15)
--- NOTE | 2019-05-12 18:34 | NUR ---
PATIENT IN BED RESTING WITH HOB ELEVATED AT ALL TIMES. NO SOB NOTED , NO C/O PAIN DURING THIS SHIFT. KEPT CLEAN AND DRY AT ALL TIMES. PATIENT AFEBRILE, PATIENT IS CALM AND COOPERATIVE. ALL NEEDS ATTENDED, CALL LIGHT WITHIN REACH, WILL CONTINUE TO MONITOR.
--- NOTE | 2019-05-12 19:00 | NUR ---
PATIENT ALERT SPEAK BRITISH, TELE MONITOR V PACING AT THIS TIME. PATIENT HAS NO SOB NO CHEST PAIN, V.S STABLE, KEPT PATIENT CLEAN AND DRY,INCONTINENT OF BLADDER, RENDERED GOOD KISHAN CARE. CONT TO MONITOR.
[2019-05-12 19:50] VITALS: BP 142/51
[2019-05-12] MEDS: TAMSULOSIN HCL 0.4 MG CAP.SR.24H PO SCH (20:05)
[2019-05-12] MEDS: ATORVASTATIN 20 MG TABLET PO SCH (20:05)
[2019-05-12] MEDS: risperiDONE 0.5 MG TABLET PO SCH (20:05)
[2019-05-12] MEDS: LATANOPROST OPHT DROP 2.5 ML BOTTLE EACHEYE SCH (20:13)
[2019-05-12] MEDS: ZOLPIDEM 5 MG TABLET PO SCH (21:45)
[2019-05-12 23:01] VITALS: BP 99/56
[2019-05-13] MEDS: KETOROLAC TROMETHAMINE 15 MG INJ IVP SCH ×5 (00:18→21:54)
[2019-05-13 04:59] VITALS: BP 156/87
--- NOTE | 2019-05-13 05:53 | NUR ---
PATIENT ALERT BUT FORGETFUL, NO COMPLAIN OF PAIN, NO SOB NO CHEST PAIN. PATIENT ON TELE MONITOR V PACING. PATIENT SLEPT MOST OF THE NIGHT, PATIENT HAS NO COMPLAIN OF PAIN, PATIENT BLOOD SUGAR 92 GIVEN SUGAR FREE PUDDING AND JUICE, CONT TO MONITOR.
--- NOTE | 2019-05-13 05:58 | NUR ---
PATIENT REFUSED KETOLAC IV MEDS STATED "HE DOESN'T HAVE PAIN", CONT TO MONITOR.
[2019-05-13] MEDS: PANTOPRAZOLE SODIUM 40 MG TABLET.DR PO SCH (06:27)
[2019-05-13] MEDS: BLOOD SUGAR DIAGNOSTIC 1 EACH STRIP VI SCH ×4 (06:27→20:45)
[2019-05-13 06:30] LABS: CARBON DIOXIDE 29 mmol/L (21-32); CHLORIDE 104 mmol/L (98-107); CREATININE 1.7 mg/dL (0.6-1.3); GLUCOSE 97 mg/dL (74-106); MAGNESIUM 2.2 mg/dL (1.8-2.4); PHOSPHOROUS 3.6 mg/dL (2.5-4.9); POTASSIUM 4.1 mmol/L (3.5-5.1); UREA NITROGEN, BLOOD 39 mg/dL (7-18)
[2019-05-13 06:45] LABS: BASOPHILS # (AUTO) 0.1 K/uL (0.0-8.0); BASOPHILS % (AUTO) 0.7 % (0.0-2.0); EOSINOPHILS # (AUTO) 0.5 K/uL (0.0-0.7); EOSINOPHILS % (AUTO) 4.8 % (0.0-7.0); HEMATOCRIT 34.9 % (36.7-47.1); HEMOGLOBIN 11.8 g/dL (12.5-16.3); LYMPHOCYTES # (AUTO) 1.6 K/uL (20.0-40.0); LYMPHOCYTES % (AUTO) 15.3 % (20.5-51.5); MEAN CORPUSCULAR HEMOGLOBIN 31.6 uug (23.8-33.4); MEAN CORPUSCULAR HGB CONC 34 g/dL (32.5-36.3); MEAN CORPUSCULAR VOLUME 93.5 fL (73.0-96.2); MONOCYTES # (AUTO) 0.8 K/uL (2.0-10.0); MONOCYTES % (AUTO) 7.6 % (0.0-11.0); NEUTROPHILS # (AUTO) 7.4 K/uL (1.8-8.9); NEUTROPHILS % (AUTO) 71.6 % (38.5-71.5); PLATELET COUNT (AUTO) 289 K/uL (152-348); RED BLOOD CELL COUNT(AUTO) 3.73 MIL/uL (4.06-5.63); WHITE BLOOD COUNT (AUTO) 10.4 K/uL (3.6-10.2)
--- NOTE | 2019-05-13 06:53 | NUR ---
PATIENT COMPLAIN OF LOTS OF PAIN ON THE ABDOMEN, AFTER CARE, GIVEN KETOLAC IV ORDERED.
--- NOTE | 2019-05-13 07:30 | NUR ---
Received patient in bed, asleep. breathing even and unlabored. No signs of Pain or discomfort. Kept clean and comfortable. Will continue to monitor.
[2019-05-13] MEDS: CARVEDILOL 6.25 MG TABLET PO SCH ×2 (08:27→17:19)
[2019-05-13] MEDS: TIMOLOL MALEATE 0.5% OPHT DROP 5 ML BOTTLE EACHEYE SCH ×2 (08:28→20:17)
[2019-05-13] MEDS: DORZOLAMIDE 2% OPHT DROP 10 ML BOTTLE EACHEYE SCH ×2 (08:28→20:17)
[2019-05-13] MEDS: FLUTICASONE/VILANTEROL 1 EACH BLST.W.DEV INH SCH (08:30)
[2019-05-13] MEDS: BRIMONIDINE 0.2% OPHT DROP 10 ML BOTTLE EACHEYE SCH ×2 (08:30→20:18)
[2019-05-13] MEDS: SPIRONOLACTONE 25 MG TABLET PO SCH (08:30)
[2019-05-13] MEDS: DOCUSATE SODIUM 250 MG CAPSULE PO SCH ×2 (08:30→16:37)
[2019-05-13] MEDS: TOPIRAMATE 25 MG TABLET PO SCH (08:31)
[2019-05-13] MEDS: Z GUARD REMEDY PASTE 57 GM TUBE TOP SCH ×2 (08:31→20:19)
[2019-05-13] MEDS: FINASTERIDE 5 MG TABLET PO SCH (08:31)
[2019-05-13] MEDS: FUROSEMIDE 40 MG TABLET PO SCH (08:31)
[2019-05-13] MEDS: APIXABAN 5 MG TABLET PO SCH ×2 (09:24→16:39)
[2019-05-13] MEDS: INSULIN REGULAR, HUMAN 300 UNIT/3 ML VIAL SQ PRN ×2 (11:48→17:00)
[2019-05-13 11:50] VITALS: BP 116/61
[2019-05-13 16:10] VITALS: BP 132/61
[2019-05-13] MEDS: CEFTRIAXONE 1 G in IV DEXTROSE 5% 50 ML IV SCH (16:28)
--- NOTE | 2019-05-13 18:01 | NUR ---
Patient in bed, awake and verbally responsive, Croatian Speaking. No signs of distress noted. No SOB. No signs of Pain or discomfort. Last Blood sugar was 147, 2 units given per sliding scale. All due medications given as ordered. Kept clean and comfortable. kept the call light within easy reach. Will endorse to Oncoming Nurse.
[2019-05-13 20:00] VITALS: BP 113/53
[2019-05-13] MEDS: LATANOPROST OPHT DROP 2.5 ML BOTTLE EACHEYE SCH (20:17)
[2019-05-13] MEDS: TAMSULOSIN HCL 0.4 MG CAP.SR.24H PO SCH (20:18)
[2019-05-13] MEDS: ZOLPIDEM 5 MG TABLET PO SCH (20:18)
[2019-05-13] MEDS: risperiDONE 0.5 MG TABLET PO SCH (20:18)
[2019-05-13] MEDS: ATORVASTATIN 20 MG TABLET PO SCH (20:18)
[2019-05-14 04:00] VITALS: BP 148/108
[2019-05-14 06:16] LABS: BASOPHILS # (AUTO) 0.1 K/uL (0.0-8.0); BASOPHILS % (AUTO) 1.1 % (0.0-2.0); EOSINOPHILS # (AUTO) 0.7 K/uL (0.0-0.7); HEMATOCRIT 31.5 % (36.7-47.1); HEMOGLOBIN 10.8 g/dL (12.5-16.3); LYMPHOCYTES # (AUTO) 1.7 K/uL (20.0-40.0); MEAN CORPUSCULAR HEMOGLOBIN 31.5 uug (23.8-33.4); MEAN CORPUSCULAR HGB CONC 34 g/dL (32.5-36.3); MEAN CORPUSCULAR VOLUME 92.1 fL (73.0-96.2); MONOCYTES % (AUTO) 9.6 % (0.0-11.0); NEUTROPHILS # (AUTO) 6.7 K/uL (1.8-8.9); NEUTROPHILS % (AUTO) 65.3 % (38.5-71.5); PLATELET COUNT (AUTO) 296 K/uL (152-348); RED BLOOD CELL COUNT(AUTO) 3.42 MIL/uL (4.06-5.63); WHITE BLOOD COUNT (AUTO) 10.3 K/uL (3.6-10.2)
[2019-05-14] MEDS: PANTOPRAZOLE SODIUM 40 MG TABLET.DR PO SCH (06:27)
[2019-05-14] MEDS: KETOROLAC TROMETHAMINE 15 MG INJ IVP SCH ×3 (06:28→22:09)
[2019-05-14 06:33] LABS: CREATININE 1.2 mg/dL (0.6-1.3); MAGNESIUM 2.1 mg/dL (1.8-2.4); PHOSPHOROUS 3.5 mg/dL (2.5-4.9); POTASSIUM 3.9 mmol/L (3.5-5.1)
[2019-05-14] MEDS: BLOOD SUGAR DIAGNOSTIC 1 EACH STRIP VI SCH ×4 (06:42→21:09)
--- NOTE | 2019-05-14 08:00 | NUR ---
Patient in bed, awake and verbally responsive.Comoran speaking. No signs of distress noted. No SOB. No signs of Pain or discomfort. Kept clean and comfortable. Will continue to monitor.
[2019-05-14] MEDS: DORZOLAMIDE 2% OPHT DROP 10 ML BOTTLE EACHEYE SCH ×2 (08:19→21:02)
[2019-05-14] MEDS: CARVEDILOL 6.25 MG TABLET PO SCH ×2 (08:19→17:08)
[2019-05-14] MEDS: TIMOLOL MALEATE 0.5% OPHT DROP 5 ML BOTTLE EACHEYE SCH ×2 (08:19→21:03)
[2019-05-14] MEDS: BRIMONIDINE 0.2% OPHT DROP 10 ML BOTTLE EACHEYE SCH ×2 (08:21→21:03)
[2019-05-14] MEDS: FLUTICASONE/VILANTEROL 1 EACH BLST.W.DEV INH SCH (08:21)
[2019-05-14] MEDS: DOCUSATE SODIUM 250 MG CAPSULE PO SCH ×2 (08:21→17:02)
[2019-05-14] MEDS: FINASTERIDE 5 MG TABLET PO SCH (08:21)
[2019-05-14] MEDS: SPIRONOLACTONE 25 MG TABLET PO SCH (08:21)
[2019-05-14] MEDS: TOPIRAMATE 25 MG TABLET PO SCH (08:21)
[2019-05-14] MEDS: APIXABAN 5 MG TABLET PO SCH ×2 (08:25→17:02)
[2019-05-14] MEDS: Z GUARD REMEDY PASTE 57 GM TUBE TOP SCH ×2 (09:15→21:04)
[2019-05-14 11:02] VITALS: BP 124/57
[2019-05-14 16:05] VITALS: BP 131/67
[2019-05-14] MEDS: CEFTRIAXONE 1 G in IV DEXTROSE 5% 50 ML IV SCH (16:35)
[2019-05-14] MEDS: INSULIN REGULAR, HUMAN 300 UNIT/3 ML VIAL SQ PRN (17:02)
--- NOTE | 2019-05-14 18:10 | NUR ---
patient in bed, awake, and verbally responsive. No signs of distress noted. No SOB. No complain of Pain of discomfort. All due medications given as ordered. last Blood Sugar was 134, 2 units given per sliding scale. kept clean and comfortable. Still awaiting for another UA C/S. Will endorse to Oncoming Nurse.
[2019-05-14] MEDS: QUETIAPINE FUMARATE 25 MG TABLET PO PRN (18:23)
--- NOTE | 2019-05-14 20:00 | NUR ---
Patient received into care, sitting up in bed, watching television. Patient is Filipino speaking only and is alert/oriented x1. Patient has no signs/symptoms of acute distress or discomfort noted/observed by nurse. All safety and fall precaution measures are in place. Call light and personal items are within reach at all times. Will continue to monitor and assess.
[2019-05-14] MEDS: LATANOPROST OPHT DROP 2.5 ML BOTTLE EACHEYE SCH (21:02)
[2019-05-14] MEDS: ATORVASTATIN 20 MG TABLET PO SCH (21:03)
[2019-05-14] MEDS: ZOLPIDEM 5 MG TABLET PO SCH (21:04)
[2019-05-14] MEDS: TAMSULOSIN HCL 0.4 MG CAP.SR.24H PO SCH (21:04)
[2019-05-14] MEDS: risperiDONE 0.5 MG TABLET PO SCH (21:04)
[2019-05-14 21:08] VITALS: BP 132/69
[2019-05-15 01:06] VITALS: BP 121/60
[2019-05-15 04:06] VITALS: BP 121/66
--- NOTE | 2019-05-15 06:00 | NUR ---
Patient slept well throughout night with no s/s of acute distress or discomfort noted/observed by nurse. All nursing needs met promptly and patient is warm, dry, and comfortable. Patient was compliant with all aspects of care and medicine regime. All safety and fall precaution measures remain in place. Call light and personal items are within reach at all times.
[2019-05-15] MEDS: PANTOPRAZOLE SODIUM 40 MG TABLET.DR PO SCH (06:06)
[2019-05-15] MEDS: KETOROLAC TROMETHAMINE 15 MG INJ IVP SCH ×3 (06:06→22:49)
[2019-05-15 06:32] LABS: BASOPHILS # (AUTO) 0.1 K/uL (0.0-8.0); BASOPHILS % (AUTO) 1.2 % (0.0-2.0); EOSINOPHILS # (AUTO) 0.6 K/uL (0.0-0.7); EOSINOPHILS % (AUTO) 8.4 % (0.0-7.0); HEMATOCRIT 31.8 % (36.7-47.1); HEMOGLOBIN 10.8 g/dL (12.5-16.3); LYMPHOCYTES # (AUTO) 1.7 K/uL (20.0-40.0); LYMPHOCYTES % (AUTO) 22.3 % (20.5-51.5); MEAN CORPUSCULAR HEMOGLOBIN 31.6 uug (23.8-33.4); MEAN CORPUSCULAR HGB CONC 34 g/dL (32.5-36.3); MEAN CORPUSCULAR VOLUME 93.2 fL (73.0-96.2); MONOCYTES # (AUTO) 0.7 K/uL (2.0-10.0); MONOCYTES % (AUTO) 9.9 % (0.0-11.0); NEUTROPHILS # (AUTO) 4.3 K/uL (1.8-8.9); NEUTROPHILS % (AUTO) 58.2 % (38.5-71.5); PLATELET COUNT (AUTO) 291 K/uL (152-348); RED BLOOD CELL COUNT(AUTO) 3.41 MIL/uL (4.06-5.63); WHITE BLOOD COUNT (AUTO) 7.4 K/uL (3.6-10.2)
[2019-05-15 06:42] LABS: CREATININE 1.1 mg/dL (0.6-1.3); MAGNESIUM 2.2 mg/dL (1.8-2.4); PHOSPHOROUS 4.3 mg/dL (2.5-4.9); POTASSIUM 3.9 mmol/L (3.5-5.1)
[2019-05-15] MEDS: BLOOD SUGAR DIAGNOSTIC 1 EACH STRIP VI SCH ×4 (06:50→21:00)
[2019-05-15] MEDS: APIXABAN 5 MG TABLET PO SCH ×2 (08:45→16:33)
[2019-05-15] MEDS: FINASTERIDE 5 MG TABLET PO SCH (08:50)
[2019-05-15] MEDS: TOPIRAMATE 25 MG TABLET PO SCH (08:51)
[2019-05-15] MEDS: CARVEDILOL 6.25 MG TABLET PO SCH ×2 (08:51→17:00)
[2019-05-15] MEDS: DORZOLAMIDE 2% OPHT DROP 10 ML BOTTLE EACHEYE SCH ×2 (08:52→21:29)
[2019-05-15] MEDS: FLUTICASONE/VILANTEROL 1 EACH BLST.W.DEV INH SCH (08:52)
[2019-05-15] MEDS: TIMOLOL MALEATE 0.5% OPHT DROP 5 ML BOTTLE EACHEYE SCH ×2 (08:53→21:26)
[2019-05-15] MEDS: BRIMONIDINE 0.2% OPHT DROP 10 ML BOTTLE EACHEYE SCH ×2 (08:53→21:27)
[2019-05-15] MEDS: DOCUSATE SODIUM 250 MG CAPSULE PO SCH ×2 (08:53→16:39)
[2019-05-15] MEDS: Z GUARD REMEDY PASTE 57 GM TUBE TOP SCH ×2 (08:54→21:58)
[2019-05-15] MEDS: SPIRONOLACTONE 25 MG TABLET PO SCH (09:13)
[2019-05-15 11:27] VITALS: BP 105/55
[2019-05-15 15:18] VITALS: BP 100/50
[2019-05-15] MEDS: CEFTRIAXONE 1 G in IV DEXTROSE 5% 50 ML IV SCH (16:32)
[2019-05-15] MEDS: INSULIN REGULAR, HUMAN 300 UNIT/3 ML VIAL SQ PRN (16:58)
[2019-05-15] MEDS: QUETIAPINE FUMARATE 25 MG TABLET PO PRN (17:00)
--- NOTE | 2019-05-15 18:06 | NUR ---
PATIENT IN BED AND AWAKE. HOB ELEVATED. PATIENT CITIZEN OF [place] SPEAKING, NO SOB AND NO ACUTE DISTRESS NOTED AND NO C/O PAIN. IV INTACT PATENT. ALL DUE MEDS GIVEN ORDERED AND TOLERATED WELL. KEPT CLEAN AND DRY AT ALL TIMES. ALL NEEDS ATTENDED. CALL LIGHT WITHIN REACH. WILL CONTINUE TO MONITOR.
--- NOTE | 2019-05-15 20:00 | NUR ---
CONFUSED, REPOSITION FOR COMFORT, INCONTINENT OF URINE
[2019-05-15 21:20] VITALS: BP 128/70
--- NOTE | 2019-05-15 21:24 | NUR ---
ACCUCHECK NOT DONE, PATIENT REFUSED COMBATIVE, TRID 3X PT AGITAED AND CONFUSED.
[2019-05-15] MEDS: LATANOPROST OPHT DROP 2.5 ML BOTTLE EACHEYE SCH (21:26)
[2019-05-15] MEDS: risperiDONE 0.5 MG TABLET PO SCH (21:28)
[2019-05-15] MEDS: TAMSULOSIN HCL 0.4 MG CAP.SR.24H PO SCH (21:28)
[2019-05-15] MEDS: ATORVASTATIN 20 MG TABLET PO SCH (21:28)
[2019-05-15] MEDS: ZOLPIDEM 5 MG TABLET PO SCH (22:49)
[2019-05-16 05:42] VITALS: BP 117/66
[2019-05-16] MEDS: KETOROLAC TROMETHAMINE 15 MG INJ IVP SCH (06:19)
--- NOTE | 2019-05-16 06:29 | NUR ---
INCONTINENT X3, MEPELEX ON SACRUM NOTED ,REDNESS NOTED ON BUTTOCKS, CONFUSED, UNABLE TO GET ACCUCHECK VERY COMBATIVE AND AGITATED,UNABLE TO DRAW BLOOD.
--- NOTE | 2019-05-16 07:25 | NUR ---
RECEIVED IN BED ASLEEP EASILY AROUSABLE ON ROUNDS PATIENT IS CONFUSED AND DISORIENTED REQUIRED MAX ASSIST FOR ALL ADL TURNED AND REPOSITIONED FOR ALL ADL ON O2 REMOVES MOST OF THE TIME NO S/S OF HYPO/HYPERGLYCEMIC REACTIONS AT THIS TIME MADE COMFORTABLE AND WILL CONTINUE TO OBSERVE.
[2019-05-16] MEDS: BLOOD SUGAR DIAGNOSTIC 1 EACH STRIP VI SCH ×2 (07:30→11:43)
[2019-05-16] MEDS: PANTOPRAZOLE SODIUM 40 MG TABLET.DR PO SCH (07:50)
[2019-05-16] MEDS: CARVEDILOL 6.25 MG TABLET PO SCH (08:00)
[2019-05-16] MEDS: BRIMONIDINE 0.2% OPHT DROP 10 ML BOTTLE EACHEYE SCH (09:00)
[2019-05-16] MEDS: DOCUSATE SODIUM 250 MG CAPSULE PO SCH (09:00)
[2019-05-16] MEDS: TIMOLOL MALEATE 0.5% OPHT DROP 5 ML BOTTLE EACHEYE SCH (09:00)
[2019-05-16] MEDS: SPIRONOLACTONE 25 MG TABLET PO SCH (09:00)
[2019-05-16] MEDS: TOPIRAMATE 25 MG TABLET PO SCH (09:00)
[2019-05-16] MEDS: APIXABAN 5 MG TABLET PO SCH (09:00)
[2019-05-16] MEDS: FINASTERIDE 5 MG TABLET PO SCH (09:00)
[2019-05-16] MEDS: DORZOLAMIDE 2% OPHT DROP 10 ML BOTTLE EACHEYE SCH (09:00)
[2019-05-16] MEDS: FLUTICASONE/VILANTEROL 1 EACH BLST.W.DEV INH SCH (09:15)
[2019-05-16] MEDS: Z GUARD REMEDY PASTE 57 GM TUBE TOP SCH (09:18)
[2019-05-16] MEDS ORDERED: ERGOCALCIFEROL 50,000 UNIT CAPSULE PO SCH (11:00)
[2019-05-16 12:08] VITALS: BP 116/64
[2019-05-16 12:15] LABS: BASOPHILS # (AUTO) 0.1 K/uL (0.0-8.0); BASOPHILS % (AUTO) 0.9 % (0.0-2.0); EOSINOPHILS # (AUTO) 0.6 K/uL (0.0-0.7); EOSINOPHILS % (AUTO) 8.6 % (0.0-7.0); HEMATOCRIT 33.8 % (36.7-47.1); HEMOGLOBIN 11.5 g/dL (12.5-16.3); LYMPHOCYTES # (AUTO) 1.6 K/uL (20.0-40.0); LYMPHOCYTES % (AUTO) 22.3 % (20.5-51.5); MEAN CORPUSCULAR HEMOGLOBIN 31.9 uug (23.8-33.4); MEAN CORPUSCULAR HGB CONC 34 g/dL (32.5-36.3); MEAN CORPUSCULAR VOLUME 93.4 fL (73.0-96.2); MONOCYTES # (AUTO) 0.7 K/uL (2.0-10.0); MONOCYTES % (AUTO) 9.9 % (0.0-11.0); NEUTROPHILS # (AUTO) 4.3 K/uL (1.8-8.9); NEUTROPHILS % (AUTO) 58.3 % (38.5-71.5); PLATELET COUNT (AUTO) 322 K/uL (152-348); RED BLOOD CELL COUNT(AUTO) 3.62 MIL/uL (4.06-5.63); WHITE BLOOD COUNT (AUTO) 7.4 K/uL (3.6-10.2)
[2019-05-16 12:26] LABS: CREATININE 1.2 mg/dL (0.6-1.3); MAGNESIUM 2.1 mg/dL (1.8-2.4); PHOSPHOROUS 3.6 mg/dL (2.5-4.9); POTASSIUM 3.7 mmol/L (3.5-5.1)
[2019-05-16] MEDS: INSULIN REGULAR, HUMAN 300 UNIT/3 ML VIAL SQ PRN (12:42)
--- NOTE | 2019-05-16 13:06 | NUR ---
PATIENT IS FOR DISCHARGE HOME TODAY PER THE [facility] OPERATOR OBSTETRICS NURSE PRACTITIONER PATIENTS GRAND DAUGHTER FELICITAS WILL PICK HIM UP ABOUT 1300 TODAY AND NOTED.
--- NOTE | 2019-05-16 13:30 | NUR ---
PATIENT DISCHARGED PICKED UP BY HIS GRAND DAUGHTER MELIDA IN SATISFACTORY CONDITION WITH DISCHARGE INSTRUCTIONS AND WAS INSTRUCTED TO FOLLOW UP WITH HER PRIMARY AND PRIVATE EQUITY ANALYST WITHIN ONE TO TWO WEEKS AND SHE EXPRESSED UNDERSTANDING.
== END 2019-05-16 13:15 | disposition home health service (06) | DRG 871 ==
LOC: ER 12:11 → TELE3 13:40 → MEDSURG3 05-10 12:40 → TELE3 05-10 15:18 → MEDSURG3 05-15 12:05
PROVIDERS: ADMIT Internal Medicine; ATTEND Registered Nurse
DX: A41.9 Sepsis, unspecified organism (principal); G92 Toxic encephalopathy; N17.0 Acute kidney failure with tubular necrosis; I50.43 Acute on chronic combined systolic (congestive) and diastolic (congestive) heart failure; I13.0 Hypertensive heart and chronic kidney disease with heart failure and stage 1 through stage 4 chronic kidney disease, or unspecified chronic kidney disease; D68.69 Other thrombophilia; I48.92 Unspecified atrial flutter; N13.6 Pyonephrosis; T82.191A Other mechanical complication of cardiac pulse generator (battery), initial encounter; I42.8 Other cardiomyopathies; J44.9 Chronic obstructive pulmonary disease, unspecified; E11.22 Type 2 diabetes mellitus with diabetic chronic kidney disease; N18.9 Chronic kidney disease, unspecified; Z74.09 Other reduced mobility; I25.10 Atherosclerotic heart disease of native coronary artery without angina pectoris; I48.91 Unspecified atrial fibrillation; F01.50 Vascular dementia, unspecified severity, without behavioral disturbance, psychotic disturbance, mood disturbance, and anxiety; K21.9 Gastro-esophageal reflux disease without esophagitis; N40.0 Benign prostatic hyperplasia without lower urinary tract symptoms; Z87.891 Personal history of nicotine dependence; Z95.820 Peripheral vascular angioplasty status with implants and grafts; Z99.81 Dependence on supplemental oxygen; Y92.009 Unspecified place in unspecified non-institutional (private) residence as the place of occurrence of the external cause; Y84.8 Other medical procedures as the cause of abnormal reaction of the patient, or of later complication, without mention of misadventure at the time of the procedure; Z79.84 Long term (current) use of oral hypoglycemic drugs; Y71.2 Prosthetic and other implants, materials and accessory cardiovascular devices associated with adverse incidents; Z79.01 Long term (current) use of anticoagulants; H40.9 Unspecified glaucoma; H54.8 Legal blindness, as defined in USA; E86.0 Dehydration; E78.5 Hyperlipidemia, unspecified; E11.51 Type 2 diabetes mellitus with diabetic peripheral angiopathy without gangrene; D64.9 Anemia, unspecified; R40.2413 Glasgow coma scale score 13-15, at hospital admission
CPT/HCPCS: 36415; 70030-TC; 71045; 83550; 83605; 83690; 83735; 84100; 84153; 84443; 85025; 85730; 87040; 87086; 87400; 93005; 93307; A4663; G0378; J0696; J1815; J1885; J1940; J2270; J2405; J3480; J7030; J7040; J7050; J7060

== ENCOUNTER 2019-09-07 16:07 | Inpatient (IN) | payer MEDICARE, OTHER ==
[~2019-09-07] VITALS: Ht 162.6 cm; Wt 66.5 kg
[~2019-09-07 16:07] MED LIST changes: -ALBU18HF2 IH; +ALBU8.5H8 INH; -AMLO10TA7 PO; +CARV6.252 PO; -DOCU-141 PO; +DOCU250C21 PO; +FURO-152 PO; -FURO40TA5 PO; +METF-442 PO; +OMEG1CAP40 PO; +OMEP1CAP24 PO; -OMEP20TA5 PO; -POLY255P19 PO; -PRED20TA PO; +QUET25TA PO; +SPIR25TA6 PO; +TAMS-3 PO; +TOLT4CAP PO; +ZOLP5TAB8 PO; +[UNRECOGNIZED DRUG - OTHER] PO
[2019-09-07] MEDS ORDERED: METO25TA3 PO (16:43)
[2019-09-07] MEDS ORDERED: LISI2.5T2 PO (16:43)
[2019-09-07] MEDS ORDERED: FURO-151 PO (16:43)
[2019-09-07] MEDS ORDERED: APIX2.5T PO (16:43)
[2019-09-07] MEDS ORDERED: CLOP75TA33 PO (16:43)
[2019-09-07] MEDS ORDERED: SITA50TA PO (16:43)
[2019-09-07] MEDS ORDERED: AMLO10TA7 PO (16:43)
[2019-09-07] MEDS ORDERED: NITROGLYCERIN OINT 1 GM PACKET TP ONE ×2 (16:45→17:53)
--- NOTE | 2019-09-07 16:48 | NUR ---
PT IS IN ROOM #2A. DR GUTIÉRREZ EVALUATED THE PT.
[2019-09-07 16:49] LABS: BASOPHILS # (AUTO) 0.1 K/uL (0.0-8.0); BASOPHILS % (AUTO) 1.1 % (0.0-2.0); EOSINOPHILS # (AUTO) 0.7 K/uL (0.0-0.7); EOSINOPHILS % (AUTO) 6.6 % (0.0-7.0); HEMATOCRIT 35.4 % (36.7-47.1); HEMOGLOBIN 12.1 g/dL (12.5-16.3); LYMPHOCYTES # (AUTO) 1.9 K/uL (20.0-40.0); LYMPHOCYTES % (AUTO) 17.7 % (20.5-51.5); MEAN CORPUSCULAR HEMOGLOBIN 31.6 uug (23.8-33.4); MEAN CORPUSCULAR HGB CONC 34 g/dL (32.5-36.3); MEAN CORPUSCULAR VOLUME 92.9 fL (73.0-96.2); MONOCYTES % (AUTO) 9.2 % (0.0-11.0); NEUTROPHILS % (AUTO) 65.4 % (38.5-71.5); PLATELET COUNT (AUTO) 266 K/uL (152-348); RED BLOOD CELL COUNT(AUTO) 3.81 MIL/uL (4.06-5.63); WHITE BLOOD COUNT (AUTO) 10.7 K/uL (3.6-10.2)
[2019-09-07 16:59] LABS: CREATININE 1.1 mg/dL (0.6-1.3); POTASSIUM 3.6 mmol/L (3.5-5.1)
[2019-09-07 17:12] LABS: BILIRUBIN,DIRECT 0.1 mg/dL (0.0-0.2); BILIRUBIN,TOTAL 0.7 mg/dL (0.2-1.0); TOTAL PROTEIN, SERUM 7.4 g/dL (6.4-8.2)
[2019-09-07] MEDS ORDERED: FUROSEMIDE 40 MG/4 ML VIAL IV ONE ×2 (17:45→19:45)
[2019-09-07] MEDS ORDERED: FUROSEMIDE 40 MG/4 ML VIAL ONE ×2 (17:53→21:22)
--- NOTE | 2019-09-07 18:33 | NUR ---
REPORT WAS GIVEN TO METAL FURNITURE ASSEMBLY SUPERVISOR JT. PT IS RESTING IN THE BED COMFORTABLY NO S/S OF ACUTE DISTRESS.
--- NOTE | 2019-09-07 19:10 | NUR ---
Assumed care for patient at this time. Report received from outgoing RN. Patient is ready to move in to floor, pending Covid test result. Followed up with Demetri from the lab. Per lab, specimen is still here, waiting for chainstitch tunnel elastic operator. Patient is South Korean speaking,verbalized with outgoing RN that he is hungry. Food requested from Nursing mechanical maintenance supervisor and provided to patient
[2019-09-07] MEDS ORDERED: MAGNESIUM HYDROXIDE 30 ML LIQUID UDC PO PRN (19:45)
[2019-09-07] MEDS ORDERED: Z GUARD REMEDY PASTE 57 GM TUBE TOP PRN (19:45)
[2019-09-07] MEDS ORDERED: MORPHINE SULFATE 2 MG/1 ML DISP.SYRIN IV PRN (19:45)
[2019-09-07] MEDS ORDERED: ACETAMINOPHEN 325 MG TABLET PO PRN (19:45)
[2019-09-07] MEDS ORDERED: ONDANSETRON 4 MG/2 ML VIAL IV PRN (19:45)
[2019-09-07] MEDS ORDERED: NITROGLYCERIN 0.4 MG/TAB BOTTLE SL PRN (20:00)
[2019-09-07] MEDS ORDERED: ALBUTEROL SULFATE 8 GM HFA.AER.AD INH SCH (20:00)
[2019-09-07] MEDS ORDERED: CLONIDINE HCL 0.1 MG TABLET PO PRN (20:00)
--- NOTE | 2019-09-07 20:26 | NUR ---
Followed up with lab regarding the Covid 19 test, public transit specialist still pending picking tech.
[2019-09-07] MEDS: LATANOPROST OPHT DROP 2.5 ML BOTTLE EACHEYE SCH (21:00)
--- NOTE | 2019-09-07 21:24 | NUR ---
Rachael RN made aware that Covid 19+ test is still pending. Nursing welding supervisor made aware that PM meds are able to be given by ER nurse, but the meds are not available in the [facility], Rachael RN will obtain meds and SCREENER AND BLENDER will administer it.
[2019-09-07] MEDS: ATORVASTATIN 20 MG TABLET PO SCH (21:41)
[2019-09-07] MEDS: METFORMIN HCL 500 MG TABLET PO SCH (21:41)
[2019-09-07] MEDS: risperiDONE 0.5 MG TABLET PO SCH (21:42)
--- NOTE | 2019-09-07 22:50 | NUR ---
RECEIVED PT FROM ER VIA WHEELCHAIR. UNDER THE CARE OF DR. VALERIO. DX: CHF EXACERBATION.PT IN NO ACUTE DISTRESS.ADMISSION PROCESS AND CARE PLAN INITIATED.PENITENTIARY ASSESSMENT DONE. SAFETY AND COMFORT PROVIDED. WILL CONTINUE TO MONITOR.
[2019-09-07 23:00] VITALS: BP 115/59
[2019-09-08 00:09] VITALS: BP 165/85
[2019-09-08] MEDS: ZOLPIDEM 5 MG TABLET PO PRN ×2 (00:15→21:31)
[2019-09-08 04:15] VITALS: BP 138/59
[2019-09-08] MEDS: PANTOPRAZOLE SODIUM 40 MG TABLET.DR PO SCH (06:16)
--- NOTE | 2019-09-08 06:38 | NUR ---
PT REFUSED HIS PROTONIX.
--- NOTE | 2019-09-08 06:39 | NUR ---
PT SLEPT INTERMITTENTLY. PT IN NO ACUTE DISTRESS. IV INTACT. PT HAD EPISODES OF FORGETFULNESS. NEED REORIENTATION. PRESCRIBED MEDICATION GIVEN AND PT TOLERATED IT WELL. SAFETY AND COMFORT PROVIDED. WILL ENDORSE TO INCOMING NURSE FOR CONTINUITY OF CARE.
--- NOTE | 2019-09-08 06:40 | NUR ---
PROTONIX WASTED IN THE WASTE MEDICATION BIN AND IN THE PYXIS.
[2019-09-08] MEDS: BLOOD SUGAR DIAGNOSTIC 1 EACH STRIP VI SCH ×5 (06:42→21:27)
[2019-09-08 06:48] LABS: BASOPHILS # (AUTO) 0.1 K/uL (0.0-8.0); BASOPHILS % (AUTO) 0.6 % (0.0-2.0); EOSINOPHILS # (AUTO) 0.6 K/uL (0.0-0.7); EOSINOPHILS % (AUTO) 5.8 % (0.0-7.0); HEMATOCRIT 35.3 % (36.7-47.1); LYMPHOCYTES # (AUTO) 1.7 K/uL (20.0-40.0); LYMPHOCYTES % (AUTO) 15.3 % (20.5-51.5); MEAN CORPUSCULAR HEMOGLOBIN 31.5 uug (23.8-33.4); MEAN CORPUSCULAR HGB CONC 34 g/dL (32.5-36.3); MEAN CORPUSCULAR VOLUME 92.6 fL (73.0-96.2); MONOCYTES # (AUTO) 1.1 K/uL (2.0-10.0); MONOCYTES % (AUTO) 10.2 % (0.0-11.0); NEUTROPHILS # (AUTO) 7.4 K/uL (1.8-8.9); NEUTROPHILS % (AUTO) 68.1 % (38.5-71.5); PLATELET COUNT (AUTO) 253 K/uL (152-348); RED BLOOD CELL COUNT(AUTO) 3.81 MIL/uL (4.06-5.63); WHITE BLOOD COUNT (AUTO) 10.8 K/uL (3.6-10.2)
[2019-09-08 07:02] LABS: CREATININE 1.2 mg/dL (0.6-1.3); MAGNESIUM 1.9 mg/dL (1.8-2.4); PHOSPHOROUS 3.6 mg/dL (2.5-4.9); POTASSIUM 3.2 mmol/L (3.5-5.1)
[2019-09-08] MEDS ORDERED: ALBUTEROL SULFATE 2.5 MG/3 ML NEBU NEB PRN (07:15)
[2019-09-08] MEDS ORDERED: DEXTROSE 50% 50 ML DISP.SYRIN IV PRN (07:30)
[2019-09-08] MEDS: CLOPIDOGREL 75 MG TABLET PO SCH (08:02)
[2019-09-08] MEDS: METOPROLOL SUCCINATE XL 25 MG TAB.SR.24H PO SCH (08:02)
[2019-09-08] MEDS: LISINOPRIL 5 MG TABLET PO SCH (08:03)
[2019-09-08] MEDS: SPIRONOLACTONE 25 MG TABLET PO SCH (08:03)
[2019-09-08] MEDS: MAGNESIUM OXIDE 400 MG TABLET PO SCH ×2 (08:03→16:05)
[2019-09-08] MEDS: POTASSIUM CHLORIDE 8 MEQ TAB.PRT.SR PO SCH (08:03)
[2019-09-08] MEDS: AMLODIPINE 10 MG TABLET PO SCH (08:03)
[2019-09-08] MEDS: FINASTERIDE 5 MG TABLET PO SCH (08:03)
[2019-09-08] MEDS: FUROSEMIDE 40 MG/4 ML VIAL IV SCH (08:10)
[2019-09-08] MEDS: FLUTICASONE/VILANTEROL 1 EACH BLST.W.DEV INH SCH (08:24)
[2019-09-08] MEDS: APIXABAN 5 MG TABLET PO SCH ×2 (08:25→20:32)
[2019-09-08] MEDS: DORZOLAMIDE 2% OPHT DROP 10 ML BOTTLE EACHEYE SCH ×2 (08:25→16:05)
[2019-09-08] MEDS: TOPIRAMATE 25 MG TABLET PO SCH (08:27)
[2019-09-08] MEDS ORDERED: Medication Not On Formulary EA (Apixaban (Eliquis) 2.5 MG) PO SCH (09:00)
[2019-09-08] MEDS ORDERED: TAMSULOSIN HCL 0.4 MG CAP.SR.24H PO SCH (09:00)
[2019-09-08] MEDS: INSULIN REGULAR, HUMAN 300 UNIT/3 ML VIAL SQ PRN (11:10)
[2019-09-08 11:26] VITALS: BP 110/50
[2019-09-08] MEDS ORDERED: POTASSIUM CHLORIDE 20 MEQ TAB.PRT.SR PO ONE (12:00)
[2019-09-08] MEDS: DILTIAZEM HCL CD 240 MG CAP.SR.24H PO SCH (12:42)
[2019-09-08 15:56] VITALS: BP 125/58
[2019-09-08] MEDS: QUETIAPINE FUMARATE 25 MG TABLET PO SCH (17:26)
--- NOTE | 2019-09-08 19:25 | NUR ---
Patient received sitting on a chair. Patient talking in farsi. Pt is confused and forgetful, trying to get off the chair. Pt has no s/s of acute distress or pain at this time. V/S stable, on 2L NC saturating WNL. Safety and fall measures in place. Call light within reach. Will continue with the plan of care.
[2019-09-08 20:00] VITALS: BP 107/59
[2019-09-08] MEDS: TAMSULOSIN HCL 0.4 MG CAP.SR.24H PO SCH (20:23)
[2019-09-08] MEDS: risperiDONE 0.5 MG TABLET PO SCH (20:23)
[2019-09-08] MEDS: ATORVASTATIN 20 MG TABLET PO SCH (20:23)
[2019-09-08] MEDS: METFORMIN HCL 500 MG TABLET PO SCH (20:23)
[2019-09-08] MEDS: LATANOPROST OPHT DROP 2.5 ML BOTTLE EACHEYE SCH (20:26)
--- NOTE | 2019-09-08 21:27 | NUR ---
Blood sugar is 123. no coverage needed.
[2019-09-09] VITALS: BP 103/49
[2019-09-09 04:05] VITALS: BP 96/46
[2019-09-09] MEDS: BLOOD SUGAR DIAGNOSTIC 1 EACH STRIP VI SCH ×4 (06:42→21:08)
[2019-09-09] MEDS: PANTOPRAZOLE SODIUM 40 MG TABLET.DR PO SCH (06:42)
--- NOTE | 2019-09-09 07:03 | NUR ---
Patient was not able to sleep well. Was given prescribed Ambien 5mg at 1, patient able to sleep in his bed for roughly about 4 hours. Woke up and trying to climb up in bed. Was transferred to his chair, speaks Algerian all throughout the shift. V/S stable, on 2L NC saturating WNL. Vpacing 73 on tele monitor. Has no s/s of acute distress or pain at this time. IV patent and intact. Comfort care and needs attended. Fall precaution maintained. Safety measures in place. Will endorse to the oncoming nurse accordingly
[2019-09-09 07:14] LABS: BASOPHILS # (AUTO) 0.1 K/uL (0.0-8.0); BASOPHILS % (AUTO) 0.7 % (0.0-2.0); EOSINOPHILS # (AUTO) 0.3 K/uL (0.0-0.7); EOSINOPHILS % (AUTO) 2.2 % (0.0-7.0); HEMATOCRIT 36.3 % (36.7-47.1); HEMOGLOBIN 12.2 g/dL (12.5-16.3); LYMPHOCYTES # (AUTO) 1.6 K/uL (20.0-40.0); LYMPHOCYTES % (AUTO) 12.6 % (20.5-51.5); MEAN CORPUSCULAR HEMOGLOBIN 31.3 uug (23.8-33.4); MEAN CORPUSCULAR HGB CONC 34 g/dL (32.5-36.3); MEAN CORPUSCULAR VOLUME 93.4 fL (73.0-96.2); MONOCYTES # (AUTO) 1.1 K/uL (2.0-10.0); NEUTROPHILS # (AUTO) 9.3 K/uL (1.8-8.9); NEUTROPHILS % (AUTO) 75.5 % (38.5-71.5); PLATELET COUNT (AUTO) 301 K/uL (152-348); RED BLOOD CELL COUNT(AUTO) 3.88 MIL/uL (4.06-5.63); WHITE BLOOD COUNT (AUTO) 12.3 K/uL (3.6-10.2)
[2019-09-09 07:18] LABS: CREATININE 1.3 mg/dL (0.6-1.3); MAGNESIUM 2.2 mg/dL (1.8-2.4); PHOSPHOROUS 3.3 mg/dL (2.5-4.9); POTASSIUM 3.7 mmol/L (3.5-5.1)
[2019-09-09] MEDS: FLUTICASONE/VILANTEROL 1 EACH BLST.W.DEV INH SCH (08:03)
[2019-09-09] MEDS: TOPIRAMATE 25 MG TABLET PO SCH (08:03)
[2019-09-09] MEDS: FINASTERIDE 5 MG TABLET PO SCH (08:03)
[2019-09-09] MEDS: POTASSIUM CHLORIDE 8 MEQ TAB.PRT.SR PO SCH (08:03)
[2019-09-09] MEDS: MAGNESIUM OXIDE 400 MG TABLET PO SCH ×2 (08:03→16:04)
[2019-09-09] MEDS: SPIRONOLACTONE 25 MG TABLET PO SCH (08:03)
[2019-09-09] MEDS: DORZOLAMIDE 2% OPHT DROP 10 ML BOTTLE EACHEYE SCH ×2 (08:03→16:05)
[2019-09-09] MEDS: CLOPIDOGREL 75 MG TABLET PO SCH (08:03)
[2019-09-09] MEDS: APIXABAN 5 MG TABLET PO SCH ×2 (08:04→21:28)
[2019-09-09] MEDS: METOPROLOL SUCCINATE XL 25 MG TAB.SR.24H PO SCH (08:34)
[2019-09-09] MEDS: LISINOPRIL 5 MG TABLET PO SCH (08:34)
[2019-09-09] MEDS: FUROSEMIDE 40 MG/4 ML VIAL IV SCH (08:34)
[2019-09-09] MEDS: AMLODIPINE 10 MG TABLET PO SCH (08:34)
[2019-09-09] MEDS: INSULIN REGULAR, HUMAN 300 UNIT/3 ML VIAL SQ PRN ×2 (10:48→16:04)
[2019-09-09 11:13] VITALS: BP 98/53
[2019-09-09] MEDS: DILTIAZEM HCL CD 240 MG CAP.SR.24H PO SCH (12:08)
[2019-09-09 15:11] VITALS: BP 155/50
[2019-09-09] MEDS: QUETIAPINE FUMARATE 25 MG TABLET PO SCH (17:14)
--- NOTE | 2019-09-09 19:30 | NUR ---
Received patient resting in bed, easily to arouse. No signs of acute distress noted. No s/s of pain or SOB. Patient is on room air saturating at 93-94% Heplock on the left forearm is intact and patent. Safety measures initiated. Bed is low and locked, call light within reach, bed alarm on. Will continue to monitor.
[2019-09-09 20:12] VITALS: BP 111/54
[2019-09-09] MEDS: ATORVASTATIN 20 MG TABLET PO SCH (21:26)
[2019-09-09] MEDS: METFORMIN HCL 500 MG TABLET PO SCH (21:27)
[2019-09-09] MEDS: LATANOPROST OPHT DROP 2.5 ML BOTTLE EACHEYE SCH (21:27)
[2019-09-09] MEDS: risperiDONE 0.5 MG TABLET PO SCH (21:27)
[2019-09-09] MEDS: TAMSULOSIN HCL 0.4 MG CAP.SR.24H PO SCH (21:27)
[2019-09-10 04:10] VITALS: BP 125/47
[2019-09-10] MEDS: PANTOPRAZOLE SODIUM 40 MG TABLET.DR PO SCH (06:40)
[2019-09-10] MEDS: BLOOD SUGAR DIAGNOSTIC 1 EACH STRIP VI SCH ×4 (06:44→20:53)
[2019-09-10] MEDS: FINASTERIDE 5 MG TABLET PO SCH (08:05)
[2019-09-10] MEDS: DORZOLAMIDE 2% OPHT DROP 10 ML BOTTLE EACHEYE SCH ×2 (08:05→16:13)
[2019-09-10] MEDS: POTASSIUM CHLORIDE 8 MEQ TAB.PRT.SR PO SCH (08:05)
[2019-09-10] MEDS: FLUTICASONE/VILANTEROL 1 EACH BLST.W.DEV INH SCH (08:05)
[2019-09-10] MEDS: MAGNESIUM OXIDE 400 MG TABLET PO SCH ×2 (08:05→16:13)
[2019-09-10] MEDS: TOPIRAMATE 25 MG TABLET PO SCH (08:06)
[2019-09-10] MEDS: FUROSEMIDE 40 MG TABLET PO SCH (08:06)
[2019-09-10] MEDS: CLOPIDOGREL 75 MG TABLET PO SCH (08:06)
[2019-09-10] MEDS: SPIRONOLACTONE 25 MG TABLET PO SCH (08:06)
[2019-09-10] MEDS: APIXABAN 5 MG TABLET PO SCH ×2 (08:07→20:34)
[2019-09-10] MEDS: METOPROLOL SUCCINATE XL 25 MG TAB.SR.24H PO SCH (09:00)
[2019-09-10] MEDS: LISINOPRIL 5 MG TABLET PO SCH (09:00)
[2019-09-10 09:01] LABS: BASOPHILS # (AUTO) 0.1 K/uL (0.0-8.0); BASOPHILS % (AUTO) 0.7 % (0.0-2.0); EOSINOPHILS # (AUTO) 0.5 K/uL (0.0-0.7); HEMATOCRIT 35.2 % (36.7-47.1); HEMOGLOBIN 12.1 g/dL (12.5-16.3); LYMPHOCYTES # (AUTO) 1.7 K/uL (20.0-40.0); LYMPHOCYTES % (AUTO) 17.8 % (20.5-51.5); MEAN CORPUSCULAR HGB CONC 34 g/dL (32.5-36.3); MEAN CORPUSCULAR VOLUME 93.2 fL (73.0-96.2); MONOCYTES # (AUTO) 0.9 K/uL (2.0-10.0); NEUTROPHILS # (AUTO) 6.4 K/uL (1.8-8.9); NEUTROPHILS % (AUTO) 67.5 % (38.5-71.5); PLATELET COUNT (AUTO) 242 K/uL (152-348); RED BLOOD CELL COUNT(AUTO) 3.77 MIL/uL (4.06-5.63); WHITE BLOOD COUNT (AUTO) 9.5 K/uL (3.6-10.2)
[2019-09-10 09:14] LABS: CREATININE 0.9 mg/dL (0.6-1.3); MAGNESIUM 2.2 mg/dL (1.8-2.4); PHOSPHOROUS 3.4 mg/dL (2.5-4.9); POTASSIUM 3.5 mmol/L (3.5-5.1)
[2019-09-10 10:32] VITALS: BP 93/45
[2019-09-10] MEDS: INSULIN REGULAR, HUMAN 300 UNIT/3 ML VIAL SQ PRN ×2 (10:57→15:53)
[2019-09-10 11:44] VITALS: BP 148/94
[2019-09-10 15:59] VITALS: BP 114/65
[2019-09-10] MEDS: QUETIAPINE FUMARATE 25 MG TABLET PO SCH (18:18)
--- NOTE | 2019-09-10 19:30 | NUR ---
Received patient resting in bed. Easily abusable by name and touch. No signs or symptoms of acute distress noted at this time. No signs or symptoms of SOB. Vital signs stable and WNL. Patient is on RA saturating at 96%. Left forearm IV patent and intact. Bed locked and in lowest position. Safety measures initiated and will continue to monitor.
[2019-09-10] MEDS: LATANOPROST OPHT DROP 2.5 ML BOTTLE EACHEYE SCH (20:32)
[2019-09-10] MEDS: ATORVASTATIN 20 MG TABLET PO SCH (20:34)
[2019-09-10] MEDS: risperiDONE 0.5 MG TABLET PO SCH (20:34)
[2019-09-10] MEDS: METFORMIN HCL 500 MG TABLET PO SCH (20:34)
[2019-09-10] MEDS: TAMSULOSIN HCL 0.4 MG CAP.SR.24H PO SCH (20:34)
[2019-09-10 20:48] VITALS: BP 115/71
[2019-09-11 05:33] VITALS: BP 121/45
[2019-09-11] MEDS: BLOOD SUGAR DIAGNOSTIC 1 EACH STRIP VI SCH ×3 (06:36→15:36)
[2019-09-11] MEDS: PANTOPRAZOLE SODIUM 40 MG TABLET.DR PO SCH (06:36)
[2019-09-11] MEDS: FUROSEMIDE 40 MG TABLET PO SCH (08:09)
[2019-09-11] MEDS: POTASSIUM CHLORIDE 8 MEQ TAB.PRT.SR PO SCH (08:09)
[2019-09-11] MEDS: TOPIRAMATE 25 MG TABLET PO SCH (08:09)
[2019-09-11] MEDS: SPIRONOLACTONE 25 MG TABLET PO SCH (08:09)
[2019-09-11] MEDS: CLOPIDOGREL 75 MG TABLET PO SCH (08:09)
[2019-09-11] MEDS: APIXABAN 5 MG TABLET PO SCH (08:10)
[2019-09-11] MEDS: FINASTERIDE 5 MG TABLET PO SCH (08:11)
[2019-09-11] MEDS: MAGNESIUM OXIDE 400 MG TABLET PO SCH ×2 (08:11→16:26)
[2019-09-11] MEDS: DORZOLAMIDE 2% OPHT DROP 10 ML BOTTLE EACHEYE SCH ×2 (08:14→16:26)
[2019-09-11] MEDS: FLUTICASONE/VILANTEROL 1 EACH BLST.W.DEV INH SCH (08:14)
[2019-09-11] MEDS: LISINOPRIL 5 MG TABLET PO SCH (09:00)
[2019-09-11] MEDS: METOPROLOL SUCCINATE XL 25 MG TAB.SR.24H PO SCH (09:00)
[2019-09-11] MEDS ORDERED: SITA50TA PO (10:18)
[2019-09-11] MEDS ORDERED: TOLT4CAP PO (10:18)
[2019-09-11] MEDS ORDERED: FURO-152 PO (10:18)
[2019-09-11] MEDS ORDERED: OMEP1CAP24 PO (10:18)
[2019-09-11] MEDS ORDERED: SPIR25TA6 PO (10:18)
[2019-09-11] MEDS: INSULIN REGULAR, HUMAN 300 UNIT/3 ML VIAL SQ PRN (11:01)
[2019-09-11 12:00] VITALS: BP 113/67
[2019-09-11 16:34] VITALS: BP 104/49
[2019-09-11] MEDS: QUETIAPINE FUMARATE 25 MG TABLET PO SCH (17:10)
--- NOTE | 2019-09-11 18:26 | NUR ---
dc orders received noted and carried out,dc instruction and rn report given to the aru nurse.transfer the pt to aru via wheel chair
[2019-09-12] MEDS ORDERED: FUROSEMIDE 20 MG TABLET PO SCH (09:00)
== END 2019-09-11 18:30 | DRG 291 ==
LOC: ER 16:07 → TELE3 18:11 → MEDSURG3 09-09 14:35
PROVIDERS: ADMIT Nurse Practitioner Acute Care; ATTEND Nurse Practitioner Acute Care
DX: I11.0 Hypertensive heart disease with heart failure (principal); G93.41 Metabolic encephalopathy; N17.0 Acute kidney failure with tubular necrosis; I48.92 Unspecified atrial flutter; I50.43 Acute on chronic combined systolic (congestive) and diastolic (congestive) heart failure; E78.5 Hyperlipidemia, unspecified; J44.9 Chronic obstructive pulmonary disease, unspecified; Z95.0 Presence of cardiac pacemaker; I48.0 Paroxysmal atrial fibrillation; E11.51 Type 2 diabetes mellitus with diabetic peripheral angiopathy without gangrene; E87.6 Hypokalemia; F03.90 Unspecified dementia, unspecified severity, without behavioral disturbance, psychotic disturbance, mood disturbance, and anxiety; F39 Unspecified mood [affective] disorder; H40.9 Unspecified glaucoma; H54.8 Legal blindness, as defined in USA; I25.10 Atherosclerotic heart disease of native coronary artery without angina pectoris; Z79.01 Long term (current) use of anticoagulants; Z79.84 Long term (current) use of oral hypoglycemic drugs; Z87.891 Personal history of nicotine dependence; N40.0 Benign prostatic hyperplasia without lower urinary tract symptoms; K21.9 Gastro-esophageal reflux disease without esophagitis; I25.5 Ischemic cardiomyopathy; Z79.02 Long term (current) use of antithrombotics/antiplatelets
CPT/HCPCS: 36415; 70030-TC; 70450; 71045; 83735; 84100; 85025; 85730; 93005; A4663; G0378; J1815; J1940

== ENCOUNTER 2019-09-09 14:08 | Inpatient (IN) | payer MEDICARE, OTHER ==
[~2019-09-09] VITALS: Ht 162.6 cm; Wt 65.0 kg
[~2019-09-09 14:08] MED LIST changes: +AMLO10TA7 PO; +APIX2.5T PO; -APIX5TAB PO; -BLOO-360 IN; -CARV6.252 PO; +CLOP75TA33 PO; -DOCU250C21 PO; -ERGO500040 PO; +FURO-151 PO; -FURO-152 PO; +LISI2.5T2 PO; +METO25TA3 PO; -OMEG1CAP40 PO; -SITA1TAB6 PO; +SITA50TA PO
[2019-09-11] MEDS ORDERED: TOLT4CAP PO (10:18)
[2019-09-11] MEDS ORDERED: OMEP1CAP24 PO (10:18)
[2019-09-11] MEDS ORDERED: FURO-152 PO (10:18)
[2019-09-11] MEDS ORDERED: SITA50TA PO (10:18)
[2019-09-11] MEDS ORDERED: SPIR25TA6 PO (10:18)
[2019-09-11 18:47] VITALS: BP 100/50
[2019-09-11 20:26] VITALS: BP 132/81
[2019-09-11] MEDS ORDERED: Z GUARD REMEDY PASTE 57 GM TUBE TOP PRN (20:30)
[2019-09-11] MEDS ORDERED: CLONIDINE HCL 0.1 MG TABLET PO PRN (21:45)
[2019-09-11] MEDS ORDERED: NITROGLYCERIN 0.4 MG/TAB BOTTLE SL PRN (21:45)
[2019-09-11] MEDS ORDERED: DEXTROSE 50% 50 ML DISP.SYRIN IV PRN (21:45)
[2019-09-11] MEDS ORDERED: ALBUTEROL SULFATE 2.5 MG/3 ML NEBU NEB PRN (22:30)
[2019-09-12 04:50] VITALS: BP 133/55
--- NOTE | 2019-09-12 04:51 | NUR ---
Admitted patient from Med Surg via hospital bed. Vital signs stable. Condition fair. No acute distress or SOB was noted. Admitting diagnosis: Acute CHF exacerbation. On room air. Patient Only Swazi speaking and cannot communicate in Mongolian. 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 IV in left hand G18, patent, no sign of inflammation. Contacted [facility] on-call regarding medication reconciliation, Edwar Roberts CARE MANAGER CNA responded. MRSA done and sent to the lab. Physical assessment done. Safety measures maintained. Fall prevention maintained. Bed in lock position, Side rails up x2 for safety. Continue to monitor and will endorsed to oncoming nurse accordingly.
[2019-09-12 06:22] LABS: BASOPHILS # (AUTO) 0.1 K/uL (0.0-8.0); BASOPHILS % (AUTO) 0.8 % (0.0-2.0); EOSINOPHILS # (AUTO) 0.6 K/uL (0.0-0.7); EOSINOPHILS % (AUTO) 6.3 % (0.0-7.0); HEMATOCRIT 33.8 % (36.7-47.1); HEMOGLOBIN 11.6 g/dL (12.5-16.3); LYMPHOCYTES # (AUTO) 1.8 K/uL (20.0-40.0); LYMPHOCYTES % (AUTO) 18.9 % (20.5-51.5); MEAN CORPUSCULAR HEMOGLOBIN 32.1 uug (23.8-33.4); MEAN CORPUSCULAR HGB CONC 34 g/dL (32.5-36.3); MEAN CORPUSCULAR VOLUME 93.2 fL (73.0-96.2); MONOCYTES # (AUTO) 0.9 K/uL (2.0-10.0); MONOCYTES % (AUTO) 9.7 % (0.0-11.0); NEUTROPHILS % (AUTO) 64.3 % (38.5-71.5); PLATELET COUNT (AUTO) 249 K/uL (152-348); RED BLOOD CELL COUNT(AUTO) 3.63 MIL/uL (4.06-5.63); WHITE BLOOD COUNT (AUTO) 9.4 K/uL (3.6-10.2)
[2019-09-12] MEDS: BLOOD SUGAR DIAGNOSTIC 1 EACH STRIP VI SCH ×4 (06:36→20:12)
[2019-09-12 06:38] LABS: CREATININE 1.1 mg/dL (0.6-1.3); MAGNESIUM 2.1 mg/dL (1.8-2.4); PHOSPHOROUS 3.5 mg/dL (2.5-4.9); POTASSIUM 3.9 mmol/L (3.5-5.1)
[2019-09-12] MEDS: FUROSEMIDE 20 MG TABLET PO SCH (08:04)
[2019-09-12] MEDS: POTASSIUM CHLORIDE 8 MEQ TAB.PRT.SR PO SCH (08:04)
[2019-09-12] MEDS: MAGNESIUM OXIDE 400 MG TABLET PO SCH ×2 (08:04→16:18)
[2019-09-12] MEDS: FINASTERIDE 5 MG TABLET PO SCH (08:04)
[2019-09-12] MEDS: SPIRONOLACTONE 25 MG TABLET PO SCH (08:04)
[2019-09-12] MEDS: TAMSULOSIN HCL 0.4 MG CAP.SR.24H PO SCH (08:05)
[2019-09-12] MEDS: APIXABAN 5 MG TABLET PO SCH ×2 (08:05→20:15)
[2019-09-12] MEDS: LINAGLIPTIN 5 MG TABLET PO SCH (08:05)
[2019-09-12] MEDS: LISINOPRIL 5 MG TABLET PO SCH (08:05)
[2019-09-12] MEDS: METOPROLOL SUCCINATE XL 25 MG TAB.SR.24H PO SCH (08:05)
[2019-09-12] MEDS: TOLTERODINE LA 2 MG CAP.SR.24H PO SCH (08:06)
[2019-09-12] MEDS: CLOPIDOGREL 75 MG TABLET PO SCH (08:06)
[2019-09-12 08:21] VITALS: BP 120/68
[2019-09-12] MEDS: FLUTICASONE/VILANTEROL 1 EACH BLST.W.DEV INH SCH (08:24)
[2019-09-12] MEDS: DORZOLAMIDE 2% OPHT DROP 10 ML BOTTLE EACHEYE SCH ×2 (08:24→16:18)
[2019-09-12] MEDS ORDERED: TOPIRAMATE 25 MG TABLET PO SCH (09:00)
[2019-09-12] MEDS: INSULIN REGULAR, HUMAN 300 UNIT/3 ML VIAL SQ PRN (11:19)
--- NOTE | 2019-09-12 15:01 | NUR ---
Social Work Family Contact: scale assembly set up worker spoke with patient's daughter Alanna ([phone]) to gather collateral. Per Alanna, she stated that patient lives with his at [id number] [address], [place] [address]; ([phone]). Per Alanna, she stated that patient has a caregiver through [facility] who helps assist with his ADLs. Per Alanna, she stated that at home patient has his oxygen machine, wheelchair, and walker. This writer producer discussed caregiving services and patient already has a caregiver. This writer producer discussed home health services and she stated that patient already has a home health service of his own and will resume it back upon discharge. This writer producer actively listened and provided emotional support.
[2019-09-12 15:46] VITALS: BP 105/40
[2019-09-12] MEDS: METFORMIN HCL 500 MG TABLET PO SCH (16:18)
[2019-09-12] MEDS: QUETIAPINE FUMARATE 25 MG TABLET PO SCH (17:08)
[2019-09-12] MEDS ORDERED: ZOLPIDEM 5 MG TABLET PO PRN (18:00)
[2019-09-12] MEDS ORDERED: ZOLPIDEM 5 MG TABLET PO SCH (18:00)
--- NOTE | 2019-09-12 19:35 | NUR ---
Received patient asleep in bed. Easily arousable. alert to self. grenadian speaking. no s/s of pain or discomfort. bed alarm on. call light in reach. all needs attended. will continue to monitor and assess.
[2019-09-12 20:02] VITALS: BP 100/33
[2019-09-12] MEDS: risperiDONE 0.5 MG TABLET PO SCH (20:14)
[2019-09-12] MEDS: ATORVASTATIN 20 MG TABLET PO SCH (20:14)
[2019-09-13 04:51] VITALS: BP 101/47
[2019-09-13 06:17] LABS: BASOPHILS # (AUTO) 0.1 K/uL (0.0-8.0); BASOPHILS % (AUTO) 1.1 % (0.0-2.0); EOSINOPHILS # (AUTO) 0.7 K/uL (0.0-0.7); EOSINOPHILS % (AUTO) 7.3 % (0.0-7.0); HEMATOCRIT 33.3 % (36.7-47.1); HEMOGLOBIN 11.1 g/dL (12.5-16.3); LYMPHOCYTES % (AUTO) 20.4 % (20.5-51.5); MEAN CORPUSCULAR HEMOGLOBIN 31.5 uug (23.8-33.4); MEAN CORPUSCULAR HGB CONC 33 g/dL (32.5-36.3); MEAN CORPUSCULAR VOLUME 94.4 fL (73.0-96.2); MONOCYTES % (AUTO) 9.8 % (0.0-11.0); NEUTROPHILS # (AUTO) 6.1 K/uL (1.8-8.9); NEUTROPHILS % (AUTO) 61.4 % (38.5-71.5); PLATELET COUNT (AUTO) 264 K/uL (152-348); RED BLOOD CELL COUNT(AUTO) 3.52 MIL/uL (4.06-5.63); WHITE BLOOD COUNT (AUTO) 9.9 K/uL (3.6-10.2)
[2019-09-13] MEDS: BLOOD SUGAR DIAGNOSTIC 1 EACH STRIP VI SCH ×4 (06:31→21:35)
[2019-09-13 06:37] LABS: CREATININE 1.1 mg/dL (0.6-1.3); MAGNESIUM 2.4 mg/dL (1.8-2.4); PHOSPHOROUS 3.9 mg/dL (2.5-4.9); POTASSIUM 4.3 mmol/L (3.5-5.1)
[2019-09-13 07:31] VITALS: BP 108/61
[2019-09-13] MEDS: LINAGLIPTIN 5 MG TABLET PO SCH (08:00)
[2019-09-13] MEDS: CLOPIDOGREL 75 MG TABLET PO SCH (08:00)
[2019-09-13] MEDS: FUROSEMIDE 20 MG TABLET PO SCH (08:00)
[2019-09-13] MEDS: SPIRONOLACTONE 25 MG TABLET PO SCH (08:00)
[2019-09-13] MEDS: POTASSIUM CHLORIDE 8 MEQ TAB.PRT.SR PO SCH (08:00)
[2019-09-13] MEDS: TAMSULOSIN HCL 0.4 MG CAP.SR.24H PO SCH (08:00)
[2019-09-13] MEDS: TOLTERODINE LA 2 MG CAP.SR.24H PO SCH (08:00)
[2019-09-13] MEDS: FINASTERIDE 5 MG TABLET PO SCH (08:00)
[2019-09-13] MEDS: APIXABAN 5 MG TABLET PO SCH ×2 (08:01→21:30)
[2019-09-13] MEDS: DORZOLAMIDE 2% OPHT DROP 10 ML BOTTLE EACHEYE SCH ×2 (08:02→16:03)
[2019-09-13] MEDS: MAGNESIUM OXIDE 400 MG TABLET PO SCH ×2 (08:02→16:03)
[2019-09-13] MEDS: FLUTICASONE/VILANTEROL 1 EACH BLST.W.DEV INH SCH (08:02)
[2019-09-13] MEDS: METOPROLOL SUCCINATE XL 25 MG TAB.SR.24H PO SCH (08:15)
[2019-09-13] MEDS: LISINOPRIL 5 MG TABLET PO SCH (08:15)
[2019-09-13] MEDS: INSULIN REGULAR, HUMAN 300 UNIT/3 ML VIAL SQ PRN (11:19)
[2019-09-13 15:17] VITALS: BP 106/55
[2019-09-13] MEDS: METFORMIN HCL 500 MG TABLET PO SCH (16:03)
[2019-09-13] MEDS: QUETIAPINE FUMARATE 25 MG TABLET PO SCH (17:06)
[2019-09-13 20:00] VITALS: BP 135/58
[2019-09-13] MEDS: ATORVASTATIN 20 MG TABLET PO SCH (21:31)
[2019-09-13] MEDS: risperiDONE 0.5 MG TABLET PO SCH (21:31)
[2019-09-14 04:00] VITALS: BP 121/52
--- NOTE | 2019-09-14 05:17 | NUR ---
Received patient lying in bed sleeping. No signs or symptoms of distress noted. Vital signs stable. Condition fair. No SOB was noted on room air. Patient is AxOx2-3, Filipino speaking, spoke to patient in Filipino, able to make needs known. Patient is legally blind on his left eye. IV in left hand G18, patent, no sign of inflammation, flushed, patent and intact. Accucheck BS:85, no coverage. Physical assessment done. Safety measures maintained, bed locked and lowered, side rails x2, and bed alarm on. Fall prevention maintained. All needs attended to, no sudden changes noted this evening. Continue to monitor and will endorsed to oncoming nurse accordingly.
[2019-09-14] MEDS: BLOOD SUGAR DIAGNOSTIC 1 EACH STRIP VI SCH ×4 (06:47→20:32)
[2019-09-14 08:00] VITALS: BP 128/54
[2019-09-14] MEDS: LINAGLIPTIN 5 MG TABLET PO SCH (09:27)
[2019-09-14] MEDS: FINASTERIDE 5 MG TABLET PO SCH (09:27)
[2019-09-14] MEDS: SPIRONOLACTONE 25 MG TABLET PO SCH (09:27)
[2019-09-14] MEDS: FUROSEMIDE 20 MG TABLET PO SCH (09:27)
[2019-09-14] MEDS: TAMSULOSIN HCL 0.4 MG CAP.SR.24H PO SCH (09:27)
[2019-09-14] MEDS: CLOPIDOGREL 75 MG TABLET PO SCH (09:31)
[2019-09-14] MEDS: POTASSIUM CHLORIDE 8 MEQ TAB.PRT.SR PO SCH (09:31)
[2019-09-14] MEDS: TOLTERODINE LA 2 MG CAP.SR.24H PO SCH (09:31)
[2019-09-14] MEDS: MAGNESIUM OXIDE 400 MG TABLET PO SCH ×2 (09:31→16:45)
[2019-09-14] MEDS: APIXABAN 5 MG TABLET PO SCH ×2 (09:35→20:22)
[2019-09-14] MEDS: LISINOPRIL 5 MG TABLET PO SCH (09:37)
[2019-09-14] MEDS: METOPROLOL SUCCINATE XL 25 MG TAB.SR.24H PO SCH (09:37)
--- NOTE | 2019-09-14 10:05 | NUR ---
Received patient in room, patient is AAO x 1, Uruguayan speaking mostly. NO acute distress noted. NO s/sx that indicated pain during shift. Vital signs stable. Accu checks done and wnl for patient. IV site on Left FA intact and patent. Due medications administered as ordered and scheduled. Patient was up with PT for therapy. On continuous PT/OT therapy. Skin kept clean and dry. Made comfortable. Needs attended, safety measures in place, call light left at bed side and will continue with care.
[2019-09-14] MEDS: FLUTICASONE/VILANTEROL 1 EACH BLST.W.DEV INH SCH (10:43)
[2019-09-14] MEDS: DORZOLAMIDE 2% OPHT DROP 10 ML BOTTLE EACHEYE SCH ×2 (10:43→16:41)
[2019-09-14] MEDS: INSULIN REGULAR, HUMAN 300 UNIT/3 ML VIAL SQ PRN ×2 (12:50→17:21)
[2019-09-14 13:12] VITALS: BP 118/60
--- NOTE | 2019-09-14 14:51 | NUR ---
INDIVIDUALIZED PLAN OF CARE
--- NOTE | 2019-09-14 16:00 | NUR ---
Patient pulled out IV line from Left FA. Cleansed and covered with dressing. Intact and dry.
[2019-09-14 16:03] VITALS: BP 114/74
[2019-09-14] MEDS: METFORMIN HCL 500 MG TABLET PO SCH (16:40)
[2019-09-14] MEDS: QUETIAPINE FUMARATE 25 MG TABLET PO SCH (17:06)
--- NOTE | 2019-09-14 18:02 | NUR ---
Patient was put on leigh-chair for for better monitoring. Patient noted screaming also refusing to eat; but was able to take supplements. Monitored closely; Vital signs stable. Skin kept clean and dry. Patient in bed, calm and awake at this time. Monitoring closely.
--- NOTE | 2019-09-14 19:35 | NUR ---
In bed, awake, Comoran speaking, speaks a little Kyrgyz, watching TV at this time. No s/s of respiratory distress. Denies any pain/discomforts. Safety measures and fall prevention maintained. Continue care as planned.
[2019-09-14] MEDS: ATORVASTATIN 20 MG TABLET PO SCH (20:18)
[2019-09-14] MEDS: risperiDONE 0.5 MG TABLET PO SCH (20:18)
[2019-09-14 20:44] VITALS: BP 116/60
[2019-09-15] MEDS: BLOOD SUGAR DIAGNOSTIC 1 EACH STRIP VI SCH ×4 (05:35→21:09)
--- NOTE | 2019-09-15 05:47 | NUR ---
Shift End Report: VS stable. Alert with confusion at times. Speaks to nurses in Cape Verdean language. No s/s of pain/discomforts presented. No respiratory distress. Slept good. No significant event reported all night. All needs attended and met. Continue current rehab plan of care
[2019-09-15 05:57] VITALS: BP 143/66
[2019-09-15] MEDS: DORZOLAMIDE 2% OPHT DROP 10 ML BOTTLE EACHEYE SCH ×2 (08:33→18:37)
[2019-09-15] MEDS: FLUTICASONE/VILANTEROL 1 EACH BLST.W.DEV INH SCH (08:33)
[2019-09-15] MEDS: LINAGLIPTIN 5 MG TABLET PO SCH (08:33)
[2019-09-15 08:34] VITALS: BP 141/51
[2019-09-15] MEDS: SPIRONOLACTONE 25 MG TABLET PO SCH (08:34)
[2019-09-15] MEDS: FINASTERIDE 5 MG TABLET PO SCH (08:35)
[2019-09-15] MEDS: CLOPIDOGREL 75 MG TABLET PO SCH (08:36)
[2019-09-15] MEDS: TOLTERODINE LA 2 MG CAP.SR.24H PO SCH (08:36)
[2019-09-15] MEDS: MAGNESIUM OXIDE 400 MG TABLET PO SCH ×2 (08:37→18:37)
[2019-09-15] MEDS: POTASSIUM CHLORIDE 8 MEQ TAB.PRT.SR PO SCH (08:37)
[2019-09-15] MEDS: TAMSULOSIN HCL 0.4 MG CAP.SR.24H PO SCH (08:37)
[2019-09-15] MEDS: FUROSEMIDE 20 MG TABLET PO SCH (08:38)
[2019-09-15] MEDS: APIXABAN 5 MG TABLET PO SCH ×2 (08:41→21:09)
[2019-09-15] MEDS: LISINOPRIL 5 MG TABLET PO SCH (08:42)
[2019-09-15] MEDS: METOPROLOL SUCCINATE XL 25 MG TAB.SR.24H PO SCH (08:44)
[2019-09-15 15:51] VITALS: BP 128/56
[2019-09-15] MEDS: METFORMIN HCL 500 MG TABLET PO SCH (18:37)
[2019-09-15] MEDS: QUETIAPINE FUMARATE 25 MG TABLET PO SCH (18:37)
--- NOTE | 2019-09-15 19:30 | NUR ---
Received patient calm and lying in bed. No signs or symptoms of acute distress at this time. Patient is Mosotho speaking only. No signs of SOB or pain at this time. Bed locked and in low position. Bed alarm is on and safety measures initiated. Will continue to monitor.
[2019-09-15 20:00] VITALS: BP 131/70
[2019-09-15] MEDS: risperiDONE 0.5 MG TABLET PO SCH (21:06)
[2019-09-15] MEDS: ATORVASTATIN 20 MG TABLET PO SCH (21:06)
[2019-09-16 04:00] VITALS: BP 128/65
[2019-09-16] MEDS: BLOOD SUGAR DIAGNOSTIC 1 EACH STRIP VI SCH ×4 (06:41→20:14)
[2019-09-16 07:30] VITALS: BP 98/56
[2019-09-16] MEDS: DORZOLAMIDE 2% OPHT DROP 10 ML BOTTLE EACHEYE SCH ×2 (08:23→17:18)
[2019-09-16] MEDS: FLUTICASONE/VILANTEROL 1 EACH BLST.W.DEV INH SCH (08:23)
[2019-09-16] MEDS: MAGNESIUM OXIDE 400 MG TABLET PO SCH ×2 (08:26→17:33)
[2019-09-16] MEDS: TOLTERODINE LA 2 MG CAP.SR.24H PO SCH (08:26)
[2019-09-16] MEDS: FINASTERIDE 5 MG TABLET PO SCH (08:27)
[2019-09-16] MEDS: TAMSULOSIN HCL 0.4 MG CAP.SR.24H PO SCH (08:27)
[2019-09-16] MEDS: SPIRONOLACTONE 25 MG TABLET PO SCH (08:27)
[2019-09-16] MEDS: FUROSEMIDE 20 MG TABLET PO SCH (08:27)
[2019-09-16] MEDS: CLOPIDOGREL 75 MG TABLET PO SCH (08:27)
[2019-09-16] MEDS: LINAGLIPTIN 5 MG TABLET PO SCH (08:27)
[2019-09-16] MEDS: APIXABAN 5 MG TABLET PO SCH ×2 (08:29→20:26)
[2019-09-16] MEDS: POTASSIUM CHLORIDE 8 MEQ TAB.PRT.SR PO SCH (08:41)
[2019-09-16] MEDS: LISINOPRIL 5 MG TABLET PO SCH (08:50)
[2019-09-16] MEDS: METOPROLOL SUCCINATE XL 25 MG TAB.SR.24H PO SCH (08:51)
--- NOTE | 2019-09-16 09:00 | NUR ---
Patient in bed, awake, alert, oriented x 1, Gabonese speaking with little Bengali, not in any form of distress, on room air. No complain of any pain or discomfort at this time. Due medications administered crushed and tolerated well. Call light and frequently used items placed within patient's reach. Safety measures maintained.
--- NOTE | 2019-09-16 15:28 | NUR ---
INTERDISCIPLINARY TEAM CONFERENCE
[2019-09-16 15:52] VITALS: BP 129/55
[2019-09-16] MEDS: METFORMIN HCL 500 MG TABLET PO SCH (17:18)
[2019-09-16] MEDS: QUETIAPINE FUMARATE 25 MG TABLET PO SCH (17:29)
--- NOTE | 2019-09-16 18:30 | NUR ---
Patient remained stable during the shift, participated with PT, OT, ST and tolerated. No noted signs or symptoms of hypo/hyperglycemian and supervised feeding with no signs or symptoms of aspiration. Assisted patient with his needs promptly. Safety measures maintained.
[2019-09-16] MEDS: ATORVASTATIN 20 MG TABLET PO SCH (20:23)
[2019-09-16] MEDS: risperiDONE 0.5 MG TABLET PO SCH (20:23)
[2019-09-16] MEDS: METOPROLOL TARTRATE 25 MG TABLET PO SCH (20:25)
[2019-09-16 21:18] VITALS: BP 128/67
--- NOTE | 2019-09-17 04:26 | NUR ---
Received Patient in bed. AAO x1. No acute distress or SOB was noted. On room air. Patient Only Solomon Islander speaking and cannot communicate in Georgian. 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 No Complain of pain. All due medication given as ordered and well tolerated. Accucheck @2100 BS:118, No need to be covered by insulin. Safety measures maintained, fall prevention observed. Skin assessed. All needs attended promptly. Bed in locked and low position, side rails up x2 for safety, bed alarm on. Call light and frequently using items within reach. Continue to monitor and will endorse to the oncoming nurse accordingly.
[2019-09-17 04:57] VITALS: BP 123/78
[2019-09-17] MEDS: BLOOD SUGAR DIAGNOSTIC 1 EACH STRIP VI SCH (06:55)
[2019-09-17 08:00] VITALS: BP 98/53
[2019-09-17] MEDS: LINAGLIPTIN 5 MG TABLET PO SCH (08:24)
[2019-09-17] MEDS: TAMSULOSIN HCL 0.4 MG CAP.SR.24H PO SCH (08:24)
[2019-09-17] MEDS: FUROSEMIDE 20 MG TABLET PO SCH (08:24)
[2019-09-17] MEDS: SPIRONOLACTONE 25 MG TABLET PO SCH (08:25)
[2019-09-17] MEDS: TOLTERODINE 2 MG TABLET PO SCH ×2 (08:26→17:26)
[2019-09-17] MEDS: METOPROLOL TARTRATE 25 MG TABLET PO SCH ×2 (08:26→20:35)
[2019-09-17] MEDS: MAGNESIUM OXIDE 400 MG TABLET PO SCH ×2 (08:26→17:26)
[2019-09-17] MEDS: FINASTERIDE 5 MG TABLET PO SCH (08:27)
[2019-09-17] MEDS: CLOPIDOGREL 75 MG TABLET PO SCH (08:27)
[2019-09-17] MEDS: LISINOPRIL 5 MG TABLET PO SCH (08:27)
[2019-09-17] MEDS: POTASSIUM CHLORIDE 20 MEQ POWDER PACKET PO SCH (08:28)
[2019-09-17] MEDS: APIXABAN 5 MG TABLET PO SCH ×2 (08:34→20:36)
[2019-09-17] MEDS: DORZOLAMIDE 2% OPHT DROP 10 ML BOTTLE EACHEYE SCH ×2 (08:35→17:25)
[2019-09-17] MEDS: FLUTICASONE/VILANTEROL 1 EACH BLST.W.DEV INH SCH (08:36)
--- NOTE | 2019-09-17 15:00 | NUR ---
Received patient awake in bed. AOx2-3, in stable condition. Lebanese speaking. not in distress. Patient continue therapy for increase strenght, endurance and therapeutic exercises. Patient tolerated well. Patient continue fall risk precaution maintained. Patient discontinue accu check as per MODEL MAKER APPRENTICE Morris ordered. Patient continue PO DM medicines. will continue monitor
[2019-09-17 16:00] VITALS: BP 120/62
[2019-09-17] MEDS: METFORMIN HCL 500 MG TABLET PO SCH (17:25)
[2019-09-17] MEDS: QUETIAPINE FUMARATE 25 MG TABLET PO SCH (17:26)
[2019-09-17 20:00] VITALS: BP 123/53
[2019-09-17] MEDS: risperiDONE 0.5 MG TABLET PO SCH (20:34)
[2019-09-17] MEDS: ATORVASTATIN 20 MG TABLET PO SCH (20:34)
--- NOTE | 2019-09-18 00:37 | NUR ---
Received patient in bed with head of bed elevated, asleep and easily aroused to calling of name. No facial grimacing observed. No respiratory distress. Received all due medications, tolerated well. Aspiration, fall, and safety precautions observed. Will continue to monitor patient. Will continue to attend and anticipate needs.
[2019-09-18 04:00] VITALS: BP 113/55
--- NOTE | 2019-09-18 06:44 | NUR ---
Patient is in bed, with head of bed elevated at 15 degrees. Dutch speaking, Easily aroused from sleep. No facial grimacing observed. Kept patient clean, warm, and dry. All needs attended.
[2019-09-18 08:00] VITALS: BP 104/53
[2019-09-18] MEDS: FINASTERIDE 5 MG TABLET PO SCH (08:34)
[2019-09-18] MEDS: CLOPIDOGREL 75 MG TABLET PO SCH (08:34)
[2019-09-18] MEDS: TAMSULOSIN HCL 0.4 MG CAP.SR.24H PO SCH (08:34)
[2019-09-18] MEDS: LINAGLIPTIN 5 MG TABLET PO SCH (08:34)
[2019-09-18] MEDS: FUROSEMIDE 20 MG TABLET PO SCH (08:34)
[2019-09-18] MEDS: MAGNESIUM OXIDE 400 MG TABLET PO SCH ×2 (08:35→17:02)
[2019-09-18] MEDS: SPIRONOLACTONE 25 MG TABLET PO SCH (08:35)
[2019-09-18] MEDS: TOLTERODINE 2 MG TABLET PO SCH ×2 (08:35→17:00)
[2019-09-18] MEDS: METOPROLOL TARTRATE 25 MG TABLET PO SCH ×2 (08:41→21:28)
[2019-09-18] MEDS: FLUTICASONE/VILANTEROL 1 EACH BLST.W.DEV INH SCH (08:42)
[2019-09-18] MEDS: POTASSIUM CHLORIDE 20 MEQ POWDER PACKET PO SCH (08:42)
[2019-09-18] MEDS: LISINOPRIL 5 MG TABLET PO SCH (08:43)
[2019-09-18] MEDS: DORZOLAMIDE 2% OPHT DROP 10 ML BOTTLE EACHEYE SCH ×2 (08:44→17:02)
[2019-09-18] MEDS: APIXABAN 5 MG TABLET PO SCH ×2 (08:45→21:39)
[2019-09-18 16:11] VITALS: BP 134/75
[2019-09-18] MEDS: QUETIAPINE FUMARATE 25 MG TABLET PO SCH (17:00)
[2019-09-18] MEDS: METFORMIN HCL 500 MG TABLET PO SCH (17:01)
--- NOTE | 2019-09-18 18:29 | NUR ---
no distress noted during shift, patient participated with PT, OT tolerated well, all needs attended timely
[2019-09-18 20:54] VITALS: BP 121/57
[2019-09-18] MEDS: risperiDONE 0.5 MG TABLET PO SCH (21:28)
[2019-09-18] MEDS: ATORVASTATIN 20 MG TABLET PO SCH (21:28)
[2019-09-19 04:50] VITALS: BP 109/74
--- NOTE | 2019-09-19 05:01 | NUR ---
Received patient lying in bed sleeping. No signs or symptoms of distress noted. Vital signs stable. No SOB was noted on room air. Patient is AxOx2-3, Emirati speaking, spoke to patient in Emirati, able to make needs known. Physical assessment done. All due medication administered and tolerated well, crushed with apple sauce.Safety measures maintained, bed locked and lowered, side rails x2, and bed alarm on. Fall prevention maintained. All needs attended to, no sudden changes noted this evening. Continue to monitor and will endorsed to oncoming nurse accordingly.
[2019-09-19] MEDS: TAMSULOSIN HCL 0.4 MG CAP.SR.24H PO SCH (08:09)
[2019-09-19] MEDS: CLOPIDOGREL 75 MG TABLET PO SCH (08:09)
[2019-09-19] MEDS: SPIRONOLACTONE 25 MG TABLET PO SCH (08:09)
[2019-09-19] MEDS: METOPROLOL TARTRATE 25 MG TABLET PO SCH ×2 (08:10→21:21)
[2019-09-19] MEDS: FINASTERIDE 5 MG TABLET PO SCH (08:11)
[2019-09-19] MEDS: LISINOPRIL 5 MG TABLET PO SCH (08:11)
[2019-09-19] MEDS: LINAGLIPTIN 5 MG TABLET PO SCH (08:11)
[2019-09-19] MEDS: MAGNESIUM OXIDE 400 MG TABLET PO SCH ×2 (08:12→16:48)
[2019-09-19] MEDS: TOLTERODINE 2 MG TABLET PO SCH ×2 (08:12→16:47)
[2019-09-19] MEDS: FUROSEMIDE 20 MG TABLET PO SCH (08:12)
[2019-09-19] MEDS: POTASSIUM CHLORIDE 20 MEQ POWDER PACKET PO SCH (08:13)
[2019-09-19] MEDS: DORZOLAMIDE 2% OPHT DROP 10 ML BOTTLE EACHEYE SCH ×2 (08:16→16:47)
[2019-09-19] MEDS: FLUTICASONE/VILANTEROL 1 EACH BLST.W.DEV INH SCH (08:16)
[2019-09-19] MEDS: APIXABAN 5 MG TABLET PO SCH ×2 (08:20→21:25)
[2019-09-19 09:06] VITALS: BP 130/56
--- NOTE | 2019-09-19 11:39 | NUR ---
Received patient awake in bed in stable condition. Patient compliant with medication. Patient participates in therapy for therapeutic exercises and participates in ADL activities. Patient assisted from wheelchair to bed with minimal assist. not in distress. no complaint of pain/discomfort. Continue monitoring in feeding for aspiration precaution. will continue monitor
[2019-09-19 16:04] VITALS: BP 107/53
[2019-09-19] MEDS: METFORMIN HCL 500 MG TABLET PO SCH (16:48)
[2019-09-19] MEDS: QUETIAPINE FUMARATE 25 MG TABLET PO SCH (17:07)
--- NOTE | 2019-09-19 19:45 | NUR ---
In bed, awake, Bermudian speaking, spoke to patient in Bermudian, able to express needs. Axox2-3, needs reorientation. Patient is Calm and cooperative. Watching TV at this time. No s/s of respiratory distress. Denies any pain/discomforts. Safety measures and fall prevention maintained. Continue care as planned.
[2019-09-19 20:20] VITALS: BP 93/29
--- NOTE | 2019-09-19 21:00 | NUR ---
Physical assessment done. All due medication administered and tolerated well, crushed with pudding. Safety measures maintained, bed locked and lowered, side rails x2, and bed alarm on. Fall prevention maintained. All needs attended to, provide pt with snack and tea. Ensured pt is comfortable clean and dry. Continue to monitor thorough the night.
[2019-09-19] MEDS: ATORVASTATIN 20 MG TABLET PO SCH (21:08)
[2019-09-19] MEDS: risperiDONE 0.5 MG TABLET PO SCH (21:21)
--- NOTE | 2019-09-20 06:08 | NUR ---
patient slept well through the night. All needs attended to, kept clean, dry, and comfortable. used the urinal tonight. Snack and tea provided. no s/s of distress noted. Safety measure maintained, no significant event reported tonight. will endorse report to next shift, continue plan of care.
[2019-09-20 06:37] VITALS: BP 101/68
[2019-09-20] MEDS: TOLTERODINE 2 MG TABLET PO SCH ×2 (08:29→16:34)
[2019-09-20] MEDS: POTASSIUM CHLORIDE 20 MEQ POWDER PACKET PO SCH (08:30)
[2019-09-20] MEDS: LISINOPRIL 5 MG TABLET PO SCH (08:30)
[2019-09-20] MEDS: MAGNESIUM OXIDE 400 MG TABLET PO SCH ×2 (08:30→16:34)
[2019-09-20] MEDS: FUROSEMIDE 20 MG TABLET PO SCH (08:30)
[2019-09-20] MEDS: METOPROLOL TARTRATE 25 MG TABLET PO SCH ×2 (08:31→20:30)
[2019-09-20] MEDS: TAMSULOSIN HCL 0.4 MG CAP.SR.24H PO SCH (08:31)
[2019-09-20] MEDS: SPIRONOLACTONE 25 MG TABLET PO SCH (08:31)
[2019-09-20] MEDS: LINAGLIPTIN 5 MG TABLET PO SCH (08:32)
[2019-09-20] MEDS: FINASTERIDE 5 MG TABLET PO SCH (08:32)
[2019-09-20] MEDS: CLOPIDOGREL 75 MG TABLET PO SCH (08:32)
[2019-09-20] MEDS: APIXABAN 5 MG TABLET PO SCH ×2 (08:34→20:28)
[2019-09-20] MEDS: DORZOLAMIDE 2% OPHT DROP 10 ML BOTTLE EACHEYE SCH ×2 (08:42→16:35)
[2019-09-20] MEDS: FLUTICASONE/VILANTEROL 1 EACH BLST.W.DEV INH SCH (08:43)
[2019-09-20 10:56] VITALS: BP 92/64
--- NOTE | 2019-09-20 11:01 | NUR ---
Received patient in bed. Awake and AOX2-3, Patient continue therapy for increase strenght, participation in therapy and therapeutic exercises. Patient continue following by speech therapy, change diet from mechanical soft to thin liquids, dysphagia 2 chop fine. Patient continue assisting with feeding for aspiration precaution. no complaint/signs of pain/discomfort noted. will continue monitor
[2019-09-20] MEDS: METFORMIN HCL 500 MG TABLET PO SCH (16:34)
[2019-09-20] MEDS: QUETIAPINE FUMARATE 25 MG TABLET PO SCH (17:28)
[2019-09-20 20:00] VITALS: BP 138/84
[2019-09-20] MEDS: risperiDONE 0.5 MG TABLET PO SCH (20:30)
[2019-09-20] MEDS: ATORVASTATIN 20 MG TABLET PO SCH (20:30)
--- NOTE | 2019-09-20 21:00 | NUR ---
In bed, sleeping, Sammarinese speaking, spoke to patient in Sammarinese, able to express needs. Axox2-3, needs reorientation. Patient is Calm and cooperative. No s/s of respiratory distress. Denies any pain/discomforts.Physical assessment done. All due medication administered and tolerated well, crushed with pudding. Safety measures maintained, bed locked and lowered, side rails x2, and bed alarm on. Fall prevention maintained. All needs attended to, provide pt with snacks and tea. Ensured pt is comfortable clean and dry. Continue to monitor thorough the night.
[2019-09-21 04:00] VITALS: BP 104/39
--- NOTE | 2019-09-21 06:20 | NUR ---
Patient slept well through the night. All needs attended to, kept clean, dry, and comfortable. Snack and tea provided. no s/s of distress noted. Safety measure maintained, no significant event reported tonight. will endorse report to next shift, continue plan of care.
[2019-09-21 06:57] LABS: BASOPHILS # (AUTO) 0.1 K/uL (0.0-8.0); BASOPHILS % (AUTO) 0.8 % (0.0-2.0); EOSINOPHILS # (AUTO) 0.6 K/uL (0.0-0.7); EOSINOPHILS % (AUTO) 5.9 % (0.0-7.0); HEMATOCRIT 32.1 % (36.7-47.1); HEMOGLOBIN 11.1 g/dL (12.5-16.3); LYMPHOCYTES # (AUTO) 1.7 K/uL (20.0-40.0); LYMPHOCYTES % (AUTO) 18.3 % (20.5-51.5); MEAN CORPUSCULAR HGB CONC 35 g/dL (32.5-36.3); MEAN CORPUSCULAR VOLUME 92.3 fL (73.0-96.2); MONOCYTES # (AUTO) 0.8 K/uL (2.0-10.0); MONOCYTES % (AUTO) 8.6 % (0.0-11.0); NEUTROPHILS # (AUTO) 6.3 K/uL (1.8-8.9); NEUTROPHILS % (AUTO) 66.4 % (38.5-71.5); PLATELET COUNT (AUTO) 292 K/uL (152-348); RED BLOOD CELL COUNT(AUTO) 3.48 MIL/uL (4.06-5.63); WHITE BLOOD COUNT (AUTO) 9.5 K/uL (3.6-10.2)
[2019-09-21 06:59] LABS: BILIRUBIN,TOTAL 0.5 mg/dL (0.2-1.0); MAGNESIUM 2.2 mg/dL (1.8-2.4); PHOSPHOROUS 3.6 mg/dL (2.5-4.9); POTASSIUM 4.4 mmol/L (3.5-5.1); TOTAL PROTEIN, SERUM 6.6 g/dL (6.4-8.2)
[2019-09-21 08:35] VITALS: BP 124/62
[2019-09-21] MEDS: MAGNESIUM OXIDE 400 MG TABLET PO SCH ×2 (08:46→18:08)
[2019-09-21] MEDS: CLOPIDOGREL 75 MG TABLET PO SCH (08:47)
[2019-09-21] MEDS: LISINOPRIL 5 MG TABLET PO SCH (08:47)
[2019-09-21] MEDS: SPIRONOLACTONE 25 MG TABLET PO SCH (08:47)
[2019-09-21] MEDS: FINASTERIDE 5 MG TABLET PO SCH (08:47)
[2019-09-21] MEDS: FUROSEMIDE 20 MG TABLET PO SCH (08:48)
[2019-09-21] MEDS: TAMSULOSIN HCL 0.4 MG CAP.SR.24H PO SCH (08:48)
[2019-09-21] MEDS: LINAGLIPTIN 5 MG TABLET PO SCH (08:48)
[2019-09-21] MEDS: POTASSIUM CHLORIDE 20 MEQ POWDER PACKET PO SCH (08:49)
[2019-09-21] MEDS: METOPROLOL TARTRATE 25 MG TABLET PO SCH ×2 (08:50→20:43)
[2019-09-21] MEDS: APIXABAN 5 MG TABLET PO SCH ×2 (08:52→20:47)
[2019-09-21] MEDS: TOLTERODINE 2 MG TABLET PO SCH ×2 (08:53→18:08)
[2019-09-21] MEDS: DORZOLAMIDE 2% OPHT DROP 10 ML BOTTLE EACHEYE SCH ×2 (08:54→18:13)
[2019-09-21] MEDS: FLUTICASONE/VILANTEROL 1 EACH BLST.W.DEV INH SCH (08:54)
[2019-09-21 16:44] VITALS: BP 130/59
[2019-09-21] MEDS: METFORMIN HCL 500 MG TABLET PO SCH (18:08)
[2019-09-21] MEDS: QUETIAPINE FUMARATE 25 MG TABLET PO SCH (18:11)
--- NOTE | 2019-09-21 19:40 | NUR ---
Sleeping during initial rounds. No s/s of pain or discomforts noted. No s/s of respiratory distress. Safety measures and fall prevention maintained. Continue care as planned.
[2019-09-21 20:00] VITALS: BP 122/55
[2019-09-21] MEDS: risperiDONE 0.5 MG TABLET PO SCH (20:43)
[2019-09-21] MEDS: ATORVASTATIN 20 MG TABLET PO SCH (20:43)
[2019-09-22 04:42] VITALS: BP 119/54
--- NOTE | 2019-09-22 06:20 | NUR ---
Shift End Report: Slept in between care. No complaint presented. Uncooperative with care at times. All needs attended and met. No significant event reported all night. Continue current rehab plan of care.
[2019-09-22 07:30] VITALS: BP 136/61
[2019-09-22] MEDS: POTASSIUM CHLORIDE 20 MEQ POWDER PACKET PO SCH (08:30)
[2019-09-22] MEDS: DORZOLAMIDE 2% OPHT DROP 10 ML BOTTLE EACHEYE SCH ×2 (08:30→16:31)
[2019-09-22] MEDS: CLOPIDOGREL 75 MG TABLET PO SCH (08:31)
[2019-09-22] MEDS: FINASTERIDE 5 MG TABLET PO SCH (08:32)
[2019-09-22] MEDS: METOPROLOL TARTRATE 25 MG TABLET PO SCH (08:32)
[2019-09-22] MEDS: LISINOPRIL 5 MG TABLET PO SCH (08:33)
[2019-09-22] MEDS: LINAGLIPTIN 5 MG TABLET PO SCH (08:33)
[2019-09-22] MEDS: SPIRONOLACTONE 25 MG TABLET PO SCH (08:33)
[2019-09-22] MEDS: TAMSULOSIN HCL 0.4 MG CAP.SR.24H PO SCH (08:33)
[2019-09-22] MEDS: TOLTERODINE 2 MG TABLET PO SCH ×2 (08:33→16:31)
[2019-09-22] MEDS: FUROSEMIDE 20 MG TABLET PO SCH (08:33)
[2019-09-22] MEDS: MAGNESIUM OXIDE 400 MG TABLET PO SCH ×2 (08:33→16:31)
[2019-09-22] MEDS: FLUTICASONE/VILANTEROL 1 EACH BLST.W.DEV INH SCH (08:34)
[2019-09-22] MEDS: APIXABAN 5 MG TABLET PO SCH (08:35)
--- NOTE | 2019-09-22 09:00 | NUR ---
Patient in bed awake, not in any distress, on room air. Due medications administered and tolerated well. No complain of any pain or discomfort at this time. Assisted with his feeding. Call light placed within patient's reach. Safety measures maintained.
--- NOTE | 2019-09-22 14:35 | NUR ---
Discharge order to home with home health received from Dr. Albrecht.
[2019-09-22 16:12] VITALS: BP 94/48
[2019-09-22] MEDS: METFORMIN HCL 500 MG TABLET PO SCH (16:31)
--- NOTE | 2019-09-22 17:20 | NUR ---
Patient remains alert, oriented to self, not in any form of distress on room air. He denies any pain or discomfort. Discharge instructions provided to granddaughter Alanna. Assisted patient safely to the lobby by MATHEW. Discharged patient to home picked up by Alanna via private car.
== END 2019-09-22 17:15 | disposition home health service (06) | DRG 291 ==
PROVIDERS: ADMIT Physical Medicine & Rehabilitation Pain Medicine; ATTEND Physical Medicine & Rehabilitation Pain Medicine
DX: I11.0 Hypertensive heart disease with heart failure (principal); N17.0 Acute kidney failure with tubular necrosis; I48.92 Unspecified atrial flutter; D68.59 Other primary thrombophilia; I44.2 Atrioventricular block, complete; N13.6 Pyonephrosis; N13.8 Other obstructive and reflux uropathy; I50.43 Acute on chronic combined systolic (congestive) and diastolic (congestive) heart failure; E11.9 Type 2 diabetes mellitus without complications; E78.5 Hyperlipidemia, unspecified; F39 Unspecified mood [affective] disorder; I25.10 Atherosclerotic heart disease of native coronary artery without angina pectoris; I48.0 Paroxysmal atrial fibrillation; J44.9 Chronic obstructive pulmonary disease, unspecified; K21.9 Gastro-esophageal reflux disease without esophagitis; N40.1 Benign prostatic hyperplasia with lower urinary tract symptoms; Z95.0 Presence of cardiac pacemaker; I42.9 Cardiomyopathy, unspecified; R53.1 Weakness; Z87.440 Personal history of urinary (tract) infections; D64.9 Anemia, unspecified; E11.51 Type 2 diabetes mellitus with diabetic peripheral angiopathy without gangrene; F01.50 Vascular dementia, unspecified severity, without behavioral disturbance, psychotic disturbance, mood disturbance, and anxiety; H40.9 Unspecified glaucoma; M19.90 Unspecified osteoarthritis, unspecified site; M85.80 Other specified disorders of bone density and structure, unspecified site; Z87.891 Personal history of nicotine dependence; H54.8 Legal blindness, as defined in USA; J45.909 Unspecified asthma, uncomplicated
CPT/HCPCS: 36415; 83735; 84100; 85025; C1758; J1815

== ENCOUNTER 2019-11-30 18:40 | Inpatient (IN) | payer MEDICARE, OTHER ==
[~2019-11-30] VITALS: Ht 167.6 cm; Wt 64.6 kg
[~2019-11-30 18:40] MED LIST changes: -FURO-151 PO; +FURO-152 PO
[2019-11-30] MEDS ORDERED: OMEG1CAP55 PO (19:13)
[2019-11-30] MEDS ORDERED: ERGO2500 PO (19:13)
--- NOTE | 2019-11-30 19:15 | NUR ---
PATIENT WAS SEEN BY . PLACED ON AM ONITOR. OXYGEN PLACED VIA N/C. IV PLACED, LABS DRAWN. HAND OFF REPORT GIVEN TO BALWINDER FOSTER
[2019-11-30 19:26] LABS: BASOPHILS # (AUTO) 0.1 K/uL (0.0-8.0); BASOPHILS % (AUTO) 1.2 % (0.0-2.0); EOSINOPHILS # (AUTO) 0.5 K/uL (0.0-0.7); EOSINOPHILS % (AUTO) 4.9 % (0.0-7.0); HEMATOCRIT 35.7 % (36.7-47.1); HEMOGLOBIN 12.1 g/dL (12.5-16.3); LYMPHOCYTES # (AUTO) 2.2 K/uL (20.0-40.0); LYMPHOCYTES % (AUTO) 21.8 % (20.5-51.5); MEAN CORPUSCULAR HEMOGLOBIN 31.1 uug (23.8-33.4); MEAN CORPUSCULAR HGB CONC 34 g/dL (32.5-36.3); MONOCYTES % (AUTO) 10.1 % (0.0-11.0); NEUTROPHILS # (AUTO) 6.1 K/uL (1.8-8.9); PLATELET COUNT (AUTO) 328 K/uL (152-348); RED BLOOD CELL COUNT(AUTO) 3.89 MIL/uL (4.06-5.63); WHITE BLOOD COUNT (AUTO) 9.9 K/uL (3.6-10.2)
[2019-11-30 19:30] LABS: CREATININE 1.2 mg/dL (0.6-1.3); POTASSIUM 4.1 mmol/L (3.5-5.1)
[2019-11-30] MEDS ORDERED: FUROSEMIDE 40 MG/4 ML VIAL IV ONE (20:00)
[2019-11-30] MEDS ORDERED: FUROSEMIDE 40 MG/4 ML VIAL ONE (20:17)
--- NOTE | 2019-11-30 20:18 | NUR ---
Pt. admitted to Telemetry, under care of Samia Aguilar NP. Diagnosis: Congestive Heart Failure Belongs List completed
[2019-11-30] MEDS ORDERED: CLONIDINE HCL 0.1 MG TABLET PO PRN (20:30)
--- NOTE | 2019-11-30 21:00 | NUR ---
Patient arrived to the unit via gurney. No s/s of acute distress noted at this time. Pt on 2L NC and does not appear to be SOB. playground monitor on. R hand IV patent and intact. Bed locked and low with alarm on. Safety measures in place and will continue to monitor.
[2019-11-30 21:30] VITALS: BP 140/70
[2019-11-30] MEDS: AZITHROMYCIN 250 MG TABLET PO SCH (22:36)
[2019-11-30] MEDS: ATORVASTATIN 20 MG TABLET PO SCH (22:36)
[2019-11-30] MEDS: ENOXAPARIN SODIUM 40 MG/0.4 ML DISP.SYRIN SQ SCH (22:38)
[2019-12-01 04:30] VITALS: BP 109/60
[2019-12-01] MEDS: PANTOPRAZOLE SODIUM 40 MG TABLET.DR PO SCH (06:18)
[2019-12-01 06:45] LABS: BASOPHILS # (AUTO) 0.1 K/uL (0.0-8.0); BASOPHILS % (AUTO) 0.9 % (0.0-2.0); EOSINOPHILS # (AUTO) 0.6 K/uL (0.0-0.7); EOSINOPHILS % (AUTO) 5.8 % (0.0-7.0); HEMATOCRIT 37.4 % (36.7-47.1); HEMOGLOBIN 12.6 g/dL (12.5-16.3); LYMPHOCYTES # (AUTO) 1.9 K/uL (20.0-40.0); LYMPHOCYTES % (AUTO) 18.8 % (20.5-51.5); MEAN CORPUSCULAR HEMOGLOBIN 30.9 uug (23.8-33.4); MEAN CORPUSCULAR HGB CONC 34 g/dL (32.5-36.3); MEAN CORPUSCULAR VOLUME 91.2 fL (73.0-96.2); MONOCYTES % (AUTO) 10.3 % (0.0-11.0); NEUTROPHILS # (AUTO) 6.4 K/uL (1.8-8.9); NEUTROPHILS % (AUTO) 64.2 % (38.5-71.5); PLATELET COUNT (AUTO) 315 K/uL (152-348); WHITE BLOOD COUNT (AUTO) 9.9 K/uL (3.6-10.2)
[2019-12-01 06:47] LABS: CREATININE 1.3 mg/dL (0.6-1.3); POTASSIUM 3.5 mmol/L (3.5-5.1)
[2019-12-01 06:53] LABS: BILIRUBIN,TOTAL 0.9 mg/dL (0.2-1.0); MAGNESIUM 1.9 mg/dL (1.8-2.4); TOTAL PROTEIN, SERUM 7.2 g/dL (6.4-8.2)
[2019-12-01 06:54] LABS: *BILIRUBIN,URIN NEGATIVE (NEGATIVE); *BLOOD, URINE NEGATIVE (NEGATIVE); *CLARITY,URINE CLEAR (CLEAR); *COLOR,URINE YELLOW (YELLOW); *KETONES,URINE NEGATIVE (NEGATIVE); *UROBILINOGEN,URINE 0.2 E.U./dl (NORMAL); LEUKOCYTE ESTERASE ,URINE TRACE (NEGATIVE); NITRITE, URINE NEGATIVE (NEGATIVE); UGLUCOSE NEGATIVE (NEGATIVE)
[2019-12-01 07:01] LABS: THYROID STIMULATING HORMONE 2.453 mIU/mL (0.358-3.740)
--- NOTE | 2019-12-01 08:00 | NUR ---
received patient in bed awake, fijian Speaking. On Oxygen at 2L via Nasal canula, sat 96%. No signs of pain or discomfort. Afebrile. kept clean and comfortable. Will continue to monitor.
[2019-12-01] MEDS: TOPIRAMATE 25 MG TABLET PO SCH (08:02)
[2019-12-01] MEDS: LINAGLIPTIN 5 MG TABLET PO SCH (08:02)
[2019-12-01] MEDS: POTASSIUM CHLORIDE 8 MEQ TAB.PRT.SR PO SCH (08:02)
[2019-12-01] MEDS: TAMSULOSIN HCL 0.4 MG CAP.SR.24H PO SCH (08:02)
[2019-12-01] MEDS: FINASTERIDE 5 MG TABLET PO SCH (08:02)
[2019-12-01] MEDS: OMEGA-3 FATTY ACIDS/FISH OIL CAPSULE PO SCH ×3 (08:02→16:41)
[2019-12-01] MEDS: FUROSEMIDE 40 MG/4 ML VIAL IVP SCH ×2 (08:02→16:41)
[2019-12-01] MEDS: SPIRONOLACTONE 25 MG TABLET PO SCH (08:02)
[2019-12-01] MEDS: TOLTERODINE LA 2 MG CAP.SR.24H PO SCH (08:02)
[2019-12-01] MEDS ORDERED: FLUTICASONE/SALMETEROL 250/50 INHALER IH SCH (09:00)
[2019-12-01] MEDS ORDERED: CLOPIDOGREL 75 MG TABLET PO SCH (09:00)
[2019-12-01] MEDS: DORZOLAMIDE 2% OPHT DROP 10 ML BOTTLE EACHEYE SCH ×2 (10:12→16:45)
[2019-12-01] MEDS: FLUTICASONE/VILANTEROL 1 EACH BLST.W.DEV INH SCH (10:13)
[2019-12-01] MEDS: APIXABAN 2.5 MG TABLET PO SCH ×2 (10:17→16:45)
[2019-12-01 11:33] LABS: RBC,URINE 0-3 /HPF (0-3); WBC,URINE 0-3 /HPF (0-3)
[2019-12-01 11:34] LABS: BACTERIA,URINE FEW /HPF (NONE SEEN); SQUAMOUS EPITHELIAL CELL,UR FEW /HPF (NONE SEEN)
[2019-12-01 11:55] VITALS: BP 121/55
--- NOTE | 2019-12-01 14:17 | NUR ---
Wastewater Process Engineer Consultation: Wastewater Process Engineer consultation requested to explore family care at home. Patient is an 84 year old male. Patient is Vincentian speaking and a poor historian, and therefore SW is unable to gather information from the patient. SW called patient's granddaughter, Alanna, , who is listed on the face sheet as person to notify. Alanna was available and receptive to speaking with this SW. Alanna stated that patient lives at home with his . Patient has an [facility] caregiver who has the maximum amount of hours from [facility], and provides care to the patient on a daily basis. Patient's daughter (Alanna's mother) also provides daily care. Patient has a hospital bed, a wheelchair, a FWW, and an oxygen tank at home. Patient requires assistance with all ADL's and IADL's, and is able to ambulate with a FWW, with assistance. Family also assists patient with medication management and is in frequent contact with patient's PCP, Dr. Naveed Roberson, . Discharge plans discussed, and Alanna stated that the plan is for the patient to return home. Alanna asked for an update on patient's condition, and NATI referred Alanna to patient's nurse Martha, providing Alanna with the phone number to the nurses's station, . At this time, no further SS interventions are needed, however SW will continue to remain available, as needed.
--- NOTE | 2019-12-01 14:35 | NUR ---
Patient's granddaughter Alanna requested to speak with patient's physician regarding cardiac medications. SW notified Dr. Harvey, who stated that he would follow-up with the patient's family.
[2019-12-01 16:00] VITALS: BP 141/68
[2019-12-01] MEDS: QUETIAPINE FUMARATE 25 MG TABLET PO SCH (17:21)
--- NOTE | 2019-12-01 18:09 | NUR ---
Patient in bed, awake and responsive. On Oxygen at 2L via nasal canula, sat 96%. No complain of discomfort. Afebrile. kept clean and comfortable. Kept the call light within easy reach. Will endorse to Oncoming Nurse.
[2019-12-01 20:08] VITALS: BP 115/54
--- NOTE | 2019-12-01 20:45 | NUR ---
Dr Harvey here, seen and assessed patient with new order noted.
[2019-12-01] MEDS: ATORVASTATIN 20 MG TABLET PO SCH (20:57)
[2019-12-01] MEDS: ENOXAPARIN SODIUM 40 MG/0.4 ML DISP.SYRIN SQ SCH (20:59)
[2019-12-01] MEDS: AZITHROMYCIN 250 MG TABLET PO SCH (21:59)
[2019-12-02 00:09] VITALS: BP 132/74
[2019-12-02 04:06] VITALS: BP 131/68
[2019-12-02] MEDS: PANTOPRAZOLE SODIUM 40 MG TABLET.DR PO SCH (06:26)
--- NOTE | 2019-12-02 07:50 | NUR ---
Patient in bed, awake, Northern Irish speaking. On Oxygen at 2L via nasal canula, sat 96%. afebrile. No signs of distress noted. No SOB. No complain of Pain or discomfort. kept the bed in lowest position. Kept the call light within easy reach. Will continue to monitor.
[2019-12-02 07:51] LABS: BASOPHILS # (AUTO) 0.1 K/uL (0.0-8.0); BASOPHILS % (AUTO) 0.7 % (0.0-2.0); EOSINOPHILS # (AUTO) 0.5 K/uL (0.0-0.7); HEMATOCRIT 36.2 % (36.7-47.1); HEMOGLOBIN 12.6 g/dL (12.5-16.3); LYMPHOCYTES # (AUTO) 1.7 K/uL (20.0-40.0); LYMPHOCYTES % (AUTO) 16.7 % (20.5-51.5); MEAN CORPUSCULAR HEMOGLOBIN 31.4 uug (23.8-33.4); MEAN CORPUSCULAR HGB CONC 35 g/dL (32.5-36.3); MEAN CORPUSCULAR VOLUME 90.3 fL (73.0-96.2); MONOCYTES % (AUTO) 9.8 % (0.0-11.0); NEUTROPHILS # (AUTO) 6.9 K/uL (1.8-8.9); NEUTROPHILS % (AUTO) 67.8 % (38.5-71.5); PLATELET COUNT (AUTO) 306 K/uL (152-348); RED BLOOD CELL COUNT(AUTO) 4.01 MIL/uL (4.06-5.63); WHITE BLOOD COUNT (AUTO) 10.2 K/uL (3.6-10.2)
[2019-12-02 08:00] LABS: CREATININE 1.3 mg/dL (0.6-1.3); PHOSPHOROUS 4.2 mg/dL (2.5-4.9); POTASSIUM 3.2 mmol/L (3.5-5.1)
[2019-12-02] MEDS: DORZOLAMIDE 2% OPHT DROP 10 ML BOTTLE EACHEYE SCH ×2 (08:15→16:21)
[2019-12-02] MEDS: LINAGLIPTIN 5 MG TABLET PO SCH (08:15)
[2019-12-02] MEDS: POTASSIUM CHLORIDE 8 MEQ TAB.PRT.SR PO SCH (08:16)
[2019-12-02] MEDS: TOLTERODINE LA 2 MG CAP.SR.24H PO SCH (08:16)
[2019-12-02] MEDS: FLUTICASONE/VILANTEROL 1 EACH BLST.W.DEV INH SCH (08:16)
[2019-12-02] MEDS: OMEGA-3 FATTY ACIDS/FISH OIL CAPSULE PO SCH ×3 (08:16→16:22)
[2019-12-02] MEDS: TOPIRAMATE 25 MG TABLET PO SCH (08:16)
[2019-12-02] MEDS: FINASTERIDE 5 MG TABLET PO SCH (08:16)
[2019-12-02] MEDS: SPIRONOLACTONE 25 MG TABLET PO SCH (08:16)
[2019-12-02] MEDS: TAMSULOSIN HCL 0.4 MG CAP.SR.24H PO SCH (08:17)
[2019-12-02] MEDS: APIXABAN 2.5 MG TABLET PO SCH ×2 (08:18→16:23)
[2019-12-02] MEDS ORDERED: POTASSIUM CHLORIDE 20 MEQ POWDER PACKET PO ONE (08:45)
[2019-12-02] MEDS ORDERED: METOPROLOL SUCCINATE XL 25 MG TAB.SR.24H PO SCH (09:00)
[2019-12-02] MEDS ORDERED: FUROSEMIDE 40 MG TABLET PO SCH (09:00)
--- NOTE | 2019-12-02 09:30 | NUR ---
Seen and examined by Dr. Harvey with New Order of KCL 40meq for potassium of 3.2.
[2019-12-02 12:00] VITALS: BP 111/50
[2019-12-02] MEDS ORDERED: AZIT250T13 PO (13:01)
[2019-12-02] MEDS ORDERED: FURO40TA5 PO (13:02)
[2019-12-02] MEDS ORDERED: SPIR25TA PO (13:02)
--- NOTE | 2019-12-02 14:33 | NUR ---
Patient with Order to be discharge to ARU today.
[2019-12-02 15:41] VITALS: BP 134/68
[2019-12-02] MEDS: QUETIAPINE FUMARATE 25 MG TABLET PO SCH (17:05)
--- NOTE | 2019-12-02 17:33 | NUR ---
Patient in bed, awake and verbally responsive. On Oxygen at 2L via nasal canula, sat 96%. No complain of pain or discomfort. Patient with Order to be discharge to ARU. Discharge Instructions given to patient. removed potline monitor. Gave report to Franny.
== END 2019-12-02 18:04 | DRG 291 ==
LOC: ER 18:40 → TELE3 21:16
PROVIDERS: ADMIT Registered Nurse; ATTEND Registered Nurse
DX: I13.0 Hypertensive heart and chronic kidney disease with heart failure and stage 1 through stage 4 chronic kidney disease, or unspecified chronic kidney disease (principal); I50.23 Acute on chronic systolic (congestive) heart failure; N17.0 Acute kidney failure with tubular necrosis; N39.0 Urinary tract infection, site not specified; I48.92 Unspecified atrial flutter; I25.10 Atherosclerotic heart disease of native coronary artery without angina pectoris; Z91.14 Patient's other noncompliance with medication regimen; Z95.0 Presence of cardiac pacemaker; N18.9 Chronic kidney disease, unspecified; E78.5 Hyperlipidemia, unspecified; E87.6 Hypokalemia; K21.9 Gastro-esophageal reflux disease without esophagitis; J44.9 Chronic obstructive pulmonary disease, unspecified; Z79.01 Long term (current) use of anticoagulants; I42.9 Cardiomyopathy, unspecified; I48.0 Paroxysmal atrial fibrillation; F32.9 Major depressive disorder, single episode, unspecified; E11.22 Type 2 diabetes mellitus with diabetic chronic kidney disease; Z87.891 Personal history of nicotine dependence; Z79.84 Long term (current) use of oral hypoglycemic drugs; N40.0 Benign prostatic hyperplasia without lower urinary tract symptoms; F41.9 Anxiety disorder, unspecified; F03.90 Unspecified dementia, unspecified severity, without behavioral disturbance, psychotic disturbance, mood disturbance, and anxiety; H54.62 Unqualified visual loss, left eye, normal vision right eye; E11.51 Type 2 diabetes mellitus with diabetic peripheral angiopathy without gangrene; Z95.820 Peripheral vascular angioplasty status with implants and grafts; H40.9 Unspecified glaucoma; I95.9 Hypotension, unspecified
CPT/HCPCS: 36415; 70030-TC; 71045; 83735; 84100; 84443; 85025; 85730; 93005; A4663; G0378; J1650; J1940; Q0144

== ENCOUNTER 2020-07-23 22:07 | Inpatient (IN) | payer MEDICARE, OTHER ==
[~2020-07-23] VITALS: Ht 172.7 cm; Wt 68.1 kg
[~2020-07-23 22:07] MED LIST changes: -ALBU8.5H8 INH; -AMLO10TA7 PO; +AZIT250T13 PO; -BIMA2.5D5 EACHEYE; -CLOP75TA33 PO; -DILT-3 PO; +ERGO2500 PO; -FURO-152 PO; +FURO40TA5 PO; -LISI2.5T2 PO; -MAGN400T8 PO; -METF-442 PO; -NITR0.4T48 SL; +OMEG1CAP55 PO; -RISP0.5T20 PO; +RISP0.5T65 PO; +SPIR25TA PO; -SPIR25TA6 PO
[2020-07-23] MEDS ORDERED: METF-440 PO (23:37)
[2020-07-24 00:35] LABS: BASOPHILS # (AUTO) 0.1 K/uL (0.0-8.0); BASOPHILS % (AUTO) 0.9 % (0.0-2.0); EOSINOPHILS # (AUTO) 0.6 K/uL (0.0-0.7); EOSINOPHILS % (AUTO) 6.9 % (0.0-7.0); HEMATOCRIT 37.1 % (36.7-47.1); HEMOGLOBIN 12.3 g/dL (12.5-16.3); LYMPHOCYTES % (AUTO) 23.6 % (20.5-51.5); MEAN CORPUSCULAR HEMOGLOBIN 30.5 uug (23.8-33.4); MEAN CORPUSCULAR HGB CONC 33 g/dL (32.5-36.3); MEAN CORPUSCULAR VOLUME 92.1 fL (73.0-96.2); MONOCYTES # (AUTO) 0.9 K/uL (2.0-10.0); MONOCYTES % (AUTO) 10.5 % (0.0-11.0); NEUTROPHILS # (AUTO) 4.9 K/uL (1.8-8.9); NEUTROPHILS % (AUTO) 58.1 % (38.5-71.5); PLATELET COUNT (AUTO) 288 K/uL (152-348); RED BLOOD CELL COUNT(AUTO) 4.03 MIL/uL (4.06-5.63); WHITE BLOOD COUNT (AUTO) 8.4 K/uL (3.6-10.2)
[2020-07-24 00:38] LABS: CREATININE 1.1 mg/dL (0.6-1.3); POTASSIUM 4.3 mmol/L (3.5-5.1)
[2020-07-24 00:46] LABS: ABG BASE EXCESS 1.5 mmol/L; ABG HCO3 25.8 mmol/L; ABG PCO2 39.8 mmHg (35.0-45.0); ABG PO2 72.1 mmHg (75.0-100.0); ABG SITE RIGHT RADIAL; ABG TOTAL HEMOGLOBIN 12.6 G/dL (13.5-18.0); COHb 1.5 % (0.5-1.5); MetHb 0.1 % (0.0-1.5); O2Hb 92.6 % (94.0-97.0); VENT MODE room air
[2020-07-24 00:51] LABS: BILIRUBIN,DIRECT 0.2 mg/dL (0.0-0.2); BILIRUBIN,TOTAL 0.8 mg/dL (0.2-1.0); TOTAL PROTEIN, SERUM 7.5 g/dL (6.4-8.2)
--- NOTE | 2020-07-24 04:48 | NUR ---
CL called for patient, MD Poe paged.
--- NOTE | 2020-07-24 05:28 | NUR ---
Pinky buenrostro in ED - 07/24/20 at 0537 by COLLINS Called for a room, unable to obtain one at this time as medical/surgical floor is maxed out on ratio with the nurses per KRISTIN Nolasco.
--- NOTE | 2020-07-24 05:30 | NUR ---
Called for a room, unable to transfer patient to one at this time as medical/surgical floor is maxed out on ratio with the nurses per KRISTIN Nolasco.
--- NOTE | 2020-07-24 05:37 | NUR ---
Patient will be going to telemetry room 305.
[2020-07-24] MEDS ORDERED: HYDROCODONE/APAP 5-325MG TABLET PO PRN (06:00)
[2020-07-24] MEDS ORDERED: ONDANSETRON 4 MG/2 ML VIAL IV PRN (06:00)
--- NOTE | 2020-07-24 06:13 | NUR ---
Patient is resting on bed, no acute distress noted.
--- NOTE | 2020-07-24 07:42 | NUR ---
Called 3rd floor to give report, shift change report still ongoing. Assigned RN will call me back.
--- NOTE | 2020-07-24 08:06 | NUR ---
Report given to Berkley FOSTER
--- NOTE | 2020-07-24 08:10 | NUR ---
Pt refused to have a HL.
--- NOTE | 2020-07-24 08:14 | NUR ---
RN Childcare Worker notified of patient being a hardstick and refusing any further PIV attempt. Midline order placed.
--- NOTE | 2020-07-24 08:45 | NUR ---
Patient received from ER. Alert and oriented to name, confused. On room air. In no acute distress. Belongings checked and inventoried by tool profiling machine set up operator. Noted with good appetite. Assisted to the bathrrom. No facial grimacing noted. bed low and locked. Call light in reach. Kept comfortable.
[2020-07-24] MEDS ORDERED: FLUTICASONE/SALMETEROL 250/50 INHALER IH SCH (09:00)
[2020-07-24 09:11] VITALS: BP 135/70
[2020-07-24] MEDS: METOPROLOL SUCCINATE XL 25 MG TAB.SR.24H PO SCH (09:54)
[2020-07-24] MEDS: FINASTERIDE 5 MG TABLET PO SCH (09:54)
[2020-07-24] MEDS: TOLTERODINE LA 2 MG CAP.SR.24H PO SCH (09:54)
[2020-07-24] MEDS: TOPIRAMATE 25 MG TABLET PO SCH (09:54)
[2020-07-24] MEDS: FUROSEMIDE 20 MG/2 ML VIAL IV SCH ×2 (09:54→16:12)
[2020-07-24] MEDS: APIXABAN 5 MG TABLET PO SCH ×2 (10:01→16:12)
[2020-07-24] MEDS: FLUTICASONE/VILANTEROL 1 EACH BLST.W.DEV INH SCH (10:07)
[2020-07-24] MEDS: DORZOLAMIDE 2% OPHT DROP 10 ML BOTTLE EACHEYE SCH ×2 (10:07→16:12)
--- NOTE | 2020-07-24 10:12 | NUR ---
Patient is confused and keeps getting up from the bed. Bed at lowest position. Call light in reach. Reoriented patient.
--- NOTE | 2020-07-24 10:17 | NUR ---
Patient keep removing telemetry box, clothes and IV line.
--- NOTE | 2020-07-24 10:30 | NUR ---
Patient refused to put personnel monitor on. Dr. Poe is aware.
[2020-07-24] MEDS ORDERED: HALOPERIDOL LACTATE 5 MG/1 ML VIAL IM PRN (11:00)
[2020-07-24 12:03] VITALS: BP 162/61
[2020-07-24] MEDS: PANTOPRAZOLE SODIUM 40 MG TABLET.DR PO SCH (12:10)
--- NOTE | 2020-07-24 12:47 | NUR ---
Granddaughter Danielle called and updated regarding patient's condition. No complaints.
--- NOTE | 2020-07-24 14:15 | NUR ---
Patient pulled out IV line
[2020-07-24 15:55] VITALS: BP 151/86
--- NOTE | 2020-07-24 16:00 | NUR ---
Able to reinsert PIV on right hand 22g good backflow noted.
[2020-07-24] MEDS: QUETIAPINE FUMARATE 25 MG TABLET PO SCH (17:04)
--- NOTE | 2020-07-24 19:00 | NUR ---
PATIENT AWAKE BUT WITH CONFUSION, YELLS AND SCREAMS, MULTIPLE ATTEMPTS TO PULL IV LINES, PATIENT UNABLE TO FOLLOW DIRECTIONS, DUE MENTAL HEALTH CONDITION, PATIENT AT RISK OF FALL, PATIENT WAS SEATED A RECLINING CHAIR, FREQUENT VISUAL CHECK DONE, CONT TO MONITOR.
--- NOTE | 2020-07-24 19:24 | NUR ---
Patient alert and oriented to name, confused. Still refused to put nightgown and monitor technician. In no acute distress. On room air. No facial grimacing noted. Due meds given and tolerated. Kept comfortable. Safety maintained. Endorsed for continuity of care.
[2020-07-24] MEDS: TAMSULOSIN HCL 0.4 MG CAP.SR.24H PO SCH (20:02)
[2020-07-24] MEDS: risperiDONE 0.5 MG TABLET PO SCH (20:02)
[2020-07-24] MEDS: ACETAMINOPHEN 325 MG TABLET PO PRN (20:02)
[2020-07-24] MEDS: DOCUSATE SODIUM 100 MG CAPSULE PO SCH (20:02)
[2020-07-24 20:04] VITALS: BP 155/48
--- NOTE | 2020-07-24 22:28 | NUR ---
PATIENT SEVERELY AGITATED, RESISTIVE WITH CARE, UNABLE TO PUT MIDLINE, CLIMBS OUT OF BED, OFFER FOOD AND TOILETING, BUT REFUSED. PATIENT UN REDIRECTABLE, HALDOL 3MG IM GIVEN ORDERED, MEDICATION WITH SOME HELP. MIDLINE WAS INSERTED BY PICC LINE STAFF TOLERATE WELL. CONT TO MONITOR.
[2020-07-25 00:21] VITALS: BP 100/38
[2020-07-25 04:35] VITALS: BP 122/43
--- NOTE | 2020-07-25 05:04 | NUR ---
PATIENT SLEEP INTERMITTENTLY, NO S/S OF SOB NO S/S OF CHEST PAIN, TELE MONITOR SINUS RHYTHM, PATIENT HAS MULTIPLE ATTEMPTS OF CLIMBING OUT OF BED, UNABLE TO FOLLOW INSTRUCTIONS NOT TO CLIMB OUT OF BED, PATIENT WAS KEPT CLEAN AND DRY, GIVEN FOOD AND WATER. PATIENT KEPT ON RECLINING CHAIR FOR SAFETY. PATIENT WAS MONITORED CLOSELY, FREQUENT VISUAL CHECK. CONT TO MONITOR.
[2020-07-25] MEDS: PANTOPRAZOLE SODIUM 40 MG TABLET.DR PO SCH (06:10)
[2020-07-25 06:43] LABS: BASOPHILS # (AUTO) 0.1 K/uL (0.0-8.0); BASOPHILS % (AUTO) 0.6 % (0.0-2.0); EOSINOPHILS # (AUTO) 0.3 K/uL (0.0-0.7); EOSINOPHILS % (AUTO) 3.5 % (0.0-7.0); HEMOGLOBIN 12.4 g/dL (12.5-16.3); LYMPHOCYTES # (AUTO) 1.3 K/uL (20.0-40.0); LYMPHOCYTES % (AUTO) 13.8 % (20.5-51.5); MEAN CORPUSCULAR HEMOGLOBIN 30.8 uug (23.8-33.4); MEAN CORPUSCULAR HGB CONC 33 g/dL (32.5-36.3); MEAN CORPUSCULAR VOLUME 92.1 fL (73.0-96.2); MONOCYTES # (AUTO) 0.8 K/uL (2.0-10.0); MONOCYTES % (AUTO) 8.5 % (0.0-11.0); NEUTROPHILS # (AUTO) 6.9 K/uL (1.8-8.9); NEUTROPHILS % (AUTO) 73.6 % (38.5-71.5); PLATELET COUNT (AUTO) 271 K/uL (152-348); RED BLOOD CELL COUNT(AUTO) 4.02 MIL/uL (4.06-5.63); WHITE BLOOD COUNT (AUTO) 9.4 K/uL (3.6-10.2)
[2020-07-25 07:04] LABS: ALANINE AMINOTRANSFERASE 11 U/L (16-63); ALKALINE PHOSPHATASE 82 U/L (50-136); ASPARTATE AMINOTRANSFERASE 23 U/L (15-37); BILIRUBIN,TOTAL 1.1 mg/dL (0.2-1.0); CARBON DIOXIDE 28 mmol/L (21-32); CHLORIDE 102 mmol/L (98-107); CHOLESTEROL 141 mg/dL (<200); CREATININE 1.4 mg/dL (0.6-1.3); GLUCOSE 114 mg/dL (74-106); HDL CHOLESTEROL 43 mg/dL (40-60); MAGNESIUM 2.2 mg/dL (1.8-2.4); POTASSIUM 3.1 mmol/L (3.5-5.1); TOTAL PROTEIN, SERUM 7.5 g/dL (6.4-8.2); TRIGLYCERIDES 99 MG/DL (30-150); UREA NITROGEN, BLOOD 25 mg/dL (7-18)
[2020-07-25 07:14] LABS: THYROID STIMULATING HORMONE 4.667 mIU/mL (0.358-3.740)
--- NOTE | 2020-07-25 07:30 | NUR ---
PATIENT RECEIVED ON RECLINING CHAIR AWAKE AND CONFUSED. UNABLE TO BE REDIRECTED. ON ROOM AIR. IN NO ACUTE DISTRESS. PATIENT REFUSED HOSPITAL G[facility], PREFERS HIS OWN CLOTHES. WILL CONTINUE TO MONITOR.
[2020-07-25 08:00] VITALS: BP 106/37
[2020-07-25] MEDS: FUROSEMIDE 20 MG/2 ML VIAL IV SCH (08:53)
[2020-07-25] MEDS: DORZOLAMIDE 2% OPHT DROP 10 ML BOTTLE EACHEYE SCH ×2 (08:56→16:31)
[2020-07-25] MEDS: FLUTICASONE/VILANTEROL 1 EACH BLST.W.DEV INH SCH (08:56)
[2020-07-25] MEDS: TOLTERODINE LA 2 MG CAP.SR.24H PO SCH (08:56)
[2020-07-25] MEDS: APIXABAN 5 MG TABLET PO SCH ×2 (08:58→16:30)
[2020-07-25] MEDS: TOPIRAMATE 25 MG TABLET PO SCH (08:58)
[2020-07-25] MEDS: FINASTERIDE 5 MG TABLET PO SCH (08:58)
[2020-07-25] MEDS: METOPROLOL SUCCINATE XL 25 MG TAB.SR.24H PO SCH (08:59)
[2020-07-25] MEDS ORDERED: POTASSIUM CHLORIDE 20 MEQ TAB.PRT.SR PO ONE (09:30)
--- NOTE | 2020-07-25 13:39 | NUR ---
Patient with episodes of confusion of agitation but able to redirect. In no acute distress. Kept comfortable in the reclining chair. Frequent visual checks done. Will continue to monitor.
[2020-07-25] MEDS: ACETAMINOPHEN 325 MG TABLET PO PRN (16:30)
[2020-07-25 16:42] VITALS: BP 105/44
[2020-07-25] MEDS: QUETIAPINE FUMARATE 25 MG TABLET PO SCH (18:06)
--- NOTE | 2020-07-25 18:51 | NUR ---
Resting in bed. In no acute distress. Bed is low and locked alarm on. Call light in reach. Kept comfortable. Continue to monitor.
[2020-07-25 20:00] VITALS: BP 114/45
[2020-07-25] MEDS: DOCUSATE SODIUM 100 MG CAPSULE PO SCH (20:28)
[2020-07-25] MEDS: risperiDONE 0.5 MG TABLET PO SCH (20:28)
[2020-07-25] MEDS: TAMSULOSIN HCL 0.4 MG CAP.SR.24H PO SCH (20:28)
[2020-07-26] VITALS: BP 132/36
[2020-07-26 04:00] VITALS: BP 104/32
--- NOTE | 2020-07-26 05:31 | NUR ---
Pt resting in bed. Slept throughout the night with no distress. SB on monitor going to 45 bpm, pt asymptomatic. Lung sounds are diminished bilaterally. Tolerated all medications given. Safety and comfort provided. No other issues or concerns at this time, will endorse to day shift.
[2020-07-26 08:40] LABS: CREATININE 1.2 mg/dL (0.6-1.3); POTASSIUM 3.6 mmol/L (3.5-5.1)
[2020-07-26] MEDS: TOPIRAMATE 25 MG TABLET PO SCH (09:04)
[2020-07-26] MEDS: PANTOPRAZOLE SODIUM 40 MG TABLET.DR PO SCH (09:04)
[2020-07-26] MEDS: FINASTERIDE 5 MG TABLET PO SCH (09:04)
[2020-07-26] MEDS: TOLTERODINE LA 2 MG CAP.SR.24H PO SCH (09:04)
[2020-07-26] MEDS: APIXABAN 5 MG TABLET PO SCH ×2 (09:06→17:28)
[2020-07-26] MEDS: DORZOLAMIDE 2% OPHT DROP 10 ML BOTTLE EACHEYE SCH ×2 (09:18→17:36)
[2020-07-26] MEDS: FLUTICASONE/VILANTEROL 1 EACH BLST.W.DEV INH SCH (09:18)
[2020-07-26 11:31] VITALS: BP 109/29
[2020-07-26 16:00] VITALS: BP 102/45
[2020-07-26] MEDS: ENSURE ENLIVE (VAN) 240 ML LIQUID PO SCH (17:36)
[2020-07-26] MEDS: QUETIAPINE FUMARATE 25 MG TABLET PO SCH (18:05)
[2020-07-26 20:00] VITALS: BP 103/53
[2020-07-26] MEDS: DOCUSATE SODIUM 100 MG CAPSULE PO SCH (20:04)
[2020-07-26] MEDS: risperiDONE 0.5 MG TABLET PO SCH (20:04)
[2020-07-26] MEDS: TAMSULOSIN HCL 0.4 MG CAP.SR.24H PO SCH (20:04)
[2020-07-26 20:49] VITALS: BP 103/53
--- NOTE | 2020-07-26 21:40 | NUR ---
Received patient in bed resting. No s/s of acute distress noted at this time. Patient Danish speaking, AAOx1 to self. All medications administered per orders, tolerated well. Safety measures, with bed low and alarm on in place.
[2020-07-27 04:00] VITALS: BP 123/72
[2020-07-27 05:42] LABS: *BILIRUBIN,URIN NEGATIVE (NEGATIVE); *BLOOD, URINE 1+ (NEGATIVE); *CLARITY,URINE CLEAR (CLEAR); *COLOR,URINE YELLOW (YELLOW); *KETONES,URINE NEGATIVE (NEGATIVE); LEUKOCYTE ESTERASE ,URINE TRACE (NEGATIVE); NITRITE, URINE NEGATIVE (NEGATIVE); UGLUCOSE NEGATIVE (NEGATIVE)
[2020-07-27 05:57] LABS: BACTERIA,URINE FEW /HPF (NONE SEEN); SQUAMOUS EPITHELIAL CELL,UR FEW /HPF (NONE SEEN)
[2020-07-27] MEDS: PANTOPRAZOLE SODIUM 40 MG TABLET.DR PO SCH (06:31)
[2020-07-27 06:50] LABS: BASOPHILS % (AUTO) 0.6 % (0.0-2.0); EOSINOPHILS # (AUTO) 0.4 K/uL (0.0-0.7); EOSINOPHILS % (AUTO) 5.8 % (0.0-7.0); HEMATOCRIT 31.5 % (36.7-47.1); HEMOGLOBIN 10.8 g/dL (12.5-16.3); LYMPHOCYTES # (AUTO) 1.7 K/uL (20.0-40.0); MEAN CORPUSCULAR HGB CONC 34 g/dL (32.5-36.3); MEAN CORPUSCULAR VOLUME 93.2 fL (73.0-96.2); MONOCYTES # (AUTO) 0.7 K/uL (2.0-10.0); MONOCYTES % (AUTO) 9.2 % (0.0-11.0); NEUTROPHILS # (AUTO) 4.7 K/uL (1.8-8.9); NEUTROPHILS % (AUTO) 62.4 % (38.5-71.5); PLATELET COUNT (AUTO) 234 K/uL (152-348); RED BLOOD CELL COUNT(AUTO) 3.38 MIL/uL (4.06-5.63); WHITE BLOOD COUNT (AUTO) 7.5 K/uL (3.6-10.2)
[2020-07-27 07:03] LABS: BILIRUBIN,TOTAL 0.6 mg/dL (0.2-1.0); MAGNESIUM 2.4 mg/dL (1.8-2.4); PHOSPHOROUS 3.4 mg/dL (2.5-4.9); TOTAL PROTEIN, SERUM 6.7 g/dL (6.4-8.2)
[2020-07-27 07:30] VITALS: BP 141/44
[2020-07-27] MEDS: DORZOLAMIDE 2% OPHT DROP 10 ML BOTTLE EACHEYE SCH ×2 (08:54→16:45)
[2020-07-27] MEDS: TOPIRAMATE 25 MG TABLET PO SCH (08:54)
[2020-07-27] MEDS: TOLTERODINE LA 2 MG CAP.SR.24H PO SCH (08:54)
[2020-07-27] MEDS: FINASTERIDE 5 MG TABLET PO SCH (08:59)
[2020-07-27] MEDS ORDERED: FUROSEMIDE 40 MG TABLET PO SCH (09:00)
[2020-07-27] MEDS ORDERED: METOPROLOL SUCCINATE XL 25 MG TAB.SR.24H PO SCH (09:00)
[2020-07-27] MEDS: APIXABAN 5 MG TABLET PO SCH ×2 (09:00→16:45)
[2020-07-27] MEDS: ENSURE ENLIVE (VAN) 240 ML LIQUID PO SCH ×2 (09:01→17:00)
[2020-07-27] MEDS: FLUTICASONE/VILANTEROL 1 EACH BLST.W.DEV INH SCH (09:01)
[2020-07-27] MEDS: NITROFURANTOIN/NITROFURAN MAC 100 MG CAPSULE PO SCH ×2 (09:40→20:04)
[2020-07-27 10:52] VITALS: BP 126/43
[2020-07-27 15:00] VITALS: BP 121/83
[2020-07-27] MEDS ORDERED: ATOR10TA PO (15:03)
[2020-07-27] MEDS ORDERED: PANT40TA2 PO (15:03)
[2020-07-27] MEDS ORDERED: TAMS-3 PO (15:03)
[2020-07-27] MEDS ORDERED: DOCU100C36 PO (15:03)
[2020-07-27] MEDS: QUETIAPINE FUMARATE 25 MG TABLET PO SCH (18:13)
--- NOTE | 2020-07-27 18:38 | NUR ---
Patient in bed. AOx1-2, confused. On room air. no signs of acute distress. patient compliant with medications and care. safety measures provided. Needs met. Patient for discharge to home with home health.
[2020-07-27] MEDS: DOCUSATE SODIUM 100 MG CAPSULE PO SCH (20:03)
[2020-07-27] MEDS: TAMSULOSIN HCL 0.4 MG CAP.SR.24H PO SCH (20:04)
[2020-07-27] MEDS: risperiDONE 0.5 MG TABLET PO SCH (20:04)
--- NOTE | 2020-07-27 20:45 | NUR ---
Received patient resting in bed, AAOx1-2. No s/s of acute distress noted at this time. Patient discharged home with granddaughter. All discharge paperwork signed, copied, and sent home with the patient. Vital signs stable. Peripheral IVs removed and patient tolerated will. Addendum: 07/27/20 at 2157 by LOAN VILLARREAL RN All patient belongings sent home with the patient.
== END 2020-07-27 20:50 | disposition home health service (06) | DRG 291 ==
LOC: ER 22:07 → TELE3 07-24 08:05 → MEDSURG3 07-26 09:00
PROVIDERS: ADMIT Internal Medicine; ATTEND Internal Medicine
PROC: 05H533Z Insertion of Infusion Device into Right Subclavian Vein, Percutaneous Approach (ICD-10-PCS; principal; 2020-07-24)
PROC: B546ZZA Ultrasonography of Right Subclavian Vein, Guidance (ICD-10-PCS; 2020-07-24)
DX: I13.0 Hypertensive heart and chronic kidney disease with heart failure and stage 1 through stage 4 chronic kidney disease, or unspecified chronic kidney disease (principal); I50.43 Acute on chronic combined systolic (congestive) and diastolic (congestive) heart failure; N17.0 Acute kidney failure with tubular necrosis; D68.59 Other primary thrombophilia; N39.0 Urinary tract infection, site not specified; N18.9 Chronic kidney disease, unspecified; E11.51 Type 2 diabetes mellitus with diabetic peripheral angiopathy without gangrene; Z95.0 Presence of cardiac pacemaker; I25.10 Atherosclerotic heart disease of native coronary artery without angina pectoris; J44.9 Chronic obstructive pulmonary disease, unspecified; Z87.442 Personal history of urinary calculi; Z79.01 Long term (current) use of anticoagulants; E78.5 Hyperlipidemia, unspecified; F01.50 Vascular dementia, unspecified severity, without behavioral disturbance, psychotic disturbance, mood disturbance, and anxiety; I42.9 Cardiomyopathy, unspecified; Z20.822 Contact with and (suspected) exposure to COVID-19; I48.91 Unspecified atrial fibrillation; Z74.09 Other reduced mobility; K21.9 Gastro-esophageal reflux disease without esophagitis; K59.09 Other constipation; E11.22 Type 2 diabetes mellitus with diabetic chronic kidney disease; Z98.62 Peripheral vascular angioplasty status; M19.90 Unspecified osteoarthritis, unspecified site; Z87.891 Personal history of nicotine dependence; I34.0 Nonrheumatic mitral (valve) insufficiency; D64.9 Anemia, unspecified; Z79.84 Long term (current) use of oral hypoglycemic drugs; H54.8 Legal blindness, as defined in USA
CPT/HCPCS: 36415; 36600; 70030-TC; 71045; 83735; 84100; 84443; 84520; 85025; 87086; 93005; 93307; G0378; J1630; J1940

== ENCOUNTER 2021-02-12 13:08 | Inpatient (IN) | payer MEDICARE, OTHER ==
[~2021-02-12] VITALS: Ht 162.6 cm; Wt 63.2 kg
[2021-02-12] MEDS: LATANOPROST OPHT DROP 2.5 ML BOTTLE EACHEYE SCH (00:25)
[2021-02-12] MEDS: DEXAMETHASONE SOD PHOSPHATE 4 MG INJ IV SCH (00:40)
[2021-02-12] MEDS: FUROSEMIDE 40 MG/4 ML VIAL IV SCH (00:45)
[~2021-02-12 13:08] MED LIST changes: +ATOR10TA PO; -ATOR20TA PO; -AZIT250T13 PO; -BRIM5DRO2 EACHEYE; -CLON0.1T PO; +DOCU100C36 PO; -OMEG1CAP55 PO; -OMEP1CAP24 PO; +PANT40TA2 PO; -SITA50TA PO; -SPIR25TA PO; -ZOLP5TAB8 PO; -[UNRECOGNIZED DRUG - OTHER] PO
[2021-02-12] MEDS ORDERED: TOLT4CAP PO (15:05)
[2021-02-12] MEDS ORDERED: ERGOCAL PO (15:05)
[2021-02-12] MEDS ORDERED: OMEP20CA15 PO (15:05)
[2021-02-12] MEDS ORDERED: OMEG1CAP55 PO (15:05)
[2021-02-12] MEDS ORDERED: SPIR25TA6 PO (15:05)
[2021-02-12] MEDS ORDERED: METF-440 PO (15:05)
[2021-02-12] MEDS ORDERED: TOPI25TA49 PO (15:05)
[2021-02-12] MEDS ORDERED: BRIM5DRO2 EACHEYE (15:05)
[2021-02-12] MEDS ORDERED: FLUT1BLS4 IH (15:05)
[2021-02-12] MEDS ORDERED: BIMA2.5D5 EACHEYE (15:05)
--- NOTE | 2021-02-12 15:10 | NUR ---
PT IS IN ROOM #1B. DR GRAY EVALUATED THE PT.
[2021-02-12 16:11] LABS: HEMATOCRIT 38.7 % (36.7-47.1); MEAN CORPUSCULAR HEMOGLOBIN 30.6 uug (23.8-33.4); MEAN CORPUSCULAR VOLUME 89.5 fL (73.0-96.2); PLATELET COUNT (AUTO) 247 K/uL (152-348)
[2021-02-12 16:15] LABS: CARBON DIOXIDE 29 mmol/L (21-32); CHLORIDE 96 mmol/L (98-107); CREATININE 1.6 mg/dL (0.6-1.3); GLUCOSE 111 mg/dL (74-106); POTASSIUM 3.2 mmol/L (3.5-5.1); UREA NITROGEN, BLOOD 25 mg/dL (7-18)
[2021-02-12 16:27] LABS: ALANINE AMINOTRANSFERASE 11 U/L (16-63); ALKALINE PHOSPHATASE 88 U/L (50-136); ASPARTATE AMINOTRANSFERASE 21 U/L (15-37); BILIRUBIN,DIRECT 0.2 mg/dL (0.0-0.2); BILIRUBIN,TOTAL 0.6 mg/dL (0.2-1.0); TOTAL PROTEIN, SERUM 8.5 g/dL (6.4-8.2)
[2021-02-12 17:25] LABS: LYMPHOCYTES % (MANUAL) 9 % (20-40); MONOCYTES % (MANUAL) 20 % (2-10); NEUTROPHILS % (MANUAL) 71 % (42-75)
[2021-02-12] MEDS ORDERED: Z GUARD REMEDY PASTE 57 GM TUBE TOP PRN (17:30)
[2021-02-12] MEDS ORDERED: FUROSEMIDE 40 MG/4 ML VIAL IV SCH ×2 (17:30→20:22)
[2021-02-12] MEDS ORDERED: FUROSEMIDE 20 MG/2 ML VIAL IVP ONE (17:30)
[2021-02-12] MEDS ORDERED: MAGNESIUM HYDROXIDE 30 ML LIQUID UDC PO PRN (17:30)
[2021-02-12] MEDS ORDERED: ONDANSETRON 4 MG/2 ML VIAL IV PRN (17:30)
[2021-02-12] MEDS ORDERED: ACETAMINOPHEN 325 MG TABLET PO PRN (17:30)
[2021-02-12] MEDS ORDERED: DEXTROSE 50% 50 ML DISP.SYRIN IV PRN (17:30)
[2021-02-12] MEDS ORDERED: HYDROCODONE/APAP 5-325MG TABLET PO PRN (17:30)
[2021-02-12] MEDS ORDERED: NITROGLYCERIN OINT 1 GM PACKET TP ONE ×2 (17:30→18:09)
[2021-02-12] MEDS ORDERED: BIMATOPROST 0.01% OPHT DROP 2.5 ML BOTTLE EACHEYE SCH (18:00)
[2021-02-12] MEDS ORDERED: QUETIAPINE FUMARATE 25 MG TABLET ONE (18:08)
[2021-02-12] MEDS ORDERED: FUROSEMIDE 40 MG/4 ML VIAL ONE (18:09)
[2021-02-12] MEDS: QUETIAPINE FUMARATE 25 MG TABLET PO SCH (18:28)
[2021-02-12] MEDS ORDERED: HYDROCODONE/APAP 5-325MG TABLET ONE (18:36)
--- NOTE | 2021-02-12 19:07 | NUR ---
REPORT GIVEN TO CHARACTER ACTRESS RN.
[2021-02-12] MEDS ORDERED: hydrALAZINE HCL 20 MG/1 ML VIAL IV ONE (20:00)
[2021-02-12] MEDS ORDERED: hydrALAZINE HCL 20 MG/1 ML VIAL ONE (20:19)
--- NOTE | 2021-02-12 21:24 | NUR ---
Pt with NRBM saturation in the high 90's.
[2021-02-12] MEDS: BLOOD SUGAR DIAGNOSTIC 1 EACH STRIP VI SCH (22:00)
--- NOTE | 2021-02-12 22:39 | NUR ---
Call to [facility] pt unable to take PO meds.
--- NOTE | 2021-02-12 23:11 | NUR ---
Dr. martel called back ok to place eduardo catheter, ok to hold medications. Place patient on Lovenox 40mg SQ daily.
[2021-02-12] MEDS: APIXABAN 2.5 MG TABLET PO SCH (23:50)
[2021-02-12] MEDS: TAMSULOSIN HCL 0.4 MG CAP.SR.24H PO SCH (23:51)
[2021-02-12] MEDS: DOCUSATE SODIUM 100 MG CAPSULE PO SCH (23:51)
[2021-02-12] MEDS: risperiDONE 0.5 MG TABLET PO SCH (23:52)
[2021-02-12] MEDS: ATORVASTATIN 10 MG TABLET PO SCH (23:52)
--- NOTE | 2021-02-12 23:53 | NUR ---
Po meds held secondary to patients condition Dr Belcher gave order.
--- NOTE | 2021-02-12 23:58 | NUR ---
Call to oracle data warehouse developer for eye drops for patient.
[2021-02-13] MEDS ORDERED: ENOXAPARIN SODIUM 40 MG/0.4 ML DISP.SYRIN SQ ONE ×2 (00:19→00:33)
[2021-02-13] MEDS ORDERED: FUROSEMIDE 40 MG/4 ML VIAL ONE (00:20)
[2021-02-13] MEDS ORDERED: DEXAMETHASONE SOD PHOSPHATE 10 MG INJ ONE (00:20)
[2021-02-13] MEDS: ENOXAPARIN SODIUM 40 MG/0.4 ML DISP.SYRIN SQ SCH ×2 (00:35→23:44)
--- NOTE | 2021-02-13 00:59 | NUR ---
Unable to place eduardo catheter. Placed diaper.
--- NOTE | 2021-02-13 04:36 | NUR ---
patient remains stable on 100 percent NRBM.
--- NOTE | 2021-02-13 05:33 | NUR ---
pt turned positioned diaper changed, mary well. Saturation matintained on 100 percent NRBM.
[2021-02-13 06:21] LABS: CARBON DIOXIDE 25 mmol/L (21-32); CHLORIDE 97 mmol/L (98-107); CREATININE 1.6 mg/dL (0.6-1.3); GLUCOSE 143 mg/dL (74-106); PHOSPHOROUS 4.7 mg/dL (2.5-4.9); POTASSIUM 3.5 mmol/L (3.5-5.1); UREA NITROGEN, BLOOD 30 mg/dL (7-18)
[2021-02-13 06:22] LABS: MEAN CORPUSCULAR HEMOGLOBIN 30.4 uug (23.8-33.4); MEAN CORPUSCULAR VOLUME 89.4 fL (73.0-96.2); PLATELET COUNT (AUTO) 229 K/uL (152-348)
[2021-02-13] MEDS ORDERED: PANTOPRAZOLE SODIUM 40 MG TABLET.DR PO SCH (07:00)
--- NOTE | 2021-02-13 07:58 | NUR ---
REPORT WAS GIVEN TO TRELIFMETRY RN. PT WAS TRANSFERED TO ROOM #32O.
[2021-02-13] MEDS: BLOOD SUGAR DIAGNOSTIC 1 EACH STRIP VI SCH ×4 (08:06→20:03)
[2021-02-13] MEDS: PANTOPRAZOLE SODIUM 40 MG TABLET.DR PO SCH ×2 (08:09→09:54)
[2021-02-13] MEDS ORDERED: PANTOPRAZOLE SODIUM 40 MG TABLET.DR PO ONE (08:17)
--- NOTE | 2021-02-13 08:45 | NUR ---
Received this admission fromn ER per pepper, 85 yo male, with chief complaint of shirtness of breath, diagnosis of CHF, Pleural effusion; Covid 19 +. Transferred to bed comfortably. Routine admission care rendered. Placed on Tele Pacing with BBB. Awake, confused, Serbian speaking. With O2 per NRB at 15L, titrated to 2L/NC with O2 sat of 95%.
[2021-02-13] MEDS ORDERED: TOPIRAMATE 25 MG TABLET PO SCH (09:00)
[2021-02-13] MEDS ORDERED: FLUTICASONE/SALMETEROL 250/50 INHALER IH SCH (09:00)
[2021-02-13] MEDS: SPIRONOLACTONE 25 MG TABLET PO SCH (09:53)
[2021-02-13] MEDS: DEXAMETHASONE SOD PHOSPHATE 4 MG INJ IV SCH (09:53)
[2021-02-13] MEDS: FUROSEMIDE 40 MG/4 ML VIAL IV SCH (09:53)
[2021-02-13] MEDS: TOPIRAMATE 25 MG TABLET PO SCH (09:53)
[2021-02-13] MEDS: TOLTERODINE LA 2 MG CAP.SR.24H PO SCH (09:55)
[2021-02-13] MEDS: FINASTERIDE 5 MG TABLET PO SCH (09:55)
[2021-02-13] MEDS: APIXABAN 2.5 MG TABLET PO SCH ×2 (09:56→16:10)
--- NOTE | 2021-02-13 10:00 | NUR ---
Able to give medications, crushed with apple sauce with no coughing, patient compliant.
[2021-02-13] MEDS: METOPROLOL SUCCINATE XL 25 MG TAB.SR.24H PO SCH (10:07)
[2021-02-13] MEDS: DORZOLAMIDE 2% OPHT DROP 10 ML BOTTLE EACHEYE SCH ×2 (10:08→16:09)
[2021-02-13] MEDS: FLUTICASONE/VILANTEROL 1 EACH BLST.W.DEV INH SCH (10:08)
--- NOTE | 2021-02-13 12:00 | NUR ---
Noted attempting to climb out of bed. Repositioned. Bed alarm on.
[2021-02-13] MEDS: INSULIN REGULAR, HUMAN 300 UNIT/3 ML VIAL SQ PRN ×3 (12:07→20:06)
[2021-02-13] MEDS ORDERED: levoFLOXacin 750MG/D5W 750 MG in PREMIXED 1 EACH IV SCH (13:00)
[2021-02-13 13:35] VITALS: BP 109/73
[2021-02-13 16:42] VITALS: BP 105/79
[2021-02-13] MEDS: QUETIAPINE FUMARATE 25 MG TABLET PO SCH (17:14)
--- NOTE | 2021-02-13 17:37 | NUR ---
Climbing out of bed. Repositioned comfortably. Incontinence care done. Assisted with meal. Kept dry and comfortable. O2 at 2L/NC. Bed alarm on
[2021-02-13] MEDS ORDERED: ATOR20TA PO (18:50)
[2021-02-13] MEDS ORDERED: OMEP20CA15 PO (18:54)
--- NOTE | 2021-02-13 19:25 | NUR ---
Received pt awake lying in bed. Alert and oriented to name. Forgetful. 2L on NC saturating at 98%. lunchroom monitor reading is Pacing with BBB. IV in R FA intact. Pt skin is clean and dry. Repositioned to the R side. No signs of acute distress noted. Call lights within reach, safety measures initiated.
[2021-02-13] MEDS: TAMSULOSIN HCL 0.4 MG CAP.SR.24H PO SCH (20:00)
[2021-02-13] MEDS: LATANOPROST OPHT DROP 2.5 ML BOTTLE EACHEYE SCH (20:00)
[2021-02-13] MEDS: DOCUSATE SODIUM 100 MG CAPSULE PO SCH (20:00)
[2021-02-13] MEDS: risperiDONE 0.5 MG TABLET PO SCH (20:00)
[2021-02-13] MEDS: ATORVASTATIN 10 MG TABLET PO SCH (20:00)
[2021-02-13 21:18] VITALS: BP 112/41
[2021-02-14 00:33] VITALS: BP 108/56
[2021-02-14 04:25] VITALS: BP 124/54
--- NOTE | 2021-02-14 05:38 | NUR ---
Slept well through the night. Easily arousable to name and touch. Needs reorientation at times. On 2L NC saturating at 97%. BBB on tele monitor. No signs of acute distress. Repositioned Q2H. Kept skin clean and dry. PM meds given and tolerated. Call lights within reach. Safety measures maintained. Will endorse to am shift.
[2021-02-14] MEDS: BLOOD SUGAR DIAGNOSTIC 1 EACH STRIP VI SCH ×4 (06:36→21:39)
[2021-02-14 06:44] LABS: HEMATOCRIT 36.9 % (36.7-47.1); MEAN CORPUSCULAR HEMOGLOBIN 30.5 uug (23.8-33.4); PLATELET COUNT (AUTO) 238 K/uL (152-348)
--- NOTE | 2021-02-14 07:40 | NUR ---
Received report from night court magistrate nurseJacqueline RN. Patient resting comfortably in bed receiving 2L of Oxygen via Nasal Canula and saturating at 95%. IV site intact and patent. Bed left in lowest position with call light within reach. Will continue to monitor patient throughout shift.
[2021-02-14] MEDS: INSULIN REGULAR, HUMAN 300 UNIT/3 ML VIAL SQ PRN ×4 (07:59→21:42)
[2021-02-14 08:19] LABS: CARBON DIOXIDE 25 mmol/L (21-32); CHLORIDE 97 mmol/L (98-107); CREATININE 1.9 mg/dL (0.6-1.3); FERRITIN 127 ng/mL (26-388); GLUCOSE 146 mg/dL (74-106); LACTATE DEHYDROGENASE 287 U/L (85-227); MAGNESIUM 2.4 mg/dL (1.8-2.4); PHOSPHOROUS 5.5 mg/dL (2.5-4.9); POTASSIUM 3.4 mmol/L (3.5-5.1); UREA NITROGEN, BLOOD 54 mg/dL (7-18)
[2021-02-14 08:27] LABS: ABG BASE EXCESS 0.5 mmol/L; ABG HCO3 24.3 mmol/L; ABG PCO2 36.4 mmHg (35.0-45.0); ABG PH 7.442 (7.350-7.450); ABG PO2 79.2 mmHg (75.0-100.0); ABG SITE LEFT RADIAL; ABG TOTAL HEMOGLOBIN 13.6 G/dL (13.5-18.0); COHb 0.2 % (0.5-1.5); O2Hb 95.6 % (94.0-97.0); VENT MODE ROOM AIR
[2021-02-14] MEDS ORDERED: POTASSIUM CHLORIDE 20 MEQ POWDER PACKET PO ONE (08:45)
[2021-02-14] MEDS: METOPROLOL SUCCINATE XL 25 MG TAB.SR.24H PO SCH (09:00)
[2021-02-14] MEDS: FLUTICASONE/VILANTEROL 1 EACH BLST.W.DEV INH SCH (09:00)
[2021-02-14] MEDS: DORZOLAMIDE 2% OPHT DROP 10 ML BOTTLE EACHEYE SCH ×2 (09:00→17:00)
[2021-02-14] MEDS: LATANOPROST OPHT DROP 2.5 ML BOTTLE EACHEYE SCH (09:14)
[2021-02-14] MEDS: SPIRONOLACTONE 25 MG TABLET PO SCH (09:14)
[2021-02-14] MEDS: FINASTERIDE 5 MG TABLET PO SCH (09:15)
[2021-02-14] MEDS: TOLTERODINE LA 2 MG CAP.SR.24H PO SCH (09:15)
[2021-02-14] MEDS: TOPIRAMATE 25 MG TABLET PO SCH (09:15)
[2021-02-14] MEDS: DEXAMETHASONE SOD PHOSPHATE 4 MG INJ IV SCH (09:16)
[2021-02-14] MEDS: APIXABAN 2.5 MG TABLET PO SCH ×2 (09:17→16:56)
[2021-02-14 11:26] VITALS: BP 116/70
[2021-02-14 15:29] VITALS: BP 113/66
[2021-02-14] MEDS: QUETIAPINE FUMARATE 25 MG TABLET PO SCH (17:00)
--- NOTE | 2021-02-14 18:50 | NUR ---
Patient is resting comfortably in bed with no signs of distress or discomfort. Patient currently saturating at 97% on 2L of Oxygen via Nasal Canula. Patient will begin tonight with no oxygen delivery method as the patient was saturating between 93-95% with no oxygen during med pass at 1600. Will endorse to retail shift supervisor nurse. Bed left in lowest position with call light within reach. IV site intact and patent.
[2021-02-14] MEDS: ATORVASTATIN 10 MG TABLET PO SCH (20:49)
[2021-02-14] MEDS: risperiDONE 0.5 MG TABLET PO SCH (20:49)
[2021-02-14] MEDS: DOCUSATE SODIUM 100 MG CAPSULE PO SCH (20:49)
[2021-02-14] MEDS: TAMSULOSIN HCL 0.4 MG CAP.SR.24H PO SCH (20:49)
--- NOTE | 2021-02-15 00:27 | NUR ---
Received pt awake sitting on bed with no respiratory distress noted, on O2 at 2LPM via NC saturating at 95%. He is alert and oriented x1, Georgian speaking. Assisted back to bed and kept clean and comfortable. IV line on R FA patent and intact. Due medications given on time and tolerated well. Accuchecks done, BS 167 with ISS covered. All needs attended. Call light placed within reach. Will continue to monitor.
[2021-02-15] MEDS: PANTOPRAZOLE SODIUM 40 MG TABLET.DR PO SCH (06:15)
--- NOTE | 2021-02-15 06:27 | NUR ---
Pt slept throughout the night, easily arousable for care, on O2 at 2LPM via NC saturating at 96%. V-paced on Tele. He is alert and oriented x1, French speaking. IV line on R FA patent and intact. Due medication given on time and tolerated well. Accuchecks done, BS 147. All needs attended. Call light placed within reach. Frequent visual checks done. Will endorse to next shift.
[2021-02-15] MEDS: BLOOD SUGAR DIAGNOSTIC 1 EACH STRIP VI SCH ×2 (06:36→11:47)
[2021-02-15 07:11] LABS: HEMATOCRIT 36.8 % (36.7-47.1); MEAN CORPUSCULAR HEMOGLOBIN 30.7 uug (23.8-33.4); MEAN CORPUSCULAR VOLUME 88.5 fL (73.0-96.2); PLATELET COUNT (AUTO) 233 K/uL (152-348)
[2021-02-15] MEDS: INSULIN REGULAR, HUMAN 300 UNIT/3 ML VIAL SQ PRN ×2 (07:44→11:46)
[2021-02-15 07:48] LABS: ALANINE AMINOTRANSFERASE 13 U/L (16-63); ALKALINE PHOSPHATASE 67 U/L (50-136); ASPARTATE AMINOTRANSFERASE 38 U/L (15-37); BILIRUBIN,TOTAL 0.5 mg/dL (0.2-1.0); CARBON DIOXIDE 30 mmol/L (21-32); CHLORIDE 96 mmol/L (98-107); CREATININE 1.6 mg/dL (0.6-1.3); FERRITIN 136 ng/mL (26-388); GLUCOSE 128 mg/dL (74-106); MAGNESIUM 2.5 mg/dL (1.8-2.4); PHOSPHOROUS 3.9 mg/dL (2.5-4.9); POTASSIUM 3.2 mmol/L (3.5-5.1); TOTAL PROTEIN, SERUM 7.6 g/dL (6.4-8.2); UREA NITROGEN, BLOOD 58 mg/dL (7-18)
--- NOTE | 2021-02-15 08:13 | NUR ---
Received report from overnight babysitter nurse. Arrived to patient sleeping comfortably in bed with no signs of distress or discomfort. Patient currently receiving 2L of Oxygen and saturating at 96%. Will begin to ween patient of Oxygen. Previous shift, patient saturated between 93-95% with no assistive oxygen device. IV site intact and patent. Bed left in lowest position. Will continue to monitor patient throughout shift.
[2021-02-15] MEDS: DORZOLAMIDE 2% OPHT DROP 10 ML BOTTLE EACHEYE SCH (08:46)
[2021-02-15] MEDS: DEXAMETHASONE SOD PHOSPHATE 4 MG INJ IV SCH (08:47)
[2021-02-15] MEDS: FLUTICASONE/VILANTEROL 1 EACH BLST.W.DEV INH SCH (08:47)
[2021-02-15] MEDS: FINASTERIDE 5 MG TABLET PO SCH (08:47)
[2021-02-15] MEDS: SPIRONOLACTONE 25 MG TABLET PO SCH (08:47)
[2021-02-15] MEDS: TOPIRAMATE 25 MG TABLET PO SCH (08:48)
[2021-02-15] MEDS: TOLTERODINE LA 2 MG CAP.SR.24H PO SCH (08:48)
[2021-02-15] MEDS: APIXABAN 2.5 MG TABLET PO SCH (08:49)
[2021-02-15] MEDS: METOPROLOL SUCCINATE XL 25 MG TAB.SR.24H PO SCH (09:00)
[2021-02-15] MEDS ORDERED: POTASSIUM CHLORIDE 20 MEQ TAB.PRT.SR PO ONE (09:15)
--- NOTE | 2021-02-15 09:24 | NUR ---
Patient saturating at 95% with no oxygen. Low as 92%. Titrated oxygen to 1L. Currently saturating at 95%
[2021-02-15 10:55] VITALS: BP 119/58
[2021-02-15] MEDS ORDERED: DEXA6TAB6 PO (11:32)
[2021-02-15] MEDS ORDERED: LEVO750T46 PO (11:32)
[2021-02-15] MEDS ORDERED: APIX2.5T PO (11:32)
[2021-02-15] MEDS ORDERED: POTASSIUM CHLORIDE 20 MEQ POWDER PACKET PO ONE (11:45)
--- NOTE | 2021-02-15 12:06 | NUR ---
Pharmacy notified of patient not being able to take pills whole. K-Dur not administered. Pharmacy notified and told to give Oral Solution instead.
[2021-02-15] MEDS ORDERED: levoFLOXacin 750MG/D5W 750 MG in PREMIXED 1 EACH IV SCH (13:00)
[2021-02-15 16:16] VITALS: BP 129/60
== END 2021-02-15 17:16 | disposition home health service (06) | DRG 177 ==
LOC: ER 13:08 → TRANSITION 20:10 → TELE3 02-13 08:02
PROVIDERS: ATTEND Internal Medicine
DX: U07.1 COVID-19 (principal); J12.82 Pneumonia due to coronavirus disease 2019; J96.01 Acute respiratory failure with hypoxia; I21.4 Non-ST elevation (NSTEMI) myocardial infarction; I13.0 Hypertensive heart and chronic kidney disease with heart failure and stage 1 through stage 4 chronic kidney disease, or unspecified chronic kidney disease; N17.9 Acute kidney failure, unspecified; I42.9 Cardiomyopathy, unspecified; I50.22 Chronic systolic (congestive) heart failure; J44.0 Chronic obstructive pulmonary disease with (acute) lower respiratory infection; I48.0 Paroxysmal atrial fibrillation; E11.22 Type 2 diabetes mellitus with diabetic chronic kidney disease; N18.9 Chronic kidney disease, unspecified; Z79.84 Long term (current) use of oral hypoglycemic drugs; E11.51 Type 2 diabetes mellitus with diabetic peripheral angiopathy without gangrene; F03.90 Unspecified dementia, unspecified severity, without behavioral disturbance, psychotic disturbance, mood disturbance, and anxiety; N40.0 Benign prostatic hyperplasia without lower urinary tract symptoms; Z95.0 Presence of cardiac pacemaker; Z87.891 Personal history of nicotine dependence; Z79.01 Long term (current) use of anticoagulants; I25.10 Atherosclerotic heart disease of native coronary artery without angina pectoris; E86.1 Hypovolemia; E78.5 Hyperlipidemia, unspecified; H54.62 Unqualified visual loss, left eye, normal vision right eye; Z95.820 Peripheral vascular angioplasty status with implants and grafts
CPT/HCPCS: 36415; 36600; 70030-TC; 71045; 83605; 83615; 83735; 84100; 85025; 85730; 86140; 93005; A4663; G0378; J0360; J1100; J1650; J1815; J1940; J1956